=== PATIENT | male | born 1935 | race Caucasian/White ===

== ENCOUNTER → 2016-10-01 | Outpatient (CLI) | payer OTHER ==
[~2016-10-01] MED LIST: ALL60 PO; ASPEC325 PO; CHOND PO; DHEA PO; GLC500 PO; GLUCOS PO; GLYB-108 PO; NAPR-1169 PO; OCCUVITE PO; OMEG10007 PO; TELM80TA6 PO
[2016-10-01 10:36] LABS: ESTIMATED AVERAGE GLUCOSE 146 mg/dl; HA1C FLAG Normal (Normal)
[2016-10-01 12:34] LABS: ALT/SGPT 31 U/L (12-78); BLOOD UREA NITROGEN 21 mg/dl (7-18); BUN/CREATININE RATIO 13.9 (10-20); CALCIUM 8.5 mg/dl (8.5-10.1); CARBON DIOXIDE 25 mmol/L (21-32); CHLORIDE 104 mmol/L (98-107); GLUCOSE 215 mg/dl (70-99); POTASSIUM 4.5 mmol/L (3.5-5.1); SODIUM 139 mmol/L (136-145)
[2016-10-01 12:39] LABS: ALB/GLOB RATIO 1.2 (0.9-2); ALKALINE PHOSPHATASE 52 U/L (45-117); AST/SGOT 18 U/L (15-37); CHOLESTEROL 166 mg/dl (0-200); HDL CHOLESTEROL 56 mg/dl; LDL CHOLESTEROL CALCULATED 90 mg/dl; PROSTATE SPECIFIC ANTIGEN < 0.010 ng/ml (0.000-4.000); TRIGLYCERIDES 98 mg/dl (0-150); VERY LOW DENSITY LIPOPROT CALC 20 mg/dl
== END | disposition home or self-care (01) ==
LOC: C.LAB1850 09:21
PROVIDERS: ATTEND Internal Medicine
DX: E11.9 Type 2 diabetes mellitus without complications (principal); Z12.5 Encounter for screening for malignant neoplasm of prostate

== ENCOUNTER → 2017-04-02 | Outpatient (CLI) | payer OTHER ==
[~2017-04-02] MED LIST changes: +TELM80TA4 PO; -TELM80TA6 PO
[2017-04-02 12:37] LABS: ESTIMATED AVERAGE GLUCOSE 157 mg/dl; HA1C FLAG Normal (Normal)
[2017-04-02 12:53] LABS: BLOOD UREA NITROGEN 20 mg/dl (7-18); BUN/CREATININE RATIO 13.1 (10-20); CALCIUM 9.2 mg/dl (8.5-10.1); CARBON DIOXIDE 27 mmol/L (21-32); CHLORIDE 102 mmol/L (98-107); CHOLESTEROL 184 mg/dl (0-200); GLUCOSE 234 mg/dl (70-99); POTASSIUM 4.3 mmol/L (3.5-5.1); SODIUM 136 mmol/L (136-145); TRIGLYCERIDES 178 mg/dl (0-150); VERY LOW DENSITY LIPOPROT CALC 36 mg/dl
[2017-04-02 12:55] LABS: CHOLESTEROL/HDL RATIO 3.3; HDL CHOLESTEROL 55 mg/dl; LDL CHOLESTEROL CALCULATED 93 mg/dl
== END | disposition home or self-care (01) ==
LOC: C.LAB1850 09:54
PROVIDERS: ATTEND Internal Medicine
DX: E11.9 Type 2 diabetes mellitus without complications (principal); I10 Essential (primary) hypertension

== ENCOUNTER 2021-10-05 22:52 | Inpatient (IN) ==
[2021-10-05 23:38] LABS: Basophils # (auto) 0.01 K/uL (0-0.2); Basophils % (auto) 0.2 %; Eosinophils # (auto) 0.19 K/uL (0-0.5); Eosinophils % (auto) 3.5 %; Hematocrit (blood only) 35.2 % (42-52); Hemoglobin 12.5 g/dL (14.0-18.0); Lymphocytes # (auto) 2.22 K/uL (1.2-3.4); Lymphocytes % (auto) 40.4 %; Mean Corpuscular Hemoglobin 29.3 pg (25-34); Mean Corpuscular Hgb Conc 35.5 g/dL (32-36); Mean Corpuscular Volume 82.6 fL (80-100); Mean Platelet Volume 9.1 fL (7.4-10.4); Monocytes # (auto) 0.42 K/uL (0.11-0.59); Monocytes % (auto) 7.7 %; Neutrophils # (auto) 2.65 K/uL (1.4-6.5); Neutrophils % (auto) 48.2 %; Platelet Count 213 K/uL (130-400); RDW Coefficient of Variation 13.5 % (11.5-14.5); RDW Standard Deviation 40.6 fL (36.4-46.3); Red Blood Count 4.26 M/uL (4.7-6.1); White Blood Count 5.49 K/uL (4.8-10.8)
[2021-10-05 23:51] LABS: INR 1.1 (0.9-1.1); Partial Thromboplastin Time 27.6 Seconds (21.0-31.0); Prothrombin Time 11.2 Seconds (9.0-12.0)
[2021-10-06 00:02] LABS: Appearance Urine Clear (Clear); Bilirubin Urine Negative (Negative); Blood Urine Negative (Negative); Color Urine Yellow; Glucose Urine UA Trace (Negative); Ketones Urine Negative (Negative); Leukocyte Esterase Urine Negative (Negative); Nitrite Urine Negative (Negative); Protein Urine Negative (Negative); Urobilinogen Urine Negative (Negative); pH Urine 6.5 (4.5-7.5)
[2021-10-06 00:05] LABS: Albumin Globulin Ratio 1.6 (0.9-2); BUN Creatinine Ratio 19.1 (10-20); Bilirubin,Total 0.6 mg/dl (0.2-1.0); Calcium 9.2 mg/dl (8.5-10.1); Creatinine Clr Calc Pharmacy 47.9 ml/min; Est GFR (African American) 57.5 ml/min; Est GFR (Non-African American) 49.6 ml/min; Globulin 2.5 gm/dl (2.5-4.0); Potassium 3.9 mmol/L (3.5-5.1); Total Protein 6.5 gm/dl (6.0-8.3)
--- NOTE | 2021-10-06 01:11 | History & Physical Report ---
Date of Service October 06, 2021 Assessment & Plan (1) Closed left hip fracture: Plan: N.p.o. after midnight Geriatric hip fracture order set Acetaminophen 650 mg p.o. every 6 hours as needed mild pain or fever Anthon 5/325, 1 p.o. every 6 hours as needed moderate pain Anthon 5/325, 2 p.o. every 6 hours as needed severe pain Dilaudid 0.25 mg IV every 3 hours as needed moderate pain Dilaudid 0.5 mg IV every 3 hours as needed severe pain Zofran 4 mg IV every 6 hours as needed LR at 80 mils per hour Consult orthopedic surgery (2) Hypertension: Plan: Hold telmisartan/HCTZ Give metoprolol tartrate 25 mg p.o. now, then 25 mg p.o. twice daily with hold parameters (3) Type 2 diabetes mellitus: Plan: Hold Metformin Place on Accu-Cheks before meals and at bedtime with NovoLog coverage per scale (4) Greater trochanteric bursitis of right hip: Plan: Following up with orthopedics in the outpatient setting (5) Gait abnormality: Plan: Following up in the outpatient setting (6) Spinal stenosis of lumbar region: Plan: Reports has a appointment with pain management History of Present Illness Chief Complaint: The patient presents to the emergency department with complaint of left hip pain that occurred when he was leaning forward to pick something up off of the floor, and kept going forward, had his left shoulder hit the wall, and then left hip hit the floor and sustained immediate pain in left hip. He reports no left shoulder pain or disability Primary Care Provider: Armando Valencia MD The patient is 86-year-old male with a past medical history including right greater trochanteric bursitis, diabetes mellitus, hypertension, bilateral hip arthritis, lumbar compression fracture, sacroiliitis, allergic rhinitis, pars defect of lumbar spine, lumbar spinal stenosis and gait abnormality. He presents to the emergency department as noted above. Allergies Allergy/AdvReac Type Severity Reaction Status Date / Time No Known Drug Allergies Allergy Unknown Unknown Verified 10/05/21 23:28 Dust Allergy Unknown Congested Uncoded 10/05/21 23:28 Home Medications Medication Instructions Recorded Confirmed Type cetirizine 10 mg tablet (Zyrtec) 10 mg PO DAILY 06/10/18 10/05/21 History omega 4-uot-pee-fish oil 1,000 mg 1 cap PO DAILY 06/10/18 10/05/21 History (120 mg-180 mg) capsule (Fish Oil) vit C,E,zinc,copper-udsnd8y 250 1 cap PO DAILY 06/10/18 10/05/21 History mg-lutein 5 mg-zeaxanthin 1 mg capsule (Ocuvite Adult 50 Plus) cholecalciferol (vitamin D3) 25 1,000 units PO DAILY tab 01/15/19 10/05/21 History mcg (1,000 unit) tablet aspirin 325 mg tablet 650 mg PO BID PRN 03/15/20 10/05/21 History telmisartan 80 1 tab PO DAILY #90 tab 01/29/21 10/05/21 Rx mg-hydrochlorothiazide 25 mg tablet (Micardis HCT) Wheeled Walker #1 ea 06/18/21 07/30/21 Rx OneTouch Delica Lancets 30 gauge #100 ea NS 07/31/21 Rx (lancets) OneTouch Ultra Test (blood sugar #100 ea NS 07/31/21 Rx diagnostic) metformin 500 mg tablet 500 mg PO DAILY 10/05/21 10/05/21 History Past Med/Surg History Medical History Allergic rhinitis Anterolisthesis Arthritis Diabetes mellitus Gait abnormality Greater trochanteric bursitis of right hip History of gastritis Hypertension Inhibited sexual excitement Lumbar compression fracture Myofascial pain Pars defect of lumbar spine Sacroiliitis Sciatica of right side Spinal stenosis of lumbar region Type 2 diabetes mellitus Surgical History History of knee replacement S/P colonoscopy S/P tonsillectomy S/P tooth extraction Family History Mother Diabetes Renal failure History of miscarriage Sister Uterine cancer Ovarian cancer Father Cardiomegaly Colon cancer Family/Other No problems noted. 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 marital status: Current Living Situation: Spouse current occupational status: retired Feels Safe at Home: Yes Dental Care, Regularly: Yes Physical Activity Frequency: 3-4 Times per Week Physical Activity Frequency Comment: Regularly, stationary bike Seatbelt Use: always Sunscreen Use: Yes Review of Systems Review of Systems: The patient denies chest pain, palpitations, shortness of breath, dyspnea on exertion, cough, lower extremity swelling, sore throat, fevers, chills, sweats, nausea, vomiting, diarrhea , constipation, abdominal pain, pelvic pain, blood in urine or stool, dysuria, urinary frequency or urgency, headache, memory loss, loss of consciousness, rash, abnormal bruising or bleeding, focal or generalized weakness, numbness or tingling in arms none generalized arthralgias or myalgias, neck pain, or night sweats. The review of systems is otherwise negative other than for that already noted above, and at least 10 systems have been reviewed. Physical Exam Physical Exam: The patient is awake, alert and oriented 3, well developed and well nourished, normocephalic and atraumatic, lying in bed and in no acute distress while lying still HEENT--PERRL, EOMI, mucous membranes and oropharynx normal Neck--supple. No JVD. No bruits. Thyroid normal, trachea midline, no adenopathy. Heart--normal S1 and S2. No murmurs, rubs or gallops. Lungs--clear bilaterally, no respiratory distress, no accessory muscle use. Abdomen--normal bowel sounds and soft. Nontender. Nondistended, no hernias or masses, no organomegaly. Extremities--no cyanosis or clubbing. No edema. There are good distal pulses b/l. Dermatologic--normal skin turgor, normal color, no abnormal lymph nodes, no rash. Neurologic--cranial nerves II through XII grossly intact. Rheumatologic--left hip externally rotated, with severe pain upon light palpation Psychiatric--normal affect. Results & Data Results & Data ([facility]) Vital Signs (Past 12 Hours) Vital Signs Temp Pulse Resp BP Pulse Ox 10/05/21 23:15 76 14 155/77 H 100 10/05/21 23:07 36.9 C 77 18 155/77 H 100 Laboratory Results Laboratory Results WBC 5.49 K/uL (4.8-10.8) 10/05/21 23:00 RBC 4.26 M/uL (4.7-6.1) L 10/05/21 23:00 Hgb 12.5 g/dL (14.0-18.0) L 10/05/21 23:00 Hct 35.2 % (42-52) L 10/05/21 23:00 MCV 82.6 fL (80-100) 10/05/21 23:00 MCH 29.3 pg (25-34) 10/05/21 23: MCHC 35.5 g/dL (32-36) 10/05/21:00 RDW Std Deviation 40.6 fL (36.4-46.3) 10/05/21: RDW Coeff of Thierry 13.5 % (11.5-14.5) 10/05/21: Plt Count 213 K/uL (130-400) 10/05/21 23:00 MPV 9.1 fL (7.4-10.4) 10/05/21 23:00 Immature Gran % (Auto) 0.0 % 10/05/21 23:00 Neut % (Auto) 48.2 % 10/05/21 23:00 Lymph % (Auto) 40.4 % 10/05/21 23:00 [place] % (Auto) 7.7 % 10/05/21 23:00 Eos % (Auto) 3.5 % 10/05/21 23:00 Baso % (Auto) 0.2 % 10/05/21 23:00 Neut # (Auto) 2.65 K/uL (1.4-6.5) 10/05/21 23:00 Lymph # (Auto) 2.22 K/uL (1.2-3.4) 10/05/21 23:00 [place] # (Auto) 0.42 K/uL (0.11-0.59) 10/05/21 23:00 Eos # (Auto) 0.19 K/uL (0-0.5) 10/05/21 23:00 Baso # (Auto) 0.01 K/uL (0-0.2) 10/05/21 23:00 Immature Gran # (Auto) 0.00 K/uL (0.00-0.02) 10/05/21 23:00 PT 11.2 Seconds (9.0-12.0) 10/05/21 23:00 INR 1.1 (0.9-1.1) 10/05/21 23:00 APTT 27.6 Seconds (21.0-31.0) 10/05/21 23:00 PTT Ratio 1.0 10/05/21 23:00 Sodium 135 mmol/L (136-145) L 10/05/21 23:00 Potassium 3.9 mmol/L (3.5-5.1) 10/05/21 23:00 Chloride 102 mmol/L (98-107) 10/05/21 23:00 Carbon Dioxide 25 mmol/L (21-32) 10/05/21 23:00 Anion Gap 8 (3-11) 10/05/21 23:00 BUN 25 mg/dl (6-23) H 10/05/21 23:00 Creatinine 1.31 mg/dl (0.6-1.4) 10/05/21 23:00 Est Cr Clr Drug Dosing 47.9 ml/min 10/05/21 23:00 Est GFR ( Amer) 57.5 ml/min 10/05/21 23:00 Est GFR (Non-Af Amer) 49.6 ml/min 10/05/21 23:00 BUN/Creatinine Ratio 19.1 (10-20) 10/05/21 23:00 Glucose 194 mg/dl (70-99(Fasting)) H 10/05/21 23:00 Calcium 9.2 mg/dl (8.5-10.1) 10/05/21 23:00 Total Bilirubin 0.6 mg/dl (0.2-1.0) 10/05/21 23:00 AST 10 U/L (13-39) L 10/05/21 23:00 ALT 11 U/L (7-52) 10/05/21 23:00 Alkaline Phosphatase 73 U/L (34-104) 10/05/21 23:00 Total Protein 6.5 gm/dl (6.0-8.3) 10/05/21 23:00 Albumin 4.0 gm/dl (3.4-5.0) 10/05/21 23:00 Globulin 2.5 gm/dl (2.5-4.0) 10/05/21 23:00 Albumin/Globulin Ratio 1.6 (0.9-2) 10/05/21 23:00 Urine Color Yellow 10/05/21 23:30 Urine Appearance Clear (Clear) 10/05/21 23:30 Urine pH 6.5 (4.5-7.5) 10/05/21 23:30 Ur Specific [place] 1.010 (1.000-1.030) 10/05/21 23:30 Urine Protein Negative (Negative) 10/05/21 23:30 Urine Glucose (UA) Trace (Negative) H 10/05/21 23:30 Urine Ketones Negative (Negative) 10/05/21 23:30 Urine Blood Negative (Negative) 10/05/21 23:30 Urine Nitrite Negative (Negative) 10/05/21 23:30 Urine Bilirubin Negative (Negative) 10/05/21 23:30 Urine Urobilinogen Negative (Negative) 10/05/21 23:30 Ur Leukocyte Esterase Negative (Negative) 10/05/21 23:30 SARS-CoV-2, RNA, NAAT NEGATIVE (NEGATIVE) 10/06/21 01:15 Code Status & VTE Plan Code Status Full code VTE Prophylaxis Plan VTE Prophylaxis will be ordered: Yes PG Care Time/CCT Total # of Minutes Spent Total Time Spent with Patient: Total time spent is greater than 50% in coordination of care (as documented) at patient's floor/unit and/or counseling patient: Coding Level of Care Code 66091 Initial Inpt Care Lvl 3 Diagnoses Closed left hip fracture S72.002A Greater trochanteric bursitis of right hip M70.61 Gait abnormality R26.9 Spinal stenosis of lumbar region M48.061 Type 2 diabetes mellitus E11.9 Hypertension I10
[2021-10-06] MEDS ORDERED: METOPROLOL TARTRATE 25 MG TAB PO STA (01:12)
[2021-10-06] MEDS ORDERED: NALOXONE HCL 0.4 MG/1 ML VIAL/CARP IV PRN (03:20)
[2021-10-06] MEDS ORDERED: bisacodyL 10 MG SUPP PR PRN (03:20)
[2021-10-06] MEDS ORDERED: MAGNESIUM HYDROXIDE SUSP 30 ML UDC PO PRN (03:20)
[2021-10-06] MEDS ORDERED: ACETAMINOPHEN 325 MG TAB PO PRN (03:20)
[2021-10-06] MEDS ORDERED: HYDROCODONE/ACETAMOPHEN 5/325MG TAB PO PRN (03:20)
[2021-10-06] MEDS ORDERED: CARBOHYDRATES FOR HYPOGLYCEMIA PO PRN (03:20)
[2021-10-06] MEDS ORDERED: DEXTROSE 50% 50 ML SYRINGE IV PRN (03:20)
[2021-10-06] MEDS ORDERED: GLUCAGON FOR INJ 1 MG VIAL SQ PRN (03:20)
[2021-10-06] MEDS ORDERED: GLUCOSE 10 TABS/TUBE PO PRN (03:20)
[2021-10-06] MEDS ORDERED: GLUCOSE 40% GEL 15 GM TUBE PO PRN (03:20)
[2021-10-06] MEDS ORDERED: HYDROmorphone INJ 0.5 MG/0.5 ML SYR IV PRN (03:20)
[2021-10-06] MEDS ORDERED: Nursing to Pharmacy Communication SCH (03:30)
[2021-10-06] MEDS: HYDROmorphone INJ 0.5 MG/0.5 ML SYR IV PRN ×3 (03:35→12:13)
[2021-10-06] MEDS: LACTATED RINGER'S 1,000 ML IV SCH ×2 (03:36→16:58)
[2021-10-06] MEDS ORDERED: TRANEXAMIC ACID / 0.7% NACL 1,000 MG/100 ML BAG IV SCH ×2 (06:00→06:30)
[2021-10-06] MEDS: INSULIN ASPART PER UNIT SC SCH ×4 (06:22→20:45)
--- NOTE | 2021-10-06 07:09 | Emergency Department Note ---
Impression & Plan Closed fracture of left hip Admit to the [facility] ED Provider Note NAME: SAM ALMARAZ AGE: 86 SEX: M ARRIVES VIA: Ambulance INFORMANT: Patient ED PROVIDER(S): Mary Li DO CHIEF COMPLAINT: Fall PLAN: Disposition: Admit to the [facility] Condition: Good MEDICAL DECISION MAKING: This is an 86-year-old male patient who suffered a fall at home and fractured his left hip. He did not strike his head or lose consciousness. He bent forward he lost his balance and fell to the ground. Be admitted to the [facility] service and orthopedics will be consulted. Triage Nursing notes reviewed and agree with them. Vital Signs: reviewed and remarkable for mild hypertension Differential diagnosis: Hip dislocation, hip contusion, hip fracture ER treatment provided: Diagnostics interpreted by me: Cardiac Monitoring: Normal sinus rhythm at 68 Laboratory studies: See below Imaging studies: As per my interpretation Left hip x-ray: Femoral neck fracture HPI: 86/M arrives for evaluation of left hip pain. The patient was bending forward to fix a rug when he lost his balance and fell forward landing on his left hip. He did not strike his head or lose consciousness. He immediately had pain in the left hip and found it difficult with any movement to that joint. Patient does not take any blood thinning medications. ROS: See above HPI for pertinent positives & negatives. A total of 10 systems reviewed and were otherwise negative. PAST MEDICAL HISTORY:See Below PAST SURGICAL HISTORY:See Below FAMILY HISTORY:See Below SOCIAL HISTORY:See Below HOME MEDICATIONS:See list ALLERGIES:See list VITALS:See Below PHYSICAL EXAMINATION: HEENT: Head - normocephalic and atraumatic. Pupils are equal, round, and reactive to light. Extraocular eye muscles are intact, and sclera are anicteric. Nose - moist nasal mucosa without discharge. Mouth - moist buccal mucosa. Oropharynx is nonerythematous and there is no tonsillar exudate or edema noted. Neck: Supple; no cervical lymphadenopathy or JVD noted. Heart: Regular rate and rhythm. There is a normal S1 and S2 with no murmurs, clicks, or gallops appreciated. Lungs: Clear to auscultation bilaterally with no wheezes, rales, or rhonchi. Abdomen: Soft, completely nontender, nondistended, with good bowel sounds. There are no palpable pulsatile masses or hepatosplenomegaly. There is no guarding, rigidity, or rebound noted. Extremities: Left leg is significantly shortened and externally rotated. Patient has moderate pain with palpation in the left lateral hip and left groin. ED COURSE: Times/Reassessments: 2324: The patient was evaluated in room C3. A complete history and physical was performed. Laboratory studies were drawn as above. EMS had given the patient 4 mg of IV Zofran and 100 mcg of IV fentanyl prior to arrival. An order was placed for continuous cardiac monitoring. The patient was in a normal sinus rhythm at a rate of 68. He had plain films of the left hip performed. Reviewed the results of these x- rays with the patient. I discussed the case with the [facility] hospitalist and they will evaluate for further management. Mary Li DO Past Med/Surg History Medical History Allergic rhinitis Anterolisthesis Arthritis Diabetes mellitus Gait abnormality Greater trochanteric bursitis of right hip History of gastritis Hypertension Inhibited sexual excitement Lumbar compression fracture Myofascial pain Pars defect of lumbar spine Sacroiliitis Sciatica of right side Spinal stenosis of lumbar region Type 2 diabetes mellitus Surgical History History of knee replacement S/P colonoscopy S/P tonsillectomy S/P tooth extraction Family History Mother Diabetes Renal failure History of miscarriage Sister Uterine cancer Ovarian cancer Father Cardiomegaly Colon cancer Family/Other No problems noted. Denies family history of Prostate cancer Myocardial infarction Breast cancer Social History Smoking Status: Former smoker Second Hand Exposure: No; Hx Alcohol Use: No Hx Substance Use: No Preferred Language: Urdu Communication Ability: Effective Visual Impairment: No Limitations Hearing Ability: Normal Property Staff Accountant Required: No Beliefs That Will Affect Care: None marital status: Current Living Situation: Alone current occupational status: retired Feels Safe at Home: Yes Dental Care, Regularly: Yes Physical Activity Frequency: 3-4 Times per Week Physical Activity Frequency Comment: Regularly, stationary bike Seatbelt Use: always Sunscreen Use: Yes Assistive Devices: Glasses Allergies Allergies Allergy/AdvReac Type Severity Reaction Status Date / Time No Known Drug Allergies Allergy Unknown Unknown Verified 10/05/21 23:28 Dust Allergy Unknown Congested Uncoded 10/05/21 23:28 Home Meds Home Medications Medication Instructions Recorded Confirmed cetirizine 10 mg tablet (Zyrtec) 10 mg PO DAILY 06/10/18 10/05/21 omega 9-jga-cdi-fish oil 1,000 mg 1 cap PO DAILY 06/10/18 10/05/21 (120 mg-180 mg) capsule (Fish Oil) vit C,E,zinc,copper-vvdle4r 250 1 cap PO DAILY 06/10/18 10/05/21 mg-lutein 5 mg-zeaxanthin 1 mg capsule (Ocuvite Adult 50 Plus) cholecalciferol (vitamin D3) 25 1,000 units PO DAILY tab 01/15/19 10/05/21 mcg (1,000 unit) tablet aspirin 325 mg tablet 650 mg PO BID PRN 03/15/20 10/05/21 metformin 500 mg tablet 500 mg PO DAILY 10/05/21 10/05/21 Previous Rx's Medication Instructions Recorded telmisartan 80 1 tab PO DAILY #90 tab 01/29/21 mg-hydrochlorothiazide 25 mg tablet (Micardis HCT) Wheeled Walker #1 ea 06/18/21 OneTouch Delica Lancets 30 gauge #100 ea NS 07/31/21 (lancets) OneTouch Ultra Test (blood sugar #100 ea NS 07/31/21 diagnostic) Results & Data (ED) Vital Signs Vital Signs - 24 hr 10/05/21 23:07 10/05/21 23:15 10/06/21 01:00 Temperature 36.9 C Temperature Source Oral Pulse Rate 77 76 80 Respiratory Rate 18 14 18 Respiratory Effort / Characteristics Non-Labored Blood Pressure 155/77 H 155/77 H 140/73 Blood Pressure Mean 103 103 95 Pulse Oximetry 100 100 99 Oxygen Delivery Method Room Air Room Air Room Air Sepsis Recent Fever Within 48 Hours No Sepsis New/Unexplained Change in Mental Status N/A Sepsis Action Taken by Nursing No Action Required Laboratory Data Result diagrams: 10/05/21 23:00 10/05/21 23:00 Lab Results 10/05/21 10/05/2110/05/22 Range/Units 23:00 23:00 23:00 WBC 5.49 (4.8-10.8) K/uL RBC 4.26 L (4.7-6.1) M/uL Hgb 12.5 L (14.0-18.0) g/dL Hct 35.2 L (42-52) % MCV 82.6 (80-100) fL MCH 29.3 (25-34) pg MCHC 35.5 (32-36) g/dL RDW Std Deviation 40.6 (36.4-46.3) fL RDW Coeff of Thierry 13.5 (11.5-14.5) % Plt Count 213 (130-400) K/uL MPV 9.1 (7.4-10.4) fL Immature Gran % (Auto) 0.0 % Neut % (Auto) 48.2 % Lymph % (Auto) 40.4 % [place] % (Auto) 7.7 % Eos % (Auto) 3.5 % Baso % (Auto) 0.2 % Neut # (Auto) 2.65 (1.4-6.5) K/uL Lymph # (Auto) 2.22 (1.2-3.4) K/uL [place] # (Auto) 0.42 (0.11-0.59) K/uL Eos # (Auto) 0.19 (0-0.5) K/uL Baso # (Auto) 0.01 (0-0.2) K/uL Immature Gran # (Auto) 0.00 (0.00-0.02) K/uL PT 11.2 (9.0-12.0) Seconds INR 1.1 (0.9-1.1) APTT 27.6 (21.0-31.0) Seconds PTT Ratio 1.0 Sodium 135 L (136-145) mmol/L Potassium 3.9 (3.5-5.1) mmol/L Chloride 102 (98-107) mmol/L Carbon Dioxide 25 (21-32) mmol/L Anion Gap 8 (3-11) BUN 25 H (6-23) mg/dl Creatinine 1.31 (0.6-1.4) mg/dl Est Cr Clr Drug Dosing 47.9 ml/min Est GFR ( Amer) 57.5 ml/min Est GFR (Non-Af Amer) 49.6 ml/min BUN/Creatinine Ratio 19.1 (10-20) Glucose 194 H (70-99(Fasting)) mg/dl Calcium 9.2 (8.5-10.1) mg/dl Total Bilirubin 0.6 (0.2-1.0) mg/dl AST 10 L (13-39) U/L ALT 11 (7-52) U/L Alkaline Phosphatase 73 (34-104) U/L Total Protein 6.5 (6.0-8.3) gm/dl Albumin 4.0 (3.4-5.0) gm/dl Globulin 2.5 (2.5-4.0) gm/dl Albumin/Globulin Ratio 1.6 (0.9-2) Urine Color Urine Appearance (Clear) Urine pH (4.5-7.5) Ur Specific [place] (1.000-1.030) Urine Protein (Negative) Urine Glucose (UA) (Negative) Urine Ketones (Negative) Urine Blood (Negative) Urine Nitrite (Negative) Urine Bilirubin (Negative) Urine Urobilinogen (Negative) Ur Leukocyte Esterase (Negative) 10/05/21 Range/Units 23:30 WBC (4.8-10.8) K/uL RBC (4.7-6.1) M/uL Hgb (14.0-18.0) g/dL Hct (42-52) % MCV (80-100) fL MCH (25-34) pg MCHC (32-36) g/dL RDW Std Deviation (36.4-46.3) fL RDW Coeff of Thierry (11.5-14.5) % Plt Count (130-400) K/uL MPV (7.4-10.4) fL Immature Gran % (Auto) % Neut % (Auto) % Lymph % (Auto) % [place] % (Auto) % Eos % (Auto) % Baso % (Auto) % Neut # (Auto) (1.4-6.5) K/uL Lymph # (Auto) (1.2-3.4) K/uL [place] # (Auto) (0.11-0.59) K/uL Eos # (Auto) (0-0.5) K/uL Baso # (Auto) (0-0.2) K/uL Immature Gran # (Auto) (0.00-0.02) K/uL PT (9.0-12.0) Seconds INR (0.9-1.1) APTT (21.0-31.0) Seconds PTT Ratio Sodium (136-145) mmol/L Potassium (3.5-5.1) mmol/L Chloride (98-107) mmol/L Carbon Dioxide (21-32) mmol/L Anion Gap (3-11) BUN (6-23) mg/dl Creatinine (0.6-1.4) mg/dl Est Cr Clr Drug Dosing ml/min Est GFR ( Amer) ml/min Est GFR (Non-Af Amer) ml/min BUN/Creatinine Ratio (10-20) Glucose (70-99(Fasting)) mg/dl Calcium (8.5-10.1) mg/dl Total Bilirubin (0.2-1.0) mg/dl AST (13-39) U/L ALT (7-52) U/L Alkaline Phosphatase (34-104) U/L Total Protein (6.0-8.3) gm/dl Albumin (3.4-5.0) gm/dl Globulin (2.5-4.0) gm/dl Albumin/Globulin Ratio (0.9-2) Urine Color Yellow Urine Appearance Clear (Clear) Urine pH 6.5 (4.5-7.5) Ur Specific [place] 1.010 (1.000-1.030) Urine Protein Negative (Negative) Urine Glucose (UA) Trace H (Negative) Urine Ketones Negative (Negative) Urine Blood Negative (Negative) Urine Nitrite Negative (Negative) Urine Bilirubin Negative (Negative) Urine Urobilinogen Negative (Negative) Ur Leukocyte Esterase Negative (Negative) Administered Medications Hydromorphone HCl (Hydromorphone Inj 0.5 Mg/0.5 Ml Syr) 0.5 mg IV Q3H PRN PRN Reason: Pain (6,7,8,9,10) Stop: 10/20/21 03:19 Last Admin: 10/06/21 03:35 Dose: 0.5 mg Documented by: [id number] Lactated Ringer's (Lr) 1,000 mls @ 80 mls/hr IV .[id number] DAMASO Stop: 11/05/21 03:19 Last Admin: 04/16/22 03:36 Dose: 80 mls/hr Documented by: [id number] Insulin Aspart (Insulin Aspart Per Unit) 0 units SC Q6 DAMASO Stop: 11/05/21 05:59 Last Admin: 10/06/21 06:22 Dose: 1 units Documented by: [id number] Cosigned by: [id number] Discontinued Medications Metoprolol Tartrate (Metoprolol Tartrate 25 Mg Tab) 25 mg PO NOW STA Stop: 10/06/21 01:13 Last Admin: 10/06/21 01:40 Dose: 25 mg Documented by: [id number] Discharge Plan Visit Data Chief Complaint: Syncope Stated Complaint: Syncope, fall, hip pain ED Provider: Mary Li Discharge Problem: Closed fracture of left hip Patient Disposition: Admitted As Inpatient Discharge Instructions Interventions: ED Discharge Assessment Last Done: 10/06/21 03:14 Discharge Problem: Closed fracture of left hip Qualifiers: Encounter type: initial encounter Qualified Code(s): S72.002A - Fracture of unspecified part of neck of left femur, initial encounter for closed fracture
[2021-10-06] MEDS: CHOLECALCIFEROL 1,000 UNITS 25 MCG TAB PO SCH (07:11)
[2021-10-06] MEDS: CETIRIZINE HCL 10 MG TABLET PO SCH (07:11)
[2021-10-06] MEDS: METOPROLOL TARTRATE 25 MG TAB PO SCH ×2 (07:11→20:34)
[2021-10-06] MEDS: HYDROCODONE/ACETAMOPHEN 5/325MG TAB PO PRN (07:39)
--- NOTE | 2021-10-06 08:17 | XRay Report ---
XR hip LT min 2V CLINICAL HISTORY: left hip pain. Status post fall COMPARISON STUDY: No previous studies for comparison. 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 Bones: There is evidence for a comminuted, intertrochanteric fracture of the left femoral neck. The l rene trochanters displaced medially. There is no lytic or blastic lesion. Joints: The hip joint space appears narrowed. There is evidence for mild coxa varus deformity. Soft tissues: There is no focal soft tissue abnormality. There is no radiopaque foreign body. IMPRESSION: 1. Limited examination with evidence for an intratrochanteric fracture of the left femoral neck. ACT 112: Negative or not required by law. Electronically signed by: Fabien Santiago M.D. 10/06/2021 8:15 AM
[2021-10-06 08:46] LABS: Estimated Average Glucose 120 mg/dl; Hemoglobin A1C 5.8 % (4.5-5.6)
--- NOTE | 2021-10-06 09:13 | Anesthesiology Consultation ---
Date of Service October 06, 2021 Assessment & Plan (1) Encounter for pre-operative examination: Chart Review Chart Review: Acceptable Risk for Surgery and Patient NOT seen in Pre Admission Testing Consults Requested none History Surgery Operation Date: 10/06/21 12:00 Proposed Procedures p Intramedullary Nitin Femur(Left) - Mike Dowell MD Height/Weight Height: 5 ft 9 in Weight: 92.8 kg Allergies Allergy/AdvReac Type Severity Reaction Status Date / Time No Known Drug Allergies Allergy Unknown Unknown Verified 10/05/21 23:28 Dust Allergy Unknown Congested Uncoded 10/05/21 23:28 Medications Home Medications Medication Instructions Recorded Confirmed Last Taken cetirizine 10 mg tablet (Zyrtec) 10 mg PO DAILY 06/10/18 10/05/21 10/05/21 omega 8-gao-syk-fish oil 1,000 mg 1 cap PO DAILY 06/10/18 10/05/21 10/05/21 (120 mg-180 mg) capsule (Fish Oil) vit C,E,zinc,copper-jgnld6n 250 1 cap PO DAILY 06/10/18 10/05/21 10/05/21 mg-lutein 5 mg-zeaxanthin 1 mg capsule (Ocuvite Adult 50 Plus) cholecalciferol (vitamin D3) 25 1,000 units PO DAILY tab 01/15/19 10/05/21 10/05/21 mcg (1,000 unit) tablet aspirin 325 mg tablet 650 mg PO BID PRN 03/15/20 10/05/21 Unknown telmisartan 80 1 tab PO DAILY #90 tab 01/29/21 10/05/21 10/05/21 mg-hydrochlorothiazide 25 mg tablet (Micardis HCT) Wheeled Walker #1 ea 06/18/21 07/30/21 Unknown OneTouch Delica Lancets 30 gauge #100 ea NS 07/31/21 Unknown (lancets) OneTouch Ultra Test (blood sugar #100 ea NS 07/31/21 Unknown diagnostic) metformin 500 mg tablet 500 mg PO DAILY 10/05/21 10/05/21 10/05/21 Active Medications Generic Name Dose Route Start Last Admin Trade Name Freq PRN Reason Stop Dose Admin Hydrocodone Bitart/Acetaminophen 2 tab 10/06/21 03:20 10/06/21 07:39 Hydrocodone/Acetamophen 5/325mg Tab PO 10/20/21 03:19 2 tab Q4H PRN Administration SEVERE Pain (7,8,9,10) Cetirizine HCl 10 mg 10/06/21 09:00 10/06/21 07:11 Cetirizine Hcl 10 Mg Tablet PO 11/05/21 08:59 Not Given DAILY DAMASO Hydromorphone HCl 0.5 mg 10/06/21 03:20 10/06/21 03:35 Hydromorphone Inj 0.5 Mg/0.5 Ml Syr IV 10/20/21 03:19 0.5 mg Q3H PRN Administration Pain (6,7,8,9,10) Lactated Ringer's 1,000 mls @ 80 mls/hr 10/06/21 03:20 10/06/21 03:36 Lr IV 11/05/21 03:19 80 mls/hr .[id number] DAMASO Administration Insulin Aspart 0 units 10/06/21 06:00 10/06/21 06:22 Insulin Aspart Per Unit SC 11/05/21 05:59 1 units Q6 DAMASO Administration Metoprolol Tartrate 25 mg 10/06/21 09:00 10/06/21 07:11 Metoprolol Tartrate 25 Mg Tab PO 11/05/21 08:59 Not Given BID DAMASO Vitamin D 1,000 units 10/06/21 09:00 10/06/21 07:11 Cholecalciferol 1,000 Units 25 Mcg Tab PO 11/05/21 08:59 Not Given DAILY DAMASO NPO Date Last Intake of Fluids: 10/05/21 Date Last Intake of Solids: 10/05/21 Past Medical History Medical History Allergic rhinitis Anterolisthesis Arthritis Diabetes mellitus Gait abnormality Greater trochanteric bursitis of right hip History of gastritis Hypertension Inhibited sexual excitement Lumbar compression fracture Myofascial pain Pars defect of lumbar spine Sacroiliitis Sciatica of right side Spinal stenosis of lumbar region Type 2 diabetes mellitus Past Family History Family History Mother Diabetes Renal failure History of miscarriage Sister Uterine cancer Ovarian cancer Father Cardiomegaly Colon cancer Family/Other No problems noted. Denies family history of Prostate cancer Myocardial infarction Breast cancer Past Surgical History Surgical History History of knee replacement S/P colonoscopy S/P tonsillectomy S/P tooth extraction Social History Smoking Status: Former smoker Do You Dip or Chew Tobacco: No Hx Alcohol Use: No Alcohol type: wine alcohol intake frequency: 0-2 drinks per day Hx Substance Use: No Physical Exam Vital Signs Last Vital Signs Temp 98.8 F 10/06/21 07:21 Pulse 75 10/06/21 07:21 Resp 18 10/06/21 07:21 BP 167/76 H 10/06/21 07:21 Pulse Ox 98 10/06/21 07:21 Testing Laboratory Results 10/05/21 23:00 10/05/21 23:00 PT 11.2 Seconds (9.0-12.0) 10/05/21 23:00 INR 1.1 (0.9-1.1) 10/05/21 23:00 APTT 27.6 Seconds (21.0-31.0) 10/05/21 23:00 Hemoglobin A1c 5.8 % (4.5-5.6) H 10/06/21 05:29 Urine Color Yellow 10/05/21 23:30 Urine Appearance Clear (Clear) 10/05/21 23:30 Urine pH 6.5 (4.5-7.5) 10/05/21 23:30 Ur Specific [place] 1.010 (1.000-1.030) 10/05/21 23:30 Urine Protein Negative (Negative) 10/05/21 23:30 Urine Glucose (UA) Trace (Negative) H 10/05/21 23:30 Urine Ketones Negative (Negative) 10/05/21 23:30 Urine Nitrite Negative (Negative) 10/05/21 23:30 Ur Leukocyte Esterase Negative (Negative) 10/05/21 23:30 Blood Type B Positive 10/06/21 05:29 Antibody Screen NEGATIVE 10/06/21 05:29 10/06/21 06:03 POC Glucose 197 H Electrocardiogram Date: 10/05/21 accelerated junctional rhythm
[2021-10-06] MEDS ORDERED: ceFAZolin 2000MG 2,000 MG/15 ML SYR IV ONE (09:21)
[2021-10-06] MEDS ORDERED: TRANEXAMIC ACID / 0.7% NACL 1,000 MG/100 ML BAG IV ONE ×2 (09:21→22:30)
--- NOTE | 2021-10-06 09:55 | Consultation Report ---
ORTHOPEDIC CONSULTATION DATE OF SERVICE: 10/06/2021. HISTORY OF PRESENT ILLNESS: The patient is an 86-year-old gentleman who lost his balance last evenin g and fell injuring his left hip. He has been having some recent problems with his back and right hi p and he sees Dr. Hutchinson for that. He is complaining of severe left hip pain. He has been admitted with a diagnosis of a hip fracture. There is no history of prior injuries. No issues with bleeding, blood clots, metal allergies or MRSA. PAST MEDICAL HISTORY: Significant for hip bursitis, spinal stenosis, sciatica, diabetes, high blood p ressure. MEDICATIONS: Noted and reviewed. He is not on any blood thinners. PAST SURGICAL HISTORY: Consists of tonsillectomy, colonoscopy, tooth extraction, and bilateral total knee arthroplasties. ALLERGIES: No known drug allergies. PHYSICAL EXAMINATION: He can move both upper extremities freely. His head is atraumatic and he can t urn his head without difficulty. He can bend the right leg with mild difficulty. There is some disc omfort, which appears to be mainly in the left hip area, but may be in the right femoral area. He brunson s incisions consistent with total knee arthroplasty. The right leg shows no direct tenderness to pal pation except for a little bit of soreness above his right knee. There is no bruising or swelling an d log rolling is negative. Left hip, he has significant pain with any movement of the left hip. It is shortened and externally rotated and tender to palpation in left hip area. The left thigh, knee, leg, foot and ankle are nont ron. He has 5-/5 ankle dorsiflexion, plantarflexion, and EHL function. He has difficulty everting and inverting the foot, probably secondary to pain. Posterior tibial is 1+. Sensation intact. No s ignificant swelling. LABORATORY DATA: White count 5, hemoglobin 13, hematocrit 35, platelets are 213. PT/INR within norm al limits. PRP is noted. Mild elevation of BUN and glucose. Hemoglobin A1c 5.8. SARS negative. UA negative. Radiographs show an intertrochanteric fracture with complete fracture of the lesser troch anter. The fracture is displaced. IMPRESSION: Left hip intertrochanteric fracture. PLAN: Findings are discussed with the patient and daughter. Recommended surgery. He agrees to proc eed. N.p.o. TXA, preop antibiotics. They were educated about the surgical procedure. We talked ab out risks, benefits, rehab, and recovery. An informed consent was obtained and will plan on surgery later this afternoon. He has been n.p.o. Postoperative recovery discussed with the patient and tasneem wolfe. Job ID: [id number]
[2021-10-06] MEDS ORDERED: MIDAZOLAM HCL 1 MG/ML 2ML VIAL ONE (11:09)
--- NOTE | 2021-10-06 11:09 | XRay Report ---
XR knee RT 1 or 2V routine CLINICAL HISTORY: Fall with right leg pain. COMPARISON STUDY: 08/13/2007 TECHNIQUE: 2 right knee views FINDINGS: Bones: There is no evidence for an acute fracture or dislocation. There is no lytic or blastic lesion . Joints: The patient is again status post total knee replacement with no change in position or alignme nt of the prosthetic components. However, there is increased radiolucency at the cement bone interfac e of the tibial plateau component. The presence of early loosening cannot be excluded. There is no ev idence for an intra-articular effusion. The bones are in anatomic alignment. Soft tissues: There is no focal soft tissue abnormality. There is no radiopaque foreign body. IMPRESSION: 1. No acute osseous pathology. 2. Intact total knee replacement with suspicion of early loosening of the tibial plateau component. ACT 112: Negative or not required by law. Electronically signed by: Fabien Santiago M.D. 10/06/2021 11:08 AM
[2021-10-06] MEDS ORDERED: fentaNYL citrate 100 MCG/2 ML VIAL ONE ×2 (11:12→12:33)
--- NOTE | 2021-10-06 11:13 | XRay Report ---
XR femur RT 2V routine, XR hip RT min 2V CLINICAL HISTORY: Fall with right leg pain. COMPARISON STUDY: No previous studies for comparison. TECHNIQUE: 2 views of the right hip and AP and lateral views of the right femur. FINDINGS: This is a limited examination due to panniculus overlapping the right hip Bones: There is no evidence for an acute fracture or dislocation. There is no lytic or blastic lesion . Joints: There is evidence for narrowing of the hip joint space. The patient is status post total knee replacement. The bones are in anatomic alignment. Soft tissues: There is no focal soft tissue abnormality. There is no radiopaque foreign body. IMPRESSION: 1. Limited evaluation of the right hip due to overlying panniculus. If the patient's pain persists, f ollow-up CT would be the study of choice for further evaluation. 2. The remainder the femoral shaft is intact. ACT 112: Negative or not required by law. Electronically signed by: Fabien Santiago M.D. 10/06/2021 11:11 AM
--- NOTE | 2021-10-06 11:53 | Electrocardiogram Report ---
Test Reason : Blood Pressure : / mmHG Vent. Rate : 076 BPM Atrial Rate : 077 BPM P-R Int : 000 ms QRS Dur : 100 ms QT Int : 390 ms P-R-T Axes : 000 -11 027 degrees QTc Int : 438 ms Sinus rhythm with 1st degree AV block Abnormal ECG When compared with ECG of 10-JUN-2018 22:44, no change Confirmed by Jethro Macias ([id number]) on 10/06/2021 11:52:52 AM Referred By: REFERRED SELF Confirmed By:Tim Macias
[2021-10-06] MEDS ORDERED: ONDANSETRON INJ 2 MG/ML 2 ML VIAL ONE (12:32)
[2021-10-06] MEDS ORDERED: PROPOFOL IV EMULSION 10 MG/ML 20 ML VIAL IV ONE (12:32)
[2021-10-06] MEDS ORDERED: LIDOCAINE 2% 2 ML VIAL/AMP(20MG/ML) INFIL ONE (12:32)
--- NOTE | 2021-10-06 12:45 | XRay Report ---
XR chest 1V portable CLINICAL HISTORY: pre-op. Evaluate cardiopulmonary status COMPARISON STUDY: 06/10/2018 TECHNIQUE: 1 view of the chest FINDINGS: Single frontal view of the chest demonstrates the heart to be enlarged. The lungs are clear of alveol ar opacities. There is no evidence for pleural effusion. There is no evidence for vascular congestion . There is no acute osseous pathology. IMPRESSION: 1. Cardiomegaly with no acute chest disease. ACT 112: Negative or not required by law. Electronically signed by: Fabien Santiago M.D. 10/06/2021 12:43 PM
--- NOTE | 2021-10-06 12:46 | XRay Report ---
XR finger(s) LT min 2V CLINICAL HISTORY: 4 finger, base of 5th finger bruising. COMPARISON STUDY: 06/10/2018 TECHNIQUE: Three fourth left and fifth finger views FINDINGS: Bones: Bones are osteopenic. There is no evidence for an acute fracture or dislocation. There is no l ytic or blastic lesion. Joints: There is moderate to marked narrowing of the IP joints and mild narrowing of the MCP joints. The bones are in anatomic alignment. Soft tissues: There is no focal soft tissue abnormality. There is no radiopaque foreign body. IMPRESSION: 1. Osteopenia and osteoarthritis ACT 112: Negative or not required by law. Electronically signed by: Fabien Santiago M.D. 10/06/2021 12:45 PM
[2021-10-06] MEDS ORDERED: ACETAMINOPHEN 1000 MG/100 ML IV IV ONE (13:01)
[2021-10-06] MEDS ORDERED: ePHEDrine sulfate 50 MG/ML AMP IV PRN (13:07)
[2021-10-06] MEDS ORDERED: ATROPINE SULFATE 0.1 MG/ML 10ML SYR IV PRN (13:07)
[2021-10-06] MEDS ORDERED: fentaNYL citrate 100 MCG/2 ML VIAL IV PRN (13:07)
[2021-10-06] MEDS ORDERED: ONDANSETRON INJ 2 MG/ML 2 ML VIAL IV PRN (13:07)
[2021-10-06] MEDS ORDERED: ceFAZolin 330 MG/ML 1 GM VIAL ONE (13:44)
[2021-10-06] MEDS ORDERED: TRANEXAMIC ACID / 0.7% NACL 1000MG/100ML BAG IV ONE (13:45)
[2021-10-06] MEDS ORDERED: ePHEDrine sulfate 50 MG/ML AMP ONE (13:51)
[2021-10-06] MEDS ORDERED: PHENYLEPHRINE HCL 10 MG/ML VIAL ONE (14:27)
[2021-10-06] MEDS ORDERED: BUPIVACAINE 0.5 % 5 MG/1 ML MPF 30ML VIAL ONE (14:30)
[2021-10-06] MEDS ORDERED: LIDOCAINE 1% LOCAL 20 ML VIAL ONE (14:30)
--- NOTE | 2021-10-06 15:29 | Hospitalist Progress Note ---
Date of Service October 06, 2021 Assessment & Plan (1) Closed left hip fracture: Plan: NPO pending surgical fixation today Acetaminophen 650 mg p.o. every 6 hours as needed mild pain or fever [place] 5/325, 1 p.o. every 6 hours as needed moderate pain [place] 5/325, 2 p.o. every 6 hours as needed severe pain Dilaudid 0.25 mg IV every 3 hours as needed moderate pain Dilaudid 0.5 mg IV every 3 hours as needed severe pain Zofran 4 mg IV every 6 hours as needed LR at 80 mils per hour Finger XR due to significant ecchymosis and difficult exam due to patient hip fracture causing pain and confusion from pain medication Consult orthopedic surgery - planning on surgery later today (2) Hypertension: Plan: Hold telmisartan/HCTZ Give metoprolol tartrate 25 mg p.o. now, then 25 mg p.o. twice daily with hold parameters (3) Type 2 diabetes mellitus: Plan: Hold Metformin Place on Accu-Cheks before meals and at bedtime with NovoLog coverage per scale (4) Greater trochanteric bursitis of right hip: Plan: Following up with orthopedics in the outpatient setting (5) Gait abnormality: Plan: Following up in the outpatient setting PT/OT post operatively - likely to need inaptient rehab on discharge (6) Spinal stenosis of lumbar region: Plan: Reports has a appointment with pain management Plan: VTE Prophylaxis - deferred post operatively to orthopedics Diet - NPO pending surgery Disposition - continued admission to med/surg Admission and Anticipated Discharge Date Admission Date: October 06, 2021 Subjective Patient seen prior to surgery. Seen with his daughter at bedside. Patient is mildly confused on current pain medication. Unable to get history from patient but per daughter he has longstanding balance issues and had been getting physical therapy at home. Despite multiple falls in the past this is the first bone he has broken. Pain under control with dilaudid. No concern for illness prior to falling and had been doing better with his balance with physical therapy. Review of Systems Review of Systems: All systems reviewed & are unremarkable except as noted in Subjective Physical Exam Constitutional: WD/WN, vitals as above Eyes: + anicteric sclerae; normal pupil size Musculoskeletal: Shoulder: shoulder normal to inspection, no deformity, normal ROM of shoulder and no joint line tenderness shortended and externally rotated right leg. PT/DP pulses intact, sensation intact (although patient clearly confused therefore not particularly reliable) Skin: + ecchymosis (Left base of 5th finger, 2nd finger and 4th finger, without pain) Neurologic: awake; + does not move all extremities (right leg not moves but able to move his toes this side) Psychiatric: Orientation: alert and oriented to person; + not oriented to place and + not oriented to time Genitourinary: no CVA tenderness Results & Data Results & Data ([facility]) Vital Signs (Past 12 Hours) Vital Signs Temp Pulse Resp BP Pulse Ox 10/06/21 07:21 37.1 C 75 18 167/76 H 98 PG Care Time/CCT Total # of Minutes Spent Total Time Spent with Patient: Total time spent is greater than 50% in coordination of care (as documented) at patient's floor/unit and/or counseling patient: Coding Level of Care Code 83864 Subseq Hosp Care Lvl 2 Diagnoses Closed left hip fracture S72.002A Hypertension I10 Type 2 diabetes mellitus E11.9 Greater trochanteric bursitis of right hip M70.61 Gait abnormality R26.9 Spinal stenosis of lumbar region M48.061
--- NOTE | 2021-10-06 15:46 | Fluoroscopy Report ---
FL femur LT 2V CLINICAL HISTORY: LT TROCH NAIL COMPARISON STUDY: 10/05/2009 FLUOROSCOPY TIME: 91 second. FLUOROSCOPIC IMAGES: 4 FINDINGS: C-arm images were obtained status post placement of a small intratrochanteric ridge and naili ng of the femoral neck for intertrochanteric fracture. IMPRESSION: Status post internal fixation. ACT 112: Negative or not required by law. Electronically signed by: Fabien Santiago M.D. 10/06/2021 3:45 PM
--- NOTE | 2021-10-06 16:26 | Operative Report ---
Post Operative Report Pre & Post Diagnosis Operation Date: 10/06/21 12:00 Pre-Op Diagnosis: LEFT INTRATROCHANTERIC HIP FRACTURE Post-Op Diagnosis: Same I identified the patient and participated in the time-out.: Yes Procedure Operation Date: 10/06/21 12:00 Actual Procedures p Left Femur closed reduction Internal Fixation with short trochanteric femoral n- Mike Dowell MD Surgeon Mike Dowell MD Cell Inspector Ginny dueñas, physicians facilities maintenance assistant. No resident or fellow available. Estimated Blood Loss 20 Findings Consistent with Post-Op Diagnosis Specimens None Drains None Anesthesia Type General Regional Complications none Disposition Accompanied Patient To Recovery: No Disposition: Recovery Room Indications Anthony is 86. He fell and sustained an intertrochanteric fracture of his left hip. Treatment options have been discussed and he is elected to proceed with operative intervention which has been recommended to him. Description of Procedure Informed consent obtained. Patient identified. He identified the operative site as the right hip. I marked with my initials. A preoperative surgical pause performed. Preop dose of IV antibiotics was given. He was taken to the operating room positioned supine on the fracture table after administration of the general anesthetic. A padded post placed between the legs. The table was translated to the operative side. The arms were folded across the torso with padding and secured with sheet and tape. The nonoperative limb was placed into 90-90 physiologic flexion at the hip and knee and held with a padded leg rest. The operative leg was placed into longitudinal traction with abundant padding on the leg. Manual traction was applied with gentle internal rotation and slight flexion. Fluoroscopic guidance was utilized throughout the procedure and demonstrated anatomic alignment of the intertrochanteric hip fracture. The lesser trochanter was fractured and displaced. Bony prominences inspected and padded the leg was prescribed prepped and draped in usual sterile fashion. DVT prophylaxis with mechanical devices intraoperatively and postoperatively mechanical devices early mobility and Lovenox. A 6 to 8 cm incision was made just above the trochanter in line with the shaft of the femur. Electrocautery was utilized down to the subcutaneous tissues. Hemostasis maintained. The gluteal fascia was opened in line with the incision. The guidepin fell into the fracture site and it was placed in line with the shaft of the femur within the bone on the AP and lateral views. It was then overreamed with the proximal femoral reamer and then a guidewire was inserted followed by a 13.5 mm reamer without any chatter. A short trochanteric femoral nail was then inserted over the guidewire which was removed. The ridge was advanced to the proper depth and rotation. Rotation set with lateral x-ray. Guidepin introduced which was adjusted x1 to be in the center center position. Length determined to be 100 mm. The lateral cortical reamer and triple reamer were then utilized followed by insertion of 100 mm spiral blade. The setscrew was advanced once the spiral blade was situated and a distal interlocking screw was inserted percutaneously using the provided guide. An accessory distal incision was made for insertion of the spiral blade and the distal interlocking screw. The insertion apparatus was removed. Company Driver images were obtained. The fracture was anatomically reduced and the hardware was in good position. Traction was relieved. Irrigation performed. The IT band and gluteal fascia were then closed with interrupted #1 Vicryl. The deep subcutaneous layer with 0 Vicryl and the skin with 2-0 Vicryl and lea. Local anesthetic 1% lidocaine and 0.5% Marcaine without epinephrine was injected into the skin and subcutaneous tissues this was followed by cleaning with wet and dry sponges and Xeroform 4 x 4's ABD foam tape. Patient was removed from the OR table taken to recovery in stable condition. There were no specimens or complications counts were correct blood loss was 20 cc. At the conclusion of the operation spoke patient's family informed of my findings postop instructions were given. He can be rehabilitated according to our standard intertrochanteric fracture pathway. Weightbearing as tolerated. PT OT. Walker. We talked about alternative living situations, longterm and acute care rehab. Components inserted were the [employer] 12 mm x 130 degree titanium can nulated short trochanteric femoral nail with an 11 mm diameter by 100 mm long spiral blade and a 5 mm x 42 mm distal interlocking screw I attest to the content of the Intraoperative Record and any orders documented therein. Any exceptions are noted below.
--- NOTE | 2021-10-06 16:32 | Operative Report ---
Post Operative Report Pre & Post Diagnosis Operation Date: 10/06/21 12:00 Pre-Op Diagnosis: LEFT HIP FRACTURE Post-Op Diagnosis: LEFT HIP FRACTURE I identified the patient and participated in the time-out.: Yes Procedure Operation Date: 10/06/21 12:00 Actual Procedures p Left Femur Open Reduction Internal Fixation with Intermedullary Nail(Left) - Mike Dowell MD Surgeon Dr. Mike Dowell Ortho Rn Ginny dueñas, physicians anesthesia assistant. No resident or fellow available. Estimated Blood Loss 20 Findings Consistent with Post-Op Diagnosis Specimens none Description of Procedure Pt was taken to operating room, placed under general anesthesia. Pt was given 2g Ancef IV. Prepped and draped in sterile fashion. I was present during the entire case and assisted with positioning, instrumentation, closure and dressings. Please see Dr. Dowell's op report for further detail. Pt was awake and transferred to PACU in stable condition I attest to the content of the Intraoperative Record and any orders documented therein. Any exceptions are noted below.
[2021-10-06] MEDS ORDERED: COUGH DROP (SUGAR FREE) LOZ 24 LOZ/1 BOX BUCCAL PRN (16:53)
[2021-10-06] MEDS ORDERED: PHARMACY GLYCEMIC MGMT CONSULT PRN (16:53)
--- NOTE | 2021-10-06 17:06 | Pharmacy Report ---
Pharmacy Glycemic Short Note 2 - Date of Service October 06, 2021 - Glycemic Short BSG Results (Last 24 hours): 10/05/21 10/06/21 10/06/21 23:00 06:03 11:49 Glucose 194 H POC Glucose 197 H 192 H 10/06/21 16:17 Glucose POC Glucose 178 H OUTPATIENT ANTIDIABETIC REGIMEN: * Metformin 500mg PO Daily * A1c 5.8% ASSESSMENT: * 86 year old male, admitted for hip fracture, s/p surgery by Dr Dowell * Pt is maintained on oral antidiabetic agents as an outpatient * Oral agents are not recommended for inpatient use d/t drug interactions, changing PO intake, and difficulty titrating for acute hyper/hypoglycemia. ADA recommends re-initiating outpatient oral agents 1-2 days prior to discharge if/when appropriate if they were held on admission. * Will hold oral agents for admission and utilize SQ bolus insulin regimen which is the recommended regimen for inpatient glycemic control. * No basal at this time for patient's age and glycemic control on only metformin as outpatient, and no steroids received PLAN FOR INPATIENT GLYCEMIC CONTROL: * Hold outpatient oral diabetes medications * Basal insulin - none at this time * Bolus insulin * NovoLog per scale ACHS or Q6hrs while NPO * Goal Range: Low 110 mg/dL - High 140 mg/dL * Correction Factor: 20 mg/dL/unit * Nutritional / Prandial insulin per carb ratio of 1 unit per 10 grams CHO consumed
--- NOTE | 2021-10-06 17:38 | Anesthesiology Progress Note ---
Date of Service October 06, 2021 Anesthesia Post Procedure Vital Signs Vital Signs: Temp Pulse Pulse Pulse Pulse Resp BP 10/06/21 17:36 97.5 F L 71 16 10/06/21 17:00 97.5 F L 76 14 10/06/21 16:40 97.0 F L 78 18 10/06/21 16:30 79 16 10/06/21 16:20 74 18 10/06/21 16:11 97.3 F L 75 17 10/06/21 07:21 98.8 F 75 18 10/06/21 03:15 97.5 F L 68 18 10/06/21 02:00 87 16 151/95 H 10/06/21 01:00 80 18 140/73 10/05/21 23:15 76 14 155/77 H 10/05/21 23:07 98.4 F 77 18 155/77 H BP BP Pulse Ox 10/06/21 17:36 126/64 97 10/06/21 17:00 133/87 97 10/06/21 16:40 110/87 99 10/06/21 16:30 142/69 H 100 10/06/21 16:20 144/70 H 100 10/06/21 16:11 112/61 99 10/06/21 07:21 167/76 H 98 10/06/21 03:15 141/74 H 100 10/06/21 02:00 96 10/06/21 01:00 99 10/05/21 23:15 100 10/05/21 23:07 100 Pain Intensity Left Hip: Pain Intensity: 8 Transfer of Care Handoff Completed per policy Notes Mental Status: alert / awake / arousable and participated in evaluation Patient Amnestic to Procedure: Yes Nausea / Vomiting: adequately controlled Pain: adequately controlled Airway Patency, RR, SpO2: stable & adequate BP & HR: stable & adequate Hydration State: stable & adequate Anesthetic Complications: no major complications apparent and Pt Satisfied with anesthetic care
[2021-10-06] MEDS: ceFAZolin 2000MG 2,000 MG/15 ML SYR IV SCH (18:01)
[2021-10-06] MEDS: DOCUSATE SODIUM/SENNA 50/8.6MG TAB PO SCH (20:34)
[2021-10-07] MEDS: HYDROCODONE/ACETAMOPHEN 5/325MG TAB PO PRN ×2 (00:39→08:23)
[2021-10-07] MEDS: ONDANSETRON INJ 2 MG/ML 2 ML VIAL IV PRN (01:24)
[2021-10-07] MEDS: ceFAZolin 2000MG 2,000 MG/15 ML SYR IV SCH (01:48)
[2021-10-07] MEDS: LACTATED RINGER'S 1,000 ML IV SCH ×2 (04:31→17:06)
--- NOTE | 2021-10-07 05:41 | Communication Note ---
Date of Service: October 07, 2021 Messaged about gross hematuria. Patient had been pulling on fisher. Holding this AM's dose of Lovenox.
[2021-10-07] MEDS: ENOXAPARIN INJ 40 MG/0.4 ML SYR SQ SCH (06:14)
[2021-10-07 07:07] LABS: Basophils # (auto) 0.01 K/uL (0-0.2); Basophils % (auto) 0.1 %; Eosinophils # (auto) 0.01 K/uL (0-0.5); Eosinophils % (auto) 0.1 %; Hematocrit (blood only) 27.4 % (42-52); Hemoglobin 9.9 g/dL (14.0-18.0); Immature Granulocytes # (auto) 0.02 K/uL (0.00-0.02); Immature Granulocytes % (auto) 0.2 %; Lymphocytes # (auto) 1.31 K/uL (1.2-3.4); Lymphocytes % (auto) 14.9 %; Mean Corpuscular Hgb Conc 36.1 g/dL (32-36); Mean Platelet Volume 9.4 fL (7.4-10.4); Monocytes # (auto) 0.76 K/uL (0.11-0.59); Monocytes % (auto) 8.6 %; Neutrophils # (auto) 6.69 K/uL (1.4-6.5); Neutrophils % (auto) 76.1 %; Platelet Count 191 K/uL (130-400); RDW Coefficient of Variation 13.5 % (11.5-14.5); RDW Standard Deviation 41.2 fL (36.4-46.3)
[2021-10-07] MEDS: CHOLECALCIFEROL 5,000 UNITS 125 MCG TAB PO SCH (07:09)
[2021-10-07] MEDS: CETIRIZINE HCL 10 MG TABLET PO SCH (07:09)
[2021-10-07] MEDS: CHOLECALCIFEROL 1,000 UNITS 25 MCG TAB PO SCH (07:09)
[2021-10-07] MEDS: METOPROLOL TARTRATE 25 MG TAB PO SCH ×2 (07:09→20:08)
[2021-10-07 07:28] LABS: Albumin Level 3.6 gm/dl (3.4-5.0); BUN Creatinine Ratio 19.6 (10-20); Calcium 8.4 mg/dl (8.5-10.1); Creatinine Clr Calc Pharmacy 43.3 ml/min; Est GFR (African American) 51.8 ml/min; Est GFR (Non-African American) 44.7 ml/min; Phosphorus 3.4 mg/dl (2.5-4.9)
[2021-10-07] MEDS: INSULIN ASPART PER UNIT SC SCH ×4 (08:42→20:49)
[2021-10-07] MEDS ORDERED: LANTUS PER UNIT CHARGE SQ ONE (09:00)
[2021-10-07] MEDS ORDERED: oxyCODONE HCL IR 5 MG TAB (IMMEDIATE RELEASE) PO PRN (09:23)
--- NOTE | 2021-10-07 09:32 | Hospitalist Progress Note ---
Date of Service October 07, 2021 Assessment & Plan (1) Closed left hip fracture: Plan: Acetaminophen 1g PO TID Switch opiates to Defer NSAIDs to surgery Zofran 4 mg IV every 6 hours as needed Continue LR at 80 mils per hour until eating and drinking well. Slight bump in Cr post surgery but at his baseline POD#1 Left femur closed reduction and internal fixation with short trochanteric femoral nail (2) Hematuria: Plan: Suspect traumatic as only started after he pulled on fisher catheter No clots in fisher Will remove now to prevent further traumatic injury and bladder scan q shift. Call provider if PVR > 400ml. Hold lovenox. (3) Hypertension: Plan: Continue to hold telmisartan/HCTZ until eating and drinking well Continue metoprolol 25mg PO BID (4) Type 2 diabetes mellitus: Plan: Hold Metformin HbA1C 5.8 - suggests overtreatment although he is only on metformin at home therefore won't become hypoglycemic Novolog Goal BSG Range: Low 120 mg/dL, High 160 mg/dL Correction Factor: 30 mg/dL/unit Carbohydrate ratio = 15 g/unit BSGs ACHS if eating, q6h if npo (5) Greater trochanteric bursitis of right hip: Plan: Following up with orthopedics in the outpatient setting (6) Gait abnormality: Plan: Following up in the outpatient setting PT/OT post operatively - likely to need inaptient rehab on discharge (7) Spinal stenosis of lumbar region: Plan: Reports has a appointment with pain management Plan: VTE Prophylaxis - deferred chemical prophylaxis due to hematuria Diet - T2DM Disposition - continued admission to med/surg Admission and Anticipated Discharge Date Admission Date: October 06, 2021 Subjective Patient pulling on his fisher catheter overnight and started developing some hematuria after this. Taking 2 tabs norco x2 and appears to be very confused this morning. Able to move all four limbs but having difficulty following commands. Updated his daughter at bedside. Review of Systems Review of Systems: All systems reviewed & are unremarkable except as noted in Subjective Physical Exam Constitutional: WD/WN, vitals as above Eyes: + anicteric sclerae; normal pupil size Respiratory: normal respiratory effort, lungs clear to auscultation Cardiovascular: RRR, no murmur, no edema Gastrointestinal (Abdomen): Percussion/Palpation: abdomen soft; abdomen nontender, no guarding and abdomen not rigid Skin: + ecchymosis (Left base of 5th finger, 2nd finger and 4th finger, without pain) Neurologic: awake; + does not move all extremities (moving toes on right side) Psychiatric: Orientation: alert and oriented to person; + not oriented to place and + not oriented to time Genitourinary: no CVA tenderness Results & Data Results & Data ([facility]) Vital Signs (Past 12 Hours) Vital Signs Temp Pulse Resp BP BP Pulse Ox 10/07/21 07:25 37.1 C 87 18 163/69 H 93 10/07/21 01:51 37.2 C 77 16 151/68 H 95 10/06/21 22:04 37.2 C 71 16 111/67 97 PG Care Time/CCT Total # of Minutes Spent Total Time Spent with Patient: Total time spent is greater than 50% in coordination of care (as documented) at patient's floor/unit and/or counseling patient: Coding Level of Care Code 82200 Subseq Hosp Care Lvl 2 Diagnoses Closed left hip fracture S72.002A Hypertension I10 Type 2 diabetes mellitus E11.9 Greater trochanteric bursitis of right hip M70.61 Gait abnormality R26.9 Spinal stenosis of lumbar region M48.061 Hematuria R31.9
--- NOTE | 2021-10-07 11:05 | Progress Notes ---
DATE OF SERVICE: 10/07/2021. The patient is delirious. Pulling at Conde. He is at risk for self-harm and therefore after consult ing with Dr. Finch and his nurse, we will put him on a one-on-one and apply mittens. He does not re spond meaningfully to questions and does not very readily follow any commands for exam. He appears t o have some discomfort when the left hip is moved. He does not want to bend the left knee. Dressing is clean, dry and intact. DP and posterior tibial pulses are each 1+. Does not comply with sensory exam or motor exam, but he does wiggle his toes on both feet. He is afebrile. His vital signs are stable. White count 9, hemoglobin 10, hematocrit 27, platelets are 191. His PRP is noted. Vitamin D is actually 79. Acute postsurgical delirium, status post a fracture fixation of left hip. PLAN: One-on-one and mittens. Conde can be discontinued. Lovenox will be held given his hematuria. We will see what PT and OT were able to do for him today, but mainly want to protect him. Medicati ons have been adjusted. Job ID: [id number]
--- NOTE | 2021-10-07 12:30 | Pharmacy Report ---
Pharmacy Glycemic Short Note 2 - Date of Service October 07, 2021 - Glycemic Short BSG Results (Last 24 hours): 10/06/21 10/06/21 10/06/21 16:17 17:07 20:38 Glucose POC Glucose 178 H 176 H 177 H 10/07/21 10/07/21 10/07/21 06:28 08:07 12:03 Glucose 186 H POC Glucose 207 H 130 H OUTPATIENT ANTIDIABETIC REGIMEN: * Metformin 500mg PO Daily * A1c 5.8% ASSESSMENT: 10/07 * Patient received total of 7 units of insulin yesterday, of which all were bolus insulin * Fasting BSG elevated at 207 mg/dL - likely related to stress from surgery?, A1c stable. Will give small dose of basal insulin for this AM * Patient did not eat lunch, may loosen CF/CR slightly with dinner 10/06 * 86 year old male, admitted for hip fracture, s/p surgery by Dr Dowell * Pt is maintained on oral antidiabetic agents as an outpatient * Oral agents are not recommended for inpatient use d/t drug interactions, changing PO intake, and difficulty titrating for acute hyper/hypoglycemia. ADA recommends re-initiating outpatient oral agents 1-2 days prior to discharge if/when appropriate if they were held on admission. * Will hold oral agents for admission and utilize SQ bolus insulin regimen which is the recommended regimen for inpatient glycemic control. * No basal at this time for patient's age and glycemic control on only metformin as outpatient, and no steroids received PLAN FOR INPATIENT GLYCEMIC CONTROL: * Hold outpatient oral diabetes medications * Basal insulin - 10 units x 1 - will reassess ongoing doses tomorrow * Bolus insulin * NovoLog per scale ACHS or Q6hrs while NPO * Goal Range: Low 110 mg/dL - High 140 mg/dL * Correction Factor: 30 mg/dL/unit * Nutritional / Prandial insulin per carb ratio of 1 unit per 15 grams CHO consumed
[2021-10-07] MEDS: ACETAMINOPHEN 500 MG TAB PO SCH ×2 (13:19→20:09)
[2021-10-07] MEDS ORDERED: SODIUM CHLORIDE 0.9% 1000ML 500 ML IV ONE (17:48)
[2021-10-07] MEDS: DOCUSATE SODIUM/SENNA 50/8.6MG TAB PO SCH (20:09)
[2021-10-08] MEDS: LACTATED RINGER'S 1,000 ML IV SCH (05:01)
[2021-10-08 07:08] LABS: Hematocrit (blood only) 25.6 % (42-52); Hemoglobin 9.3 g/dL (14.0-18.0); Immature Granulocytes # (auto) 0.02 K/uL (0.00-0.02); Immature Granulocytes % (auto) 0.2 %; Lymphocytes # (auto) 1.38 K/uL (1.2-3.4); Lymphocytes % (auto) 14.5 %; Mean Corpuscular Hemoglobin 29.7 pg (25-34); Mean Corpuscular Hgb Conc 36.3 g/dL (32-36); Mean Corpuscular Volume 81.8 fL (80-100); Mean Platelet Volume 9.1 fL (7.4-10.4); Monocytes # (auto) 0.64 K/uL (0.11-0.59); Monocytes % (auto) 6.7 %; Neutrophils # (auto) 7.51 K/uL (1.4-6.5); Neutrophils % (auto) 78.6 %; Platelet Count 176 K/uL (130-400); RDW Coefficient of Variation 13.4 % (11.5-14.5); Red Blood Count 3.13 M/uL (4.7-6.1); White Blood Count 9.55 K/uL (4.8-10.8)
[2021-10-08 07:30] LABS: Albumin Level 3.5 gm/dl (3.4-5.0); BUN Creatinine Ratio 26.9 (10-20); Calcium 8.3 mg/dl (8.5-10.1); Est GFR (African American) 64.6 ml/min; Est GFR (Non-African American) 55.8 ml/min; Phosphorus 2.5 mg/dl (2.5-4.9)
[2021-10-08] MEDS: METOPROLOL TARTRATE 25 MG TAB PO SCH ×2 (07:38→20:24)
[2021-10-08] MEDS: ACETAMINOPHEN 500 MG TAB PO SCH ×3 (07:38→20:22)
[2021-10-08] MEDS: CHOLECALCIFEROL 5,000 UNITS 125 MCG TAB PO SCH (07:39)
[2021-10-08] MEDS: CETIRIZINE HCL 10 MG TABLET PO SCH (07:39)
[2021-10-08] MEDS: CHOLECALCIFEROL 1,000 UNITS 25 MCG TAB PO SCH (07:39)
[2021-10-08] MEDS: ONDANSETRON INJ 2 MG/ML 2 ML VIAL IV PRN (07:56)
[2021-10-08] MEDS: FAMOTIDINE 20 MG in SYRINGE 3 ML IV SCH (08:36)
[2021-10-08] MEDS: INSULIN ASPART PER UNIT SC SCH ×4 (08:36→20:44)
[2021-10-08] MEDS ORDERED: INSULIN GLARGINE SOLOSTAR 100 UNITS/ML 3 ML PEN SC SCH ×2 (09:00)
--- NOTE | 2021-10-08 10:10 | Orthopedic Progress Note ---
Date of Service October 08, 2021 Assessment & Plan (1) Closed fracture of left hip: Plan: POD 1 s/p left hip short IM ridge by Dr Dowell 09/27 Pt is pleasantly confused Incision checked and dressing re-applied today. No signs of infection. Reinforce as need per nursing DVT prophylaxis: Lovenox 40mg SQ q 24hrs Pain control: Per primary IV fluids until tolerating PO intake Conde in place WBAT right LE PT/OT Case management consulted Admission and Anticipated Discharge Date Admission Date: October 06, 2021 Subjective Pt seen and examined bedside. His daughter is with him at bedside today and assists in history taking. Pt is confused. She says he is slightly worse this morning than he was yesterday as far as his confusion goes. She says he did not get much sleep last night and thinks that is contributing. His pain appears to be controlled. Physical Exam Physical Exam: General: Pt laying in hospital bed AA&O, in NAD, calm and cooperative during exam Lower Extremity: Dressing in tact and not saturated. Incisions clean, dry and with minimal drainage and no surrounding erythema, warmth or purulent drainage. Pt has full ROM of ankle and all 5 digits. Pt has 4+/5 strength with resisted DF/PF. Unable to follow command to do SLR due to delirium. Calf supple and non tender. NVI with sensation to light touch distally and good distal pulses present. Lower extremity noted to have good color and temperature with no signs of vascular or lymphatic insufficiency. Dressing was changed today and redressed with Xeroform, 4 x 4's, ABD and tape Results & Data ([facility]) Vital Signs (Past 12 Hours) Vital Signs Temp Pulse Resp BP BP Pulse Ox 10/08/21 08:01 37.1 C 101 H 18 155/75 H 94 10/07/21 22:15 37.5 C 85 18 140/58 L 95 Laboratory Results 10/08/21 10/08/21 10/08/21 Range/Units 08:12 06:24 06:24 WBC 9.55 (4.8-10.8) K/uL RBC 3.13 L (4.7-6.1) M/uL Hgb 9.3 L (14.0-18.0) g/dL Hct 25.6 L (42-52) % MCV 81.8 (80-100) fL MCH 29.7 (25-34) pg MCHC 36.3 H (32-36) g/dL RDW Std Deviation 40.0 (36.4-46.3) fL RDW Coeff of Thierry 13.4 (11.5-14.5) % Plt Count 176 (130-400) K/uL MPV 9.1 (7.4-10.4) fL Immature Gran % (Auto) 0.2 % Neut % (Auto) 78.6 % Lymph % (Auto) 14.5 % Bulloch % (Auto) 6.7 % Eos % (Auto) 0.0 % Baso % (Auto) 0.0 % Neut # (Auto) 7.51 H (1.4-6.5) K/uL Lymph # (Auto) 1.38 (1.2-3.4) K/uL Bulloch # (Auto) 0.64 H (0.11-0.59) K/uL Eos # (Auto) 0.00 (0-0.5) K/uL Baso # (Auto) 0.00 (0-0.2) K/uL Immature Gran # (Auto) 0.02 (0.00-0.02) K/uL Sodium 132 L (136-145) mmol/L Potassium 4.0 (3.5-5.1) mmol/L Chloride 99 (98-107) mmol/L Carbon Dioxide 23 (21-32) mmol/L Anion Gap 10 (3-11) BUN 32 H (6-23) mg/dl Creatinine 1.19 (0.6-1.4) mg/dl Est Cr Clr Drug Dosing 52.0 ml/min Est GFR ( Amer) 64.6 ml/min Est GFR (Non-Af Amer) 55.8 ml/min BUN/Creatinine Ratio 26.9 H (10-20) Glucose 190 H (70-99(Fasting)) mg/dl POC Glucose 198 H (70-99) mg/dl Calcium 8.3 L (8.5-10.1) mg/dl Phosphorus 2.5 (2.5-4.9) mg/dl Albumin 3.5 (3.4-5.0) gm/dl 10/07/21 10/07/21 10/07/21 Range/Units 20:33 17:08 12:03 WBC (4.8-10.8) K/uL RBC (4.7-6.1) M/uL Hgb (14.0-18.0) g/dL Hct (42-52) % MCV (80-100) fL MCH (25-34) pg MCHC (32-36) g/dL RDW Std Deviation (36.4-46.3) fL RDW Coeff of Thierry (11.5-14.5) % Plt Count (130-400) K/uL MPV (7.4-10.4) fL Immature Gran % (Auto) % Neut % (Auto) % Lymph % (Auto) % Bulloch % (Auto) % Eos % (Auto) % Baso % (Auto) % Neut # (Auto) (1.4-6.5) K/uL Lymph # (Auto) (1.2-3.4) K/uL Bulloch # (Auto) (0.11-0.59) K/uL Eos # (Auto) (0-0.5) K/uL Baso # (Auto) (0-0.2) K/uL Immature Gran # (Auto) (0.00-0.02) K/uL Sodium (136-145) mmol/L Potassium (3.5-5.1) mmol/L Chloride (98-107) mmol/L Carbon Dioxide (21-32) mmol/L Anion Gap (3-11) BUN (6-23) mg/dl Creatinine (0.6-1.4) mg/dl Est Cr Clr Drug Dosing ml/min Est GFR ( Amer) ml/min Est GFR (Non-Af Amer) ml/min BUN/Creatinine Ratio (10-20) Glucose (70-99(Fasting)) mg/dl POC Glucose 160 H 142 H 130 H (70-99) mg/dl Calcium (8.5-10.1) mg/dl Phosphorus (2.5-4.9) mg/dl Albumin (3.4-5.0) gm/dl (1) Closed fracture of left hip Encounter type: initial encounter Qualified Code(s): S72.002A - Fracture of unspecified part of neck of left femur, initial encounter for closed fracture
--- NOTE | 2021-10-08 11:04 | Pharmacy Report ---
Pharmacy Glycemic Short Note 2 - Date of Service October 08, 2021 - Glycemic Short BSG Results (Last 24 hours): 10/07/21 10/07/21 10/07/21 12:03 17:08 20:33 Glucose POC Glucose 130 H 142 H 160 H 10/08/21 10/08/21 06:24 08:12 Glucose 190 H POC Glucose 198 H OUTPATIENT ANTIDIABETIC REGIMEN: * Metformin 500mg PO Daily * A1c 5.8% ASSESSMENT: 10/08 * Stressors stable - POD 2 * AM fasting BSG elevated - will increase basal, but only slightly given minimal PO intake yesterday * Post-prandial BSG's mostly in goal range yesterday, but PO intake was VERY minimal and therefore the CHO ratio didn't provide a substantial amount of insulin. Given rise in BSG this AM, will tighten slightly (still looser than weight-based moderate stress estimate) 10/07 * Patient received total of 7 units of insulin yesterday, of which all were bolus insulin * Fasting BSG elevated at 207 mg/dL - likely related to stress from surgery?, A1c stable. Will give small dose of basal insulin for this AM * Patient did not eat lunch, may loosen CF/CR slightly with dinner 10/06 * 86 year old male, admitted for hip fracture, s/p surgery by Dr Dowell * Pt is maintained on oral antidiabetic agents as an outpatient * Oral agents are not recommended for inpatient use d/t drug interactions, changing PO intake, and difficulty titrating for acute hyper/hypoglycemia. ADA recommends re-initiating outpatient oral agents 1-2 days prior to discharge if/when appropriate if they were held on admission. * Will hold oral agents for admission and utilize SQ bolus insulin regimen which is the recommended regimen for inpatient glycemic control. * No basal at this time for patient's age and glycemic control on only metformin as outpatient, and no steroids received PLAN FOR INPATIENT GLYCEMIC CONTROL: * Hold outpatient oral diabetes medications * Basal insulin - 10 units x 1 - will reassess ongoing doses tomorrow * Bolus insulin * NovoLog per scale ACHS or Q6hrs while NPO * Goal Range: Low 110 mg/dL - High 140 mg/dL * Correction Factor: 30 mg/dL/unit * Nutritional / Prandial insulin per carb ratio of 1 unit per 15 grams CHO consumed
--- NOTE | 2021-10-08 11:27 | Progress Notes ---
DATE OF SERVICE: 10/08/2021. The patient is seen in conjunction with Ginny Linda, the physician's registered medical assistant. For further details, refer to her dictation. She and I saw and evaluated together. I am in agreement with the plan. I spoke with Anthony's daughter who was at his bedside. He is confused but a little more oriented than yesterday. He remembers his therapist from home. He remembers something about surgery. He is afeb rile. His vital signs are stable. He did have a temperature of 37.9, blood pressures are noted. Me dicine note reviewed. White count 10, hemoglobin 9, hematocrit 27, platelets are 176. His PRP is no dominique. Daughter and nurse report some bloody emesis. He has been given some IV Pepcid. He currently is not actively throwing up and he has a soft abdomen with no tenderness. His dressing is clean, dry and i ntact. He has 1+ dorsalis pedis and posterior tibial pulses. He has weakness or inability to feliz the foot on the left and he has 4/5 dorsiflexion of the ankle and toe and 4/5 plantarflexion of the f oot, which is likely secondary to comprehension. Thighs are not tense and not swollen. Discussed the situation with daughter. Hopefully, that the delirium improves. I think he will likel y need acute care rehab, but probably more likely extended care facility at least temporarily. A rc nge in his living status might be necessary. Vitamin D is okay. We will want to get him up and out of bed when safe and if possible, get him out of bed to chair today. We will hold Lovenox given the hematuria and the hemoptysis pending further evaluation. TEDs and SCDs for DVT prophylaxis. Job ID: [id number]
[2021-10-08] MEDS: PANTOprazole 40 MG TAB PO SCH (13:09)
[2021-10-08] MEDS: TAMSULOSIN HCL 0.4 MG CAP PO SCH (13:09)
--- NOTE | 2021-10-08 16:27 | Hospitalist Progress Note ---
Date of Service October 08, 2021 Assessment & Plan (1) Closed left hip fracture: Plan: Acetaminophen 1g PO TID Switch opiates to oxycodone 2.5mg PO q4h PRN Defer NSAIDs to orthopedics Zofran 4 mg IV every 6 hours as needed Continue LR at 80 mils per hour until eating and drinking well. Slight bump in Cr post surgery but at his baseline POD#2 Left femur closed reduction and internal fixation with short trochanteric femoral nail (2) Nausea with vomiting: Plan: Suspect gastritis/esophagitis, reports having heartburn a few days ago but not usual for him Start famotidine 20mg IV daily and pantoprazole 40mg PO daily, plan to discharge home on pantoprazole alone CBC in AM Continue to hold Lovenox due to this but if Hgb stable can start this tomorrow. (3) Hematuria: Plan: Suspect traumatic urethral as only started after he pulled on fisher catheter Fisher catheter replaced today. Start tamsulosin. Possibly TWOC in 2 days. If marlene ls again will need urology follow up. (4) Hypertension: Plan: Continue to hold HCTZ Continue metoprolol 25mg PO BID Restart telmisartan tomorrow (5) Type 2 diabetes mellitus: Plan: Hold Metformin HbA1C 5.8 - suggests overtreatment although he is only on metformin at home therefore won't become hypoglycemic Novolog Goal BSG Range: Low 120 mg/dL, High 160 mg/dL Correction Factor: 30 mg/dL/unit Carbohydrate ratio = 15 g/unit BSGs ACHS if eating, q6h if npo (6) Greater trochanteric bursitis of right hip: Plan: Following up with orthopedics in the outpatient setting (7) Gait abnormality: Plan: PT/OT - likely to need inpatient rehab on discharge (8) Spinal stenosis of lumbar region: Plan: Reports has a appointment with pain management Plan: VTE Prophylaxis - deferred chemical prophylaxis due to hematuria Diet - T2DM Disposition - continued admission to med/surg Admission and Anticipated Discharge Date Admission Date: October 06, 2021 Subjective Patient much less confused today. Seen with daughter at bedside. Vomited blood episode this morning. No abdominal pain, diarrhea, melena or bright red blood in stool. Failed trial without fisher catheter although hematuria has improved. One temperature of 37.9 degrees celsius yesterday afternoon but not repeated temperatures. Review of Systems Review of Systems: All systems reviewed & are unremarkable except as noted in Subjective Physical Exam Constitutional: WD/WN, vitals as above Respiratory: normal respiratory effort, lungs clear to auscultation Cardiovascular: RRR, no murmur, no edema Vessels: normal peripheral pulses Gastrointestinal (Abdomen): Inspection/Auscultation: normal bowel sounds Percussion/Palpation: abdomen soft; abdomen nontender, no guarding and abdomen not rigid Musculoskeletal: no cyanosis or clubbing, extremities motor strength 5/5 Skin: no rashes, warm and dry Psychiatric: A+Ox3, euthymic affect Results & Data Results & Data ([facility]) Vital Signs (Past 12 Hours) Vital Signs Temp Pulse Resp BP Pulse Ox 10/08/21 08:01 37.1 C 101 H 18 155/75 H 94 PG Care Time/CCT Total # of Minutes Spent Total Time Spent with Patient: Total time spent is greater than 50% in coordination of care (as documented) at patient's floor/unit and/or counseling patient: Coding Level of Care Code 55104 Subseq Hosp Care Lvl 2 Diagnoses Closed left hip fracture S72.002A Hematuria R31.9 Hypertension I10 Type 2 diabetes mellitus E11.9 Greater trochanteric bursitis of right hip M70.61 Gait abnormality R26.9 Spinal stenosis of lumbar region M48.061 Nausea with vomiting R11.2
[2021-10-08] MEDS: DOCUSATE SODIUM/SENNA 50/8.6MG TAB PO SCH (20:24)
[2021-10-08] MEDS: MELATONIN 3 MG TAB PO SCH (20:26)
[2021-10-08] MEDS ORDERED: LORazepam 2 MG/1 ML VIAL IV STA (21:32)
[2021-10-08] MEDS ORDERED: LORazepam 2 MG/1 ML VIAL IV PRN (21:32)
--- NOTE | 2021-10-08 21:36 | Communication Note ---
Date of Service: October 08, 2021 nursing mentioned patient agitated and that patient mentioned etoh use. concern for etoh withdrawal ordered 1mg IV ativan and banana bag ordered CARMELLA at risk protocol. Patient has thus far received 2 doses of 1mg IV ativan. Day shift to assess more comprehensive etoh use hx and if needed can change to CARMELLA withdrawal protocol. 3AM: notified that patient appears to have irregular pulse and HR in the 110s- 130s. checking ecg: afib w/ rvr. patient states has had afib in past I am upgrading him to Ropatec to manage w/ IV Lopressor pushes. Will check Mg, and K w/ AM labs.
[2021-10-08] MEDS ORDERED: MULTI-VITAMIN INFUSION 10 ML, THIAMINE HCL 100 MG, FOLIC ACID 1 MG in SODIUM CHLORIDE 0... IV ONE (21:45)
[2021-10-09] MEDS ORDERED: METOPROLOL TARTRATE 1 MG/ML VIAL IV STA ×4 (05:09→10:05)
[2021-10-09 06:06] LABS: Basophils # (auto) 0.01 K/uL (0-0.2); Basophils % (auto) 0.1 %; Eosinophils # (auto) 0.09 K/uL (0-0.5); Eosinophils % (auto) 0.9 %; Hematocrit (blood only) 25.8 % (42-52); Hemoglobin 9.2 g/dL (14.0-18.0); Immature Granulocytes # (auto) 0.02 K/uL (0.00-0.02); Immature Granulocytes % (auto) 0.2 %; Lymphocytes # (auto) 1.64 K/uL (1.2-3.4); Lymphocytes % (auto) 15.8 %; Mean Corpuscular Hemoglobin 29.8 pg (25-34); Mean Corpuscular Hgb Conc 35.7 g/dL (32-36); Mean Corpuscular Volume 83.5 fL (80-100); Mean Platelet Volume 9.2 fL (7.4-10.4); Monocytes # (auto) 0.84 K/uL (0.11-0.59); Monocytes % (auto) 8.1 %; Neutrophils # (auto) 7.81 K/uL (1.4-6.5); Neutrophils % (auto) 74.9 %; Platelet Count 194 K/uL (130-400); RDW Coefficient of Variation 13.4 % (11.5-14.5); RDW Standard Deviation 40.7 fL (36.4-46.3); Red Blood Count 3.09 M/uL (4.7-6.1); White Blood Count 10.41 K/uL (4.8-10.8)
[2021-10-09] MEDS: ENOXAPARIN INJ 40 MG/0.4 ML SYR SQ SCH (06:30)
[2021-10-09 06:45] LABS: BUN Creatinine Ratio 26.2 (10-20); Calcium 7.9 mg/dl (8.5-10.1); Creatinine Clr Calc Pharmacy 50.7 ml/min; Est GFR (African American) 62.7 ml/min; Est GFR (Non-African American) 54.1 ml/min; Magnesium 1.9 mg/dl (1.7-2.4); Potassium 3.7 mmol/L (3.5-5.1)
[2021-10-09] MEDS: ACETAMINOPHEN 500 MG TAB PO SCH ×3 (07:38→22:16)
[2021-10-09] MEDS: CHOLECALCIFEROL 1,000 UNITS 25 MCG TAB PO SCH (07:39)
[2021-10-09] MEDS: CETIRIZINE HCL 10 MG TABLET PO SCH (07:39)
[2021-10-09] MEDS: FAMOTIDINE 20 MG in SYRINGE 3 ML IV SCH (07:39)
[2021-10-09] MEDS: CHOLECALCIFEROL 5,000 UNITS 125 MCG TAB PO SCH (07:39)
[2021-10-09] MEDS: PANTOprazole 40 MG TAB PO SCH (07:40)
[2021-10-09] MEDS: TAMSULOSIN HCL 0.4 MG CAP PO SCH (07:40)
[2021-10-09] MEDS: METOPROLOL TARTRATE 25 MG TAB PO SCH (07:41)
[2021-10-09] MEDS ORDERED: METOPROLOL TARTRATE 50 MG TAB PO SCH (09:00)
[2021-10-09] MEDS ORDERED: TELMISARTAN 40 MG TAB PO SCH (09:00)
[2021-10-09] MEDS: INSULIN ASPART PER UNIT SC SCH ×4 (09:03→20:48)
--- NOTE | 2021-10-09 10:08 | Hospitalist Progress Note ---
Date of Service October 09, 2021 Assessment & Plan (1) Closed left hip fracture: Plan: Acetaminophen 1g PO TID Switched opiates to oxycodone 2.5mg PO q4h PRN Defer NSAIDs to orthopedics Zofran 4 mg IV every 6 hours as needed Due to delirium today and sedation will place back on IV fluids POD#3 Left femur closed reduction and internal fixation with short trochanteric femoral nail (2) Atrial fibrillation with rapid ventricular response: Plan: New onset TSH and TTE pending Consult cardiology Initially increased metoprolol PO from 25mg -> 50mg BID but patient unable to take oral medication due to encephalopathy and metoprolol 5mg IV x3 earlier this morning has not controlled rate. Therefore will continue metoprolol 5mg IV Q4H and start diltiazem IV drip without bolus. [id number] - Full anticoagulation deferred due to recent hematuria and hematemesis however depending on how long he is in atrial fibrillation (3) Toxic encephalopathy: Plan: Initially due to opiates with [place]. Had Ativan 1mg IV x2 last night due to agitation and suspect current state is due to this. CT head to rule out other causes, if negative will get MRI brain Transfer to PCU for continuous pulse ox Suspect his agitation overnight is more delirium than alcohol withdrawal and will try to avoid benzodiazepines in the future. Zyprexa if at risk to self or others (4) Nausea with vomiting: Plan: Suspect gastritis/esophagitis, vomited blood on 10/08 but no further episodes Continue famotidine 20mg IV daily and pantoprazole 40mg PO daily (once able to take oral intake, plan to discharge home on pantoprazole alone Hgb stable Lovenox 40mg SQ daily (5) Hematuria: Plan: Suspect traumatic urethral as only started after he pulled on fisher catheter Fisher catheter replaced 10/08. Started tamsulosin (although unable to take PO meds today). Possibly TWOC in 2 days. If fails again will need urology follow up. (6) Hypertension: Plan: Continue to hold HCTZ and telmisartan Continue metoprolol 20->50 mg PO BID once able to take PO meds (7) Type 2 diabetes mellitus: Plan: Hold Metformin HbA1C 5.8 - suggests overtreatment although he is only on metformin at home therefore won't become hypoglycemic Novolog Goal BSG Range: Low 120 mg/dL, High 160 mg/dL Correction Factor: 30 mg/dL/unit Carbohydrate ratio = 15 g/unit BSGs ACHS if eating, q6h if npo Pharmacy consulted for glycemic control (8) Greater trochanteric bursitis of right hip: Plan: Following up with orthopedics in the outpatient setting (9) Gait abnormality: Plan: PT/OT (hold while patient acutely unwell) - likely to need inpatient rehab on discharge (10) Spinal stenosis of lumbar region: Plan: Reports has a appointment with pain management Plan: VTE Prophylaxis - Lovenox 40mg SQ daily Diet - T2DM Disposition - transfer to PCU for close observation with continuous pulse ox and possible need for diltiazem IV drip Admission and Anticipated Discharge Date Admission Date: October 06, 2021 Subjective Unable to get any history out of patient. Sleeping this morning but awakes to voice. Abnormal breathing pattern. Ativan 1mg x2 given last night due to agitation and concern for alcohol withdrawal. His daughter reports no previous episodes of alcohol withdrawal and no excessive alcohol intake, he does not dri nk daily and only a glass of wine when he does drink. Possibly last alcohol intake 2 weeks prior to admission. Went into atrial fibrillation with RVR overnight. No known history of this per his daughter. Review of Systems Review of Systems: Unobtainable due to cognitive status Physical Exam Constitutional: WD/WN, vitals as above Respiratory: + abnormal respiratory pattern; no labored breathing and does not use accessory muscles Cardiovascular: Rate/Rhythm: + tachycardic and + irregularly irregular Vessels: normal peripheral pulses Gastrointestinal (Abdomen): Inspection/Auscultation: normal bowel sounds Percussion/Palpation: abdomen soft; abdomen nontender, no guarding and abdomen not rigid Skin: no rashes, warm and dry Neurologic: + not awake Psychiatric: Orientation: alert (to voice); + not oriented to person, + not oriented to place and + not oriented to time Results & Data Results & Data ([facility]) Vital Signs (Past 12 Hours) Vital Signs Temp Pulse Pulse Pulse Resp BP BP 10/09/21 07:10 36.6 C 110 H 26 H 120/68 10/09/21 06:32 112 H 10/09/21 06:21 121 H 126/63 10/09/21 06:09 109 H 114/71 10/09/21 05:55 108 H 116/40 L 10/09/21 05:31 127 H 10/09/21 05:19 112 H 113/81 10/09/21 04:53 36.6 C 109 H 10/09/21 03:04 36.9 C 132 H 18 124/74 10/08/21 22:49 36.5 C 70 18 108/67 BP Pulse Ox 10/09/21 07:10 94 10/09/21 06:32 126/75 10/09/21 06:21 10/09/21 06:09 10/09/21 05:55 10/09/21 05:31 111/62 10/09/21 05:19 10/09/21 04:53 123/63 91 10/09/21 03:04 97 10/08/21 22:49 93 PG Care Time/CCT Total # of Minutes Spent Total Time Spent with Patient: Total time spent is greater than 50% in coordination of care (as documented) at patient's floor/unit and/or counseling patient: Coding Level of Care Code 69147 Subseq Hosp Care Lvl 3 Diagnoses Closed left hip fracture S72.002A Nausea with vomiting R11.2 Hematuria R31.9 Hypertension I10 Type 2 diabetes mellitus E11.9 Greater trochanteric bursitis of right hip M70.61 Gait abnormality R26.9 Spinal stenosis of lumbar region M48.061 Toxic encephalopathy G92.9 Atrial fibrillation with rapid ventricular response I48.91
--- NOTE | 2021-10-09 10:20 | Orthopedic Progress Note ---
Date of Service October 09, 2021 Assessment & Plan (1) Closed fracture of left hip: Plan: POD 2 s/p left hip short IM ridge by Dr Dowell Patient is somnolent currently Incision checked and dressing re-applied today. No signs of infection. Reinforce as need per nursing DVT prophylaxis: Lovenox 40mg SQ q 24hrs Pain control: Per primary IV fluids until tolerating PO intake Conde in place WBAT right LE PT/OT Case management consulted Patient will most likely need to be sent to a senior living facility because he lives on his own at home. Admission and Anticipated Discharge Date Admission Date: October 06, 2021 Subjective This patient is seen following IM nailing for a left hip fracture. This morning patient is very somnolent. His daughter is at bedside. She states that he is essentially incoherent this morning. He does not arouse to verbal stimuli. She states that mittens were placed on his hands due to being slightly combative last evening. Hospitalist service administered IV Ativan to calm the patient down and she states that he has been sleeping since being provided with this medication. Review of Systems Review of Systems: Unobtainable due to cognitive status Physical Exam Physical Exam: Left hip: Dressings are clean dry and intact. I did pull up the dressing and visualize the Xeroform which was not saturated so the dressing was reapplied. Patient did moan with light passive logroll. He also moan with slight passive knee flexion to about 60 degrees. There is some swelling noted over the left thigh area. Other tests were not able to be performed due to the patient's cognitive status. Results & Data ([facility]) Vital Signs (Past 12 Hours) Vital Signs Temp Pulse Pulse Pulse Resp BP BP 10/09/21 07:10 36.6 C 110 H 26 H 120/68 10/09/21 06:32 112 H 10/09/21 06:21 121 H 126/63 10/09/21 06:09 109 H 114/71 10/09/21 05:55 108 H 116/40 L 10/09/21 05:31 127 H 10/09/21 05:19 112 H 113/81 10/09/21 04:53 36.6 C 109 H 10/09/21 03:04 36.9 C 132 H 18 124/74 10/08/21 22:49 36.5 C 70 18 108/67 BP Pulse Ox 10/09/21 07:10 94 10/09/21 06:32 126/75 10/09/21 06:21 10/09/21 06:09 10/09/21 05:55 10/09/21 05:31 111/62 10/09/21 05:19 10/09/21 04:53 123/63 91 10/09/21 03:04 97 10/08/21 22:49 93 Diagnostic Findings Laboratory Results WBC 10.41 K/uL (4.8-10.8) 10/09/21 05:42 RBC 3.09 M/uL (4.7-6.1) L 10/09/21 05:42 Hgb 9.2 g/dL (14.0-18.0) L 10/09/21 05:42 Hct 25.8 % (42-52) L 10/09/21 05:42 MCV 83.5 fL (80-100) 10/09/21 05:42 MCH 29.8 pg (25-34) 10/09/21 05:42 MCHC 35.7 g/dL (32-36) 10/09/21 05:42 RDW Std Deviation 40.7 fL (36.4-46.3) 10/09/21 05:42 RDW Coeff of Thierry 13.4 % (11.5-14.5) 10/09/21 05:42 Plt Count 194 K/uL (130-400) 10/09/21 05:42 MPV 9.2 fL (7.4-10.4) 10/09/21 05:42 Immature Gran % (Auto) 0.2 % 10/09/21 05:42 Neut % (Auto) 74.9 % 10/09/21 05:42 Lymph % (Auto) 15.8 % 10/09/21 05:42 Gregg % (Auto) 8.1 % 10/09/21 05:42 Eos % (Auto) 0.9 % 10/09/21 05:42 Baso % (Auto) 0.1 % 10/09/21 05:42 Neut # (Auto) 7.81 K/uL (1.4-6.5) H 10/09/21 05:42 Lymph # (Auto) 1.64 K/uL (1.2-3.4) 10/09/21 05:42 Gregg # (Auto) 0.84 K/uL (0.11-0.59) H 10/09/21 05:42 Eos # (Auto) 0.09 K/uL (0-0.5) 10/09/21 05:42 Baso # (Auto) 0.01 K/uL (0-0.2) 10/09/21 05:42 Immature Gran # (Auto) 0.02 K/uL (0.00-0.02) 10/09/21 05:42 PT 11.2 Seconds (9.0-12.0) 10/05/21 23:00 INR 1.1 (0.9-1.1) 10/05/21 23:00 APTT 27.6 Seconds (21.0-31.0) 10/05/21 23:00 PTT Ratio 1.0 10/05/21 23:00 Sodium 134 mmol/L (136-145) L 10/09/21 05:42 Potassium 3.7 mmol/L (3.5-5.1) 10/09/21 05:42 Chloride 103 mmol/L (98-107) 10/09/21 05:42 Carbon Dioxide 24 mmol/L (21-32) 10/09/21 05:42 Anion Gap 7 (3-11) 10/09/21 05:42 BUN 32 mg/dl (6-23) H 10/09/21 05:42 Creatinine 1.22 mg/dl (0.6-1.4) 10/09/21 05:42 Est Cr Clr Drug Dosing 50.7 ml/min 10/09/21 05:42 Est GFR ( Amer) 62.7 ml/min 10/09/21 05:42 Est GFR (Non-Af Amer) 54.1 ml/min 10/09/21 05:42 BUN/Creatinine Ratio 26.2 (10-20) H 10/09/21 05:42 Glucose 142 mg/dl (70-99(Fasting)) H 10/09/21 05:42 POC Glucose 176 mg/dl (70-99) H 10/09/21 07:52 Estimat Average Glucose 120 mg/dl 10/06/21 05:29 Hemoglobin A1c 5.8 % (4.5-5.6) H 10/06/21 05:29 Calcium 7.9 mg/dl (8.5-10.1) L 10/09/21 05:42 Phosphorus 2.5 mg/dl (2.5-4.9) 10/08/21 06:24 Magnesium 1.9 mg/dl (1.7-2.4) 10/09/21 05:42 Total Bilirubin 0.6 mg/dl (0.2-1.0) 10/05/21 23:00 AST 10 U/L (13-39) L 10/05/21 23:00 ALT 11 U/L (7-52) 10/05/21 23:00 Alkaline Phosphatase 73 U/L (34-104) 10/05/21 23:00 Total Protein 6.5 gm/dl (6.0-8.3) 10/05/21 23:00 Albumin 3.5 gm/dl (3.4-5.0) 10/08/21 06:24 Globulin 2.5 gm/dl (2.5-4.0) 10/05/21 23:00 Albumin/Globulin Ratio 1.6 (0.9-2) 10/05/21 23:00 25-OH Vitamin D Total 79.1 ng/ml (30-100) 10/07/21 06:28 TSH 0.523 uIu/ml (0.300-4.500) 10/09/21 07:48 Urine Color Yellow 10/05/21 23:30 Urine Appearance Clear (Clear) 10/05/21 23:30 Urine pH 6.5 (4.5-7.5) 10/05/21 23:30 Ur Specific [place] 1.010 (1.000-1.030) 10/05/21 23:30 Urine Protein Negative (Negative) 10/05/21 23:30 Urine Glucose (UA) Trace (Negative) H 10/05/21 23:30 Urine Ketones Negative (Negative) 10/05/21 23: Urine Blood Negative (Negative) 10/05/21 23:30 Urine Nitrite Negative (Negative) 10/05/21 23:30 Urine Bilirubin Negative (Negative) 10/05/21 23:30 Urine Urobilinogen Negative (Negative) 10/05/21 23:30 Ur Leukocyte Esterase Negative (Negative) 10/05/21 23:30 SARS-CoV-2, RNA, NAAT NEGATIVE (NEGATIVE) 10/06/21 01:15 Blood Type B Positive 10/06/21 05:29 Antibody Screen NEGATIVE 10/06/21 05:29 Impressions Hip X-Ray 10/06/21 09:23 XR femur RT 2V routine, XR hip RT min 2V CLINICAL HISTORY: Fall with right leg pain. COMPARISON STUDY: No previous studies for comparison. TECHNIQUE: 2 views of the right hip and AP and lateral views of the right femur. FINDINGS: This is a limited examination due to panniculus overlapping the right hip Bones: There is no evidence for an acute fracture or dislocation. There is no lytic or blastic lesion. Joints: There is evidence for narrowing of the hip joint space. The patient is status post total knee replacement. The bones are in anatomic alignment. Soft tissues: There is no focal soft tissue abnormality. There is no radiopaque foreign body. IMPRESSION: 1. Limited evaluation of the right hip due to overlying panniculus. If the patient's pain persists, follow-up CT would be the study of choice for further evaluation. 2. The remainder the femoral shaft is intact. ACT 112: Negative or not required by law. Electronically signed by: Fabien Santiago M.D. 10/06/2021 11:11 AM Knee X-Ray 10/06/21 09:23 XR knee RT 1 or 2V routine CLINICAL HISTORY: Fall with right leg pain. COMPARISON STUDY: 08/13/2007 TECHNIQUE: 2 right knee views FINDINGS: Bones: There is no evidence for an acute fracture or dislocation. There is no lytic or blastic lesion. Joints: The patient is again status post total knee replacement with no change in position or alignment of the prosthetic components. However, there is increased radiolucency at the cement bone interface of the tibial plateau component. The presence of early loosening cannot be excluded. There is no evidence for an intra-articular effusion. The bones are in anatomic alignment. Soft tissues: There is no focal soft tissue abnormality. There is no radiopaque foreign body. IMPRESSION: 1. No acute osseous pathology. 2. Intact total knee replacement with suspicion of early loosening of the tibial plateau component. ACT 112: Negative or not required by law. Electronically signed by: Fabien Santiago M.D. 10/06/2021 11:08 AM Chest X-Ray 10/06/21 11:30 XR chest 1V portable CLINICAL HISTORY: pre-op. Evaluate cardiopulmonary status COMPARISON STUDY: 06/10/2018 TECHNIQUE: 1 view of the chest FINDINGS: Single frontal view of the chest demonstrates the heart to be enlarged. The lungs are clear of alveolar opacities. There is no evidence for pleural effusion. There is no evidence for vascular congestion. There is no acute osseous pathology. IMPRESSION: 1. Cardiomegaly with no acute chest disease. ACT 112: Negative or not required by law. Electronically signed by: Fabien Santiago M.D. 10/06/2021 12:43 PM Finger X-Ray 10/06/21 11:33 XR finger(s) LT min 2V CLINICAL HISTORY: 4 finger, base of 5th finger bruising. COMPARISON STUDY: 06/10/2018 TECHNIQUE: Three fourth left and fifth finger views FINDINGS: Bones: Bones are osteopenic. There is no evidence for an acute fracture or dislocation. There is no lytic or blastic lesion. Joints: There is moderate to marked narrowing of the IP joints and mild narrowing of the MCP joints. The bones are in anatomic alignment. Soft tissues: There is no focal soft tissue abnormality. There is no radiopaque foreign body. IMPRESSION: 1. Osteopenia and osteoarthritis ACT 112: Negative or not required by law. Electronically signed by: Fabien Santiago M.D. 10/06/2021 12:45 PM Femur X-Ray 10/06/21 13:30 FL femur LT 2V CLINICAL HISTORY: LT TROCH NAIL COMPARISON STUDY: 10/05/2009 FLUOROSCOPY TIME: 91 second. FLUOROSCOPIC IMAGES: 4 FINDINGS: C-arm images were obtained status post placement of a small intratrochanteric ridge and nailing of the femoral neck for intertrochanteric fracture. IMPRESSION: Status post internal fixation. ACT 112: Negative or not required by law. Electronically signed by: Fabien Santiago M.D. 10/06/2021 3:45 PM (1) Closed fracture of left hip Encounter type: initial encounter Qualified Code(s): S72.002A - Fracture of unspecified part of neck of left femur, initial encounter for closed fracture
[2021-10-09] MEDS: INSULIN GLARGINE SOLOSTAR 100 UNITS/ML 3 ML PEN SC SCH (10:51)
--- NOTE | 2021-10-09 12:26 | CT Scan Report ---
CT head/brain wo con CLINICAL HISTORY: Acute change in mental state, agitation Technique: Contiguous axial CT images of the head were acquired from the base of the skull to the garrett onofre without intravenous contrast administration. Images were viewed in brain, subdural and [facility]. Automated dose lowering techniques and/or adjustment according to patient size were utilized for this exam. Comparison: Comparison is made to CT brain 06/10/2018 Findings: Areas of decreased attenuation are present in the periventricular and subcortical white matter bilate rally consistent with small vessel ischemic disease. Generalized cerebral atrophy with commensurate e nlargement of the ventricles, sulci, and cisterns is also present. There is no acute intracranial hem orrhage or evidence of acute territorial infarction. No shift of the midline structures, mass effect, or extra-axial abnormalities are shown. Atherosclerotic calcifications are present in the intracran ial segments of the internal carotid arteries. Incidental note is made of cavum septum lucidum. Imaged portions of the paranasal sinuses and mastoid air cells are clear. The orbits appear normal. There are no acute fractures of the calvaria or scalp swelling. Impression: Expected age-related changes without evidence of acute abnormality. ACT 112: Negative or not required by law. Electronically signed by: Anthony Bowens M.D. 10/09/2021 12:25 PM
--- NOTE | 2021-10-09 12:28 | XRay Report ---
XR chest 1V portable CLINICAL HISTORY: respiratory distress TECHNIQUE: Single frontal radiograph of the chest was obtained. Comparison: Comparison is made to chest radiograph 10/06/2021 FINDINGS: No lines and tubes are seen. Cardiomegaly is noted. Lungs are underinflated but no definite airspace opacities are seen. No evidence of pleural effusion or pneumothorax. IMPRESSION: No acute chest disease. Cardiomegaly is noted. ACT 112: Negative or not required by law. Electronically signed by: Anthony Bowens M.D. 10/09/2021 12:27 PM
[2021-10-09] MEDS ORDERED: STAT IV Infusion **Titration per Protocol STA (12:34)
[2021-10-09] MEDS ORDERED: dilTIAZem HCL 125 MG in DEXTROSE 5% 100 ML IV SCH (12:45)
[2021-10-09] MEDS: METOPROLOL TARTRATE 1 MG/ML VIAL IV SCH ×3 (13:46→20:49)
--- NOTE | 2021-10-09 14:07 | XCELERA ---
[id number]
--- NOTE | 2021-10-09 14:13 | Cardiology Consultation ---
Date of Consultation October 09, 2021 Assessment & Plan (1) Atrial fibrillation with rapid ventricular response: 1. Atrial fibrillation: The likely precipitant for his arrhythmia is simply his decompensated medical state. He has H was normal. He does not have significant valvular disease but does have some mild left atrial dilation. He is also of advanced age. Unclear if he has had atrial fibrillation previously. Unfortunately, no history can be obtained from the patient at this point. In the immediate term will concentrate on rate control. Heart rates while lying in bed resting are actually quite acceptable. He is not currently taking oral medications due to his abnormal cognitive state. I do not think there is an urgent need for any diltiazem infusion if his heart rate stay consistently below 120. There is a reasonable possibility that he will simply cover back to a sinus rhythm as his clinical condition improves. If his heart rates are generally over 120 than diltiazem infusion can be considered. Once his cognitive status improves we can use standard oral therapy such as beta-blockade. He certainly meets criteria for systemic anticoagulation, but there is some concern about his risk of bleeding in the immediate postoperative period. I do not believe a heparin infusion is necessary do not believe urgent anticoagulation is necessary. History of Present Illness Reason for Consultation: Atrial fibrillation Requesting Physician: Josette Attending Physician: Suresh Finch MD History of Present Illness The patient is an 86-year-old gentleman without a known history of cardiac disease who was admitted after suffering a mechanical fall and fracturing his left hip. The patient underwent operative intervention in the postoperative period has suffered from delirium. Yesterday he appeared to have developed atrial fibrillation. Unfortunately, the patient cannot provide any meaningful history. His daughter was at the bedside it did supply some supplemental history. Seems that in general he lives independently and is ambulatory with a cane. He has had some unsteadiness and falls recently. It is unclear if these are precipitated by dizziness. She does not know if he has ever suffered syncope. He generally does not describe symptoms of palpitations or chest pain. Allergies Allergy/AdvReac Type Severity Reaction Status Date / Time house dust Allergy Mild Congested Verified 10/08/21 08:03 No Known Drug Allergies Allergy Unknown Unknown Verified 10/05/21 23:28 Home Medications Medication Instructions Recorded Confirmed Type cetirizine 10 mg tablet (Zyrtec) 10 mg PO DAILY 06/10/18 10/05/21 History omega 0-iiu-ucr-fish oil 1,000 mg 1 cap PO DAILY 06/10/18 10/05/21 History (120 mg-180 mg) capsule (Fish Oil) vit C,E,zinc,copper-[id number] 250 1 cap PO DAILY 06/10/18 10/05/21 History mg-lutein 5 mg-zeaxanthin 1 mg capsule (Ocuvite Adult 50 Plus) cholecalciferol (vitamin D3) 25 1,000 units PO DAILY tab 01/15/19 10/05/21 History mcg (1,000 unit) tablet aspirin 325 mg tablet 650 mg PO BID PRN 03/15/20 10/05/21 History telmisartan 80 1 tab PO DAILY #90 tab 01/29/21 10/05/21 Rx mg-hydrochlorothiazide 25 mg tablet (Micardis HCT) Wheeled Walker #1 ea 06/18/21 07/30/21 Rx OneTouch Delica Lancets 30 gauge #100 ea NS 07/31/21 Rx (lancets) OneTouch Ultra Test (blood sugar #100 ea NS 07/31/21 Rx diagnostic) metformin 500 mg tablet 500 mg PO DAILY 10/05/21 10/05/21 History Patient History Medical History Allergic rhinitis Anterolisthesis Arthritis Diabetes mellitus Gait abnormality Greater trochanteric bursitis of right hip History of gastritis Hypertension Inhibited sexual excitement Lumbar compression fracture Myofascial pain Pars defect of lumbar spine Sacroiliitis Sciatica of right side Spinal stenosis of lumbar region Type 2 diabetes mellitus Surgical History History of knee replacement S/P colonoscopy S/P tonsillectomy S/P tooth extraction Family History Mother Diabetes Renal failure History of miscarriage Sister Uterine cancer Ovarian cancer Father Cardiomegaly Colon cancer Family/Other No problems noted. Denies family history of Prostate cancer Myocardial infarction Breast cancer Social History Smoking Status: Former smoker Second Hand Exposure: No; Hx Alcohol Use: No Hx Substance Use: No Preferred Language: Cypriot Communication Ability: Impaired Visual Impairment: No Limitations Hearing Ability: Normal [employer] Director Required: No Beliefs That Will Affect Care: None marital status: Current Living Situation: Alone current occupational status: retired Feels Safe at Home: Yes Dental Care, Regularly: Yes Physical Activity Frequency: 3-4 Times per Week Physical Activity Frequency Comment: Regularly, stationary bike Seatbelt Use: always Sunscreen Use: Yes Assistive Devices: Walker Review of Systems Review of Systems: Unobtainable due to cognitive status Physical Exam Physical Exam: The patient was easily arousable and answer questions although not appropriately. He was oriented to person only HEENT: Pupils are equal and reactive to light and accommodation. Extraocular movements are intact. The sclerae are anicteric. Neuro: He cannot cooperate with the exam. Cranial nerves appeared intact. Lungs: Clear to auscultation bilaterally. He has good air movement without use of accessory muscles. No rales wheezes or rhonchi. Cardiac: Heart is irregularly irregular. No significant murmurs. Pulses: The patient has palpable radial pulses bilaterally that are equal in intensity Extremities: There was no evidence of hypoperfusion. There is no cyanosis or clubbing. There is no edema (surgical stockings in place) Skin: I did not appreciate any rashes on examination today. Results & Data ([facility]) Vital Signs (Past 12 Hours) Vital Signs Temp Pulse Pulse Pulse Resp BP BP 10/09/21 13:46 96 H 111/58 L 10/09/21 11:00 37.1 C 127 H 22 122/76 10/09/21 07:10 36.6 C 110 H 26 H 120/68 10/09/21 06:32 112 H 10/09/21 06:21 121 H 126/63 10/09/21 06:09 109 H 114/71 10/09/21 05:55 108 H 116/40 L 10/09/21 05:31 127 H 10/09/21 05:19 112 H 113/81 10/09/21 04:53 36.6 C 109 H 10/09/21 03:04 36.9 C 132 H 18 124/74 BP Pulse Ox 10/09/21 13:46 10/09/21 11:00 94 10/09/21 07:10 94 10/09/21 06:32 126/75 10/09/21 06:21 10/09/21 06:09 04/19/22 05:55 10/09/21 05:31 111/62 10/09/21 05:19 10/09/21 04:53 123/63 91 10/09/21 03:04 97 Laboratory Results Abnormal Lab Results 10/08/21 10/08/21 10/09/21 17:26 20:26 05:42 WBC 10.41 RBC 3.09 L Hgb 9.2 L Hct 25.8 L MCV 83.5 MCH 29.8 MCHC 35.7 RDW Std Deviation 40.7 RDW Coeff of Thierry 13.4 Plt Count 194 MPV 9.2 Immature Gran % (Auto) 0.2 Neut % (Auto) 74.9 Lymph % (Auto) 15.8 [place] % (Auto) 8.1 Eos % (Auto) 0.9 Baso % (Auto) 0.1 Neut # (Auto) 7.81 H Lymph # (Auto) 1.64 [place] # (Auto) 0.84 H Eos # (Auto) 0.09 Baso # (Auto) 0.01 Immature Gran # (Auto) 0.02 Sodium Potassium Chloride Carbon Dioxide Anion Gap BUN Creatinine Est Cr Clr Drug Dosing Est GFR ( Amer) Est GFR (Non-Af Amer) BUN/Creatinine Ratio Glucose POC Glucose 138 H 154 H Calcium Magnesium TSH 10/09/21 10/09/21 10/09/21 05:42 07:48 07:52 WBC RBC Hgb Hct MCV MCH MCHC RDW Std Deviation RDW Coeff of Thierry Plt Count MPV Immature Gran % (Auto) Neut % (Auto) Lymph % (Auto) [place] % (Auto) Eos % (Auto) Baso % (Auto) Neut # (Auto) Lymph # (Auto) [place] # (Auto) Eos # (Auto) Baso # (Auto) Immature Gran # (Auto) Sodium 134 L Potassium 3.7 Chloride 103 Carbon Dioxide 24 Anion Gap 7 BUN 32 H Creatinine 1.22 Est Cr Clr Drug Dosing 50.7 Est GFR ( Amer) 62.7 Est GFR (Non-Af Amer) 54.1 BUN/Creatinine Ratio 26.2 H Glucose 142 H POC Glucose 176 H Calcium 7.9 L Magnesium 1.9 TSH 0.523 10/09/21 11:32 WBC RBC Hgb Hct MCV MCH MCHC RDW Std Deviation RDW Coeff of Thierry Plt Count MPV Immature Gran % (Auto) Neut % (Auto) Lymph % (Auto) [place] % (Auto) Eos % (Auto) Baso % (Auto) Neut # (Auto) Lymph # (Auto) [place] # (Auto) Eos # (Auto) Baso # (Auto) Immature Gran # (Auto) Sodium Potassium Chloride Carbon Dioxide Anion Gap BUN Creatinine Est Cr Clr Drug Dosing Est GFR ( Amer) Est GFR (Non-Af Amer) BUN/Creatinine Ratio Glucose POC Glucose 159 H Calcium Magnesium TSH Diagnostic Findings Echocardiogram performed today revealed preserved LV systolic function without significant valvular heart disease. Mild left atrial dilation. Chest x-ray obtained today was normal. Head CT obtained today did not reveal any acute changes. Chronic age-related ch anges noted. ECG Additional Comments: EKG obtained on 10/09/2021: Atrial fibrillation with rapid ventricular response. One beat aberrantly conducted PG Care Time/CCT Total # of Minutes Spent Total Time Spent with Patient: Total time spent is greater than 50% in coordination of care (as documented) at patient's floor/unit and/or counseling patient: Coding Level of Care Code 71002 Initial Inpt Care Lvl 3 Diagnoses Atrial fibrillation with rapid ventricular response I48.91
--- NOTE | 2021-10-09 14:18 | Electrocardiogram Report ---
Test Reason : Blood Pressure : / mmHG Vent. Rate : 116 BPM Atrial Rate : 074 BPM P-R Int : 000 ms QRS Dur : 090 ms QT Int : 322 ms P-R-T Axes : 000 013 000 degrees QTc Int : 447 ms Atrial fibrillation with rapid ventricular response with premature ventricular or aberrantly conducte d complexes Abnormal ECG Confirmed by Jethro Macias ([id number]) on 10/09/2021 2:18:13 PM Referred By: REFERRED SELF Confirmed By:Tim Macias
--- NOTE | 2021-10-09 14:48 | Pharmacy Report ---
Pharmacy Glycemic Short Note 2 - Date of Service October 09, 2021 - Glycemic Short BSG Results (Last 24 hours): 10/08/21 10/08/21 10/09/21 17:26 20:26 05:42 Glucose 142 H POC Glucose 138 H 154 H 10/09/21 10/09/21 07:52 11:32 Glucose POC Glucose 176 H 159 H OUTPATIENT ANTIDIABETIC REGIMEN: * Metformin 500mg PO Daily * A1c 5.8% ASSESSMENT: 10/09/21: * POD # 3 * Patient somnolent this morning. Continues to have minimal PO intake. * Fasting BSG trending downward. Will continue Lantus 16 units daily - anticipate further improvement as dose reaches steady state. 10/08 * Stressors stable - POD 2 * AM fasting BSG elevated - will increase basal, but only slightly given minimal PO intake yesterday * Post-prandial BSG's mostly in goal range yesterday, but PO intake was VERY minimal and therefore the CHO ratio didn't provide a substantial amount of insulin. Given rise in BSG this AM, will tighten slightly (still looser than weight-based moderate stress estimate) 10/07 * Patient received total of 7 units of insulin yesterday, of which all were bolus insulin * Fasting BSG elevated at 207 mg/dL - likely related to stress from surgery?, A1c stable. Will give small dose of basal insulin for this AM * Patient did not eat lunch, may loosen CF/CR slightly with dinner 10/06 * 86 year old male, admitted for hip fracture, s/p surgery by Dr Dowell * Pt is maintained on oral antidiabetic agents as an outpatient * Oral agents are not recommended for inpatient use d/t drug interactions, changing PO intake, and difficulty titrating for acute hyper/hypoglycemia. ADA recommends re-initiating outpatient oral agents 1-2 days prior to discharge if/when appropriate if they were held on admission. * Will hold oral agents for admission and utilize SQ bolus insulin regimen which is the recommended regimen for inpatient glycemic control. * No basal at this time for patient's age and glycemic control on only metformin as outpatient, and no steroids received PLAN FOR INPATIENT GLYCEMIC CONTROL: * Hold outpatient oral diabetes medications * Basal insulin * Lantus 16 units SQ daily * Bolus insulin * NovoLog per scale ACHS or Q6hrs while NPO * Goal Range: Low 110 mg/dL - High 140 mg/dL * Correction Factor: 25 mg/dL/unit * Nutritional / Prandial insulin per carb ratio of 1 unit per 10 grams CHO consumed
[2021-10-09] MEDS: D5NSS + 20MEQ KCL 20 MEQ/1,000 ML BAG IV SCH (15:13)
--- NOTE | 2021-10-09 15:34 | Progress Notes ---
DATE OF SERVICE: 10/09/2021. The patient was transferred to telemetry because of AFib. He remains delirious. He has finally gotten calm down here, so Chris Holly saw him this morning and I will not disturb him any further. I agree with Chris Holly's note, discussed things with him and I am in agreement with the plan. He was able to sit in a chair yesterday. We talked to his daughter. For now, we will continue routine postsurgical care. He is able to weightbear as tolerated. He will need further PT and OT. His Lovenox has been restarted for DVT prophylaxis. We will change his dressing tomorrow if he is more calm. Labs are noted. White count normal, hemoglobin ok, platelets 194. Vitals are noted. Pulse is down below 100. Job ID: [id number] MTDD
[2021-10-09] MEDS ORDERED: OLANZapine ZYDIS 5 MG ORALLY DIS. TAB PO PRN (20:00)
[2021-10-09] MEDS ORDERED: OLANZapine 10 MG/2.1 ML SDV IM STA (20:11)
[2021-10-09] MEDS: MELATONIN 3 MG TAB PO SCH (22:17)
[2021-10-09] MEDS: DOCUSATE SODIUM/SENNA 50/8.6MG TAB PO SCH (22:17)
[2021-10-09] MEDS ORDERED: ACETAMINOPHEN 1,000 MG/100 ML VIAL IV PRN (22:36)
[2021-10-09 23:30] LABS: Appearance Urine Cloudy (Clear); Bacteria Urine Automated Negative (Negative); Bilirubin Urine Negative (Negative); Blood Urine 3+ (Negative); Color Urine Orange; Glucose Urine UA Negative (Negative); Ketones Urine Negative (Negative); Leukocyte Esterase Urine 1+ (Negative); Nitrite Urine Negative (Negative); Protein Urine Trace (Negative); Specific Gravity Urine 1.014 (1.000-1.030); Urobilinogen Urine Negative (Negative); pH Urine 5.5 (4.5-7.5)
[2021-10-10] MEDS: METOPROLOL TARTRATE 1 MG/ML VIAL IV SCH ×3 (00:45→10:45)
[2021-10-10] MEDS: D5NSS + 20MEQ KCL 20 MEQ/1,000 ML BAG IV SCH (00:50)
[2021-10-10] MEDS: ENOXAPARIN INJ 40 MG/0.4 ML SYR SQ SCH (06:14)
--- NOTE | 2021-10-10 06:39 | XRay Report ---
XR chest 1V portable HISTORY: 86 years-old Male fever, ?PNA acute fever with possible pneumonia COMPARISON: Chest radiograph 10/09/2021 TECHNIQUE: Portable AP view of the chest FINDINGS: The cardiac silhouette is enlarged. No pneumothorax, pleural effusion, airspace consolidation or over t pulmonary edema. Minimal bibasilar densities are again noted suggestive of atelectasis. Chronic kushal earing left-sided rib fractures. Degenerative changes of the shoulders and spine. IMPRESSION: Cardiomegaly without acute process. ACT 112: Negative or not required by law. The above report was generated using voice recognition software. It may contain grammatical, syntax o r spelling errors. Electronically signed by: Davis Kincaid M.D. 10/10/2021 6:38 AM
[2021-10-10 08:07] LABS: Basophils # (auto) 0.01 K/uL (0-0.2); Basophils % (auto) 0.1 %; Eosinophils # (auto) 0.14 K/uL (0-0.5); Hemoglobin 8.8 g/dL (14.0-18.0); Immature Granulocytes # (auto) 0.01 K/uL (0.00-0.02); Immature Granulocytes % (auto) 0.1 %; Lymphocytes # (auto) 1.87 K/uL (1.2-3.4); Lymphocytes % (auto) 27.2 %; Mean Corpuscular Hemoglobin 29.7 pg (25-34); Mean Corpuscular Hgb Conc 35.2 g/dL (32-36); Mean Corpuscular Volume 84.5 fL (80-100); Mean Platelet Volume 9.2 fL (7.4-10.4); Monocytes # (auto) 0.77 K/uL (0.11-0.59); Monocytes % (auto) 11.2 %; Neutrophils # (auto) 4.08 K/uL (1.4-6.5); Neutrophils % (auto) 59.4 %; Platelet Count 229 K/uL (130-400); RDW Coefficient of Variation 13.8 % (11.5-14.5); RDW Standard Deviation 42.1 fL (36.4-46.3); Red Blood Count 2.96 M/uL (4.7-6.1); White Blood Count 6.88 K/uL (4.8-10.8)
[2021-10-10 08:36] LABS: BUN Creatinine Ratio 21.3 (10-20); Calcium 7.9 mg/dl (8.5-10.1); Creatinine Clr Calc Pharmacy 51.3 ml/min; Est GFR (African American) 62.7 ml/min; Est GFR (Non-African American) 54.1 ml/min; Potassium 3.7 mmol/L (3.5-5.1)
[2021-10-10] MEDS: PANTOprazole 40 MG TAB PO SCH (09:08)
[2021-10-10] MEDS: TAMSULOSIN HCL 0.4 MG CAP PO SCH (09:14)
[2021-10-10] MEDS: ACETAMINOPHEN 500 MG TAB PO SCH ×3 (09:15→21:01)
[2021-10-10] MEDS: CHOLECALCIFEROL 1,000 UNITS 25 MCG TAB PO SCH (09:19)
[2021-10-10] MEDS: CHOLECALCIFEROL 5,000 UNITS 125 MCG TAB PO SCH (09:19)
[2021-10-10] MEDS: CETIRIZINE HCL 10 MG TABLET PO SCH (09:20)
[2021-10-10] MEDS: INSULIN GLARGINE SOLOSTAR 100 UNITS/ML 3 ML PEN SC SCH (09:21)
[2021-10-10] MEDS: INSULIN ASPART PER UNIT SC SCH ×4 (09:29→21:03)
[2021-10-10] MEDS ORDERED: METOPROLOL TARTRATE 1 MG/ML VIAL IV PRN (09:39)
[2021-10-10] MEDS: FAMOTIDINE 20 MG in SYRINGE 3 ML IV SCH (09:59)
[2021-10-10] MEDS: METOPROLOL TARTRATE 50 MG TAB PO SCH ×2 (10:05→21:02)
--- NOTE | 2021-10-10 10:15 | Orthopedic Progress Note ---
Date of Service October 10, 2021 Assessment & Plan (1) Closed fracture of left hip: Plan: POD 4 s/p left hip short IM [place] by Dr Dowell DVT prophylaxis: Lovenox 40mg SQ q 24hrs Pain control: Per primary Conde in place- plans for removal tomorrow WBAT left LE PT/OT - discussed with nursing about getting this started today. Encouraged bedside exercises that he can do on his own. Dressing changed left hip Case management consulted -Patient will most likely need to be sent to a care home facility because he lives on his own at home. Dr. Dowell present for today's visit. We will continue to follow call [phone] with any questions or concerns. Admission and Anticipated Discharge Date Admission Date: October 06, 2021 Subjective Patient sitting upright, oriented today, much better. States that he does have some pain in left hip with movement. Conde in place. Has not been out of bed. Physical Exam Musculoskeletal: Left hip -incision clean, dry and intact. Elaina retained. Mild ecchymosis around the incisions themselves. No active drainage. No surrounding hematoma or seroma. No distal edema left lower extremity. Full range of motion of his left ankle. Strength is 5/5. Distal pulses are 1+. Normal sensation throughout his left lower extremity. He is able to actively flex his knee about 20 to 30 degrees but does cause pain in his left hip. Results & Data ([facility]) Vital Signs (Past 12 Hours) Vital Signs Temp Pulse Pulse Resp BP BP Pulse Ox 10/10/21 07:20 36.6 C 85 18 110/53 L 96 10/10/21 05:13 84 118/58 L 10/10/21 04:13 37.4 C 87 18 112/58 L 95 10/10/21 02:23 37.3 C 97 H 20 101/51 L 96 10/10/21 00:45 112 H 118/65 10/10/21 00:20 37.7 C H 98 H 18 118/65 94 10/09/21 22:29 93 H 10/09/21 22:23 38.1 C H 99 H 20 137/85 94 Laboratory Results Lab Results 10/05/21 10/05/21 10/05/21 Range/Units 23:00 23:00 23:00 WBC 5.49 (4.8-10.8) K/uL RBC 4.26 L (4.7-6.1) M/uL Hgb 12.5 L (14.0-18.0) g/dL Hct 35.2 L (42-52) % MCV 82.6 (80-100) fL MCH 29.3 (25-34) pg MCHC 35.5 (32-36) g/dL RDW Std Deviation 40.6 (36.4-46.3) fL RDW Coeff of Thierry 13.5 (11.5-14.5) % Plt Count 213 (130-400) K/uL MPV 9.1 (7.4-10.4) fL Immature Gran % (Auto) 0.0 % Neut % (Auto) 48.2 % Lymph % (Auto) 40.4 % Kane % (Auto) 7.7 % Eos % (Auto) 3.5 % Baso % (Auto) 0.2 % Neut # (Auto) 2.65 (1.4-6.5) K/uL Lymph # (Auto) 2.22 (1.2-3.4) K/uL Kane # (Auto) 0.42 (0.11-0.59) K/uL Eos # (Auto) 0.19 (0-0.5) K/uL Baso # (Auto) 0.01 (0-0.2) K/uL Immature Gran # (Auto) 0.00 (0.00-0.02) K/uL PT 11.2 (9.0-12.0) Seconds INR 1.1 (0.9-1.1) APTT 27.6 (21.0-31.0) Seconds PTT Ratio 1.0 Sodium 135 L (136-145) mmol/L Potassium 3.9 (3.5-5.1) mmol/L Chloride 102 (98-107) mmol/L Carbon Dioxide 25 (21-32) mmol/L Anion Gap 8 (3-11) BUN 25 H (6-23) mg/dl Creatinine 1.31 (0.6-1.4) mg/dl Est Cr Clr Drug Dosing 47.9 ml/min Est GFR ( Amer) 57.5 ml/min Est GFR (Non-Af Amer) 49.6 ml/min BUN/Creatinine Ratio 19.1 (10-20) Glucose 194 H (70-99(Fasting)) mg/dl POC Glucose (70-99) mg/dl Estimat Average Glucose mg/dl Hemoglobin A1c (4.5-5.6) % Calcium 9.2 (8.5-10.1) mg/dl Phosphorus (2.5-4.9) mg/dl Magnesium (1.7-2.4) mg/dl Total Bilirubin 0.6 (0.2-1.0) mg/dl AST 10 L (13-39) U/L ALT 11 (7-52) U/L Alkaline Phosphatase 73 (34-104) U/L Total Protein 6.5 (6.0-8.3) gm/dl Albumin 4.0 (3.4-5.0) gm/dl Globulin 2.5 (2.5-4.0) gm/dl Albumin/Globulin Ratio 1.6 (0.9-2) 25-OH Vitamin D Total (30-100) ng/ml Procalcitonin (0-0.5) ng/ml TSH (0.300-4.500) uIu/ml Urine Color Urine Appearance (Clear) Urine pH (4.5-7.5) Ur Specific [place] (1.000-1.030) Urine Protein (Negative) Urine Glucose (UA) (Negative) Urine Ketones (Negative) Urine Blood (Negative) Urine Nitrite (Negative) Urine Bilirubin (Negative) Urine Urobilinogen (Negative) Ur Leukocyte Esterase (Negative) Urine WBC (Auto) (0-5) /hpf Urine RBC (Auto) (0-4) /hpf U Hyaline Cast (Auto) (0-5) /lpf U Epithel Cells (Auto) (0-5) /lpf Urine Bacteria (Auto) (Negative) Urine Yeast SARS-CoV-2, RNA, NAAT (NEGATIVE) Blood Type Antibody Screen 10/05/21 10/06/21 10/06/21 Range/Units 23:30 01:15 05:29 WBC (4.8-10.8) K/uL RBC (4.7-6.1) M/uL Hgb (14.0-18.0) g/dL Hct (42-52) % MCV (80-100) fL MCH (25-34) pg MCHC (32-36) g/dL RDW Std Deviation (36.4-46.3) fL RDW Coeff of Thierry (11.5-14.5) % Plt Count (130-400) K/uL MPV (7.4-10.4) fL Immature Gran % (Auto) % Neut % (Auto) % Lymph % (Auto) % Kane % (Auto) % Eos % (Auto) % Baso % (Auto) % Neut # (Auto) (1.4-6.5) K/uL Lymph # (Auto) (1.2-3.4) K/uL Kane # (Auto) (0.11-0.59) K/uL Eos # (Auto) (0-0.5) K/uL Baso # (Auto) (0-0.2) K/uL Immature Gran # (Auto) (0.00-0.02) K/uL PT (9.0-12.0) Seconds INR (0.9-1.1) APTT (21.0-31.0) Seconds PTT Ratio Sodium (136-145) mmol/L Potassium (3.5-5.1) mmol/L Chloride (98-107) mmol/L Carbon Dioxide (21-32) mmol/L Anion Gap (3-11) BUN (6-23) mg/dl Creatinine (0.6-1.4) mg/dl Est Cr Clr Drug Dosing ml/min Est GFR ( Amer) ml/min Est GFR (Non-Af Amer) ml/min BUN/Creatinine Ratio (10-20) Glucose (70-99(Fasting)) mg/dl POC Glucose (70-99) mg/dl Estimat Average Glucose mg/dl Hemoglobin A1c (4.5-5.6) % Calcium (8.5-10.1) mg/dl Phosphorus (2.5-4.9) mg/dl Magnesium (1.7-2.4) mg/dl Total Bilirubin (0.2-1.0) mg/dl AST (13-39) U/L ALT (7-52) U/L Alkaline Phosphatase (34-104) U/L Total Protein (6.0-8.3) gm/dl Albumin (3.4-5.0) gm/dl Globulin (2.5-4.0) gm/dl Albumin/Globulin Ratio (0.9-2) 25-OH Vitamin D Total (30-100) ng/ml Procalcitonin (0-0.5) ng/ml TSH (0.300-4.500) uIu/ml Urine Color Yellow Urine Appearance Clear (Clear) Urine pH 6.5 (4.5-7.5) Ur Specific [place] 1.010 (1.000-1.030) Urine Protein Negative (Negative) Urine Glucose (UA) Trace H (Negative) Urine Ketones Negative (Negative) Urine Blood Negative (Negative) Urine Nitrite Negative (Negative) Urine Bilirubin Negative (Negative) Urine Urobilinogen Negative (Negative) Ur Leukocyte Esterase Negative (Negative) Urine WBC (Auto) (0-5) /hpf Urine RBC (Auto) (0-4) /hpf U Hyaline Cast (Auto) (0-5) /lpf U Epithel Cells (Auto) (0-5) /lpf Urine Bacteria (Auto) (Negative) Urine Yeast SARS-CoV-2, RNA, NAAT NEGATIVE (NEGATIVE) Blood Type B Positive Antibody Screen NEGATIVE 10/06/21 10/06/21 10/06/21 Range/Units 05:29 06:03 11:49 WBC (4.8-10.8) K/uL RBC (4.7-6.1) M/uL Hgb (14.0-18.0) g/dL Hct (42-52) % MCV (80-100) fL MCH (25-34) pg MCHC (32-36) g/dL RDW Std Deviation (36.4-46.3) fL RDW Coeff of Thierry (11.5-14.5) % Plt Count (130-400) K/uL MPV (7.4-10.4) fL Immature Gran % (Auto) % Neut % (Auto) % Lymph % (Auto) % Kane % (Auto) % Eos % (Auto) % Baso % (Auto) % Neut # (Auto) (1.4-6.5) K/uL Lymph # (Auto) (1.2-3.4) K/uL Kane # (Auto) (0.11-0.59) K/uL Eos # (Auto) (0-0.5) K/uL Baso # (Auto) (0-0.2) K/uL Immature Gran # (Auto) (0.00-0.02) K/uL PT (9.0-12.0) Seconds INR (0.9-1.1) APTT (21.0-31.0) Seconds PTT Ratio Sodium (136-145) mmol/L Potassium (3.5-5.1) mmol/L Chloride (98-107) mmol/L Carbon Dioxide (21-32) mmol/L Anion Gap (3-11) BUN (6-23) mg/dl Creatinine (0.6-1.4) mg/dl Est Cr Clr Drug Dosing ml/min Est GFR ( Amer) ml/min Est GFR (Non-Af Amer) ml/min BUN/Creatinine Ratio (10-20) Glucose (70-99(Fasting)) mg/dl POC Glucose 197 H 192 H (70-99) mg/dl Estimat Average Glucose 120 mg/dl Hemoglobin A1c 5.8 H (4.5-5.6) % Calcium (8.5-10.1) mg/dl Phosphorus (2.5-4.9) mg/dl Magnesium (1.7-2.4) mg/dl Total Bilirubin (0.2-1.0) mg/dl AST (13-39) U/L ALT (7-52) U/L Alkaline Phosphatase (34-104) U/L Total Protein (6.0-8.3) gm/dl Albumin (3.4-5.0) gm/dl Globulin (2.5-4.0) gm/dl Albumin/Globulin Ratio (0.9-2) 25-OH Vitamin D Total (30-100) ng/ml Procalcitonin (0-0.5) ng/ml TSH (0.300-4.500) uIu/ml Urine Color Urine Appearance (Clear) Urine pH (4.5-7.5) Ur Specific [place] (1.000-1.030) Urine Protein (Negative) Urine Glucose (UA) (Negative) Urine Ketones (Negative) Urine Blood (Negative) Urine Nitrite (Negative) Urine Bilirubin (Negative) Urine Urobilinogen (Negative) Ur Leukocyte Esterase (Negative) Urine WBC (Auto) (0-5) /hpf Urine RBC (Auto) (0-4) /hpf U Hyaline Cast (Auto) (0-5) /lpf U Epithel Cells (Auto) (0-5) /lpf Urine Bacteria (Auto) (Negative) Urine Yeast SARS-CoV-2, RNA, NAAT (NEGATIVE) Blood Type Antibody Screen 10/06/21 10/06/21 10/06/21 Range/Units 16:17 17:07 20:38 WBC (4.8-10.8) K/uL RBC (4.7-6.1) M/uL Hgb (14.0-18.0) g/dL Hct (42-52) % MCV (80-100) fL MCH (25-34) pg MCHC (32-36) g/dL RDW Std Deviation (36.4-46.3) fL RDW Coeff of Thierry (11.5-14.5) % Plt Count (130-400) K/uL MPV (7.4-10.4) fL Immature Gran % (Auto) % Neut % (Auto) % Lymph % (Auto) % Kane % (Auto) % Eos % (Auto) % Baso % (Auto) % Neut # (Auto) (1.4-6.5) K/uL Lymph # (Auto) (1.2-3.4) K/uL [place] # (Auto) (0.11-0.59) K/uL Eos # (Auto) (0-0.5) K/uL Baso # (Auto) (0-0.2) K/uL Immature Gran # (Auto) (0.00-0.02) K/uL PT (9.0-12.0) Seconds INR (0.9-1.1) APTT (21.0-31.0) Seconds PTT Ratio Sodium (136-145) mmol/L Potassium (3.5-5.1) mmol/L Chloride (98-107) mmol/L Carbon Dioxide (21-32) mmol/L Anion Gap (3-11) BUN (6-23) mg/dl Creatinine (0.6-1.4) mg/dl Est Cr Clr Drug Dosing ml/min Est GFR ( Amer) ml/min Est GFR (Non-Af Amer) ml/min BUN/Creatinine Ratio (10-20) Glucose (70-99(Fasting)) mg/dl POC Glucose 178 H 176 H 177 H (70-99) mg/dl Estimat Average Glucose mg/dl Hemoglobin A1c (4.5-5.6) % Calcium (8.5-10.1) mg/dl Phosphorus (2.5-4.9) mg/dl Magnesium (1.7-2.4) mg/dl Total Bilirubin (0.2-1.0) mg/dl AST (13-39) U/L ALT (7-52) U/L Alkaline Phosphatase (34-104) U/L Total Protein (6.0-8.3) gm/dl Albumin (3.4-5.0) gm/dl Globulin (2.5-4.0) gm/dl Albumin/Globulin Ratio (0.9-2) 25-OH Vitamin D Total (30-100) ng/ml Procalcitonin (0-0.5) ng/ml TSH (0.300-4.500) uIu/ml Urine Color Urine Appearance (Clear) Urine pH (4.5-7.5) Ur Specific [place] (1.000-1.030) Urine Protein (Negative) Urine Glucose (UA) (Negative) Urine Ketones (Negative) Urine Blood (Negative) Urine Nitrite (Negative) Urine Bilirubin (Negative) Urine Urobilinogen (Negative) Ur Leukocyte Esterase (Negative) Urine WBC (Auto) (0-5) /hpf Urine RBC (Auto) (0-4) /hpf U Hyaline Cast (Auto) (0-5) /lpf U Epithel Cells (Auto) (0-5) /lpf Urine Bacteria (Auto) (Negative) Urine Yeast SARS-CoV-2, RNA, NAAT (NEGATIVE) Blood Type Antibody Screen 10/07/21 10/07/21 10/07/21 Range/Units 06:28 06:28 06:28 WBC 8.80 (4.8-10.8) K/uL RBC 3.30 L (4.7-6.1) M/uL Hgb 9.9 L (14.0-18.0) g/dL Hct 27.4 L (42-52) % MCV 83.0 (80-100) fL MCH 30.0 (25-34) pg MCHC 36.1 H (32-36) g/dL RDW Std Deviation 41.2 (36.4-46.3) fL RDW Coeff of Thierry 13.5 (11.5-14.5) % Plt Count 191 (130-400) K/uL MPV 9.4 (7.4-10.4) fL Immature Gran % (Auto) 0.2 % Neut % (Auto) 76.1 % Lymph % (Auto) 14.9 % Kane % (Auto) 8.6 % Eos % (Auto) 0.1 % Baso % (Auto) 0.1 % Neut # (Auto) 6.69 H (1.4-6.5) K/uL Lymph # (Auto) 1.31 (1.2-3.4) K/uL Kane # (Auto) 0.76 H (0.11-0.59) K/uL Eos # (Auto) 0.01 (0-0.5) K/uL Baso # (Auto) 0.01 (0-0.2) K/uL Immature Gran # (Auto) 0.02 (0.00-0.02) K/uL PT (9.0-12.0) Seconds INR (0.9-1.1) APTT (21.0-31.0) Seconds PTT Ratio Sodium 133 L (136-145) mmol/L Potassium 4.0 (3.5-5.1) mmol/L Chloride 101 (98-107) mmol/L Carbon Dioxide 24 (21-32) mmol/L Anion Gap 8 (3-11) BUN 28 H (6-23) mg/dl Creatinine 1.43 H (0.6-1.4) mg/dl Est Cr Clr Drug Dosing 43.3 ml/min Est GFR ( Amer) 51.8 ml/min Est GFR (Non-Af Amer) 44.7 ml/min BUN/Creatinine Ratio 19.6 (10-20) Glucose 186 H (70-99(Fasting)) mg/dl POC Glucose (70-99) mg/dl Estimat Average Glucose mg/dl Hemoglobin A1c (4.5-5.6) % Calcium 8.4 L (8.5-10.1) mg/dl Phosphorus 3.4 (2.5-4.9) mg/dl Magnesium (1.7-2.4) mg/dl Total Bilirubin (0.2-1.0) mg/dl AST (13-39) U/L ALT (7-52) U/L Alkaline Phosphatase (34-104) U/L Total Protein (6.0-8.3) gm/dl Albumin 3.6 (3.4-5.0) gm/dl Globulin (2.5-4.0) gm/dl Albumin/Globulin Ratio (0.9-2) 25-OH Vitamin D Total 79.1 (30-100) ng/ml Procalcitonin (0-0.5) ng/ml TSH (0.300-4.500) uIu/ml Urine Color Urine Appearance (Clear) Urine pH (4.5-7.5) Ur Specific [place] (1.000-1.030) Urine Protein (Negative) Urine Glucose (UA) (Negative) Urine Ketones (Negative) Urine Blood (Negative) Urine Nitrite (Negative) Urine Bilirubin (Negative) Urine Urobilinogen (Negative) Ur Leukocyte Esterase (Negative) Urine WBC (Auto) (0-5) /hpf Urine RBC (Auto) (0-4) /hpf U Hyaline Cast (Auto) (0-5) /lpf U Epithel Cells (Auto) (0-5) /lpf Urine Bacteria (Auto) (Negative) Urine Yeast SARS-CoV-2, RNA, NAAT (NEGATIVE) Blood Type Antibody Screen 10/07/21 10/07/21 10/07/21 Range/Units 08:07 12:03 17:08 WBC (4.8-10.8) K/uL RBC (4.7-6.1) M/uL Hgb (14.0-18.0) g/dL Hct (42-52) % MCV (80-100) fL MCH (25-34) pg MCHC (32-36) g/dL RDW Std Deviation (36.4-46.3) fL RDW Coeff of Thierry (11.5-14.5) % Plt Count (130-400) K/uL MPV (7.4-10.4) fL Immature Gran % (Auto) % Neut % (Auto) % Lymph % (Auto) % [place] % (Auto) % Eos % (Auto) % Baso % (Auto) % Neut # (Auto) (1.4-6.5) K/uL Lymph # (Auto) (1.2-3.4) K/uL [place] # (Auto) (0.11-0.59) K/uL Eos # (Auto) (0-0.5) K/uL Baso # (Auto) (0-0.2) K/uL Immature Gran # (Auto) (0.00-0.02) K/uL PT (9.0-12.0) Seconds INR (0.9-1.1) APTT (21.0-31.0) Seconds PTT Ratio Sodium (136-145) mmol/L Potassium (3.5-5.1) mmol/L Chloride (98-107) mmol/L Carbon Dioxide (21-32) mmol/L Anion Gap (3-11) BUN (6-23) mg/dl Creatinine (0.6-1.4) mg/dl Est Cr Clr Drug Dosing ml/min Est GFR ( Amer) ml/min Est GFR (Non-Af Amer) ml/min BUN/Creatinine Ratio (10-20) Glucose (70-99(Fasting)) mg/dl POC Glucose 207 H 130 H 142 H (70-99) mg/dl Estimat Average Glucose mg/dl Hemoglobin A1c (4.5-5.6) % Calcium (8.5-10.1) mg/dl Phosphorus (2.5-4.9) mg/dl Magnesium (1.7-2.4) mg/dl Total Bilirubin (0.2-1.0) mg/dl AST (13-39) U/L ALT (7-52) U/L Alkaline Phosphatase (34-104) U/L Total Protein (6.0-8.3) gm/dl Albumin (3.4-5.0) gm/dl Globulin (2.5-4.0) gm/dl Albumin/Globulin Ratio (0.9-2) 25-OH Vitamin D Total (30-100) ng/ml Procalcitonin (0-0.5) ng/ml TSH (0.300-4.500) uIu/ml Urine Color Urine Appearance (Clear) Urine pH (4.5-7.5) Ur Specific [place] (1.000-1.030) Urine Protein (Negative) Urine Glucose (UA) (Negative) Urine Ketones (Negative) Urine Blood (Negative) Urine Nitrite (Negative) Urine Bilirubin (Negative) Urine Urobilinogen (Negative) Ur Leukocyte Esterase (Negative) Urine WBC (Auto) (0-5) /hpf Urine RBC (Auto) (0-4) /hpf U Hyaline Cast (Auto) (0-5) /lpf U Epithel Cells (Auto) (0-5) /lpf Urine Bacteria (Auto) (Negative) Urine Yeast SARS-CoV-2, RNA, NAAT (NEGATIVE) Blood Type Antibody Screen 10/07/21 10/08/21 10/08/21 Range/Units 20:33 06:24 06:24 WBC 9.55 (4.8-10.8) K/uL RBC 3.13 L (4.7-6.1) M/uL Hgb 9.3 L (14.0-18.0) g/dL Hct 25.6 L (42-52) % MCV 81.8 (80-100) fL MCH 29.7 (25-34) pg MCHC 36.3 H (32-36) g/dL RDW Std Deviation 40.0 (36.4-46.3) fL RDW Coeff of Thierry 13.4 (11.5-14.5) % Plt Count 176 (130-400) K/uL MPV 9.1 (7.4-10.4) fL Immature Gran % (Auto) 0.2 % Neut % (Auto) 78.6 % Lymph % (Auto) 14.5 % Kane % (Auto) 6.7 % Eos % (Auto) 0.0 % Baso % (Auto) 0.0 % Neut # (Auto) 7.51 H (1.4-6.5) K/uL Lymph # (Auto) 1.38 (1.2-3.4) K/uL [place] # (Auto) 0.64 H (0.11-0.59) K/uL Eos # (Auto) 0.00 (0-0.5) K/uL Baso # (Auto) 0.00 (0-0.2) K/uL Immature Gran # (Auto) 0.02 (0.00-0.02) K/uL PT (9.0-12.0) Seconds INR (0.9-1.1) APTT (21.0-31.0) Seconds PTT Ratio Sodium 132 L (136-145) mmol/L Potassium 4.0 (3.5-5.1) mmol/L Chloride 99 (98-107) mmol/L Carbon Dioxide 23 (21-32) mmol/L Anion Gap 10 (3-11) BUN 32 H (6-23) mg/dl Creatinine 1.19 (0.6-1.4) mg/dl Est Cr Clr Drug Dosing 52.0 ml/min Est GFR ( Amer) 64.6 ml/min Est GFR (Non-Af Amer) 55.8 ml/min BUN/Creatinine Ratio 26.9 H (10-20) Glucose 190 H (70-99(Fasting)) mg/dl POC Glucose 160 H (70-99) mg/dl Estimat Average Glucose mg/dl Hemoglobin A1c (4.5-5.6) % Calcium 8.3 L (8.5-10.1) mg/dl Phosphorus 2.5 (2.5-4.9) mg/dl Magnesium (1.7-2.4) mg/dl Total Bilirubin (0.2-1.0) mg/dl AST (13-39) U/L ALT (7-52) U/L Alkaline Phosphatase (34-104) U/L Total Protein (6.0-8.3) gm/dl Albumin 3.5 (3.4-5.0) gm/dl Globulin (2.5-4.0) gm/dl Albumin/Globulin Ratio (0.9-2) 25-OH Vitamin D Total (30-100) ng/ml Procalcitonin (0-0.5) ng/ml TSH (0.300-4.500) uIu/ml Urine Color Urine Appearance (Clear) Urine pH (4.5-7.5) Ur Specific [place] (1.000-1.030) Urine Protein (Negative) Urine Glucose (UA) (Negative) Urine Ketones (Negative) Urine Blood (Negative) Urine Nitrite (Negative) Urine Bilirubin (Negative) Urine Urobilinogen (Negative) Ur Leukocyte Esterase (Negative) Urine WBC (Auto) (0-5) /hpf Urine RBC (Auto) (0-4) /hpf U Hyaline Cast (Auto) (0-5) /lpf U Epithel Cells (Auto) (0-5) /lpf Urine Bacteria (Auto) (Negative) Urine Yeast SARS-CoV-2, RNA, NAAT (NEGATIVE) Blood Type Antibody Screen 0410/08/21 10/08/21 Range/Units 08:12 12:22 17:26 WBC (4.8-10.8) K/uL RBC (4.7-6.1) M/uL Hgb (14.0-18.0) g/dL Hct (42-52) % MCV (80-100) fL MCH (25-34) pg MCHC (32-36) g/dL RDW Std Deviation (36.4-46.3) fL RDW Coeff of Thierry (11.5-14.5) % Plt Count (130-400) K/uL MPV (7.4-10.4) fL Immature Gran % (Auto) % Neut % (Auto) % Lymph % (Auto) % [place] % (Auto) % Eos % (Auto) % Baso % (Auto) % Neut # (Auto) (1.4-6.5) K/uL Lymph # (Auto) (1.2-3.4) K/uL [place] # (Auto) (0.11-0.59) K/uL Eos # (Auto) (0-0.5) K/uL Baso # (Auto) (0-0.2) K/uL Immature Gran # (Auto) (0.00-0.02) K/uL PT (9.0-12.0) Seconds INR (0.9-1.1) APTT (21.0-31.0) Seconds PTT Ratio Sodium (136-145) mmol/L Potassium (3.5-5.1) mmol/L Chloride (98-107) mmol/L Carbon Dioxide (21-32) mmol/L Anion Gap (3-11) BUN (6-23) mg/dl Creatinine (0.6-1.4) mg/dl Est Cr Clr Drug Dosing ml/min Est GFR ( Amer) ml/min Est GFR (Non-Af Amer) ml/min BUN/Creatinine Ratio (10-20) Glucose (70-99(Fasting)) mg/dl POC Glucose 198 H 199 H 138 H (70-99) mg/dl Estimat Average Glucose mg/dl Hemoglobin A1c (4.5-5.6) % Calcium (8.5-10.1) mg/dl Phosphorus (2.5-4.9) mg/dl Magnesium (1.7-2.4) mg/dl Total Bilirubin (0.2-1.0) mg/dl AST (13-39) U/L ALT (7-52) U/L Alkaline Phosphatase (34-104) U/L Total Protein (6.0-8.3) gm/dl Albumin (3.4-5.0) gm/dl Globulin (2.5-4.0) gm/dl Albumin/Globulin Ratio (0.9-2) 25-OH Vitamin D Total (30-100) ng/ml Procalcitonin (0-0.5) ng/ml TSH (0.300-4.500) uIu/ml Urine Color Urine Appearance (Clear) Urine pH (4.5-7.5) Ur Specific [place] (1.000-1.030) Urine Protein (Negative) Urine Glucose (UA) (Negative) Urine Ketones (Negative) Urine Blood (Negative) Urine Nitrite (Negative) Urine Bilirubin (Negative) Urine Urobilinogen (Negative) Ur Leukocyte Esterase (Negative) Urine WBC (Auto) (0-5) /hpf Urine RBC (Auto) (0-4) /hpf U Hyaline Cast (Auto) (0-5) /lpf U Epithel Cells (Auto) (0-5) /lpf Urine Bacteria (Auto) (Negative) Urine Yeast SARS-CoV-2, RNA, NAAT (NEGATIVE) Blood Type Antibody Screen 10/08/21 10/09/21 10/09/21 Range/Units 20:26 05:42 05:42 WBC 10.41 (4.8-10.8) K/uL RBC 3.09 L (4.7-6.1) M/uL Hgb 9.2 L (14.0-18.0) g/dL Hct 25.8 L (42-52) % MCV 83.5 (80-100) fL MCH 29.8 (25-34) pg MCHC 35.7 (32-36) g/dL RDW Std Deviation 40.7 (36.4-46.3) fL RDW Coeff of Thierry 13.4 (11.5-14.5) % Plt Count 194 (130-400) K/uL MPV 9.2 (7.4-10.4) fL Immature Gran % (Auto) 0.2 % Neut % (Auto) 74.9 % Lymph % (Auto) 15.8 % [place] % (Auto) 8.1 % Eos % (Auto) 0.9 % Baso % (Auto) 0.1 % Neut # (Auto) 7.81 H (1.4-6.5) K/uL Lymph # (Auto) 1.64 (1.2-3.4) K/uL [place] # (Auto) 0.84 H (0.11-0.59) K/uL Eos # (Auto) 0.09 (0-0.5) K/uL Baso # (Auto) 0.01 (0-0.2) K/uL Immature Gran # (Auto) 0.02 (0.00-0.02) K/uL PT (9.0-12.0) Seconds INR (0.9-1.1) APTT (21.0-31.0) Seconds PTT Ratio Sodium 134 L (136-145) mmol/L Potassium 3.7 (3.5-5.1) mmol/L Chloride 103 (98-107) mmol/L Carbon Dioxide 24 (21-32) mmol/L Anion Gap 7 (3-11) BUN 32 H (6-23) mg/dl Creatinine 1.22 (0.6-1.4) mg/dl Est Cr Clr Drug Dosing 50.7 ml/min Est GFR ( Amer) 62.7 ml/min Est GFR (Non-Af Amer) 54.1 ml/min BUN/Creatinine Ratio 26.2 H (10-20) Glucose 142 H (70-99(Fasting)) mg/dl POC Glucose 154 H (70-99) mg/dl Estimat Average Glucose mg/dl Hemoglobin A1c (4.5-5.6) % Calcium 7.9 L (8.5-10.1) mg/dl Phosphorus (2.5-4.9) mg/dl Magnesium 1.9 (1.7-2.4) mg/dl Total Bilirubin (0.2-1.0) mg/dl AST (13-39) U/L ALT (7-52) U/L Alkaline Phosphatase (34-104) U/L Total Protein (6.0-8.3) gm/dl Albumin (3.4-5.0) gm/dl Globulin (2.5-4.0) gm/dl Albumin/Globulin Ratio (0.9-2) 25-OH Vitamin D Total (30-100) ng/ml Procalcitonin (0-0.5) ng/ml TSH (0.300-4.500) uIu/ml Urine Color Urine Appearance (Clear) Urine pH (4.5-7.5) Ur Specific [place] (1.000-1.030) Urine Protein (Negative) Urine Glucose (UA) (Negative) Urine Ketones (Negative) Urine Blood (Negative) Urine Nitrite (Negative) Urine Bilirubin (Negative) Urine Urobilinogen (Negative) Ur Leukocyte Esterase (Negative) Urine WBC (Auto) (0-5) /hpf Urine RBC (Auto) (0-4) /hpf U Hyaline Cast (Auto) (0-5) /lpf U Epithel Cells (Auto) (0-5) /lpf Urine Bacteria (Auto) (Negative) Urine Yeast SARS-CoV-2, RNA, NAAT (NEGATIVE) Blood Type Antibody Screen 10/09/21 10/09/21 10/09/21 Range/Units 07:48 07:52 11:32 WBC (4.8-10.8) K/uL RBC (4.7-6.1) M/uL Hgb (14.0-18.0) g/dL Hct (42-52) % MCV (80-100) fL MCH (25-34) pg MCHC (32-36) g/dL RDW Std Deviation (36.4-46.3) fL RDW Coeff of Thierry (11.5-14.5) % Plt Count (130-400) K/uL MPV (7.4-10.4) fL Immature Gran % (Auto) % Neut % (Auto) % Lymph % (Auto) % [place] % (Auto) % Eos % (Auto) % Baso % (Auto) % Neut # (Auto) (1.4-6.5) K/uL Lymph # (Auto) (1.2-3.4) K/uL [place] # (Auto) (0.11-0.59) K/uL Eos # (Auto) (0-0.5) K/uL Baso # (Auto) (0-0.2) K/uL Immature Gran # (Auto) (0.00-0.02) K/uL PT (9.0-12.0) Seconds INR (0.9-1.1) APTT (21.0-31.0) Seconds PTT Ratio Sodium (136-145) mmol/L Potassium (3.5-5.1) mmol/L Chloride (98-107) mmol/L Carbon Dioxide (21-32) mmol/L Anion Gap (3-11) BUN (6-23) mg/dl Creatinine (0.6-1.4) mg/dl Est Cr Clr Drug Dosing ml/min Est GFR ( Amer) ml/min Est GFR (Non-Af Amer) ml/min BUN/Creatinine Ratio (10-20) Glucose (70-99(Fasting)) mg/dl POC Glucose 176 H 159 H (70-99) mg/dl Estimat Average Glucose mg/dl Hemoglobin A1c (4.5-5.6) % Calcium (8.5-10.1) mg/dl Phosphorus (2.5-4.9) mg/dl Magnesium (1.7-2.4) mg/dl Total Bilirubin (0.2-1.0) mg/dl AST (13-39) U/L ALT (7-52) U/L Alkaline Phosphatase (34-104) U/L Total Protein (6.0-8.3) gm/dl Albumin (3.4-5.0) gm/dl Globulin (2.5-4.0) gm/dl Albumin/Globulin Ratio (0.9-2) 25-OH Vitamin D Total (30-100) ng/ml Procalcitonin (0-0.5) ng/ml TSH 0.523 (0.300-4.500) uIu/ml Urine Color Urine Appearance (Clear) Urine pH (4.5-7.5) Ur Specific [place] (1.000-1.030) Urine Protein (Negative) Urine Glucose (UA) (Negative) Urine Ketones (Negative) Urine Blood (Negative) Urine Nitrite (Negative) Urine Bilirubin (Negative) Urine Urobilinogen (Negative) Ur Leukocyte Esterase (Negative) Urine WBC (Auto) (0-5) /hpf Urine RBC (Auto) (0-4) /hpf U Hyaline Cast (Auto) (0-5) /lpf U Epithel Cells (Auto) (0-5) /lpf Urine Bacteria (Auto) (Negative) Urine Yeast SARS-CoV-2, RNA, NAAT (NEGATIVE) Blood Type Antibody Screen 10/09/21 10/09/21 10/09/21 Range/Units 16:14 20:41 23:00 WBC (4.8-10.8) K/uL RBC (4.7-6.1) M/uL Hgb (14.0-18.0) g/dL Hct (42-52) % MCV (80-100) fL MCH (25-34) pg MCHC (32-36) g/dL RDW Std Deviation (36.4-46.3) fL RDW Coeff of Thierry (11.5-14.5) % Plt Count (130-400) K/uL MPV (7.4-10.4) fL Immature Gran % (Auto) % Neut % (Auto) % Lymph % (Auto) % [place] % (Auto) % Eos % (Auto) % Baso % (Auto) % Neut # (Auto) (1.4-6.5) K/uL Lymph # (Auto) (1.2-3.4) K/uL [place] # (Auto) (0.11-0.59) K/uL Eos # (Auto) (0-0.5) K/uL Baso # (Auto) (0-0.2) K/uL Immature Gran # (Auto) (0.00-0.02) K/uL PT (9.0-12.0) Seconds INR (0.9-1.1) APTT (21.0-31.0) Seconds PTT Ratio Sodium (136-145) mmol/L Potassium (3.5-5.1) mmol/L Chloride (98-107) mmol/L Carbon Dioxide (21-32) mmol/L Anion Gap (3-11) BUN (6-23) mg/dl Creatinine (0.6-1.4) mg/dl Est Cr Clr Drug Dosing ml/min Est GFR ( Amer) ml/min Est GFR (Non-Af Amer) ml/min BUN/Creatinine Ratio (10-20) Glucose (70-99(Fasting)) mg/dl POC Glucose 123 H 164 H (70-99) mg/dl Estimat Average Glucose mg/dl Hemoglobin A1c (4.5-5.6) % Calcium (8.5-10.1) mg/dl Phosphorus (2.5-4.9) mg/dl Magnesium (1.7-2.4) mg/dl Total Bilirubin (0.2-1.0) mg/dl AST (13-39) U/L ALT (7-52) U/L Alkaline Phosphatase (34-104) U/L Total Protein (6.0-8.3) gm/dl Albumin (3.4-5.0) gm/dl Globulin (2.5-4.0) gm/dl Albumin/Globulin Ratio (0.9-2) 25-OH Vitamin D Total (30-100) ng/ml Procalcitonin (0-0.5) ng/ml TSH (0.300-4.500) uIu/ml Urine Color [place] Urine Appearance Cloudy A (Clear) Urine pH 5.5 (4.5-7.5) Ur Specific [place] 1.014 (1.000-1.030) Urine Protein Trace H (Negative) Urine Glucose (UA) Negative (Negative) Urine Ketones Negative (Negative) Urine Blood 3+ H (Negative) Urine Nitrite Negative (Negative) Urine Bilirubin Negative (Negative) Urine Urobilinogen Negative (Negative) Ur Leukocyte Esterase 1+ H (Negative) Urine WBC (Auto) 5-10 H (0-5) /hpf Urine RBC (Auto) 5-10 H (0-4) /hpf U Hyaline Cast (Auto) 1-5 (0-5) /lpf U Epithel Cells (Auto) 5-10 H (0-5) /lpf Urine Bacteria (Auto) Negative (Negative) Urine Yeast Not Reportable SARS-CoV-2, RNA, NAAT (NEGATIVE) Blood Type Antibody Screen 10/10/21 10/10/21 10/10/21 Range/Units 06:28 06:28 06:28 WBC 6.88 (4.8-10.8) K/uL RBC 2.96 L (4.7-6.1) M/uL Hgb 8.8 L (14.0-18.0) g/dL Hct 25.0 L (42-52) % MCV 84.5 (80-100) fL MCH 29.7 (25-34) pg MCHC 35.2 (32-36) g/dL RDW Std Deviation 42.1 (36.4-46.3) fL RDW Coeff of Thierry 13.8 (11.5-14.5) % Plt Count 229 (130-400) K/uL MPV 9.2 (7.4-10.4) fL Immature Gran % (Auto) 0.1 % Neut % (Auto) 59.4 % Lymph % (Auto) 27.2 % [place] % (Auto) 11.2 % Eos % (Auto) 2.0 % Baso % (Auto) 0.1 % Neut # (Auto) 4.08 (1.4-6.5) K/uL Lymph # (Auto) 1.87 (1.2-3.4) K/uL [place] # (Auto) 0.77 H (0.11-0.59) K/uL Eos # (Auto) 0.14 (0-0.5) K/uL Baso # (Auto) 0.01 (0-0.2) K/uL Immature Gran # (Auto) 0.01 (0.00-0.02) K/uL PT (9.0-12.0) Seconds INR (0.9-1.1) APTT (21.0-31.0) Seconds PTT Ratio Sodium 138 (136-145) mmol/L Potassium 3.7 (3.5-5.1) mmol/L Chloride 108 H (98-107) mmol/L Carbon Dioxide 26 (21-32) mmol/L Anion Gap 4 (3-11) BUN 26 H (6-23) mg/dl Creatinine 1.22 (0.6-1.4) mg/dl Est Cr Clr Drug Dosing 51.3 ml/min Est GFR ( Amer) 62.7 ml/min Est GFR (Non-Af Amer) 54.1 ml/min BUN/Creatinine Ratio 21.3 H (10-20) Glucose 160 H (70-99(Fasting)) mg/dl POC Glucose (70-99) mg/dl Estimat Average Glucose mg/dl Hemoglobin A1c (4.5-5.6) % Calcium 7.9 L (8.5-10.1) mg/dl Phosphorus (2.5-4.9) mg/dl Magnesium (1.7-2.4) mg/dl Total Bilirubin (0.2-1.0) mg/dl AST (13-39) U/L ALT (7-52) U/L Alkaline Phosphatase (34-104) U/L Total Protein (6.0-8.3) gm/dl Albumin (3.4-5.0) gm/dl Globulin (2.5-4.0) gm/dl Albumin/Globulin Ratio (0.9-2) 25-OH Vitamin D Total (30-100) ng/ml Procalcitonin 0.25 (0-0.5) ng/ml TSH (0.300-4.500) uIu/ml Urine Color Urine Appearance (Clear) Urine pH (4.5-7.5) Ur Specific [place] (1.000-1.030) Urine Protein (Negative) Urine Glucose (UA) (Negative) Urine Ketones (Negative) Urine Blood (Negative) Urine Nitrite (Negative) Urine Bilirubin (Negative) Urine Urobilinogen (Negative) Ur Leukocyte Esterase (Negative) Urine WBC (Auto) (0-5) /hpf Urine RBC (Auto) (0-4) /hpf U Hyaline Cast (Auto) (0-5) /lpf U Epithel Cells (Auto) (0-5) /lpf Urine Bacteria (Auto) (Negative) Urine Yeast SARS-CoV-2, RNA, NAAT (NEGATIVE) Blood Type Antibody Screen 10/10/21 Range/Units 07:09 WBC (4.8-10.8) K/uL RBC (4.7-6.1) M/uL Hgb (14.0-18.0) g/dL Hct (42-52) % MCV (80-100) fL MCH (25-34) pg MCHC (32-36) g/dL RDW Std Deviation (36.4-46.3) fL RDW Coeff of Thierry (11.5-14.5) % Plt Count (130-400) K/uL MPV (7.4-10.4) fL Immature Gran % (Auto) % Neut % (Auto) % Lymph % (Auto) % [place] % (Auto) % Eos % (Auto) % Baso % (Auto) % Neut # (Auto) (1.4-6.5) K/uL Lymph # (Auto) (1.2-3.4) K/uL [place] # (Auto) (0.11-0.59) K/uL Eos # (Auto) (0-0.5) K/uL Baso # (Auto) (0-0.2) K/uL Immature Gran # (Auto) (0.00-0.02) K/uL PT (9.0-12.0) Seconds INR (0.9-1.1) APTT (21.0-31.0) Seconds PTT Ratio Sodium (136-145) mmol/L Potassium (3.5-5.1) mmol/L Chloride (98-107) mmol/L Carbon Dioxide (21-32) mmol/L Anion Gap (3-11) BUN (6-23) mg/dl Creatinine (0.6-1.4) mg/dl Est Cr Clr Drug Dosing ml/min Est GFR ( Amer) ml/min Est GFR (Non-Af Amer) ml/min BUN/Creatinine Ratio (10-20) Glucose (70-99(Fasting)) mg/dl POC Glucose 187 H (70-99) mg/dl Estimat Average Glucose mg/dl Hemoglobin A1c (4.5-5.6) % Calcium (8.5-10.1) mg/dl Phosphorus (2.5-4.9) mg/dl Magnesium (1.7-2.4) mg/dl Total Bilirubin (0.2-1.0) mg/dl AST (13-39) U/L ALT (7-52) U/L Alkaline Phosphatase (34-104) U/L Total Protein (6.0-8.3) gm/dl Albumin (3.4-5.0) gm/dl Globulin (2.5-4.0) gm/dl Albumin/Globulin Ratio (0.9-2) 25-OH Vitamin D Total (30-100) ng/ml Procalcitonin (0-0.5) ng/ml TSH (0.300-4.500) uIu/ml Urine Color Urine Appearance (Clear) Urine pH (4.5-7.5) Ur Specific [place] (1.000-1.030) Urine Protein (Negative) Urine Glucose (UA) (Negative) Urine Ketones (Negative) Urine Blood (Negative) Urine Nitrite (Negative) Urine Bilirubin (Negative) Urine Urobilinogen (Negative) Ur Leukocyte Esterase (Negative) Urine WBC (Auto) (0-5) /hpf Urine RBC (Auto) (0-4) /hpf U Hyaline Cast (Auto) (0-5) /lpf U Epithel Cells (Auto) (0-5) /lpf Urine Bacteria (Auto) (Negative) Urine Yeast SARS-CoV-2, RNA, NAAT (NEGATIVE) Blood Type Antibody Screen (1) Closed fracture of left hip Encounter type: initial encounter Qualified Code(s): S72.002A - Fracture of unspecified part of neck of left femur, initial encounter for closed fracture
--- NOTE | 2021-10-10 10:45 | Pharmacy Report ---
Pharmacy Glycemic Short Note 2 - Date of Service October 10, 2021 - Glycemic Short BSG Results (Last 24 hours): 10/09/21 10/09/21 10/09/21 11:32 16:14 20:41 Glucose POC Glucose 159 H 123 H 164 H 10/10/21 10/10/21 06:28 07:09 Glucose 160 H POC Glucose 187 H OUTPATIENT ANTIDIABETIC REGIMEN: * Metformin 500mg PO Daily * A1c 5.8% ASSESSMENT: 10/10/21 * POD 4. D5W containing IVF @ 100 mL/hr initiated yesterday at ~1600 2nd delirium with minimal po intake. This AM, patient has improved and consumed 35 g CHO with breakfast. Discussed with Dr. Finch - IVF is now discontinued as of ~1100 * AM fasting BSG elevated, but this is likely 2nd D5W infusion which has been stopped. No change to Lantus * Novolog CHO ratio rather loose, but unsure if this is too loose as pt has had minimal PO intake until this AM, where he did consume a modest amount of CHO (35g). May need to adjust CHO ratio later today depending on lunch BSG 10/09/21: * POD # 3 * Patient somnolent this morning. Continues to have minimal PO intake. * Fasting BSG trending downward. Will continue Lantus 16 units daily - anticipate further improvement as dose reaches steady state. 10/08 * Stressors stable - POD 2 * AM fasting BSG elevated - will increase basal, but only slightly given minimal PO intake yesterday * Post-prandial BSG's mostly in goal range yesterday, but PO intake was VERY minimal and therefore the CHO ratio didn't provide a substantial amount of insulin. Given rise in BSG this AM, will tighten slightly (still looser than weight-based moderate stress estimate) 10/07 * Patient received total of 7 units of insulin yesterday, of which all were bolus insulin * Fasting BSG elevated at 207 mg/dL - likely related to stress from surgery?, A1c stable. Will give small dose of basal insulin for this AM * Patient did not eat lunch, may loosen CF/CR slightly with dinner 10/06 * 86 year old male, admitted for hip fracture, s/p surgery by Dr Dowell * Pt is maintained on oral antidiabetic agents as an outpatient * Oral agents are not recommended for inpatient use d/t drug interactions, changing PO intake, and difficulty titrating for acute hyper/hypoglycemia. ADA recommends re-initiating outpatient oral agents 1-2 days prior to discharge if/when appropriate if they were held on admission. * Will hold oral agents for admission and utilize SQ bolus insulin regimen which is the recommended regimen for inpatient glycemic control. * No basal at this time for patient's age and glycemic control on only metformin as outpatient, and no steroids received PLAN FOR INPATIENT GLYCEMIC CONTROL: * Hold outpatient oral diabetes medications * Basal insulin * Lantus 16 units SQ daily * Bolus insulin * NovoLog per scale ACHS or Q6hrs while NPO * Goal Range: Low 110 mg/dL - High 140 mg/dL * Correction Factor: 25 mg/dL/unit * Nutritional / Prandial insulin per carb ratio of 1 unit per 10 grams CHO consumed
--- NOTE | 2021-10-10 13:29 | Hospitalist Progress Note ---
Date of Service October 10, 2021 Assessment & Plan (1) Closed left hip fracture: Plan: Acetaminophen 1g PO TID, oxycodone 2.5mg PO q4h PRN (fortunately not requiring this) POD#4 Left femur closed reduction and internal fixation with short trochanteric femoral nail Appreciate ongoing orthopedic management (2) Atrial fibrillation with rapid ventricular response: Plan: New onset TSH 0.523 TTE - LVEF 55-60%, left atrium mildly dilated Rate controlled with metoprolol 50mg PO BID (previously on 25mg PO BID when he went into atrial fibrillation and was not rate controlled). Appreciate cardiology consult [id number] - start on Eliquis tomorrow as long as ok from orthopedics (3) Toxic encephalopathy: Plan: Initially due to opiates with [place], therefore reduced dose to oxycodone. Had Ativan 1mg IV x2 10/08 night which caused sedation and then worsening delirium. Did well with Zyprexa last night therefore will prescribe ongoing PRN at a smaller dose of agitation/delirium at risk to self or others. CT head - no acute pathology, no need for MRI brain as daughter refused yesterday and exam today is non-focal. (4) Nausea with vomiting: Plan: Suspect gastritis/esophagitis, vomited blood on 10/08 but no further episodes Continue famotidine 20mg IV (switch to PO for one more dose tomorrow) daily and pantoprazole 40mg PO daily Hgb mildly downtrending to 8.8 today. Repeat with a.m. labs. Continue to monitor for an extra day after starting Eliquis. (5) Hematuria: Plan: Suspect traumatic urethral as only started after he pulled on fisher catheter Fisher catheter replaced 10/08. Started tamsulosin (missed dose yesterday due to drowsiness therefore will give dose today and TWOC tomorrow). Plan for TWOC tomorrow morning. If fails will need urology follow-up as outpatient. (6) Hypertension: Plan: Continue to hold HCTZ and telmisartan Continue metoprolol 50 mg PO BID (7) Type 2 diabetes mellitus: Plan: Hold Metformin HbA1C 5.8 - suggests overtreatment although he is only on metformin at home therefore won't become hypoglycemic Pharmacy consulted for glycemic control (8) Greater trochanteric bursitis of right hip: Plan: Following up with orthopedics in the outpatient setting (9) Gait abnormality: Plan: PT/OT - likely to need inpatient rehab on discharge (10) Spinal stenosis of lumbar region: Plan: Reports has a appointment with pain management Plan: VTE Prophylaxis - Lovenox 40mg SQ daily, switch to Eliquis tomorrow. Diet - T2DM Disposition -continue on PCU to monitor atrial fibrillation and relatively low blood pressure Admission and Anticipated Discharge Date Admission Date: October 06, 2021 Subjective Patient appears much more awake today after Ativan has been weaned out of the system. Distressed about how emotional he has been feeling (his recently after being for 60 years) and remembering the hallucinations he was having last night. Zyprexa given yesterday evening which appears to have helped him a lot with agitation at nighttime. Moving all 4 extremities and no significant pain. Review of Systems Review of Systems: All systems reviewed & are unremarkable except as noted in Subjective Physical Exam Constitutional: WD/WN, vitals as above Eyes: PERRL, conjunctivae normal, anicteric sclerae Respiratory: normal respiratory effort, lungs clear to auscultation no labored breathing, does not use accessory muscles and normal respiratory pattern Auscultation: lungs clear to auscultation bilaterally Cardiovascular: Rate/Rhythm: regular rate and + irregularly irregular Vessels: normal peripheral pulses and radial pulses present; no JVD Extremities: normal capillary refill; no calf tenderness and no pedal edema Gastrointestinal (Abdomen): Inspection/Auscultation: normal bowel sounds Percussion/Palpation: abdomen soft; abdomen nontender, no guarding and abdomen not rigid Musculoskeletal: no cyanosis or clubbing, extremities motor strength 5/5 Skin: no rashes, warm and dry Neurologic: moves all extremities and awake; no focal motor deficits and not confused Motor/Sensory: no sensory deficit Psychiatric: A+Ox3, euthymic affect Results & Data Results & [facility] ([facility] Vital Signs (Past 12 Hours) Vital Signs Temp Pulse Pulse Resp BP BP Pulse Ox 10/10/21 11:06 36.7 C 69 18 106/53 L 99 10/10/21 10:45 85 110/53 L 10/10/21 07:20 36.6 C 85 18 110/53 L 96 10/10/21 05:13 84 118/58 L 10/10/21 04:13 37.4 C 87 18 112/58 L 95 10/10/21 02:23 37.3 C 97 H 20 101/51 L 96 PG Care Time/CCT Total # of Minutes Spent Total Time Spent with Patient: Total time spent is greater than 50% in coordination of care (as documented) at patient's floor/unit and/or counseling patient: Coding Level of Care Code 64138 Subseq Hosp Care Lvl 3 Diagnoses Closed left hip fracture S72.002A Atrial fibrillation with rapid ventricular response I48.91 Toxic encephalopathy G92.9 Nausea with vomiting R11.2 Hematuria R31.9 Hypertension I10 Type 2 diabetes mellitus E11.9 Greater trochanteric bursitis of right hip M70.61 Gait abnormality R26.9 Spinal stenosis of lumbar region M48.061
--- NOTE | 2021-10-10 15:25 | Cardiology Progress Note ---
Date of Service October 10, 2021 Assessment & Plan (1) Atrial fibrillation with rapid ventricular response: Plan: 1. Atrial fibrillation: He continues to have atrial fibrillation. He is not symptomatic. He was started on metoprolol earlier today. Rate control yeste rday was fair. Rate controlled today appears quite good. We can monitor on the current dose of metoprolol. I would have a low threshold for lowering the dose if he has any element of low heart rates. Most pressing issue would be starting anticoagulation. I would suggest Eliquis 5 mg twice daily when the patient's risk of bleeding is felt to be low. It is very likely he will convert on his own as his clinical condition improves. If not, after a few weeks of anticoagulation he can be seen in our clinic and we could arrange for cardioversion. Admission and Anticipated Discharge Date Admission Date: October 06, 2021 Subjective This afternoon the patient x-ray claimed he feeling well. He denied pain. He is not aware of any palpitations. He denies breathing difficulty. He had a better understanding of his current situation. Review of Systems Review of Systems: Per HPI Physical Exam Physical Exam: The patient is alert and oriented. Mood and affect appeared normal. He answered all questions appropriately. HEENT: Pupils are equal and reactive to light and accommodation. Extraocular movements are intact. The sclerae are anicteric. Neuro: Cranial nerves intact Lungs: Clear to auscultation bilaterally. He has good air movement without use of accessory muscles. No rales wheezes or rhonchi. Cardiac: Heart demonstrates an irregular rate and rhythm. Normal S1 and S2. No murmurs on examination. Pulses: The patient has palpable radial pulses bilaterally that are equal in intensity Extremities: There was no evidence of hypoperfusion. There is no cyanosis or clubbing. Skin: I did not appreciate any rashes on examination today. Results & Data ([facility]) Vital Signs (Past 12 Hours) Vital Signs Temp Pulse Pulse Resp BP BP Pulse Ox 10/10/21 11:06 36.7 C 69 18 106/53 L 99 10/10/21 10:45 85 110/53 L 10/10/21 07:20 36.6 C 85 18 110/53 L 96 10/10/21 05:13 84 118/58 L 10/10/21 04:13 37.4 C 87 18 112/58 L 95 Laboratory Results Abnormal Lab Results 10/09/21 10/09/21 10/09/21 16:14 20:41 23:00 WBC RBC Hgb Hct MCV MCH MCHC RDW Std Deviation RDW Coeff of Thierry Plt Count MPV Immature Gran % (Auto) Neut % (Auto) Lymph % (Auto) [place] % (Auto) Eos % (Auto) Baso % (Auto) Neut # (Auto) Lymph # (Auto) [place] # (Auto) Eos # (Auto) Baso # (Auto) Immature Gran # (Auto) Sodium Potassium Chloride Carbon Dioxide Anion Gap BUN Creatinine Est Cr Clr Drug Dosing Est GFR ( Amer) Est GFR (Non-Af Amer) BUN/Creatinine Ratio Glucose POC Glucose 123 H 164 H Calcium Procalcitonin Urine Color [place] Urine Appearance Cloudy A Urine pH 5.5 Ur Specific [place] 1.014 Urine Protein Trace H Urine Glucose (UA) Negative Urine Ketones Negative Urine Blood 3+ H Urine Nitrite Negative Urine Bilirubin Negative Urine Urobilinogen Negative Ur Leukocyte Esterase 1+ H Urine WBC (Auto) 5-10 H Urine RBC (Auto) 5-10 H U Hyaline Cast (Auto) 1-5 U Epithel Cells (Auto) 5-10 H Urine Bacteria (Auto) Negative Urine Yeast Not Reportable 10/10/21 10/10/21 10/10/21 06:28 06:28 06:28 WBC 6.88 RBC 2.96 L Hgb 8.8 L Hct 25.0 L MCV 84.5 MCH 29.7 MCHC 35.2 RDW Std Deviation 42.1 RDW Coeff of Thierry 13.8 Plt Count 229 MPV 9.2 Immature Gran % (Auto) 0.1 Neut % (Auto) 59.4 Lymph % (Auto) 27.2 [place] % (Auto) 11.2 Eos % (Auto) 2.0 Baso % (Auto) 0.1 Neut # (Auto) 4.08 Lymph # (Auto) 1.87 [place] # (Auto) 0.77 H Eos # (Auto) 0.14 Baso # (Auto) 0.01 Immature Gran # (Auto) 0.01 Sodium 138 Potassium 3.7 Chloride 108 H Carbon Dioxide 26 Anion Gap 4 BUN 26 H Creatinine 1.22 Est Cr Clr Drug Dosing 51.3 Est GFR ( Amer) 62.7 Est GFR (Non-Af Amer) 54.1 BUN/Creatinine Ratio 21.3 H Glucose 160 H POC Glucose Calcium 7.9 L Procalcitonin 0.25 Urine Color Urine Appearance Urine pH Ur Specific [place] Urine Protein Urine Glucose (UA) Urine Ketones Urine Blood Urine Nitrite Urine Bilirubin Urine Urobilinogen Ur Leukocyte Esterase Urine WBC (Auto) Urine RBC (Auto) U Hyaline Cast (Auto) U Epithel Cells (Auto) Urine Bacteria (Auto) Urine Yeast 10/10/21 10/10/21 07:09 11:26 WBC RBC Hgb Hct MCV MCH MCHC RDW Std Deviation RDW Coeff of Thierry Plt Count MPV Immature Gran % (Auto) Neut % (Auto) Lymph % (Auto) [place] % (Auto) Eos % (Auto) Baso % (Auto) Neut # (Auto) Lymph # (Auto) [place] # (Auto) Eos # (Auto) Baso # (Auto) Immature Gran # (Auto) Sodium Potassium Chloride Carbon Dioxide Anion Gap BUN Creatinine Est Cr Clr Drug Dosing Est GFR ( Amer) Est GFR (Non-Af Amer) BUN/Creatinine Ratio Glucose POC Glucose 187 H 162 H Calcium Procalcitonin Urine Color Urine Appearance Urine pH Ur Specific [place] Urine Protein Urine Glucose (UA) Urine Ketones Urine Blood Urine Nitrite Urine Bilirubin Urine Urobilinogen Ur Leukocyte Esterase Urine WBC (Auto) Urine RBC (Auto) U Hyaline Cast (Auto) U Epithel Cells (Auto) Urine Bacteria (Auto) Urine Yeast PG Care Time/CCT Total # of Minutes Spent Total Time Spent with Patient: Total time spent is greater than 50% in coordination of care (as documented) at patient's floor/unit and/or counseling patient: Coding Level of Care Code 16850 Subseq Hosp Care Lvl 2 Diagnoses Atrial fibrillation with rapid ventricular response I48.91
[2021-10-10] MEDS: DOCUSATE SODIUM/SENNA 50/8.6MG TAB PO SCH ×2 (21:00→21:02)
[2021-10-10] MEDS: MELATONIN 3 MG TAB PO SCH (21:02)
[2021-10-11 06:48] LABS: Hematocrit (blood only) 28.3 % (42-52); Hemoglobin 10.1 g/dL (14.0-18.0); Mean Corpuscular Hemoglobin 29.8 pg (25-34); Mean Corpuscular Hgb Conc 35.7 g/dL (32-36); Mean Corpuscular Volume 83.5 fL (80-100); Mean Platelet Volume 9.1 fL (7.4-10.4); Platelet Count 260 K/uL (130-400); RDW Coefficient of Variation 13.9 % (11.5-14.5); RDW Standard Deviation 41.7 fL (36.4-46.3); Red Blood Count 3.39 M/uL (4.7-6.1); White Blood Count 7.33 K/uL (4.8-10.8)
[2021-10-11 07:05] LABS: BUN Creatinine Ratio 17.7 (10-20); Calcium 8.1 mg/dl (8.5-10.1); Creatinine Clr Calc Pharmacy 48.2 ml/min; Est GFR (African American) 58.1 ml/min; Est GFR (Non-African American) 50.1 ml/min; Potassium 4.1 mmol/L (3.5-5.1)
[2021-10-11] MEDS: INSULIN ASPART PER UNIT SC SCH ×4 (08:52→22:04)
[2021-10-11] MEDS: INSULIN GLARGINE SOLOSTAR 100 UNITS/ML 3 ML PEN SC SCH (08:54)
[2021-10-11] MEDS: ACETAMINOPHEN 500 MG TAB PO SCH ×3 (08:54→22:00)
[2021-10-11] MEDS: METOPROLOL TARTRATE 50 MG TAB PO SCH ×2 (08:55→22:03)
[2021-10-11] MEDS: metFORMIN HCL 500 MG TAB PO SCH (08:55)
[2021-10-11] MEDS: TAMSULOSIN HCL 0.4 MG CAP PO SCH (08:56)
[2021-10-11] MEDS: APIXABAN 5 MG TABLET PO SCH ×2 (08:56→22:01)
[2021-10-11] MEDS: CHOLECALCIFEROL 1,000 UNITS 25 MCG TAB PO SCH (08:56)
[2021-10-11] MEDS: PANTOprazole 40 MG TAB PO SCH (08:57)
[2021-10-11] MEDS: CETIRIZINE HCL 10 MG TABLET PO SCH (08:57)
[2021-10-11] MEDS ORDERED: FAMOTIDINE 20 MG TAB PO SCH (09:00)
--- NOTE | 2021-10-11 13:24 | Pharmacy Report ---
Pharmacy Glycemic Short Note 2 - Date of Service October 11, 2021 - Glycemic Short BSG Results (Last 24 hours): 10/10/21 10/10/21 10/11/21 16:29 20:10 05:47 Glucose 139 H POC Glucose 83 148 H 10/11/21 10/11/21 07:23 11:20 Glucose POC Glucose 173 H 201 H OUTPATIENT ANTIDIABETIC REGIMEN: * Metformin 500mg PO Daily * A1c 5.8% ASSESSMENT: 10/11/21 * POD 5. Case managment [facility] to [facility] for bed availability * One BSG below goal range yesterday and potentially discharging soon * Will transition back to home metformin. Will provide additinoal Lantus qAM only if BSG > 140 mg/dL. Will mostly eliminate Novolog CHO coverage (but leave a very loose CHO ratio in to ensure CHO consumed is documented) and tighten correction factor given significat scaling back on basal and bolus 10/10/21 * POD 4. D5W containing IVF @ 100 mL/hr initiated yesterday at ~1600 2nd delirium with minimal po intake. This AM, patient has improved and consumed 35 g CHO with breakfast. Discussed with Dr. Finch - IVF is now discontinued as of ~1100 * AM fasting BSG elevated, but this is likely 2nd D5W infusion which has been stopped. No change to Lantus * Novolog CHO ratio rather loose, but unsure if this is too loose as pt has had minimal PO intake until this AM, where he did consume a modest amount of CHO (35g). May need to adjust CHO ratio later today depending on lunch BSG 10/09/21: * POD # 3 * Patient somnolent this morning. Continues to have minimal PO intake. * Fasting BSG trending downward. Will continue Lantus 16 units daily - anticipate further improvement as dose reaches steady state. 10/08 * Stressors stable - POD 2 * AM fasting BSG elevated - will increase basal, but only slightly given minimal PO intake yesterday * Post-prandial BSG's mostly in goal range yesterday, but PO intake was VERY minimal and therefore the CHO ratio didn't provide a substantial amount of insulin. Given rise in BSG this AM, will tighten slightly (still looser than weight-based moderate stress estimate) 10/07 * Patient received total of 7 units of insulin yesterday, of which all were bolus insulin * Fasting BSG elevated at 207 mg/dL - likely related to stress from surgery?, A1c stable. Will give small dose of basal insulin for this AM * Patient did not eat lunch, may loosen CF/CR slightly with dinner 10/06 * 86 year old male, admitted for hip fracture, s/p surgery by Dr Dowell * Pt is maintained on oral antidiabetic agents as an outpatient * Oral agents are not recommended for inpatient use d/t drug interactions, changing PO intake, and difficulty titrating for acute hyper/hypoglycemia. ADA recommends re-initiating outpatient oral agents 1-2 days prior to discharge if/when appropriate if they were held on admission. * Will hold oral agents for admission and utilize SQ bolus insulin regimen which is the recommended regimen for inpatient glycemic control. * No basal at this time for patient's age and glycemic control on only metformin as outpatient, and no steroids received PLAN FOR INPATIENT GLYCEMIC CONTROL: * Resume home metformin 500 mg po QDB * Basal insulin * Decrease to Lantus 10 units SQ daily (hold if BSG < 140 mg/dL) * Bolus insulin * NovoLog per scale ACHS or Q6hrs while NPO * Goal Range: Low 110 mg/dL - High 140 mg/dL * Correction Factor: 20 mg/dL/unit * Nutritional / Prandial insulin per carb ratio of 1 unit per 50 grams CHO consumed
[2021-10-11] MEDS: OLANZapine 10 MG/2.1 ML SDV IM PRN ×2 (17:49→22:05)
--- NOTE | 2021-10-11 20:30 | Hospitalist Progress Note ---
Date of Service October 11, 2021 Assessment & Plan (1) Closed left hip fracture: Plan: Acetaminophen 1g PO TID, oxycodone 2.5mg PO q4h PRN (fortunately not requiring this) POD#5 Left femur closed reduction and internal fixation with short trochanteric femoral nail Appreciate ongoing orthopedic management (2) Atrial fibrillation with rapid ventricular response: Plan: New onset TSH 0.523 TTE - LVEF 55-60%, left atrium mildly dilated Rate controlled with metoprolol 50mg PO BID (previously on 25mg PO BID when he went into atrial fibrillation and was not rate controlled). Appreciate cardiology consult [id number] - start on Eliquis tomorrow as long as ok from orthopedics (3) Toxic encephalopathy: Plan: Initially due to opiates with [place], therefore reduced dose to oxycodone. Had Ativan 1mg IV x2 10/08 night which caused sedation and then worsening delirium. Did well with Zyprexa last night therefore will prescribe ongoing PRN at a smaller dose of agitation/delirium at risk to self or others. Patient is confused again on 10/11 will order an additional zyprexa. CT head - no acute pathology, no need for MRI brain as daughter refused yesterday and exam today is non-focal. (4) Nausea with vomiting: Plan: Suspect gastritis/esophagitis, vomited blood on 10/08 but no further episodes Continue famotidine 20mg IV (switch to PO for one more dose tomorrow) daily and pantoprazole 40mg PO daily Hgb mildly downtrending to 8.8. Continue to monitor for an extra day after starting Eliquis. (5) Hematuria: Plan: Suspect traumatic urethral as only started after he pulled on fisher catheter Fisher catheter replaced 10/08. Started tamsulosin. If fails will need urology follow-up as outpatient. (6) Hypertension: Plan: Continue to hold HCTZ and telmisartan Continue metoprolol 50 mg PO BID (7) Type 2 diabetes mellitus: Plan: Hold Metformin HbA1C 5.8 - suggests overtreatment although he is only on metformin at home therefore won't become hypoglycemic Pharmacy consulted for glycemic control (8) Greater trochanteric bursitis of right hip: Plan: Following up with orthopedics in the outpatient setting (9) Gait abnormality: Plan: PT/OT - likely to need inpatient rehab on discharge (10) Spinal stenosis of lumbar region: Plan: Reports has a appointment with pain management Plan: VTE Prophylaxis - Lovenox 40mg SQ daily, switch to Eliquis tomorrow. Diet - T2DM Disposition -continue on PCU to monitor atrial fibrillation and relatively low blood pressure Admission and Anticipated Discharge Date Admission Date: October 06, 2021 Subjective Patient is confused. Updated daughter. Review of Systems Review of Systems: All systems reviewed & are unremarkable except as noted in HPI & below Physical Exam Constitutional: WD/WN, vitals as above Eyes: PERRL, conjunctivae normal, anicteric sclerae + anicteric sclerae; normal pupil size Respiratory: normal respiratory effort, lungs clear to auscultation no labored breathing, does not use accessory muscles and normal respiratory pattern Auscultation: lungs clear to auscultation bilaterally Cardiovascular: RRR, no murmur, no edema Rate/Rhythm: regular rate and + irregularly irregular Vessels: normal peripheral pulses and radial pulses present; no JVD Extremities: normal capillary refill; no calf tenderness and no pedal edema Gastrointestinal (Abdomen): Inspection/Auscultation: normal bowel sounds Percussion/Palpation: abdomen soft; abdomen nontender, no guarding and abdomen not rigid Musculoskeletal: no cyanosis or clubbing, extremities motor strength 5/5 Shoulder: shoulder normal to inspection, no deformity, normal ROM of shoulder and no joint line tenderness Skin: no rashes, warm and dry + ecchymosis (Left base of 5th finger, 2nd finger and 4th finger, without pain) Neurologic: moves all extremities and awake; no focal motor deficits and not confused Motor/Sensory: no sensory deficit Psychiatric: Orientation: alert (to voice); + not oriented to person, + not oriented to place and + not oriented to time Genitourinary: no CVA tenderness Results & Data Results & Data ([facility]) Vital Signs (Past 12 Hours) Vital Signs Temp Pulse Resp BP BP Pulse Ox 10/11/21 19:19 36.9 C 76 20 114/84 98 10/11/21 15:00 36.6 C 71 16 97/59 L 97 10/11/21 11:02 36.4 C L 88 18 104/58 L 99 PG Care Time/CCT Total # of Minutes Spent Total Time Spent with Patient: Total time spent is greater than 50% in coordination of care (as documented) at patient's floor/unit and/or counseling patient: Coding Level of Care Code 03973 Subseq Hosp Care Lvl 3 Diagnoses Closed left hip fracture S72.002A Atrial fibrillation with rapid ventricular response I48.91 Toxic encephalopathy G92.9 Nausea with vomiting R11.2 Hematuria R31.9 Hypertension I10 Type 2 diabetes mellitus E11.9 Greater trochanteric bursitis of right hip M70.61 Gait abnormality R26.9 Spinal stenosis of lumbar region M48.061 Time Spent (min) 35 Comment chart review
[2021-10-11] MEDS: MELATONIN 3 MG TAB PO SCH (22:03)
[2021-10-11] MEDS: DOCUSATE SODIUM/SENNA 50/8.6MG TAB PO SCH (23:25)
--- NOTE | 2021-10-12 00:58 | Communication Note ---
Date of Service: October 12, 2021 Messaged about patient's confusion and agitation. Received 2nd dose of olanzapine IM 2.5mg this evening w/o much improvement. He currently has q4h prn. Will provide dose sooner if needed. On exam patient was confused. He wanted to get out of the bed. He was not reorientable. 10/09/[address] w/o acute changes As confusion is persisting, continue delirium workup. Monitor clinically for infection. Consider 5mg olanzapine scheduled qhs for next night
[2021-10-12] MEDS: OLANZapine 10 MG/2.1 ML SDV IM PRN (02:42)
[2021-10-12 06:50] LABS: Hematocrit (blood only) 27.3 % (42-52); Hemoglobin 9.8 g/dL (14.0-18.0); Mean Corpuscular Hgb Conc 35.9 g/dL (32-36); Mean Corpuscular Volume 83.5 fL (80-100); Mean Platelet Volume 8.6 fL (7.4-10.4); Platelet Count 238 K/uL (130-400); RDW Coefficient of Variation 14.1 % (11.5-14.5); RDW Standard Deviation 42.3 fL (36.4-46.3); Red Blood Count 3.27 M/uL (4.7-6.1)
[2021-10-12 07:18] LABS: BUN Creatinine Ratio 17.7 (10-20); Calcium 8.1 mg/dl (8.5-10.1); Creatinine Clr Calc Pharmacy 44.4 ml/min; Est GFR (African American) 52.6 ml/min; Est GFR (Non-African American) 45.4 ml/min
[2021-10-12] MEDS: CHOLECALCIFEROL 1,000 UNITS 25 MCG TAB PO SCH (07:31)
[2021-10-12] MEDS: metFORMIN HCL 500 MG TAB PO SCH (07:31)
[2021-10-12] MEDS: APIXABAN 5 MG TABLET PO SCH ×2 (07:31→19:35)
[2021-10-12] MEDS: METOPROLOL TARTRATE 50 MG TAB PO SCH ×2 (07:31→19:33)
[2021-10-12] MEDS: TAMSULOSIN HCL 0.4 MG CAP PO SCH (07:31)
[2021-10-12] MEDS: CETIRIZINE HCL 10 MG TABLET PO SCH (07:32)
[2021-10-12] MEDS: PANTOprazole 40 MG TAB PO SCH (07:32)
[2021-10-12] MEDS: INSULIN GLARGINE SOLOSTAR 100 UNITS/ML 3 ML PEN SC SCH (07:32)
[2021-10-12] MEDS: INSULIN ASPART PER UNIT SC SCH ×4 (07:39→20:08)
--- NOTE | 2021-10-12 09:12 | Hospitalist Progress Note ---
Date of Service October 12, 2021 Assessment & Plan (1) Closed left hip fracture: Plan: Acetaminophen 1g PO TID, oxycodone 2.5mg PO q4h PRN (fortunately not requiring this) POD#6 Left femur closed reduction and internal fixation with short trochanteric femoral nail Appreciate ongoing orthopedic management (2) Atrial fibrillation with rapid ventricular response: Plan: New onset TSH 0.523 TTE - LVEF 55-60%, left atrium mildly dilated Rate controlled with metoprolol 50mg PO BID (previously on 25mg PO BID when he went into atrial fibrillation and was not rate controlled). Appreciate cardiology consult [id number] - on Eliquis (3) Toxic encephalopathy: Plan: Initially due to opiates with [place], therefore reduced dose to oxycodone. Had Ativan 1mg IV x2 10/08 night which caused sedation and then worsening delirium. Did well with Zyprexa last night therefore will prescribe ongoing PRN at a smaller dose of agitation/delirium at risk to self or others. Patient is confused again on 10/11 , required zyrprexa overnight. Currently confused. currently on a one to one. CT head - no acute pathology, no need for MRI brain as exam today is non-focal. (4) Nausea with vomiting: Plan: Suspect gastritis/esophagitis, vomited blood on 10/08 but no further episodes Continue famotidine 20mg IV (switch to PO for one more dose tomorrow) daily and pantoprazole 40mg PO daily Hgb mildly downtrending to 8.8. Continue to monitor for an extra day after starting Eliquis. (5) Hematuria: Plan: Suspect traumatic urethral as only started after he pulled on fisher catheter Fisher catheter replaced 10/08. Started tamsulosin. If fails will need urology follow-up as outpatient. (6) Hypertension: Plan: Continue to hold HCTZ and telmisartan Continue metoprolol 50 mg PO BID (7) Type 2 diabetes mellitus: Plan: Hold Metformin HbA1C 5.8 - suggests overtreatment although he is only on metformin at home therefore won't become hypoglycemic Pharmacy consulted for glycemic control (8) Greater trochanteric bursitis of right hip: Plan: Following up with orthopedics in the outpatient setting (9) Gait abnormality: Plan: PT/OT - likely to need inpatient rehab on discharge (10) Spinal stenosis of lumbar region: Plan: Reports has a appointment with pain management Plan: VTE Prophylaxis - Lovenox 40mg SQ daily, switch to Eliquis tomorrow. Diet - T2DM Disposition -continue on PCU to monitor atrial fibrillation and relatively low blood pressure Admission and Anticipated Discharge Date Admission Date: October 06, 2021 Subjective 86 yo male required multiple doses of his zyprexa overnight. Patient is confused this morning,paient is unaware why he is here. Review of Systems Review of Systems: All systems reviewed & are unremarkable except as noted in HPI & below Physical Exam Constitutional: WD/WN, vitals as above Eyes: PERRL, conjunctivae normal, anicteric sclerae + anicteric sclerae; normal pupil size Respiratory: normal respiratory effort, lungs clear to auscultation no labored breathing, does not use accessory muscles and normal respiratory pattern Auscultation: lungs clear to auscultation bilaterally Cardiovascular: RRR, no murmur, no edema Rate/Rhythm: regular rate and + irregularly irregular Vessels: normal peripheral pulses and radial pulses present; no JVD Extremities: normal capillary refill; no calf tenderness and no pedal edema Gastrointestinal (Abdomen): Inspection/Auscultation: normal bowel sounds Pe rcussion/Palpation: abdomen soft; abdomen nontender, no guarding and abdomen not rigid Musculoskeletal: no cyanosis or clubbing, extremities motor strength 5/5 Shoulder: shoulder normal to inspection, no deformity, normal ROM of shoulder and no joint line tenderness Skin: no rashes, warm and dry + ecchymosis (Left base of 5th finger, 2nd finger and 4th finger, without pain) Neurologic: moves all extremities and awake; no focal motor deficits and not confused Motor/Sensory: no sensory deficit Psychiatric: A+Ox3, euthymic affect Orientation: alert (to voice); + not oriented to person, + not oriented to place and + not oriented to time Genitourinary: no CVA tenderness Results & Data Results & Data ([facility]) Vital Signs (Past 12 Hours) Vital Signs Temp Pulse Resp BP BP Pulse Ox 10/12/21 07:19 36.8 C 93 H 18 115/62 95 10/12/21 03:40 36.8 C 77 22 109/67 97 10/11/21 23:03 37.0 C 111 H 22 120/71 97 PG Care Time/CCT Total # of Minutes Spent Total Time Spent with Patient: Total time spent is greater than 50% in coordination of care (as documented) at patient's floor/unit and/or counseling patient: Coding Level of Care Code 96799 Subseq Hosp Care Lvl 2 Diagnoses Closed left hip fracture S72.002A Atrial fibrillation with rapid ventricular response I48.91 Toxic encephalopathy G92.9 Nausea with vomiting R11.2 Hematuria R31.9 Hypertension I10 Type 2 diabetes mellitus E11.9 Greater trochanteric bursitis of right hip M70.61 Gait abnormality R26.9 Spinal stenosis of lumbar region M48.061 Time Spent (min) 25
[2021-10-12] MEDS: ACETAMINOPHEN 500 MG TAB PO SCH ×3 (09:34→19:35)
--- NOTE | 2021-10-12 11:02 | Pharmacy Report ---
Pharmacy Glycemic Short Note 2 - Date of Service October 12, 2021 - Glycemic Short BSG Results (Last 24 hours): 10/11/21 10/11/21 10/11/21 11:20 16:09 21:34 Glucose POC Glucose 201 H 145 H 152 H 10/12/21 10/12/21 06:22 07:32 Glucose 175 H POC Glucose 193 H OUTPATIENT ANTIDIABETIC REGIMEN: * Metformin 500mg PO Daily * A1c 5.8% ASSESSMENT: 10/12/21 * Stressors stable * AM fasting BSG elevated with reduction in Lantus yesterday. Will increase * No CHO intake charted yesterday so not able to assess at this time how a lack in significant Novolog CHO coverage will fare, or if metformin will be sufficient. A small amount of CHO was consumed with breakfast today so may add back a more classic CHO ratio if significant elevation at lunch is noted 10/11/21 * POD 5. Case management reaching out to [facility] for bed availability * One BSG below goal range yesterday and potentially discharging soon * Will transition back to home metformin. Will provide additinoal Lantus qAM only if BSG > 140 mg/dL. Will mostly eliminate Novolog CHO coverage (but leave a very loose CHO ratio in to ensure CHO consumed is documented) and tighten correction factor given significat scaling back on basal and bolus 10/10/21 * POD 4. D5W containing IVF @ 100 mL/hr initiated yesterday at ~1600 2nd delirium with minimal po intake. This AM, patient has improved and consumed 35 g CHO with breakfast. Discussed with Dr. Finch - IVF is now discontinued as of ~1100 * AM fasting BSG elevated, but this is likely 2nd D5W infusion which has been stopped. No change to Lantus * Novolog CHO ratio rather loose, but unsure if this is too loose as pt has had minimal PO intake until this AM, where he did consume a modest amount of CHO (35g). May need to adjust CHO ratio later today depending on lunch BSG 10/09/21: * POD # 3 * Patient somnolent this morning. Continues to have minimal PO intake. * Fasting BSG trending downward. Will continue Lantus 16 units daily - anticipate further improvement as dose reaches steady state. 10/08 * Stressors stable - POD 2 * AM fasting BSG elevated - will increase basal, but only slightly given minimal PO intake yesterday * Post-prandial BSG's mostly in goal range yesterday, but PO intake was VERY minimal and therefore the CHO ratio didn't provide a substantial amount of insulin. Given rise in BSG this AM, will tighten slightly (still looser than weight-based moderate stress estimate) 10/07 * Patient received total of 7 units of insulin yesterday, of which all were bolus insulin * Fasting BSG elevated at 207 mg/dL - likely related to stress from surgery?, A1c stable. Will give small dose of basal insulin for this AM * Patient did not eat lunch, may loosen CF/CR slightly with dinner 10/06 * 86 year old male, admitted for hip fracture, s/p surgery by Dr Dowell * Pt is maintained on oral antidiabetic agents as an outpatient * Oral agents are not recommended for inpatient use d/t drug interactions, changing PO intake, and difficulty titrating for acute hyper/hypoglycemia. ADA recommends re-initiating outpatient oral agents 1-2 days prior to discharge if/when appropriate if they were held on admission. * Will hold oral agents for admission and utilize SQ bolus insulin regimen which is the recommended regimen for inpatient glycemic control. * No basal at this time for patient's age and glycemic control on only metformin as outpatient, and no steroids received PLAN FOR INPATIENT GLYCEMIC CONTROL: * Resume home metformin 500 mg po QDB * Basal insulin * Lantus 10-16 units qAM based on BSG * Bolus insulin * NovoLog per scale ACHS or Q6hrs while NPO * Goal Range: Low 110 mg/dL - High 140 mg/dL * Correction Factor: 20 mg/dL/unit * Nutritional / Prandial insulin per carb ratio of 1 unit per 50 grams CHO consumed
--- NOTE | 2021-10-12 14:29 | Orthopedic Progress Note ---
Date of Service October 12, 2021 Assessment & Plan (1) Closed fracture of left hip: Plan: POD 6 s/p left hip short IM [place] by Dr Dowell DVT prophylaxis: Lovenox 40mg SQ q 24hrs Pain control: Per primary WBAT left LE PT/OT Encouraged bedside exercises that he can do on his own. reinforce or change dressing left hip as needed. Case management consulted -Patient will most likely need to be sent to a long-term facility because he lives on his own at home. Dr. Dowell present for today's visit. We will continue to follow call [phone] with any questions or concerns. Admission and Anticipated Discharge Date Admission Date: October 06, 2021 Subjective Still with confusion. Daughter at bedside. States that he "needs a plan". Physical Exam Musculoskeletal: Patient was ambulating with physical therapy walked about 3 feet twice with a walker. We saw when he was sitting in the wheelchair. He is able to actively straighten out his knee and do a march. Marching does cause increased pain in his left hip. His left thigh is ecchymotic. Knee is nontender. Mild edema into his lower extremity. Teds in place. Dressing in place left hip, not removed today. Results & Data ([facility]) Vital Signs (Past 12 Hours) Vital Signs Temp Pulse Resp BP BP Pulse Ox 10/12/21 07:19 36.8 C 93 H 18 115/62 95 10/12/21 03:40 36.8 C 77 22 109/67 97 (1) Closed fracture of left hip Encounter type: initial encounter Qualified Code(s): S72.002A - Fracture of unspecified part of neck of left femur, initial encounter for closed fracture
--- NOTE | 2021-10-12 15:41 | Cardiology Progress Note ---
Date of Service October 12, 2021 Assessment & Plan (1) Atrial fibrillation with rapid ventricular response: Plan: 1. Atrial fibrillation: Persistent atrial fibrillation. No symptoms. He seems to have reasonable rate control on his current dose of metoprolol. I would continue his dose of metoprolol. Continue systemic anticoagulation with apixaban. He could be discharged on this regimen with follow-up in the cardiology clinic. Cardiology sign off at this point. For additional questions regarding his care please contact the on-call [facility] motor express clerk. Admission and Anticipated Discharge Date Admission Date: October 06, 2021 Subjective This afternoon the patient was alert, but quite confused. He did answer questions but was quite tangential as well. No complaints of pain or breathing difficulty. No sense of palpitation. Review of Systems Review of Systems: Per HPI Physical Exam Physical Exam: The patient is alert and oriented to person only. HEENT: Pupils are equal and reactive to light and accommodation. Extraocular movements are intact. The sclerae are anicteric. Neuro: Cranial nerves intact Lungs: Clear to auscultation bilaterally. He has good air movement without use of accessory muscles. No rales wheezes or rhonchi. Cardiac: Heart demonstrates an irregular rate and rhythm. Normal S1 and S2. No murmurs on examination. . Results & Data ([facility]) Vital Signs (Past 12 Hours) Vital Signs Temp Pulse Resp BP BP Pulse Ox 10/12/21 07:19 36.8 C 93 H 18 115/62 95 10/12/21 03:40 36.8 C 77 22 109/67 97 Laboratory Results Abnormal Lab Results 10/11/21 10/11/21 10/12/21 16:09 21:34 06:22 WBC 6.70 RBC 3.27 L Hgb 9.8 L Hct 27.3 L MCV 83.5 MCH 30.0 MCHC 35.9 RDW Std Deviation 42.3 RDW Coeff of Thierry 14.1 Plt Count 238 MPV 8.6 Sodium Potassium Chloride Carbon Dioxide Anion Gap BUN Creatinine Est Cr Clr Drug Dosing Est GFR ( Amer) Est GFR (Non-Af Amer) BUN/Creatinine Ratio Glucose POC Glucose 145 H 152 H Calcium 10/12/21 10/12/21 10/12/21 06:22 07:32 11:34 WBC RBC Hgb Hct MCV MCH MCHC RDW Std Deviation RDW Coeff of Thierry Plt Count MPV Sodium 139 Potassium 4.0 Chloride 108 H Carbon Dioxide 26 Anion Gap 5 BUN 25 H Creatinine 1.41 H Est Cr Clr Drug Dosing 44.4 Est GFR ( Amer) 52.6 Est GFR (Non-Af Amer) 45.4 BUN/Creatinine Ratio 17.7 Glucose 175 H POC Glucose 193 H 180 H Calcium 8.1 L PG Care Time/CCT Total # of Minutes Spent Total Time Spent with Patient: Total time spent is greater than 50% in coordination of care (as documented) at patient's floor/unit and/or counseling patient: Coding Level of Care Code 10170 Subseq Hosp Care Lvl 2 Diagnoses Atrial fibrillation with rapid ventricular response I48.91
[2021-10-12] MEDS: DOCUSATE SODIUM/SENNA 50/8.6MG TAB PO SCH (19:19)
[2021-10-12] MEDS: MELATONIN 3 MG TAB PO SCH (19:35)
[2021-10-13 06:09] LABS: Hemoglobin 8.9 g/dL (14.0-18.0); Mean Corpuscular Hemoglobin 29.6 pg (25-34); Mean Corpuscular Hgb Conc 34.2 g/dL (32-36); Mean Corpuscular Volume 86.4 fL (80-100); Mean Platelet Volume 8.5 fL (7.4-10.4); Platelet Count 232 K/uL (130-400); RDW Coefficient of Variation 14.3 % (11.5-14.5); RDW Standard Deviation 43.4 fL (36.4-46.3); Red Blood Count 3.01 M/uL (4.7-6.1); White Blood Count 5.88 K/uL (4.8-10.8)
[2021-10-13 06:23] LABS: BUN Creatinine Ratio 21.3 (10-20); Calcium 8.1 mg/dl (8.5-10.1); Creatinine Clr Calc Pharmacy 51.4 ml/min; Est GFR (African American) 62.7 ml/min; Est GFR (Non-African American) 54.1 ml/min
[2021-10-13] MEDS: INSULIN ASPART PER UNIT SC SCH ×4 (08:51→21:00)
[2021-10-13] MEDS: ACETAMINOPHEN 500 MG TAB PO SCH ×3 (08:55→20:32)
[2021-10-13] MEDS: CETIRIZINE HCL 10 MG TABLET PO SCH (08:56)
[2021-10-13] MEDS: metFORMIN HCL 500 MG TAB PO SCH (08:56)
[2021-10-13] MEDS: APIXABAN 5 MG TABLET PO SCH ×2 (08:56→20:33)
[2021-10-13] MEDS: TAMSULOSIN HCL 0.4 MG CAP PO SCH (08:57)
[2021-10-13] MEDS: CHOLECALCIFEROL 1,000 UNITS 25 MCG TAB PO SCH (08:57)
[2021-10-13] MEDS: PANTOprazole 40 MG TAB PO SCH (08:58)
[2021-10-13] MEDS: METOPROLOL TARTRATE 50 MG TAB PO SCH ×2 (08:58→20:33)
[2021-10-13] MEDS: INSULIN GLARGINE SOLOSTAR 100 UNITS/ML 3 ML PEN SC SCH (08:59)
[2021-10-13 12:53] LABS: Hematocrit (blood only) 27.6 % (42-52); Hemoglobin 9.8 g/dL (14.0-18.0)
--- NOTE | 2021-10-13 18:14 | Hospitalist Progress Note ---
Date of Service October 13, 2021 Assessment & Plan (1) Closed left hip fracture: Plan: Acetaminophen 1g PO TID, oxycodone 2.5mg PO q4h PRN (fortunately not requiring this) POD#7 Left femur closed reduction and internal fixation with short trochanteric femoral nail Appreciate ongoing orthopedic management (2) Atrial fibrillation with rapid ventricular response: Plan: New onset TSH 0.523 TTE - LVEF 55-60%, left atrium mildly dilated Rate controlled with metoprolol 50mg PO BID (previously on 25mg PO BID when he went into atrial fibrillation and was not rate controlled). Appreciate cardiology consult [id number] - on Eliquis (3) Toxic encephalopathy: Plan: Initially due to opiates with [place], therefore reduced dose to oxycodone. Had Ativan 1mg IV x2 10/08 night which caused sedation and then worsening delirium. Did well with Zyprexa last night therefore will prescribe ongoing PRN at a smaller dose of agitation/delirium at risk to self or others. Patient is confused again on 10/11 , required zyrprexa overnight. Patient is less confused today. No longer on a one to one . CT head - no acute pathology, no need for MRI brain as exam today is non-focal. (4) Nausea with vomiting: Plan: Suspect gastritis/esophagitis, vomited blood on 10/08 but no further episodes Continue famotidine 20mg IV (switch to PO for one more dose tomorrow) daily and pantoprazole 40mg PO daily Hgb mildly downtrending. Continue to monitor for an extra day after starting Eliquis. (5) Hematuria: Plan: Suspect traumatic urethral as only started after he pulled on fisher catheter Fisher catheter replaced 10/08. Started tamsulosin. If fails will need urology follow-up as outpatient. (6) Hypertension: Plan: Continue to hold HCTZ and telmisartan Continue metoprolol 50 mg PO BID (7) Type 2 diabetes mellitus: Plan: Hold Metformin HbA1C 5.8 - suggests overtreatment although he is only on metformin at home therefore won't become hypoglycemic Pharmacy consulted for glycemic control (8) Greater trochanteric bursitis of right hip: Plan: Following up with orthopedics in the outpatient setting (9) Gait abnormality: Plan: PT/OT - likely to need inpatient rehab on discharge (10) Spinal stenosis of lumbar region: Plan: Reports has a appointment with pain management Plan: VTE Prophylaxis - Lovenox 40mg SQ daily, switch to Eliquis tomorrow. Diet - T2DM Disposition -continue on PCU to monitor atrial fibrillation and relatively low blood pressure Admission and Anticipated Discharge Date Admission Date: October 06, 2021 Subjective Patient appears less confused. He is not aggressive and has no new complaints. Review of Systems Review of Systems: All systems reviewed & are unremarkable except as noted in HPI & below Physical Exam Constitutional: WD/WN, vitals as above Eyes: PERRL, conjunctivae normal, anicteric sclerae + anicteric sclerae; normal pupil size Respiratory: normal respiratory effort, lungs clear to auscultation no labored breathing, does not use accessory muscles and normal respiratory pattern Auscultation: lungs clear to auscultation bilaterally Cardiovascular: RRR, no murmur, no edema Rate/Rhythm: regular rate and + irregularly irregular Vessels: normal peripheral pulses and radial pulses present; no JVD Extremities: normal capillary refill; no calf tenderness and no pedal edema Gastrointestinal (Abdomen): Inspection/Auscultation: normal bowel sounds Percussion/Palpation: abdomen soft; abdomen nontender, no guarding and abdomen not rigid Musculoskeletal: no cyanosis or clubbing, extremities motor strength 5/5 Shoulder: shoulder normal to inspection, no deformity, normal ROM of shoulder and no joint line tenderness Skin: no rashes, warm and dry + ecchymosis (Left base of 5th finger, 2nd f marina and 4th finger, without pain) Neurologic: moves all extremities and awake; no focal motor deficits and not confused Motor/Sensory: no sensory deficit Psychiatric: A+Ox3, euthymic affect Orientation: alert, oriented to person and oriented to place; + not oriented to time Genitourinary: no CVA tenderness Results & Data Results & Data ([facility]) Vital Signs (Past 12 Hours) Vital Signs Temp Pulse Pulse Pulse Resp BP BP 10/13/21 15:16 88 10/13/21 15:15 36.4 C L 94 H 18 114/56 L 10/13/21 11:14 36.6 C 94 H 20 95/49 L 10/13/21 08:00 96 H 10/13/21 07:20 36.9 C 92 H 18 107/59 L 10/13/21 06:24 83 Pulse Ox 10/13/21 15:16 10/13/21 15:15 96 10/13/21 11:14 94 10/13/21 08:00 10/13/21 07:20 99 10/13/21 06:24 PG Care Time/CCT Total # of Minutes Spent Total Time Spent with Patient: Total time spent is greater than 50% in coordination of care (as documented) at patient's floor/unit and/or counseling patient: Coding Level of Care Code 85926 Subseq Hosp Care Lvl 2 Diagnoses Closed left hip fracture S72.002A Atrial fibrillation with rapid ventricular response I48.91 Toxic encephalopathy G92.9 Nausea with vomiting R11.2 Hematuria R31.9 Hypertension I10 Type 2 diabetes mellitus E11.9 Greater trochanteric bursitis of right hip M70.61 Gait abnormality R26.9 Spinal stenosis of lumbar region M48.061
[2021-10-13] MEDS: MELATONIN 3 MG TAB PO SCH (20:31)
[2021-10-13] MEDS: DOCUSATE SODIUM/SENNA 50/8.6MG TAB PO SCH (20:31)
[2021-10-14 06:21] LABS: Hematocrit (blood only) 27.3 % (42-52); Hemoglobin 9.4 g/dL (14.0-18.0); Mean Corpuscular Hemoglobin 29.7 pg (25-34); Mean Corpuscular Hgb Conc 34.4 g/dL (32-36); Mean Corpuscular Volume 86.1 fL (80-100); Mean Platelet Volume 8.7 fL (7.4-10.4); Platelet Count 307 K/uL (130-400); RDW Coefficient of Variation 14.6 % (11.5-14.5); RDW Standard Deviation 44.4 fL (36.4-46.3); Red Blood Count 3.17 M/uL (4.7-6.1); White Blood Count 8.44 K/uL (4.8-10.8)
[2021-10-14 06:26] LABS: Calcium 8.2 mg/dl (8.5-10.1); Creatinine Clr Calc Pharmacy 46.7 ml/min; Est GFR (African American) 55.5 ml/min; Est GFR (Non-African American) 47.9 ml/min; Potassium 4.2 mmol/L (3.5-5.1)
[2021-10-14] MEDS: metFORMIN HCL 500 MG TAB PO SCH (07:55)
[2021-10-14] MEDS: INSULIN ASPART PER UNIT SC SCH ×4 (08:22→20:09)
[2021-10-14] MEDS: CETIRIZINE HCL 10 MG TABLET PO SCH (08:27)
[2021-10-14] MEDS: APIXABAN 5 MG TABLET PO SCH ×2 (08:27→20:08)
[2021-10-14] MEDS: INSULIN GLARGINE SOLOSTAR 100 UNITS/ML 3 ML PEN SC SCH (08:28)
[2021-10-14] MEDS: CHOLECALCIFEROL 1,000 UNITS 25 MCG TAB PO SCH (08:28)
[2021-10-14] MEDS: PANTOprazole 40 MG TAB PO SCH (08:29)
[2021-10-14] MEDS: METOPROLOL TARTRATE 50 MG TAB PO SCH ×2 (08:29→20:13)
[2021-10-14] MEDS: TAMSULOSIN HCL 0.4 MG CAP PO SCH (08:29)
[2021-10-14] MEDS: ACETAMINOPHEN 500 MG TAB PO SCH ×3 (09:37→20:18)
--- NOTE | 2021-10-14 17:51 | Hospitalist Progress Note ---
Date of Service October 14, 2021 Assessment & Plan (1) Closed left hip fracture: Plan: Acetaminophen 1g PO TID, oxycodone 2.5mg PO q4h PRN (fortunately not requiring this) POD#8 Left femur closed reduction and internal fixation with short trochanteric femoral nail Appreciate ongoing orthopedic management will transfer to medical. (2) Atrial fibrillation with rapid ventricular response: Plan: New onset TSH 0.523 TTE - LVEF 55-60%, left atrium mildly dilated Rate controlled with metoprolol 50mg PO BID (previously on 25mg PO BID when he went into atrial fibrillation and was not rate controlled). Appreciate cardiology consult [id number] - on Eliquis (3) Toxic encephalopathy: Plan: Initially due to opiates with [place], therefore reduced dose to oxycodone. Had Ativan 1mg IV x2 10/08 night which caused sedation and then worsening delirium. Did well with Zyprexa last night therefore will prescribe ongoing PRN at a smaller dose of agitation/delirium at risk to self or others. Patient is confused again on 10/11 , required zyrprexa overnight. Patient is less confused today. No longer on a one to one . CT head - no acute pathology, no need for MRI brain as exam today is non-focal. (4) Nausea with vomiting: Plan: Suspect gastritis/esophagitis, vomited blood on 10/08 but no further episodes Continue famotidine 20mg IV (switch to PO for one more dose tomorrow) daily and pantoprazole 40mg PO daily Hgb mildly downtrending. Continue to monitor for an extra day after starting Eliquis. (5) Hematuria: Plan: Suspect traumatic urethral as only started after he pulled on fisher catheter Fisher catheter replaced 10/08. Started tamsulosin. If fails will need urology follow-up as outpatient. (6) Hypertension: Plan: Continue to hold HCTZ and telmisartan Continue metoprolol 50 mg PO BID (7) Type 2 diabetes mellitus: Plan: Hold Metformin HbA1C 5.8 - suggests overtreatment although he is only on metformin at home therefore won't become hypoglycemic Pharmacy consulted for glycemic control (8) Greater trochanteric bursitis of right hip: Plan: Following up with orthopedics in the outpatient setting (9) Gait abnormality: Plan: PT/OT - likely to need inpatient rehab on discharge (10) Spinal stenosis of lumbar region: Plan: Reports has a appointment with pain management Plan: VTE Prophylaxis - Lovenox 40mg SQ daily, switch to Eliquis tomorrow. Diet - T2DM Disposition -continue on PCU to monitor atrial fibrillation and relatively low blood pressure Admission and Anticipated Discharge Date Admission Date: October 06, 2021 Subjective Patient reports no new symptoms. Patient complaining of difficulty sleeping overnight. As per daughter patient remains confused, but far less aggressive over past 48 hours. Review of Systems Review of Systems: All systems reviewed & are unremarkable except as noted in HPI & below Physical Exam Constitutional: WD/WN, vitals as above Eyes: PERRL, conjunctivae normal, anicteric sclerae + anicteric sclerae; normal pupil size Respiratory: normal respiratory effort, lungs clear to auscultation no labored breathing, does not use accessory muscles and normal respiratory pattern Auscultation: lungs clear to auscultation bilaterally Cardiovascular: RRR, no murmur, no edema Rate/Rhythm: regular rate and + irregularly irregular Vessels: normal peripheral pulses and radial pulses present; no JVD Extremities: normal capillary refill; no calf tenderness and no pedal edema Gastrointestinal (Abdomen): Inspection/Auscultation: normal bowel sounds Percussion/Palpation: abdomen soft; abdomen nontender, no guarding and abdomen not rigid Musculoskeletal: no cyanosis or clubbing, extremities motor strength 5/5 Shoulder: shoulder normal to inspection, no deformity, normal ROM of shoulder and no joint line tenderness Skin: no rashes, warm and dry + ecchymosis (Left base of 5th finger, 2nd finger and 4th finger, without pain) Neurologic: moves all extremities and awake; no focal motor deficits and not confused Motor/Sensory: no sensory deficit Psychiatric: Orientation: alert, oriented to person and oriented to place; + not oriented to time Genitourinary: no CVA tenderness Results & Data Results & Data ([facility]) Vital Signs (Past 12 Hours) Vital Signs Temp Pulse Pulse Pulse Resp BP Pulse Ox 10/14/21 14:51 78 10/14/21 11:27 37.2 C 82 18 101/50 L 97 10/14/21 08:00 83 10/14/21 07:06 37.1 C 89 19 110/62 95 PG Care Time/CCT Total # of Minutes Spent Total Time Spent with Patient: Total time spent is greater than 50% in coordination of care (as documented) at patient's floor/unit and/or counseling patient: Coding Level of Care Code 17205 Subseq Hosp Care Lvl 2 Diagnoses Closed left hip fracture S72.002A Atrial fibrillation with rapid ventricular response I48.91 Toxic encephalopathy G92.9 Nausea with vomiting R11.2 Hematuria R31.9 Hypertension I10 Type 2 diabetes mellitus E11.9 Greater trochanteric bursitis of right hip M70.61 Gait abnormality R26.9 Spinal stenosis of lumbar region M48.061 Time Spent (min) 25
[2021-10-14] MEDS: DOCUSATE SODIUM/SENNA 50/8.6MG TAB PO SCH (20:09)
[2021-10-14] MEDS: MELATONIN 3 MG TAB PO SCH (20:18)
[2021-10-14] MEDS ORDERED: OLANZAPINE 2.5 MG TAB PO SCH (21:00)
[2021-10-14] MEDS: OLANZapine 10 MG/2.1 ML SDV IM PRN (22:07)
[2021-10-15] MEDS: OLANZapine 10 MG/2.1 ML SDV IM PRN (05:22)
[2021-10-15] MEDS ORDERED: INSULIN ASPART PER UNIT SC SCH ×2 (07:30→11:30)
[2021-10-15] MEDS: metFORMIN HCL 500 MG TAB PO SCH (07:35)
[2021-10-15] MEDS: CHOLECALCIFEROL 1,000 UNITS 25 MCG TAB PO SCH (08:51)
[2021-10-15] MEDS: METOPROLOL TARTRATE 50 MG TAB PO SCH (08:51)
[2021-10-15] MEDS: TAMSULOSIN HCL 0.4 MG CAP PO SCH (08:51)
[2021-10-15] MEDS: CETIRIZINE HCL 10 MG TABLET PO SCH (08:51)
[2021-10-15] MEDS: APIXABAN 5 MG TABLET PO SCH (08:51)
[2021-10-15] MEDS: PANTOprazole 40 MG TAB PO SCH (08:51)
[2021-10-15] MEDS: INSULIN GLARGINE SOLOSTAR 100 UNITS/ML 3 ML PEN SC SCH (08:52)
[2021-10-15] MEDS: ACETAMINOPHEN 500 MG TAB PO SCH (08:59)
--- NOTE | 2021-10-15 09:17 | Progress Notes ---
DATE OF SERVICE: 10/15/2021. The patient is out of bed, sitting in a chair. He is sleeping. Nurse reports that he has been confu sed this morning and somnolent. He awakens easily and we had a nice conversation, but he still appea rs to be somewhat confused. He is afebrile. Vital signs are stable. I will have the nurse change h is dressing later today. The left leg is a little bit swollen. He is able to bend the knee partly, extend his knee somewhat and flex and extend his ankle. I went over some exercises with him. He lucy l continue PT and OT. Continue the Eliquis for DVT prophylaxis and treatment of his atrial fibrillat ion. He may weightbear as tolerated. He will need at least an extended care facility. We will cont inue to monitor. Job ID: [id number]
--- NOTE | 2021-10-15 12:19 | Hospitalist Progress Note ---
Date of Service October 15, 2021 Assessment & Plan (1) Closed left hip fracture: Plan: Acetaminophen 1g PO TID, oxycodone 2.5mg PO q4h PRN (fortunately not requiring this) POD#8 Left femur closed reduction and internal fixation with short trochanteric femoral nail Appreciate ongoing orthopedic management will transfer to medical. (2) Atrial fibrillation with rapid ventricular response: Plan: New onset TSH 0.523 TTE - LVEF 55-60%, left atrium mildly dilated Rate controlled with metoprolol 50mg PO BID (previously on 25mg PO BID when he went into atrial fibrillation and was not rate controlled). Appreciate cardiology consult [id number] 4 - on Eliquis (3) Toxic encephalopathy: Plan: Initially due to opiates with [place], therefore reduced dose to oxycodone. Had Ativan 1mg IV x2 10/08 night which caused sedation and then worsening delirium. Did well with Zyprexa last night therefore will prescribe ongoing PRN at a smaller dose of agitation/delirium at risk to self or others. Patient is confused again on 10/11 , required zyrprexa overnight. Patient is less confused today. No longer on a one to one . CT head - no acute pathology, no need for MRI brain as exam today is non-focal. (4) Nausea with vomiting: Plan: Suspect gastritis/esophagitis, vomited blood on 10/08 but no further episodes Continue famotidine 20mg IV (switch to PO for one more dose tomorrow) daily and pantoprazole 40mg PO daily Hgb mildly downtrending. Continue to monitor for an extra day after starting Eliquis. (5) Hematuria: Plan: Suspect traumatic urethral as only started after he pulled on fisher catheter Fisher catheter replaced 10/08. Started tamsulosin. If fails will need urology follow-up as outpatient. (6) Hypertension: Plan: Continue to hold HCTZ and telmisartan Continue metoprolol 50 mg PO BID (7) Type 2 diabetes mellitus: Plan: Hold Metformin HbA1C 5.8 - suggests overtreatment although he is only on metformin at home therefore won't become hypoglycemic Pharmacy consulted for glycemic control (8) Greater trochanteric bursitis of right hip: Plan: Following up with orthopedics in the outpatient setting (9) Gait abnormality: Plan: PT/OT - likely to need inpatient rehab on discharge (10) Spinal stenosis of lumbar region: Plan: Reports has a appointment with pain management Plan: VTE Prophylaxis - Lovenox 40mg SQ daily, switch to Eliquis tomorrow. Diet - T2DM Disposition -continue on PCU to monitor atrial fibrillation and relatively low blood pressure Admission and Anticipated Discharge Date Admission Date: October 06, 2021 Subjective 86 yo male Review of Systems Review of Systems: All systems reviewed & are unremarkable except as noted in HPI & below Physical Exam Constitutional: WD/WN, vitals as above Eyes: PERRL, conjunctivae normal, anicteric sclerae + anicteric sclerae; normal pupil size Respiratory: normal respiratory effort, lungs clear to auscultation no labored breathing, does not use accessory muscles and normal respiratory pattern Auscultation: lungs clear to auscultation bilaterally Cardiovascular: RRR, no murmur, no edema Rate/Rhythm: regular rate and + irregularly irregular Vessels: normal peripheral pulses and radial pulses present; no JVD Extremities: normal capillary refill; no calf tenderness and no pedal edema Gastrointestinal (Abdomen): Inspection/Auscultation: normal bowel sounds Percussion/Palpation: abdomen soft; abdomen nontender, no guarding and abdomen not rigid Musculoskeletal: no cyanosis or clubbing, extremities motor strength 5/5 Shoulder: shoulder normal to inspection, no deformity, normal ROM of shoulder and no joint line tenderness Skin: no rashes, warm and dry + ecchymosis (Left base of 5th finger, 2nd finger and 4th finger, without pain) Neurologic: moves all extremities and awake; no focal motor deficits and not confused Motor/Sensory: no sensory deficit Psychiatric: A+Ox3, euthymic affect Orientation: alert, oriented to person and oriented to place; + not oriented to time Genitourinary: no CVA tenderness Results & Data Results & Data ([facility]) Vital Signs (Past 12 Hours) Vital Signs Temp Pulse Resp BP Pulse Ox 10/15/21 07:32 37.0 C 94 H 16 124/69 98 PG Care Time/CCT Total # of Minutes Spent Total Time Spent with Patient: Total time spent is greater than 50% in coordination of care (as documented) at patient's floor/unit and/or counseling patient: Coding Diagnoses Closed left hip fracture S72.002A Atrial fibrillation with rapid ventricular response I48.91 Toxic encephalopathy G92.9 Nausea with vomiting R11.2 Hematuria R31.9 Hypertension I10 Type 2 diabetes mellitus E11.9 Greater trochanteric bursitis of right hip M70.61 Gait abnormality R26.9 Spinal stenosis of lumbar region M48.061
--- NOTE | 2021-10-21 11:38 | Discharge Summary ---
Date of Service October 15, 2021 Admission HPI Per Admitting Provider The patient is 86-year-old male with a past medical history including right greater trochanteric bursitis, diabetes mellitus, hypertension, bilateral hip arthritis, lumbar compression fracture, sacroiliitis, allergic rhinitis, pars defect of lumbar spine, lumbar spinal stenosis and gait abnormality. He presents to the emergency department as noted above. Principal Diagnosis closed left hip fracture Discharge Exam Constitutional WD/WN, vitals as above Eyes PERRL, conjunctivae normal, anicteric sclerae + anicteric sclerae; normal pupil size Respiratory normal respiratory effort, lungs clear to auscultation does not use accessory muscles and normal respiratory pattern Auscultation: lungs clear to auscultation bilaterally Cardiovascular RRR, no murmur, no edema Rate/Rhythm: regular rate and + irregularly irregular Vessels: normal peripheral pulses and radial pulses present; no JVD Extremities: normal capillary refill; no calf tenderness and no pedal edema Gastrointestinal (Abdomen) Inspection/Auscultation: normal bowel sounds Percussion/Palpation: abdomen soft; abdomen nontender, no guarding and abdomen not rigid Musculoskeletal no cyanosis or clubbing, extremities motor strength 5/5 Shoulder: shoulder normal to inspection, no deformity, normal ROM of shoulder and no joint line tenderness Skin no rashes, warm and dry + ecchymosis (Left base of 5th finger, 2nd finger and 4th finger, without pain) Neurologic moves all extremities and awake; no focal motor deficits and not confused Motor/Sensory: no sensory deficit Psychiatric A+Ox3, euthymic affect Orientation: alert, oriented to person and oriented to place; + not oriented to time Discharge Data Allergies Allergy/AdvReac Type Severity Reaction Status Date / Time house dust Allergy Mild Congested Verified 10/08/21 08:03 No Known Drug Allergies Allergy Unknown Unknown Verified 10/05/21 23:28 Consultations 10/06/21 00:39 ED Decision to Admit Stat 10/06/21 03:20 Consult Orthopedic Surgery Routine 10/09/21 07:40 Consult Cardiology Routine Procedures Performed Operation Date: 10/06/21 12:00 Actual Procedures p Left Femur Open Reduction Internal Fixation with Intermedullary Nail(Left) - Mike Dowell MD Ordered Studies 10/06/21 13:30 FL femur LT 2V Routine 10/09/21 09:53 CT head/brain wo con Urgent Hospital Course (1) Closed left hip fracture: Acetaminophen 1g PO TID, oxycodone 2.5mg PO q4h PRN (fortunately not requiring this) POD#9 Left femur closed reduction and internal fixation with short trochanteric femoral nail Appreciate ongoing orthopedic management (2) Atrial fibrillation with rapid ventricular response: New onset TSH 0.523 TTE - LVEF 55-60%, left atrium mildly dilated Rate controlled with metoprolol 50mg PO BID (previously on 25mg PO BID when he went into atrial fibrillation and was not rate controlled). Appreciate cardiology consult [id number] 4 - on Eliquis (3) Toxic encephalopathy: Initially due to opiates with [place], therefore reduced dose to oxycodone. Had Ativan 1mg IV x2 10/08 night which caused sedation and then worsening delirium. Did well with Zyprexa last night therefore will prescribe ongoing PRN at a smaller dose of agitation/delirium at risk to self or others. Patient is confused again on 10/11 , required zyrprexa overnight. Patient is less confused today. No longer on a one to one . CT head - no acute pathology, no need for MRI brain as exam today is non-focal. (4) Nausea with vomiting: Suspect gastritis/esophagitis, vomited blood on 10/08 but no further episodes Continue famotidine 20mg IV (switch to PO for one more dose tomorrow) daily and pantoprazole 40mg PO daily Hgb mildly downtrending. Continue to monitor for an extra day after starting Eliquis. (5) Hematuria: Suspect traumatic urethral as only started after he pulled on fishre catheter Fisher catheter replaced 10/08. Started tamsulosin. If fails will need urology follow-up as outpatient. (6) Hypertension: Continue to hold HCTZ and telmisartan Continue metoprolol 50 mg PO BID (7) Type 2 diabetes mellitus: Hold Metformin HbA1C 5.8 - suggests overtreatment although he is only on metformin at home therefore won't become hypoglycemic Pharmacy consulted for glycemic control (8) Greater trochanteric bursitis of right hip: Following up with orthopedics in the outpatient setting (9) Gait abnormality: PT/OT - likely to need inpatient rehab on discharge (10) Spinal stenosis of lumbar region: Reports has a appointment with pain management Total Time Total Time Spent Total Time Spent (In Minutes): 32 Discharge Plan Discharge Items Patient Disposition: Transfer [facility] Reason For Visit: LEFT HIP FRACTURE Discharge Diagnosis: left hip fractur Activity: Resume your previous activity Non-emergency contact: Primary Care Provider Call non-emergency contact if: you have any medication questions Follow-up/Referrals: Armando Valencia MD [Primary Care Provider] - Mike Dowell MD [Surgeon] - 10/19/21 10:00 am Diet: Carb Consistent or DM2 Addtl Attending Provider Instructions: You developed hospital acquired delirium. You have been improving over the past few days. I will prescribe a few more doses of olanzapine, however will recommend that this be tapered off. A1C is 5.8. May consider stopping metformin. Will defer to PCP. Will also recommend followup with PCP in 1-2 weeks. Addtl School Leader Provider Instructions: weight bearing as tolerated right lower extremity allowed for full range of motion right knee, hip and ankle Use walker to assist with ambulation. Ice and elevation right hip as needed for pain/swelling. Keep right hip incision covered with light dressings. Allowed for showering - to get incision wet, but redress with light dressing. Follow up with Dr. Dowell approximately 2 weeks after surgery for staple re moval. Call [phone] with any questions or concerns or need to reschedule appointment. Pending Studies at Discharge: No Stand-Alone Forms: My [facility] Skilled Items Patient informed of condition?: Yes DNR: No Discharge Level of Care: Skilled Communicable Disease: No Discharge Prognosis: Stable Lines: None Urinary Catheter: No Medications and DC Order Prescriptions: New sennosides-docusate sodium [Senokot-S] 8.6-50 mg Tablet 2 tab PO HS Qty: 60 RF: 0 olanzapine 2.5 mg Tablet 2.5 mg PO HS PRN (Reason: ) Qty: 10 RF: 0 acetaminophen [Tylenol Extra Strength] 500 mg Tablet 1,000 mg PO TID Qty: 30 RF: 0 tamsulosin 0.4 mg Capsule 0.4 mg PO QAM Qty: 30 RF: 0 pantoprazole 40 mg Tablet,Delayed Release (Dr/Ec) 40 mg PO QAM Qty: 30 RF: 0 metoprolol tartrate 50 mg Tablet 50 mg PO BID Qty: 60 RF: 0 Eliquis 5 mg Tablet 5 mg PO BID Qty: 60 RF: 0 Continued (DME) OneTouch Ultra Test Strip See Rx Instructions .Route Qty: 100 RF: 1 (DME) lancets [OneTouch Delica Lancets] 30 gauge misc See Rx Instructions .Route Qty: 100 RF: 1 (DME) Wheeled Walker Misc See Rx Instructions .Route Qty: 1 RF: 0 cholecalciferol (vitamin D3) 1,000 unit tablet 1,000 units PO DAILY RF: 0 cetirizine [Zyrtec] 10 mg Tablet 10 mg PO DAILY RF: 0 omega 6-vhm-wot-fish oil [Fish Oil] 1,000 mg (120 mg-180 mg) Capsule 1 cap PO DAILY RF: 0 Ocuvite Adult 50 Plus 250-5-1 mg Capsule 1 cap PO DAILY RF: 0 metformin 500 mg tablet 500 mg PO DAILY RF: 0 Discontinued telmisartan-hydrochlorothiazid [Micardis HCT] 80-25 mg tablet 1 tab PO DAILY Qty: 90 RF: 3 aspirin 325 mg tablet 650 mg PO BID PRN (Reason: Pain) RF: 0 Discharge Orders: Discharge Order (Routine); Ordered 10/15/21 Ordered By: Darrel Null/Other Patient Handouts: Managing Type 2 Diabetes Admission Data Admit Date/Time: 10/06/21 01:11 Attending Provider: Darrel Coleman Admit Provider: Conner Morton Primary Care Provider: Armando Valencia Other Providers: Alisa Couch [place] ; Conner Morton ; Navjot Hutchinson ; Henry Ortega Other Interventions: Discharge Summary Assessment (RN) Last Done: 10/15/21 13:08 Coding Level of Care Code D/C DAY MANAGEMENT >30 MINS Diagnoses Closed left hip fracture S72.002A Atrial fibrillation with rapid ventricular response I48.91 Toxic encephalopathy G92.9 Nausea with vomiting R11.2 Hematuria R31.9 Hypertension I10 Type 2 diabetes mellitus E11.9 Greater trochanteric bursitis of right hip M70.61 Gait abnormality R26.9 Spinal stenosis of lumbar region M48.061
== END 2021-10-15 13:24 | DRG 956 ==
LOC: ED 22:52 → 3W 10-06 01:11 → SUATTDRO 10-06 01:11 → 3W 10-06 03:14 → 2N 10-09 04:51 → 2E 10-09 12:51 → 3E 10-14 13:40

== ENCOUNTER 2024-08-10 08:43 | Inpatient (IN) ==
[2024-08-10 09:35] LABS: Basophils # (auto) 0.02 K/uL (0.00-0.20); Basophils % (auto) 0.3 %; Eosinophils # (auto) 0.11 K/uL (0.00-0.50); Eosinophils % (auto) 1.4 %; Hematocrit (blood only) 35.2 % (42.0-52.0); Hemoglobin 12.3 g/dl (14.0-18.0); Immature Granulocytes # (auto) 0.02 K/uL (0.01-0.20); Immature Granulocytes % (auto) 0.3 %; Lymphocytes # (auto) 1.22 K/uL (1.20-3.40); Lymphocytes % (auto) 15.9 %; Mean Corpuscular Hemoglobin 28.3 pg (25.0-34.0); Mean Corpuscular Hgb Conc 34.9 g/dL (32.0-36.0); Mean Corpuscular Volume 80.9 fL (80.0-100.0); Mean Platelet Volume 9.7 fL (9.4-12.4); Monocytes # (auto) 0.44 K/uL (0.11-0.59); Monocytes % (auto) 5.7 %; Neutrophils # (auto) 5.87 K/uL (1.40-6.50); Neutrophils % (auto) 76.4 %; Platelet Count 150 K/uL (130-400); RDW Coefficient of Variation 13.2 % (11.5-14.5); RDW Standard Deviation 38.8 fL (36.4-46.3); Red Blood Count 4.35 M/uL (4.70-6.10); White Blood Count 7.68 K/ul (4.8-10.8)
[2024-08-10 09:39] LABS: INR 1.1 (0.9-1.1); Prothrombin Time 11.7 Seconds (9.0-12.0)
[2024-08-10 10:02] LABS: Albumin Globulin Ratio 1.5 (0.9-2); Albumin Level 4.1 gm/dl (3.4-5.0); BUN Creatinine Ratio 18.6 (10-20); Bilirubin,Total 1.3 mg/dl (0.2-1.0); Calcium 9.1 mg/dl (8.6-10.3); Creatinine Clr Calc Pharmacy 48.2 ml/min; Globulin 2.8 gm/dl (2.5-4.0); Magnesium 1.7 mg/dl (1.7-2.4); Potassium 3.9 mmol/L (3.5-5.1); Total Protein 6.9 gm/dl (6.0-8.3)
[2024-08-10 10:14] LABS: Troponin I High Sensitivity 83.9 pg/ml (0-20)
[2024-08-10 10:15] LABS: Thyroid Stimulating Hormone 0.663 uIu/ml (0.300-4.500)
[2024-08-10 10:17] LABS: Adenovirus PCR Not Detected (NotDetected); Bordetella parapertussis PCR Not Detected (NotDetected); Bordetella pertussis PCR Not Detected (NotDetected); Chlamydia pneumoniae PCR Not Detected (NotDetected); Coronavirus 229E PCR Not Detected (NotDetected); Coronavirus CoV-2 (COVID19)PCR Not Detected (NotDetected); Coronavirus HKU1 PCR Not Detected (NotDetected); Coronavirus NL63 PCR Not Detected (NotDetected); Coronavirus OC43PCR Not Detected (NotDetected); Human Metapneumovirus PCR Not Detected (NotDetected); Influenza A PCR Not Detected (NotDetected); Influenza B PCR Not Detected (NotDetected); Mycoplasma pneumoniae PCR Not Detected (NotDetected); Parainfluenza Virus 1 PCR Not Detected (NotDetected); Parainfluenza Virus 2 PCR Not Detected (NotDetected); Parainfluenza Virus 3 PCR Not Detected (NotDetected); Parainfluenza Virus 4 PCR Not Detected (NotDetected); Respiratory Syncytial VirusPCR Not Detected (NotDetected); Rhinovirus/Enterovirus PCR Not Detected (NotDetected)
--- NOTE | 2024-08-10 10:25 | Emergency Department Note ---
Impression & Plan Acute confusion, Compression fracture of lumbar vertebra, Elevated CK, Fall, Non-ST elevation MO (NSTEMI) ED Provider Note HISTORY OF PRESENT ILLNESS: Patient is AN 88-year-old male presenting with confusion and being found down. Patient presents from [facility] with EMS. Patient reportedly was last seen last night at 2200. He was found this morning laying on the floor beside his bed. Patient is on Eliquis. He is unsure of how he landed on the ground. He states he was unable to get up on his own. He is currently complaining of low back pain, which is new since the fall. He denies any chest pain or shortness of breath. Patient is confused. He reportedly is alert and oriented x 2 at baseline. Family member who presents later reports that the patient seems more confused than normal. Patient denies any abdominal pain, nausea or vomiting. He denies any fevers. Does any dysuria or hematuria. Patient denies striking his head or loss of consciousness. ROS: as above PHYSICAL EXAM: Constitutional: Patient appears in no acute distress. HENT: Head: Normocephalic and atraumatic. Eyes: EOMI, PERRL Mouth/Throat: Mucous membranes moist. Neck: Trachea midline. Neck supple. No midline cervical spine tenderness to palpation. Cardiovascular: RRR, No murmurs, rubs or gallops. Intact distal pulses. Pulmonary/Chest: No respiratory distress. Breath sounds clear and equal bilaterally. No wheezes or rales. Abdominal: Abdomen soft, no tenderness, rebound or guarding. Back: No paraspinal tenderness, no CVA tenderness. Lower lumbar midline tenderness to palpation. No step-offs or deformities. Musculoskeletal: No edema, tenderness or deformity noted. Skin: Warm and dry. No rash, erythema, pallor or cyanosis Psychiatric: Appropriate mood and affect for situation. Neurological: Alert and keenly responsive. CN II-XII grossly intact, moving all extremities equally and fully. MDM: - Vitals signs showed hypertension - History obtained via patient and EMS. History as above. - Chronic conditions affecting care: HTN; DM-2 - Differential diagnoses include, but are not limited to: intracranial hemorrhage; CVA; ACS; pneumonia; viral syndrome; electrolyte abnormality; UTI - Order placed for continuous cardiac monitoring. At this time, monitor showed rate of 62 bpm with normal sinus rhythm, per my interpretation. - External medical records reviewed. Primary care visit note dated 06/12/2024 was reviewed. Patient was seen for a follow-up for management of his hypertension. - EKG image interpreted by myself showed normal sinus rhythm. Rate 66 bpm. QT 404. No acute ischemic changes. - Laboratory workup interpreted by myself showed normal WBC; chronic anemia; normal PT/INR; slight hyponatremia (Na 135); elevated troponin (83.9); elevated CK (292); normal creatinine; normal TSH - Viral respiratory panel negative - CXR image reviewed by myself showed negative for pneumonia, per my interpretation. - Pelvic xray negative for acute fracture. - UA obtained via straight cath negative for infection - CT head wo contrast negative for acute injury - CT cervical spine wo contrast negative for acute abnormality - CT abdomen/pelvis with IV contrast showed a compression fracture of the superior endplate of L5 that is new since 2022. Noted to have multiple small stones of the gallbladder. Newly demonstrated focal bladder wall calcification. - CT lumbar spine wo contrast shows an acute minimally displaced fracture of the S2 vertebral body. L5 compression fracture is new since December 2022 but is noted to be likely chronic. - Discussion was had with community case manager about patient's case and need for admission - Hospitalist consulted for admission - Patient admitted to [facility] service for further evaluation and management. ASSESSMENT AND PLAN: Diagnosis: Fall; NSTEMI; elevated CK; lumbar compression fracture; acute confusion Plan: Admit Past Med/Surg History Problem List (Updated 08/10/24 @ 12:14 by Rosibel Paluino MD) Non-ST elevation MO (NSTEMI) (Acute) Fall (Acute) Elevated CK (Acute) Compression fracture of lumbar vertebra (Acute) Acute confusion (Acute) Elevated CK Metabolic encephalopathy 1st degree AV block Sinus bradycardia Cirrhosis of liver Elevated alkaline phosphatase level Pleural effusion Rib fracture Exertional shortness of breath Incomplete bladder emptying Nocturia Dysfunctional voiding of urine UTI (urinary tract infection) Lower urinary tract symptoms (LUTS) Insomnia H/O squamous cell carcinoma Vascular dementia Anticoagulated Paroxysmal atrial fibrillation Atrial fibrillation with rapid ventricular response Toxic encephalopathy Nausea with vomiting Hematuria Encounter for pre-operative examination Closed fracture of left hip (Acute) Closed left hip fracture Greater trochanteric bursitis of right hip Gait abnormality Myofascial pain Right hip pain Anterolisthesis (Chronic) Spinal stenosis of lumbar region (Chronic) Pars defect of lumbar spine (Chronic) Lumbar compression fracture (Chronic) Sacroiliitis (Chronic) Allergic rhinitis (Acute) Arthritis (Acute) Inhibited sexual excitement (Acute) Sciatica of right side (Acute) Type 2 diabetes mellitus (Acute) Diabetes mellitus (Chronic) Hypertension (Chronic) Medical History History of gastritis Surgical History S/P tonsillectomy S/P tooth extraction S/P colonoscopy History of knee replacement Family History Mother Diabetes Renal failure History of miscarriage Sister Uterine cancer Ovarian cancer Father Cardiomegaly Colon cancer Family/Other No problems noted. Denies family history of Prostate cancer Myocardial infarction Breast cancer Social History Smoking Status: Unknown if ever smoked Tobacco Type: Cigarettes Age Started Using Tobacco: 18; Age Quit Using Tobacco: 21; packs per day: 0.5; Second Hand Exposure: No; Do You Dip or Chew Tobacco: No; Hx Alcohol Use: Yes Alcohol type: wine Hx Substance Use: No Preferred Language: Turkmen Communication Ability: Impaired Visual Impairment: No Limitations Hearing Ability: Normal Costume Maker Required: No Beliefs That Will Affect Care: None marital status: Current Living Situation: [place] current occupational status: retired Feels Safe at Home: Yes Dental Care, Regularly: Yes Physical Activity Frequency: 3-4 Times per Week Physical Activity Frequency Comment: Regularly, stationary bike Seatbelt Use: always Sunscreen Use: Yes Assistive Devices: Wheelchair Allergies Allergies Allergy/AdvReac Type Severity Reaction Status Date / Time house dust Allergy Mild Congested Verified 06/22/24 13:29 lorazepam Allergy Unknown Unknown Verified 06/22/24 13:29 Home Meds Home Medications Medication Instructions Recorded Confirmed cholecalciferol (vitamin D3) 25 1,000 units PO QAM 01/15/19 08/10/24 mcg (1,000 unit) tablet acetaminophen 325 mg tablet 650 mg PO Q6H PRN pain or fever 10/02/23 08/10/24 (Tylenol) lactulose 10 gram/15 mL oral 10 g PO QAM PRN Constipation 10/02/23 08/10/24 solution (Enulose) Previous Rx's Medication Instructions Recorded tamsulosin 0.4 mg capsule 0.4 mg PO DAILY #90 caps 11/03/23 metoprolol succinate 25 mg 25 mg PO DAILY #90 tabs 02/17/24 tablet,extended release 24 hr apixaban 5 mg tablet (Eliquis) 5 mg PO BID #60 tabs 06/02/24 olmesartan 40 mg tablet 40 mg PO DAILY #90 tabs 06/25/24 metformin 1,000 mg tablet 1,000 mg PO BID #180 tabs 07/07/24 Results & Data (ED) Vital Signs Vital Signs - 24 hr 08/10/24 08:49 08/10/24 08:52 08/10/24 10:15 Temperature 36.9 C Temperature Source Oral Pulse Rate 71 65 Pulse Rate [Left Finger] 61 Pulse Rhythm Regular Pulse Strength Normal Respiratory Rate 18 18 Respiratory Effort / Characteristics Non-Labored Spontaneous Respiratory Depth Normal Respiratory Pattern Regular Blood Pressure 153/79 H Blood Pressure [Left Arm] 143/66 H Blood Pressure Mean 103 Blood Pressure Mean [Left Arm] 91 Blood Pressure Position Lying Pulse Oximetry 96 97 Oxygen Delivery Method Room Air Sepsis Recent Fever Within 48 Hours No Sepsis New/Unexplained Change in Mental Status No Sepsis Action Taken by Nursing No Action Required Laboratory Data 08/10/24 09:07 08/10/24 09:07 Lab Results 08/10/24 08/10/24 08/10/24 Range/Units 09:07 09:16 10:28 WBC 7.68 (4.8-10.8) K/ul RBC 4.35 L (4.70-6.10) M/uL Hgb 12.3 L (14.0-18.0) g/dl Hct 35.2 L (42.0-52.0) % MCV 80.9 (80.0-100.0) fL MCH 28.3 (25.0-34.0) pg MCHC 34.9 (32.0-36.0) g/dL RDW Std Deviation 38.8 (36.4-46.3) fL RDW Coeff of Thierry 13.2 (11.5-14.5) % Plt Count 150 (130-400) K/uL MPV 9.7 (9.4-12.4) fL Immature Gran % (Auto) 0.3 % Neut % (Auto) 76.4 % Lymph % (Auto) 15.9 % [place] % (Auto) 5.7 % Eos % (Auto) 1.4 % Baso % (Auto) 0.3 % Neut # (Auto) 5.87 (1.40-6.50) K/uL Lymph # (Auto) 1.22 (1.20-3.40) K/uL [place] # (Auto) 0.44 (0.11-0.59) K/uL Eos # (Auto) 0.11 (0.00-0.50) K/uL Baso # (Auto) 0.02 (0.00-0.20) K/uL Immature Gran # (Auto) 0.02 (0.01-0.20) K/uL PT 11.7 (9.0-12.0) Seconds INR 1.1 (0.9-1.1) Sodium 135 L (136-145) mmol/L Potassium 3.9 (3.5-5.1) mmol/L Chloride 102 (98-107) mmol/L Carbon Dioxide 26 (21-32) mmol/L Anion Gap 7 (3-11) BUN 22 (6-23) mg/dl Creatinine 1.18 (0.6-1.4) mg/dl Est Cr Clr Drug Dosing 48.2 ml/min eGFR 60.09 BUN/Creatinine Ratio 18.6 (10-20) Glucose 112 H (70-99(Fasting)) mg/dl Lactate 0.9 (0.4-2.0) mmol/L Calcium 9.1 (8.6-10.3) mg/dl Magnesium 1.7 (1.7-2.4) mg/dl Total Bilirubin 1.3 H (0.2-1.0) mg/dl AST 24 (13-39) U/L ALT 18 (7-52) U/L Alkaline Phosphatase 121 H (34-104) U/L Total Creatine Kinase 292 H (30-223) U/L Troponin I High Sens 83.9 H* (0-20) pg/ml Total Protein 6.9 (6.0-8.3) gm/dl Albumin 4.1 (3.4-5.0) gm/dl Globulin 2.8 (2.5-4.0) gm/dl Albumin/Globulin Ratio 1.5 (0.9-2) TSH 0.663 (0.300-4.500) uIu/ml Urine Color Yellow Urine Appearance Clear (Clear) Urine pH 6.5 (4.5-7.5) Ur Specific Wink 1.015 (1.000-1.030) Urine Protein 2+ H (Negative) Urine Glucose (UA) Negative (Negative) Urine Ketones Negative (Negative) Urine Blood Trace H (Negative) Urine Nitrite Negative (Negative) Urine Bilirubin Negative (Negative) Urine Urobilinogen Negative (Negative) Ur Leukocyte Esterase Negative (Negative) Urine WBC (Auto) 0-5 (0-5) /hpf Urine RBC (Auto) 3-5 H (0-2) /hpf U Hyaline Cast (Auto) 0-2 (0-2) /lpf U Epithel Cells (Auto) 0-2 (0-2) /hpf Urine Bacteria (Auto) None Seen (None Seen) Adenovirus (PCR) Not Detected (NotDetected) B. pertussis DNA (PCR) Not Detected (NotDetected) B.parapertussis DNA PCR Not Detected (NotDetected) C. pneumoniae DNA (PCR) Not Detected (NotDetected) Coronavirus OC43 (PCR) Not Detected (NotDetected) Coronavirus HKU1 (PCR) Not Detected (NotDetected) Coronavirus 229E (PCR) Not Detected (NotDetected) SARS-CoV-2 (PCR) Not Detected (NotDetected) Coronavirus NL63 (PCR) Not Detected (NotDetected) Human Metapneumovir PCR Not Detected (NotDetected) Influenza Type A (PCR) Not Detected (NotDetected) Influenza Type B (PCR) Not Detected (NotDetected) M. pneumoniae (PCR) Not Detected (NotDetected) Parainfluenza 1 (PCR) Not Detected (NotDetected) Parainfluenza 2 (PCR) Not Detected (NotDetected) Parainfluenza 3 (PCR) Not Detected (NotDetected) Parainfluenza 4 (PCR) Not Detected (NotDetected) RSV (PCR) Not Detected (NotDetected) Entero/Rhino (PCR) Not Detected (NotDetected) 08/10/24 Range/Units 10:52 WBC (4.8-10.8) K/ul RBC (4.70-6.10) M/uL Hgb (14.0-18.0) g/dl Hct (42.0-52.0) % MCV (80.0-100.0) fL MCH (25.0-34.0) pg MCHC (32.0-36.0) g/dL RDW Std Deviation (36.4-46.3) fL RDW Coeff of Thierry (11.5-14.5) % Plt Count (130-400) K/uL MPV (9.4-12.4) fL Immature Gran % (Auto) % Neut % (Auto) % Lymph % (Auto) % [place] % (Auto) % Eos % (Auto) % Baso % (Auto) % Neut # (Auto) (1.40-6.50) K/uL Lymph # (Auto) (1.20-3.40) K/uL [place] # (Auto) (0.11-0.59) K/uL Eos # (Auto) (0.00-0.50) K/uL Baso # (Auto) (0.00-0.20) K/uL Immature Gran # (Auto) (0.01-0.20) K/uL PT (9.0-12.0) Seconds INR (0.9-1.1) Sodium (136-145) mmol/L Potassium (3.5-5.1) mmol/L Chloride (98-107) mmol/L Carbon Dioxide (21-32) mmol/L Anion Gap (3-11) BUN (6-23) mg/dl Creatinine (0.6-1.4) mg/dl Est Cr Clr Drug Dosing ml/min eGFR BUN/Creatinine Ratio (10-20) Glucose (70-99(Fasting)) mg/dl Lactate (0.4-2.0) mmol/L Calcium (8.6-10.3) mg/dl Magnesium (1.7-2.4) mg/dl Total Bilirubin (0.2-1.0) mg/dl AST (13-39) U/L ALT (7-52) U/L Alkaline Phosphatase (34-104) U/L Total Creatine Kinase (30-223) U/L Troponin I High Sens 72.7 H* D (0-20) pg/ml Total Protein (6.0-8.3) gm/dl Albumin (3.4-5.0) gm/dl Globulin (2.5-4.0) gm/dl Albumin/Globulin Ratio (0.9-2) TSH (0.300-4.500) uIu/ml Urine Color Urine Appearance (Clear) Urine pH (4.5-7.5) Ur Specific Wink (1.000-1.030) Urine Protein (Negative) Urine Glucose (UA) (Negative) Urine Ketones (Negative) Urine Blood (Negative) Urine Nitrite (Negative) Urine Bilirubin (Negative) Urine Urobilinogen (Negative) Ur Leukocyte Esterase (Negative) Urine WBC (Auto) (0-5) /hpf Urine RBC (Auto) (0-2) /hpf U Hyaline Cast (Auto) (0-2) /lpf U Epithel Cells (Auto) (0-2) /hpf Urine Bacteria (Auto) (None Seen) Adenovirus (PCR) (NotDetected) B. pertussis DNA (PCR) (NotDetected) B.parapertussis DNA PCR (NotDetected) C. pneumoniae DNA (PCR) (NotDetected) Coronavirus OC43 (PCR) (NotDetected) Coronavirus HKU1 (PCR) (NotDetected) Coronavirus 229E (PCR) (NotDetected) SARS-CoV-2 (PCR) (NotDetected) Coronavirus NL63 (PCR) (NotDetected) Human Metapneumovir PCR (NotDetected) Influenza Type A (PCR) (NotDetected) Influenza Type B (PCR) (NotDetected) M. pneumoniae (PCR) (NotDetected) Parainfluenza 1 (PCR) (NotDetected) Parainfluenza 2 (PCR) (NotDetected) Parainfluenza 3 (PCR) (NotDetected) Parainfluenza 4 (PCR) (NotDetected) RSV (PCR) (NotDetected) Entero/Rhino (PCR) (NotDetected) Administered Medications Magnesium Sulfate/Dextrose (Magnesium Sulfate / D5w) 1 gm in 100 mls @ 50 mls/hr IV ONE ONE Stop: 08/10/24 13:20 Last Admin: 08/10/24 11:50 Dose: 50 mls/hr Documented By: SUREKHA Sodium Chloride (Nss) 1,000 mls @ 80 mls/hr IV .[id number] DAMASO Stop: 08/11/24 11:29 Last Admin: 08/10/24 11:48 Dose: 80 mls/hr Documented By: SUREKHA Discontinued Medications Ioversol (Optiray 320 100ml) 92 ml IV ONCE ONE Stop: 08/10/24 10:49 Last Admin: 08/10/24 10:48 Dose: 92 ml Documented By: [facility] Imaging Data Radiologist's Impression: Abdomen/Pelvis CT 08/10/24 08:[address] WITH IV CONTRAST CT DOSE: 2710.42mGy*cm HISTORY: found down TECHNIQUE: Multiaxial CT images of the abdomen and pelvis were performed following the IV administration of 90 to cc of Optiray, sagittal and coronal reconstructions were performed. A dose lowering technique was utilized adhering to the principles of ALARA. COMPARISON STUDY: 01/05/2023 FINDINGS: Old right rib fractures are identified. There is no acute rib fracture seen. The lumbar spine demonstrates a known bilateral L5 pars defects with a grade 2 spondylolisthesis of L5 on S1. There is a newly demonstrated compression fracture of the superior endplate of L5 that has developed since 2022. The L2 vertebral body compression fracture is redemonstrated and unchanged. Multilevel lumbar spinal stenosis is once again noted. There are no new solid organ lesions appreciated. There is no traumatic injury identified of the solid organs. There is a small hiatal hernia. The gallbladder remains filled with small stones without gallbladder wall thickening or pericholecystic inflammation. The bile ducts are not dilated. There is no abdominal aortic aneurysm or periaortic adenopathy. The bowel gas pattern is nonspecific. There is no obstruction or free air. There is no ascites. There is no evidence of colitis or diverticulitis. In the pelvis, the prostate gland remains grossly enlarged. There is no generalized bladder wall thickening. There is a small focal calcification along the posterior aspect of the bladder wall not present on the prior examination. IMPRESSION: Compression fracture of the superior endplate of L5 has developed since 2022. This is not necessarily an acute finding. No additional skeletal changes have occurred since the prior examination. Multilevel lumbar spinal stenosis is noted. Bilateral L5 pars defect with a grade 2 spondylolisthesis is redemonstrated. Multiple small stones filling the gallbladder lumen once again noted. Grossly enlarged prostate gland. Newly demonstrated focal bladder wall calcification. I doubt whether this represents a intraluminal stone. A small developing transitional cell carcinoma is not excluded. ACT 112: Negative or not required by law. The above report was generated using voice recognition software. It may contain grammatical, syntax or spelling errors. Electronically signed by: Lula Morataya M.D. 08/10/2024 11:[address] 08/10/24 08:56 CT OF THE CERVICAL SPINE WITHOUT CONTRAST CLINICAL HISTORY: fall; found down COMPARISON STUDY: Cervical spine CT October 02, 2023. TECHNIQUE: Helical axial images of the cervical spine were obtained without IV contrast. Sagittal and coronal reconstructions were viewed. Automated exposure control was utilized for the study. A dose lowering technique was utilized adhering to the principles of ALARA. FINDINGS: Alignment of the cervical spine is anatomic. Vertebral body heights are maintained. No acute cervical spine fracture or subluxation is present. There is no prevertebral edema. Facet joints are intact. There is moderate to severe multilevel disc space narrowing, endplate osteophytosis and facet arthrosis within the cervical spine. Extensive degenerative changes at the C1-C2 articulation are again noted. An exophytic right lobe thyroid nodule is unchanged. IMPRESSION: No acute cervical spine fracture or subluxation. ACT 112: Negative or not required by law. Electronically signed by: Daljit Figueroa M.D. 08/10/2024 11:[address] 08/10/24 08:56 CT OF THE HEAD WITHOUT CONTRAST CLINICAL HISTORY: fall; found down COMPARISON STUDY: Head CT October 02, 2023. CT DOSE: 2710.42 mGy.cm TECHNIQUE: Helical axial images of the head were obtained without IV contrast. Automated exposure control was utilized for the study. A dose lowering technique was utilized adhering to the principles of ALARA. FINDINGS: No acute intracranial hemorrhage, midline shift or mass effect is present. The ventricular system is stable. The basal cisterns are patent. There are no extra axial collections. There are no findings to suggest acute dural sinus thrombosis or acute territorial infarct. There are postoperative findings within the sinuses. There are no calvarial fractures. IMPRESSION: No acute intracranial findings. No change in appearance of the brain. ACT 112: Negative or not required by law. Electronically signed by: Daljit Figueroa M.D. 08/10/2024 10:[address] 08/10/24 08:56 CT lumbar spine w con CLINICAL HISTORY: fall; found down COMPARISON STUDY: CT of the abdomen and pelvis January 05, 2023. TECHNIQUE: Axial images of the lumbar spine were obtained. Sagittal and coronal reformats were viewed. Automated exposure control was utilized for the study. A dose lowering technique was utilized adhering to the principles of ALARA. FINDINGS: Mild lumbar spine levoscoliosis is noted. There is moderate to severe multilevel disc space narrowing and endplate osteophytosis within the lumbar spine. There is severe facet arthrosis. Interstitial listhesis of L5 on S1 is similar to CT of January 05, 2023. Loss of height of the superior endplate of L5 is new since that exam. This is likely chronic. There is an old L2 fracture. This is unchanged. Subtle cortical irregularity of the inferior aspect of the S2 vertebral body is noted. There is trace prevertebral edema. Please note that the abdomen and pelvis CT will be reported separately. The gallbladder is filled with gallstones. IMPRESSION: 1. Acute minimally displaced fracture of the S2 vertebral body. 2. L5 compression fracture which is new since CT of January 05, 2023 but likely chronic. 3. No change in an old L2 fracture. 4. Severe multilevel degenerative changes within the lumbar spine. ACT 112: Negative or not required by law. Electronically signed by: Daljit Figueroa M.D. 08/10/2024 11:23 AM Pelvis X-Ray 08/10/24 08:56 XR pelvis 1-2V routine CLINICAL HISTORY: fall; found down COMPARISON: 10/02/2023 FINDINGS: Single view pelvis is unchanged. There is no acute fracture. An old fracture deformity with intramedullary ridge and femoral neck nail is redemonstrated. Mild degenerative changes are present in the right hip. There are degenerative changes throughout the lumbar spine. IMPRESSION: Stable exam; no acute findings. ACT 112: Negative or not required by law. Electronically signed by: Lula Morataya M.D. 08/10/2024 10:54 AM Chest X-Ray 08/10/24 08:57 XR chest 1V portable CLINICAL HISTORY: weakness COMPARISON STUDY: Chest CT January 05, 2023. Chest radiograph October 02, 2023. FINDINGS: There is no pneumothorax or pleural effusion. Cardiomegaly is unchanged. There is no evidence for pulmonary edema. There is no consolidation to suggest pneumonia. IMPRESSION: No acute cardiopulmonary findings. No change in appearance of the chest. ACT 112: Negative or not required by law. Electronically signed by: Daljit Figueroa M.D. 08/10/2024 10:56 AM Discharge Plan Visit Data Chief Complaint: Fall ED Provider: Rosibel Paulino Discharge Problem: Acute confusion, Compression fracture of lumbar vertebra, Elevated CK, Fall, Non-ST elevation MO (NSTEMI) Forms Stand Alone Forms: [employer] Prescriptions Prescriptions: No Action tamsulosin 0.4 mg capsule 0.4 mg PO DAILY Qty: 90 3RF Eliquis 5 mg tablet 5 mg PO BID Qty: 60 5RF Hold Instructions: Resume on 02/16/23. metformin 1,000 mg tablet 1,000 mg PO BID Qty: 180 3RF cholecalciferol (vitamin D3) 1,000 unit tablet 1,000 units PO QAM olmesartan 40 mg tablet 40 mg PO DAILY Qty: 90 3RF metoprolol succinate 25 mg tablet extended release 24 hr 25 mg PO DAILY Qty: 90 3RF acetaminophen [Tylenol] 325 mg Tablet 650 mg PO Q6H MDD 3gm apap/24h PRN (Reason: pain or fever) lactulose [Enulose] 10 gram/15 mL solution 10 g PO QAM PRN (Reason: Constipation) Referrals Referrals: Armando Valencia MD [Primary Care Provider] -
[2024-08-10 10:41] LABS: Appearance Urine Clear (Clear); Bacteria Urine Automated None Seen (None Seen); Bilirubin Urine Negative (Negative); Blood Urine Trace (Negative); Cast Urine Automated 0-2 /lpf (0-2); Color Urine Yellow; Epithelial Cell Urine Auto 0-2 /hpf (0-2); Glucose Urine UA Negative (Negative); Ketones Urine Negative (Negative); Leukocyte Esterase Urine Negative (Negative); Nitrite Urine Negative (Negative); Protein Urine 2+ (Negative); Specific Gravity Urine 1.015 (1.000-1.030); Urobilinogen Urine Negative (Negative); WBC Urine Automated 0-5 /hpf (0-5); pH Urine 6.5 (4.5-7.5)
[2024-08-10] MEDS: OPTIRAY 320 100ml IV ONE (10:48)
--- NOTE | 2024-08-10 10:56 | XRay Report ---
XR pelvis 1-2V routine CLINICAL HISTORY: fall; found down COMPARISON: 10/02/2023 FINDINGS: Single view pelvis is unchanged. There is no acute fracture. An old fracture deformity wit h intramedullary ridge and femoral neck nail is redemonstrated. Mild degenerative changes are present i n the right hip. There are degenerative changes throughout the lumbar spine. IMPRESSION: Stable exam; no acute findings. ACT 112: Negative or not required by law. Electronically signed by: Lula Morataya M.D. 08/10/2024 10:54 AM
--- NOTE | 2024-08-10 10:58 | XRay Report ---
XR chest 1V portable CLINICAL HISTORY: weakness COMPARISON STUDY: Chest CT January 05, 2023. Chest radiograph October 02, 2023. FINDINGS: There is no pneumothorax or pleural effusion. Cardiomegaly is unchanged. There is no eviden ce for pulmonary edema. There is no consolidation to suggest pneumonia. IMPRESSION: No acute cardiopulmonary findings. No change in appearance of the chest. ACT 112: Negative or not required by law. Electronically signed by: Daljit Figueroa M.D. 08/10/2024 10:56 AM
--- NOTE | 2024-08-10 11:00 | CT Scan Report ---
CT OF THE HEAD WITHOUT CONTRAST CLINICAL HISTORY: fall; found down COMPARISON STUDY: Head CT October 02, 2023. CT DOSE: 2710.42 mGy.cm TECHNIQUE: Helical axial images of the head were obtained without IV contrast. Automated exposure con trol was utilized for the study. A dose lowering technique was utilized adhering to the principles o f ALARA. FINDINGS: No acute intracranial hemorrhage, midline shift or mass effect is present. The ventricular system is stable. The basal cisterns are patent. There are no extra axial collections. There are no f indings to suggest acute dural sinus thrombosis or acute territorial infarct. There are postoperative findings within the sinuses. There are no calvarial fractures. IMPRESSION: No acute intracranial findings. No change in appearance of the brain. ACT 112: Negative or not required by law. Electronically signed by: Daljit Figueroa M.D. 08/10/2024 10:59 AM
--- NOTE | 2024-08-10 11:08 | CT Scan Report ---
ABDOMEN AND PELVIS CT WITH IV CONTRAST CT DOSE: 2710.42mGy*cm HISTORY: found down TECHNIQUE: Multiaxial CT images of the abdomen and pelvis were performed following the IV administrat ion of 90 to cc of Optiray, sagittal and coronal reconstructions were performed. A dose lowering elsie hnique was utilized adhering to the principles of ALARA. COMPARISON STUDY: 01/05/2023 FINDINGS: Old right rib fractures are identified. There is no acute rib fracture seen. The lumbar spi ne demonstrates a known bilateral L5 pars defects with a grade 2 spondylolisthesis of L5 on S1. There is a newly demonstrated compression fracture of the superior endplate of L5 that has developed since 2022. The L2 vertebral body compression fracture is redemonstrated and unchanged. Multilevel lumbar spinal stenosis is once again noted. There are no new solid organ lesions appreciated. There is no traumatic injury identified of the faustino d organs. There is a small hiatal hernia. The gallbladder remains filled with small stones without ga llbladder wall thickening or pericholecystic inflammation. The bile ducts are not dilated. There is no abdominal aortic aneurysm or periaortic adenopathy. The bowel gas pattern is nonspecific. There is no obstruction or free air. There is no ascites. There is no evidence of colitis or diverticulitis. In the pelvis, the prostate gland remains grossly enlarged. There is no generalized bladder wall thic kening. There is a small focal calcification along the posterior aspect of the bladder wall not prese nt on the prior examination. IMPRESSION: Compression fracture of the superior endplate of L5 has developed since 2022. This is not necessarily an acute finding. No additional skeletal changes have occurred since the prior examinati on. Multilevel lumbar spinal stenosis is noted. Bilateral L5 pars defect with a grade 2 spondylolisth esis is redemonstrated. Multiple small stones filling the gallbladder lumen once again noted. Grossly enlarged prostate gland. Newly demonstrated focal bladder wall calcification. I doubt whether this represents a intraluminal s tone. A small developing transitional cell carcinoma is not excluded. ACT 112: Negative or not required by law. The above report was generated using voice recognition software. It may contain grammatical, syntax o r spelling errors. Electronically signed by: Lula Morataya M.D. 08/10/2024 11:07 AM
--- NOTE | 2024-08-10 11:20 | CT Scan Report ---
CT OF THE CERVICAL SPINE WITHOUT CONTRAST CLINICAL HISTORY: fall; found down COMPARISON STUDY: Cervical spine CT October 02, 2023. TECHNIQUE: Helical axial images of the cervical spine were obtained without IV contrast. Sagittal a nd coronal reconstructions were viewed. Automated exposure control was utilized for the study. A do se lowering technique was utilized adhering to the principles of ALARA. FINDINGS: Alignment of the cervical spine is anatomic. Vertebral body heights are maintained. No acut e cervical spine fracture or subluxation is present. There is no prevertebral edema. Facet joints are intact. There is moderate to severe multilevel disc space narrowing, endplate osteophytosis and fac et arthrosis within the cervical spine. Extensive degenerative changes at the C1-C2 articulation are again noted. An exophytic right lobe thyroid nodule is unchanged. IMPRESSION: No acute cervical spine fracture or subluxation. ACT 112: Negative or not required by law. Electronically signed by: Daljit Figueroa M.D. 08/10/2024 11:18 AM
--- NOTE | 2024-08-10 11:23 | History & Physical Report ---
Date of Service August 10, 2024 Assessment & Plan (1) Fall: Plan: 88yo male from [facility] found down on ground. No LOC/head trauma. On eliquis BID for hx afib. CT head negative Xray pelvis no acute finding (notes old fracture deformity with IM ridge and femoral neck nail, mild degenerative changes in right hip) CT abd/pelvis noting compression fracture superior endplate L5 (new since 2022). No additional skeletal changes. Grossly enlarged prostate, new demonstrated focal bladder wall calcification. ?stone vs small developing transitional cell carcinoma Obs telemetry Check B12/folate w/ AM labs given alcohol hx, also B1/plan for empiric thiamine replacement Check Lyme given hx falls CK mild elevation 292, IVF x 1L ordered for hydration. Olmesartan on hold Fall precautions, chair alarm Pain control: lidocaine patch, tylenol, oxycodone for breakthrough (start 2.5mg dose) Orthotics consult for brace Labs in AM, Vit D, B12, folate, B1 PT/OT consults Updated grandson at bedside, daughter Megan via phone (she is in [place] for work, please call in AM w/ update) (2) Metabolic encephalopathy: Plan: ?2nd to mild rhabdo/dehydration vs other. Hx Alzheimer, usually AOx2 Biofire negative, UA w/o infection. CXR negative. IVF hydration/further testing as above, ammonia w/ AM labs given hx cirrhosis, also B1/b12/folate Frequent orientation, maintain sleep/wake schedules (3) Elevated CK: Plan: mild elevation likely 2nd to being down IVF hydration, olmesartan on hold. Trop 80s--> 70s, suspect demand ischemia from fall/dehydration. Monitor level in AM (4) Paroxysmal atrial fibrillation: Plan: continue metoprolol, eliquis BID 1gm IV mag to keep closer to 2 telemetry monitoring hx bradycardia, check lyme given 1st degree AV block Keep mag/K replete EKG w/ CP (5) Hypertension: Plan: BP stable 143/66 continue metoprolol, hold olmesartan for now (6) Type 2 diabetes mellitus: Plan: last a1c 4.7, on metformin 1gm BID. Will hold metformin on admission, check A1c w AM labs --?having low BSGs contributing to above. Possbile adjustment to metformin pending A1c. Check b12 w/ AM labs For now, BSG AC/HS, SSI while inpatient Diabetic diet (7) Elevated alkaline phosphatase level: Plan: as above, chronic elevations, does have GB filled w/ stones. Monitor for any RUQ pain (none on exam) Vit D w/ AM labs, monitor LFTs and for any RUQ. ?consideration for outpt surgery referral in future if desired? (8) Sinus bradycardia: Plan: noted hx, telemetry monitoring. continue metoprolol for hx afib w/ hold parameters. check lyme for completeness (9) 1st degree AV block: Plan Dispo: inpatient stay for pain control/therapy evals and orthotics consult/brace and further testing Updated grandson at bedside/daughter Megan via phone. DNR Notable, large prostate gland/on flomax. CTAP notes newly demonstrated focal bladder wall calcification, small developing transitional cell carcinoma not excluded. Can have [place] f/u [place] unless issues while inpatient History of Present Illness Chief Complaint: Fall, altered mental status Primary Care Provider: Armando Valencia MD 88yo male presented following a fall x2 with associated altered mental status (usually AOx2 w/ Alzheimer's dementia) from [facility]. 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 Patient seen in B11B, grandson in room. Reports fell twice since yesterday evening but did have fall earlier in the day. Patient poor historian but denies LOC/head trauma but possible legs gave out/weakness. Denies CP/SOB, 97% on RA. Was seen last night @2200 and found this morning laying on the floor beside the bed. Unsure of how he landed on the ground but was unable to get up by himself. Complaints of low back pain, new since fall. Alert/oriented x 2 at baseline. Denies striking his head or LOC. Presented covered in stale urine, attempts at urine collection/fisher placement without success. UA does not appear overly infected, 2+ protein but does note 3-5 RBC/trace blood with elevated CK to 292 indicating likely down for a period of time. Appeared dehydrated on exam. CT head/brain negative for acute finding. Biofire negative. CXR not noting acute findings. EKG NSR rates 60s on telemetry. Hx bradycardia to 40s in the past, recently switched from tartrate to succinate 25mg once daily last cardiology note. Also dc amlodipine 2nd to leg edema (chronic/stable, same size). CT abd/pelvis - noting compression fracture L5 new since 2022 (although no recent imaging, not definitive new acute finding). Notes multiple stones filling GB lumen, enlarged prostate gland. Newly demonstrated focal bladder wall calcification. I doubt whether this represents a intraluminal stone. A small developing transitional cell carcinoma is not excluded. CT cervical spine negative for acute fracture/subluxation, does have extensive degenerative changes at C1-C2 articulation. Exophytic right lobe thyroid nodule unchanged. CT lumbar spine noting acute minimally displaced fracture of S2 verebtral body, L5 compression fracture new since 2022, likely chronic. No change in L2 fracture. Does note severe multilevel degenerative changes. ER Course: imaging as above. Labs noting CBC w/ no leukocytosis or L shift. Hgb 12.3 (around baseline), plt 150 . INR 1.1. Chemistries stable, Na 125. BUN/Cr slight elevation 22/1.18. Flu 112. Lactic NOT elevated at 0.9 Elevation TB 1.3, AST/ALT wnl, ALP 121. No RUQ pain Mag 1.7. TSH 0.663 wnl. UA w/ 2+ protein, 3-5 RBC. CK elevated to 292. Troponin _83.9_ ?demand ischemic from fall/mild rhabdo vs other? -> repeat 72.7 Home meds: Eliquis 5mg BID, metoprolol succinate 25mg, olmesartan 20mg, Flomax 0.4mg, Vit D 1000IU, Metformin 1g BID, Lactulose 10g PRN constipation, Tylenol 650mg prn fever/pain Code status: DNR/DNI Allergies Allergy/AdvReac Type Severity Reaction Status Date / Time house dust Allergy Mild Congested Verified 06/22/24 13:29 lorazepam Allergy Unknown Unknown Verified 06/22/24 13:29 Home Medications Medication Instructions Recorded Confirmed Type cholecalciferol (vitamin D3) 25 1,000 units PO QAM 01/15/19 08/10/24 History mcg (1,000 unit) tablet acetaminophen 325 mg tablet 650 mg PO Q6H PRN pain or fever 10/02/23 08/10/24 History (Tylenol) lactulose 10 gram/15 mL oral 10 g PO QAM PRN Constipation 10/02/23 08/10/24 History solution (Enulose) tamsulosin 0.4 mg capsule 0.4 mg PO DAILY #90 caps 11/03/23 08/10/24 Rx metoprolol succinate 25 mg 25 mg PO DAILY #90 tabs 02/17/24 08/10/24 Rx tablet,extended release 24 hr apixaban 5 mg tablet (Eliquis) 5 mg PO BID #60 tabs 06/02/24 08/10/24 Rx olmesartan 40 mg tablet 40 mg PO DAILY #90 tabs 06/25/24 08/10/24 Rx metformin 1,000 mg tablet 1,000 mg PO BID #180 tabs 07/07/24 08/10/24 Rx Past Med/Surg History Problem List (Updated 08/10/24 @ 12:14 by Rosibel Paulino MD) Non-ST elevation NM (NSTEMI) (Acute) Fall (Acute) Elevated CK (Acute) Compression fracture of lumbar vertebra (Acute) Acute confusion (Acute) Elevated CK Metabolic encephalopathy 1st degree AV block Sinus bradycardia Cirrhosis of liver Elevated alkaline phosphatase level Pleural effusion Rib fracture Exertional shortness of breath Incomplete bladder emptying Nocturia Dysfunctional voiding of urine UTI (urinary tract infection) Lower urinary tract symptoms (LUTS) Insomnia H/O squamous cell carcinoma Vascular dementia Anticoagulated Paroxysmal atrial fibrillation Atrial fibrillation with rapid ventricular response Toxic encephalopathy Nausea with vomiting Hematuria Encounter for pre-operative examination Closed fracture of left hip (Acute) Closed left hip fracture Greater trochanteric bursitis of right hip Gait abnormality Myofascial pain Right hip pain Anterolisthesis (Chronic) Spinal stenosis of lumbar region (Chronic) Pars defect of lumbar spine (Chronic) Lumbar compression fracture (Chronic) Sacroiliitis (Chronic) Allergic rhinitis (Acute) Arthritis (Acute) Inhibited sexual excitement (Acute) Sciatica of right side (Acute) Type 2 diabetes mellitus (Acute) Diabetes mellitus (Chronic) Hypertension (Chronic) Medical History History of gastritis Surgical History S/P tonsillectomy S/P tooth extraction S/P colonoscopy History of knee replacement Family History Mother Diabetes Renal failure History of miscarriage Sister Uterine cancer Ovarian cancer Father Cardiomegaly Colon cancer Family/Other No problems noted. Denies family history of Prostate cancer Myocardial infarction Breast cancer Social History Smoking Status: Unknown if ever smoked Tobacco Type: Cigarettes Age Started Using Tobacco: 18; Age Quit Using Tobacco: 21; packs per day: 0.5; Second Hand Exposure: No; Do You Dip or Chew Tobacco: No; Hx Alcohol Use: Yes Alcohol type: wine Hx Substance Use: No Preferred Language: Macedonian Communication Ability: Impaired Visual Impairment: No Limitations Hearing Ability: Normal Chute Operator Required: No Beliefs That Will Affect Care: None marital status: Current Living Situation: Detention current occupational status: retired Feels Safe at Home: Yes Dental Care, Regularly: Yes Physical Activity Frequency: 3-4 Times per Week Physical Activity Frequency Comment: Regularly, stationary bike Seatbelt Use: always Sunscreen Use: Yes Assistive Devices: Wheelchair Review of Systems Review of Systems: All systems reviewed & are unremarkable except as noted in HPI & below Physical Exam Physical Exam: General: 88yo male laying in bed, on his left side, grandson in room, NAD HEENT: head atraumatic, normocephalic, mm slightly dry, trachea midline Resp: even/unlabored, slightly diminished in the bases but no wheezing/rales, on room air CV: RRR, faint systolic murmur, trace pedal edema, pulses present, calves nontender GI: +BS, slight distension but nontender, no guarding/rebound : no fisher, voiding in urinal MSK/Neuro: generalized weakness but nonfocal, +tenderness RIGHT sacrum, dorsiflexion/plantar flexion intact, sensation intact Psych: alert to person, occ to time, not event/situation Results & Data Results & Data Vital Signs (Past 12 Hours) Vital Signs Temp Pulse Pulse Resp BP BP Pulse Ox 08/10/24 10:15 61 18 143/66 H 97 08/10/24 08:52 65 08/10/24 08:49 36.9 C 71 18 153/79 H 96 O2 Del Method 08/10/24 10:15 08/10/24 08:52 08/10/24 08:49 Room Air Laboratory Results 08/10/24 08/10/24 08/10/24 Range/Units 10:52 10:28 09:16 WBC (4.8-10.8) K/ul RBC (4.70-6.10) M/uL Hgb (14.0-18.0) g/dl Hct (42.0-52.0) % MCV (80.0-100.0) fL MCH (25.0-34.0) pg MCHC (32.0-36.0) g/dL RDW Std Deviation (36.4-46.3) fL RDW Coeff of Thierry (11.5-14.5) % Plt Count (130-400) K/uL MPV (9.4-12.4) fL Immature Gran % (Auto) % Neut % (Auto) % Lymph % (Auto) % Mcintosh % (Auto) % Eos % (Auto) % Baso % (Auto) % Neut # (Auto) (1.40-6.50) K/uL Lymph # (Auto) (1.20-3.40) K/uL Mcintosh # (Auto) (0.11-0.59) K/uL Eos # (Auto) (0.00-0.50) K/uL Baso # (Auto) (0.00-0.20) K/uL Immature Gran # (Auto) (0.01-0.20) K/uL PT (9.0-12.0) Seconds INR (0.9-1.1) Sodium (136-145) mmol/L Potassium (3.5-5.1) mmol/L Chloride (98-107) mmol/L Carbon Dioxide (21-32) mmol/L Anion Gap (3-11) BUN (6-23) mg/dl Creatinine (0.6-1.4) mg/dl Est Cr Clr Drug Dosing ml/min eGFR BUN/Creatinine Ratio (10-20) Glucose (70-99(Fasting)) mg/dl Lactate (0.4-2.0) mmol/L Calcium (8.6-10.3) mg/dl Magnesium (1.7-2.4) mg/dl Total Bilirubin (0.2-1.0) mg/dl AST (13-39) U/L ALT (7-52) U/L Alkaline Phosphatase (34-104) U/L Total Creatine Kinase (30-223) U/L Troponin I High Sens 72.7 H* D (0-20) pg/ml Total Protein (6.0-8.3) gm/dl Albumin (3.4-5.0) gm/dl Globulin (2.5-4.0) gm/dl Albumin/Globulin Ratio (0.9-2) TSH (0.300-4.500) uIu/ml Urine Color Yellow Urine Appearance Clear (Clear) Urine pH 6.5 (4.5-7.5) Ur Specific Denton 1.015 (1.000-1.030) Urine Protein 2+ H (Negative) Urine Glucose (UA) Negative (Negative) Urine Ketones Negative (Negative) Urine Blood Trace H (Negative) Urine Nitrite Negative (Negative) Urine Bilirubin Negative (Negative) Urine Urobilinogen Negative (Negative) Ur Leukocyte Esterase Negative (Negative) Urine WBC (Auto) 0-5 (0-5) /hpf Urine RBC (Auto) 3-5 H (0-2) /hpf U Hyaline Cast (Auto) 0-2 (0-2) /lpf U Epithel Cells (Auto) 0-2 (0-2) /hpf Urine Bacteria (Auto) None Seen (None Seen) Adenovirus (PCR) Not Detected (NotDetected) B. pertussis DNA (PCR) Not Detected (NotDetected) B.parapertussis DNA PCR Not Detected (NotDetected) C. pneumoniae DNA (PCR) Not Detected (NotDetected) Coronavirus OC43 (PCR) Not Detected (NotDetected) Coronavirus HKU1 (PCR) Not Detected (NotDetected) Coronavirus 229E (PCR) Not Detected (NotDetected) SARS-CoV-2 (PCR) Not Detected (NotDetected) Coronavirus NL63 (PCR) Not Detected (NotDetected) Human Metapneumovir PCR Not Detected (NotDetected) Influenza Type A (PCR) Not Detected (NotDetected) Influenza Type B (PCR) Not Detected (NotDetected) M. pneumoniae (PCR) Not Detected (NotDetected) Parainfluenza 1 (PCR) Not Detected (NotDetected) Parainfluenza 2 (PCR) Not Detected (NotDetected) Parainfluenza 3 (PCR) Not Detected (NotDetected) Parainfluenza 4 (PCR) Not Detected (NotDetected) RSV (PCR) Not Detected (NotDetected) Entero/Rhino (PCR) Not Detected (NotDetected) 08/10/24 Range/Units 09:07 WBC 7.68 (4.8-10.8) K/ul RBC 4.35 L (4.70-6.10) M/uL Hgb 12.3 L (14.0-18.0) g/dl Hct 35.2 L (42.0-52.0) % MCV 80.9 (80.0-100.0) fL MCH 28.3 (25.0-34.0) pg MCHC 34.9 (32.0-36.0) g/dL RDW Std Deviation 38.8 (36.4-46.3) fL RDW Coeff of Thierry 13.2 (11.5-14.5) % Plt Count 150 (130-400) K/uL MPV 9.7 (9.4-12.4) fL Immature Gran % (Auto) 0.3 % Neut % (Auto) 76.4 % Lymph % (Auto) 15.9 % Mcintosh % (Auto) 5.7 % Eos % (Auto) 1.4 % Baso % (Auto) 0.3 % Neut # (Auto) 5.87 (1.40-6.50) K/uL Lymph # (Auto) 1.22 (1.20-3.40) K/uL Mcintosh # (Auto) 0.44 (0.11-0.59) K/uL Eos # (Auto) 0.11 (0.00-0.50) K/uL Baso # (Auto) 0.02 (0.00-0.20) K/uL Immature Gran # (Auto) 0.02 (0.01-0.20) K/uL PT 11.7 (9.0-12.0) Seconds INR 1.1 (0.9-1.1) Sodium 135 L (136-145) mmol/L Potassium 3.9 (3.5-5.1) mmol/L Chloride 102 (98-107) mmol/L Carbon Dioxide 26 (21-32) mmol/L Anion Gap 7 (3-11) BUN 22 (6-23) mg/dl Creatinine 1.18 (0.6-1.4) mg/dl Est Cr Clr Drug Dosing 48.2 ml/min eGFR 60.09 BUN/Creatinine Ratio 18.6 (10-20) Glucose 112 H (70-99(Fasting)) mg/dl Lactate 0.9 (0.4-2.0) mmol/L Calcium 9.1 (8.6-10.3) mg/dl Magnesium 1.7 (1.7-2.4) mg/dl Total Bilirubin 1.3 H (0.2-1.0) mg/dl AST 24 (13-39) U/L ALT 18 (7-52) U/L Alkaline Phosphatase 121 H (34-104) U/L Total Creatine Kinase 292 H (30-223) U/L Troponin I High Sens 83.9 H* (0-20) pg/ml Total Protein 6.9 (6.0-8.3) gm/dl Albumin 4.1 (3.4-5.0) gm/dl Globulin 2.8 (2.5-4.0) gm/dl Albumin/Globulin Ratio 1.5 (0.9-2) TSH 0.663 (0.300-4.500) uIu/ml Urine Color Urine Appearance (Clear) Urine pH (4.5-7.5) Ur Specific Denton (1.000-1.030) Urine Protein (Negative) Urine Glucose (UA) (Negative) Urine Ketones (Negative) Urine Blood (Negative) Urine Nitrite (Negative) Urine Bilirubin (Negative) Urine Urobilinogen (Negative) Ur Leukocyte Esterase (Negative) Urine WBC (Auto) (0-5) /hpf Urine RBC (Auto) (0-2) /hpf U Hyaline Cast (Auto) (0-2) /lpf U Epithel Cells (Auto) (0-2) /hpf Urine Bacteria (Auto) (None Seen) Adenovirus (PCR) (NotDetected) B. pertussis DNA (PCR) (NotDetected) B.parapertussis DNA PCR (NotDetected) C. pneumoniae DNA (PCR) (NotDetected) Coronavirus OC43 (PCR) (NotDetected) Coronavirus HKU1 (PCR) (NotDetected) Coronavirus 229E (PCR) (NotDetected) SARS-CoV-2 (PCR) (NotDetected) Coronavirus NL63 (PCR) (NotDetected) Human Metapneumovir PCR (NotDetected) Influenza Type A (PCR) (NotDetected) Influenza Type B (PCR) (NotDetected) M. pneumoniae (PCR) (NotDetected) Parainfluenza 1 (PCR) (NotDetected) Parainfluenza 2 (PCR) (NotDetected) Parainfluenza 3 (PCR) (NotDetected) Parainfluenza 4 (PCR) (NotDetected) RSV (PCR) (NotDetected) Entero/Rhino (PCR) (NotDetected) Diagnostic Findings Abdomen/Pelvis CT 08/10/24 08:[address] WITH IV CONTRAST CT DOSE: 2710.42mGy*cm HISTORY: found down TECHNIQUE: Multiaxial CT images of the abdomen and pelvis were performed following the IV administration of 90 to cc of Optiray, sagittal and coronal reconstructions were performed. A dose lowering technique was utilized adhering to the principles of ALARA. COMPARISON STUDY: 01/05/2023 FINDINGS: Old right rib fractures are identified. There is no acute rib fracture seen. The lumbar spine demonstrates a known bilateral L5 pars defects with a grade 2 spondylolisthesis of L5 on S1. There is a newly demonstrated compression fracture of the superior endplate of L5 that has developed since 2022. The L2 vertebral body compression fracture is redemonstrated and unchanged. Multilevel lumbar spinal stenosis is once again noted. There are no new solid organ lesions appreciated. There is no traumatic injury identified of the solid organs. There is a small hiatal hernia. The gallbladder remains filled with small stones without gallbladder wall thickening or pericholecystic inflammation. The bile ducts are not dilated. There is no abdominal aortic aneurysm or periaortic adenopathy. The bowel gas pattern is nonspecific. There is no obstruction or free air. There is no ascites. There is no evidence of colitis or diverticulitis. In the pelvis, the prostate gland remains grossly enlarged. There is no generalized bladder wall thickening. There is a small focal calcification along the posterior aspect of the bladder wall not present on the prior examination. IMPRESSION: Compression fracture of the superior endplate of L5 has developed since 2022. This is not necessarily an acute finding. No additional skeletal changes have occurred since the prior examination. Multilevel lumbar spinal stenosis is noted. Bilateral L5 pars defect with a grade 2 spondylolisthesis is redemonstrated. Multiple small stones filling the gallbladder lumen once again noted. Grossly enlarged prostate gland. Newly demonstrated focal bladder wall calcification. I doubt whether this represents a intraluminal stone. A small developing transitional cell carcinoma is not excluded. ACT 112: Negative or not required by law. The above report was generated using voice recognition software. It may contain grammatical, syntax or spelling errors. Electronically signed by: Lula Morataya M.D. 08/10/2024 11:[address] 08/10/24 08:56 CT OF THE CERVICAL SPINE WITHOUT CONTRAST CLINICAL HISTORY: fall; found down COMPARISON STUDY: Cervical spine CT October 02, 2023. TECHNIQUE: Helical axial images of the cervical spine were obtained without IV contrast. Sagittal and coronal reconstructions were viewed. Automated exposure control was utilized for the study. A dose lowering technique was utilized adhering to the principles of ALARA. FINDINGS: Alignment of the cervical spine is anatomic. Vertebral body heights are maintained. No acute cervical spine fracture or subluxation is present. There is no prevertebral edema. Facet joints are intact. There is moderate to severe multilevel disc space narrowing, endplate osteophytosis and facet arthrosis within the cervical spine. Extensive degenerative changes at the C1-C2 articulation are again noted. An exophytic right lobe thyroid nodule is unchange d. IMPRESSION: No acute cervical spine fracture or subluxation. ACT 112: Negative or not required by law. Electronically signed by: Daljit Figueroa M.D. 08/10/2024 11:[address] 08/10/24 08:56 CT OF THE HEAD WITHOUT CONTRAST CLINICAL HISTORY: fall; found down COMPARISON STUDY: Head CT October 02, 2023. CT DOSE: 2710.42 mGy.cm TECHNIQUE: Helical axial images of the head were obtained without IV contrast. Automated exposure control was utilized for the study. A dose lowering technique was utilized adhering to the principles of ALARA. FINDINGS: No acute intracranial hemorrhage, midline shift or mass effect is present. The ventricular system is stable. The basal cisterns are patent. There are no extra axial collections. There are no findings to suggest acute dural sinus thrombosis or acute territorial infarct. There are postoperative findings within the sinuses. There are no calvarial fractures. IMPRESSION: No acute intracranial findings. No change in appearance of the brain. ACT 112: Negative or not required by law. Electronically signed by: Daljit Figueroa M.D. 08/10/2024 10:[address] 08/10/24 08:56 CT lumbar spine w con CLINICAL HISTORY: fall; found down COMPARISON STUDY: CT of the abdomen and pelvis January 05, 2023. TECHNIQUE: Axial images of the lumbar spine were obtained. Sagittal and coronal reformats were viewed. Automated exposure control was utilized for the study. A dose lowering technique was utilized adhering to the principles of ALARA. FINDINGS: Mild lumbar spine levoscoliosis is noted. There is moderate to severe multilevel disc space narrowing and endplate osteophytosis within the lumbar spine. There is severe facet arthrosis. Interstitial listhesis of L5 on S1 is similar to CT of January 05, 2023. Loss of height of the superior endplate of L5 is new since that exam. This is likely chronic. There is an old L2 fracture. This is unchanged. Subtle cortical irregularity of the inferior aspect of the S2 vertebral body is noted. There is trace prevertebral edema. Please note that the abdomen and pelvis CT will be reported separately. The gallbladder is filled with gallstones. IMPRESSION: 1. Acute minimally displaced fracture of the S2 vertebral body. 2. L5 compression fracture which is new since CT of January 05, 2023 but likely chronic. 3. No change in an old L2 fracture. 4. Severe multilevel degenerative changes within the lumbar spine. ACT 112: Negative or not required by law. Electronically signed by: Daljit Figueroa M.D. 08/10/2024 11:23 AM Pelvis X-Ray 08/10/24 08:56 XR pelvis 1-2V routine CLINICAL HISTORY: fall; found down COMPARISON: 10/02/2023 FINDINGS: Single view pelvis is unchanged. There is no acute fracture. An old fracture deformity with intramedullary ridge and femoral neck nail is redemonstrated. Mild degenerative changes are present in the right hip. There are degenerative changes throughout the lumbar spine. IMPRESSION: Stable exam; no acute findings. ACT 112: Negative or not required by law. Electronically signed by: Lula Morataya M.D. 08/10/2024 10:54 AM Chest X-Ray 08/10/24 08:57 XR chest 1V portable CLINICAL HISTORY: weakness COMPARISON STUDY: Chest CT January 05, 2023. Chest radiograph October 02, 2023. FINDINGS: There is no pneumothorax or pleural effusion. Cardiomegaly is unchanged. There is no evidence for pulmonary edema. There is no consolidation to suggest pneumonia. IMPRESSION: No acute cardiopulmonary findings. No change in appearance of the chest. ACT 112: Negative or not required by law. Electronically signed by: Daljit Figueroa M.D. 08/10/2024 10:56 AM Supervising Physician Co-Signing Physician Notes Patient seen and examined, chart reviewed, case discussed with Ivon Hodges PA-C and I agree with the assessment and plan as above except as otherwise noted Labs and images reviewed 88-year-old male with a past medical history of paroxysmal A-fib on anticoagulation, DM2, CKD, Alzheimer's, cirrhosis with former alcohol use in remission, hypertension who presents with weakness and falls from legs giving out without head strike and loss of consciousness. Weaker than normal, was unable to get up off of the ground after falling. Incontinent of urine on evaluation by facility. At bedside patient reports he feels "good ", denies pain no acute concerns. Is oriented to name only. Abdomen is soft. Lungs are diminished but clear On ER evaluation CThead without acute finding CTabdomen/pelvis is with new compression fracture compared to 2022 no acute solid organ injury or bleeding. Gallbladder with multiple stones is re- demonstrated similar to prior but without evidence of ductal obstruction/acute cholecystitis. Bladder wall calcification/focus is noted and may represent underlying malignancy. CTcervical spine and lumbar spine without acute changes Patient presents with weakness and a fall. Suspect volume contraction/metabolic encephalopathy. No overt infectious symptoms and does not have leukocytosis. UA is not infected appearing. A-fib rate controlled and anticoagulated, Lyme is pending due to first-degree AV block. Agree with continuing home meds. Patient has some bradycardia with chronotropic response, first-degree AV block as noted above. If this worsens hold beta-tanya. Opponent is mildly elevated without chest pain and repeat is downtrending, suspect this is demand. EKG does not have acute ischemic changes Agree with assessment and management as above PG Care Time/CCT Total # of Minutes Spent Total Time Spent with Patient: Total time spent is greater than 50% in coordination of care (as documented) at patient's floor/unit and/or counseling patient: Coding Level of Care Code 53569 INT INP/OBS CARE MIN Diagnoses Fall W19.XXXA Encounter type: initial encounter Metabolic encephalopathy G93.41 Elevated CK R74.8 Paroxysmal atrial fibrillation I48.0 Primary hypertension I10 Hypertension type: primary hypertension Type 2 diabetes mellitus E11.9 Elevated alkaline phosphatase level R74.8 Sinus bradycardia R00.1 1st degree AV block I44.0 (1) Fall Encounter type: initial encounter Qualified Code(s): W19.XXXA - Unspecified fall, initial encounter (5) Hypertension Hypertension type: primary hypertension Qualified Code(s): I10 - Essential (primary) hypertension
[2024-08-10] MEDS: SODIUM CHLORIDE 0.9% 1,000 ML IV SCH (11:48)
[2024-08-10] MEDS: MAGNESIUM SULFATE / D5W 1 GM/100 ML BAG IV ONE (11:50)
[2024-08-10] MEDS: oxyCODONE HCL IR 5 MG TAB (IMMEDIATE RELEASE) PO STA (12:22)
[2024-08-10] MEDS: LIDOCAINE 5% 1 PATCH TD SCH (12:22)
--- NOTE | 2024-08-10 12:27 | Electrocardiogram Report ---
Test Reason : Blood Pressure : */* mmHG Vent. Rate : 66 BPM Atrial Rate : 66 BPM P-R Int : 214 ms QRS Dur : 90 ms QT Int : 404 ms P-R-T Axes : 23 1 31 degrees QTcB Int : 423 ms Sinus rhythm with 1st degree AV block Otherwise normal ECG Confirmed by Jethro Macias ([id number]) on 08/10/2024 12:27:29 PM [facility] Confirmed By: Jethro Macias
[2024-08-10] MEDS ORDERED: ONDANSETRON INJ 2 MG/ML 2 ML VIAL IV PRN (14:33)
[2024-08-10] MEDS ORDERED: CARBOHYDRATES FOR HYPOGLYCEMIA PO PRN (14:33)
[2024-08-10] MEDS ORDERED: GLUCOSE 40% GEL 15 GM TUBE PO PRN (14:33)
[2024-08-10] MEDS ORDERED: DEXTROSE 50% 50 ML SYRINGE IV PRN (14:33)
[2024-08-10] MEDS ORDERED: GLUCAGON FOR INJ 1 MG VIAL SQ PRN (14:33)
[2024-08-10] MEDS ORDERED: GLUCOSE 10 TAB/TUBE PO PRN (14:33)
[2024-08-10] MEDS: TAMSULOSIN HCL 0.4 MG CAP PO SCH (15:26)
[2024-08-10] MEDS: INSULIN ASPART PER UNIT CHARGE SC SCH (18:14)
[2024-08-10] MEDS: ACETAMINOPHEN 325 MG TAB PO PRN (20:24)
[2024-08-10] MEDS: APIXABAN 5 MG TABLET PO SCH (20:24)
[2024-08-10] MEDS ORDERED: MICONAZOLE NITRATE POWDER 85 GM EXT PRN (20:30)
[2024-08-11] MEDS: oxyCODONE HCL IR 5 MG TAB (IMMEDIATE RELEASE) PO PRN (02:45)
--- NOTE | 2024-08-11 07:25 | Hospitalist Progress Note ---
Date of Service August 11, 2024 Assessment & Plan (1) Metabolic encephalopathy: (2) Elevated CK: (3) Paroxysmal atrial fibrillation: (4) Hypertension: (5) Type 2 diabetes mellitus: (6) Elevated alkaline phosphatase level: (7) Sinus bradycardia: (8) 1st degree AV block: (9) B12 deficiency: Plan 88yo male from [facility] found down on ground x 2. No LOC/head trauma but on AC w/ eliquis for hx paroxsymal afib. CT head negative on admission. Fall AMS/Alzheimer/vascular dementia Sacral Fracture Ambulatory Dysfunction Urinary retention Elevated CK/mild rhabdo (from being down) CT head negative. CT cervical spine without acute fx/subluxation, extensive degenerative changes at C1-C2 articulation. CT lumbar spine with acute minimally displaced fracture S2 vertebral body, L5 compression fracture (unclear if new, appears likely chronic), no change in old L2 fracture. Severe degenerative changes throughout Xray pelvis no acute finding, notes old fracture deformity with IM ridge and femoral neck nail, mild degenerative changes in right hip CT abd/pelvis noting compression fracture superior endplate L5 (new since 2022). No additional skeletal changes. Grossly enlarged prostate, new demonstrated focal bladder wall calcification. UA not appearing infected but repeat cx ordered -- follow up Urology consulted, ?stone vs small developing transitional cell carcinoma on CTAP on admission -- Will need cysto outpatient, urology to arrange. -- Monitor PVR/fisher if needed but hopefully will be able to avoid -- increase flomax to BID for now. Ammonia NOT elevated B1 pending--empiric thiamine 500mg q8h for now given hx etoh use in the past. convert to PO BID tomorrow pending response and would continue until B1 level back B12 reviewed and low normal at 212 and given AMS/dementia/fall issues and ambulatory dysfunction, IM ordered while inpatient and would continue PO at ri. Folate wnl CK mild elevation to 200s on admission, likely from being down. Not on statin at baseline, CK worsened to 400s today but notable was pulling out IVs overnight/mitts on for safety/1:1 as needed IVF continued for now, PO hydration encouraged. Monitor CK in AM Lyme negative but given TB will check anaplasmosis smear Does appear more alert/oriented today but waxing/waning. Maintain sleep/wake schedules. +Seroquel 12.5mg HS ordered. Monitor to increase as needed. Pain control w/ tylenol, low dose oxycodone as needed Orthotics consulted for brace, encourage use as able Fall precautions PT/OT consulted Afib - continues on metoprolol, eliquis. NSR w/ 1st degree on monitor. 1gm IV mag to keep closer to 2 and K stable. Monitor electrolytes and keep replete. Consider PO mag pending repeat level DM II -A1c 4.7, on metformin 1gm BID. Metformin on hold. BSG AC/HS and monitor for any hypoglycemia HTN - continues on metformin, olmesartan on hold on admission given borderline BUN/Cr. Currently 18.06 with IVF and will resume olmesartan/hospital equivalent in AM Elevated troponin Trop 80s--> 70s, suspect demand ischemia from fall/dehydration. No CP reported, NSR on telemetry. Monitor for any issues, will check echo given falls on admission but no significant murmur on exam (prior ECHO 2021 w/ normal EF, mild cLVH, RVSP normal, no valvular disease noted) Dispo: continued inpatient stay, changed to full admission. PT/OT consulted and CM to f/u to see if able to return to [facility] vs needing another level of care at ri prior to returning Voicemail for daughter Megan via phone this morning (updated via phone 08/10, in [place] for work at this time). Of note, does have STONE FILLED GB, but no RUQ pain. US obtained and no acute charline. Monitor for any changes. TB elevated but ALP normalized on repeat DVT proph: Eliquis BID continued, will need continued discussions. Does have hx afib and remains on metoprolol 25mg PO daily/has been NSR on monitor w/ 1st degree block. Given repeat falls/high risk for bleeding, may be beneficial to stop this medication but will need to discuss with daughter prior to doing so Admission and Anticipated Discharge Date Admission Date: August 10, 2024 Supervising Physician Co-Signing Physician Notes The patient was not seen by me. Chart reviewed. Case discussed with CHAIM Felder. Agree with assessment and plan. Subjective Eval this morning, placed in Mitts overnight due to pulling out IV. One on one in room for safety at this time, discussed low dose Seroquel tonight/prn if needed. Reports doing well, "nothing 20+ hours of sleep can't help". Does have intermittent confusion, urinary retention and straight cath/cx. Reports year 2049 initially but does know in hospital today, month July. Plan to call daughter Megan with update. Physical Exam 2 Physical Exam: General: 88yo male resting in bed, reporting needs a good night sleep, alert to person/place today and month but not year, impulsive at times, b/l soft mitts in place 1:1 at bedside Head atraumatic, normocephalic, mm slightly dry, trachea midline Resp: even/unlabored, no overt wheezing/crackles, on room air CV: RRR, no significant m/r/g, no pitting edema/calf tenderness, pulses present GI: +BS, soft/slight distension but NONTENDER, no guarding/rebound ; no fisher, incontinence at times MSK/Neuro: less tenderness R sacrum, moves all extremities, no focal deficits, able to follow commands as able limited to cognifive ability Psych: alert to person/place/month, not year, intermittent confusion/impulsiveness at times Results & Data Results & Data Vital Signs (Past 12 Hours) Vital Signs Temp Pulse Pulse Resp BP BP Pulse Ox 08/11/24 06:45 76 08/11/24 03:41 37.2 C 79 20 144/76 H 94 08/10/24 23:22 36.5 C 82 17 151/75 H 99 08/10/24 20:11 37.1 C 89 20 177/77 H 95 O2 Del Method 08/11/24 06:45 08/11/24 03:41 Room Air 08/10/24 23:22 Room Air 08/10/24 20:11 Room Air Laboratory Results 08/11/24 09:10 08/11/24 09:10 Lyme negative TB 1.7, DB 0.3 AST 32 ALT 17 ALP 100 CK 495 Ammonia 19 B12 212 25 Vit D 46 Folate 20.51 Diagnostic Findings Liver Ultrasound 08/11/24 07:10 US liver CLINICAL HISTORY: ?charline COMPARISON STUDY: Right upper quadrant ultrasound October 01, 2023. CT of the abdomen and pelvis June 09, 2025. FINDINGS: No hepatic lesions are identified. There is mild coarsening of hepatic echotexture. There is no biliary ductal dilatation. There are numerous gallstones within the gallbladder. There is no gallbladder wall thickening. No sonographic Schreiber sign was elicited. Pancreas is obscured. There is no right hydronephrosis. IMPRESSION: 1. Cholelithiasis. No evidence for acute cholecystitis. 2. No biliary ductal dilatation. ACT 112: Negative or not required by law. Electronically signed by: Daljit Figueroa M.D. 08/11/2024 10:54 AM Chest X-Ray 08/11/24 08:07 XR chest 2V PA/lateral CLINICAL HISTORY: eval PTX COMPARISON STUDY: Chest radiograph August 10, 2024. FINDINGS: There is no pneumothorax or pleural effusion. Cardiomegaly is unchanged. Mediastinal contours are stable. Interstitial prominence is unchanged. There is no consolidation. There are multiple old bilateral rib fractures. IMPRESSION: No acute cardiopulmonary findings. No significant change in appearance of the chest. ACT 112: Negative or not required by law. Electronically signed by: Daljit Figueroa M.D. 08/11/2024 11:19 AM PG Care Time/CCT Total # of Minutes Spent Total Time Spent with Patient: Total time spent is greater than 50% in coordination of care (as documented) at patient's floor/unit and/or counseling patient: Coding Level of Care Code 21410 SUB INP/OBS CARE 3/50MIN Diagnoses Metabolic encephalopathy G93.41 Elevated CK R74.8 Paroxysmal atrial fibrillation I48.0 Primary hypertension I10 Hypertension type: primary hypertension Type 2 diabetes mellitus E11.9 Elevated alkaline phosphatase level R74.8 Sinus bradycardia R00.1 1st degree AV block I44.0 B12 deficiency E53.8 (4) Hypertension Hypertension type: primary hypertension Qualified Code(s): I10 - Essential (primary) hypertension
[2024-08-11] MEDS: METOPROLOL SUCC 25MG EXT REL TAB PO SCH (08:44)
[2024-08-11] MEDS: CHOLECALCIFEROL 25 MCG (1000 UNITS) TAB PO SCH (08:44)
[2024-08-11] MEDS: THIAMINE HCL 500 MG in SODIUM CHLORIDE 0.9% 50 ML IV SCH (08:44)
[2024-08-11 09:35] LABS: Hematocrit (blood only) 32.7 % (42.0-52.0); Hemoglobin 11.7 g/dl (14.0-18.0); Mean Corpuscular Hgb Conc 35.8 g/dL (32.0-36.0); Mean Corpuscular Volume 81.1 fL (80.0-100.0); Mean Platelet Volume 9.3 fL (9.4-12.4); Platelet Count 119 K/uL (130-400); RDW Standard Deviation 38.5 fL (36.4-46.3); Red Blood Count 4.03 M/uL (4.70-6.10)
[2024-08-11 09:59] LABS: Albumin Level 3.6 gm/dl (3.4-5.0); Bilirubin Direct 0.3 mg/dl (0-0.2); Bilirubin,Total 1.7 mg/dl (0.2-1.0); Calcium 8.4 mg/dl (8.6-10.3); Creatinine Clr Calc Pharmacy 52.1 ml/min; Magnesium 1.7 mg/dl (1.7-2.4); Potassium 4.2 mmol/L (3.5-5.1); Total Protein 6.2 gm/dl (6.0-8.3)
[2024-08-11 10:20] LABS: Folate (Folic Acid),Ser orPlas 20.51 ng/ml (>5.38)
[2024-08-11] MEDS: MAGNESIUM SULFATE / D5W 1 GM/100 ML BAG IV ONE (10:47)
--- NOTE | 2024-08-11 10:56 | Ultrasound Report ---
US liver CLINICAL HISTORY: ?charline COMPARISON STUDY: Right upper quadrant ultrasound October 01, 2023. CT of the abdomen and pelvis Decem 2024. FINDINGS: No hepatic lesions are identified. There is mild coarsening of hepatic echotexture. There i s no biliary ductal dilatation. There are numerous gallstones within the gallbladder. There is no gal lbladder wall thickening. No sonographic Schreiber sign was elicited. Pancreas is obscured. There is no right hydronephrosis. IMPRESSION: 1. Cholelithiasis. No evidence for acute cholecystitis. 2. No biliary ductal dilatation. ACT 112: Negative or not required by law. Electronically signed by: Daljit Figueroa M.D. 08/11/2024 10:54 AM
--- NOTE | 2024-08-11 11:21 | XRay Report ---
XR chest 2V PA/lateral CLINICAL HISTORY: eval PTX COMPARISON STUDY: Chest radiograph August 10, 2024. FINDINGS: There is no pneumothorax or pleural effusion. Cardiomegaly is unchanged. Mediastinal contou rs are stable. Interstitial prominence is unchanged. There is no consolidation. There are multiple ol d bilateral rib fractures. IMPRESSION: No acute cardiopulmonary findings. No significant change in appearance of the chest. ACT 112: Negative or not required by law. Electronically signed by: Daljit Figueroa M.D. 08/11/2024 11:19 AM
[2024-08-11 11:34] LABS: Estimated Average Glucose 88 mg/dl; Hemoglobin A1C 4.7 % (4.5-5.6)
--- NOTE | 2024-08-11 11:35 | Urology Consultation ---
Date of Consultation August 11, 2024 Assessment & Plan (1) Incomplete bladder emptyin-year-old male admitted for fall and metabolic encephalopathy. Urology is consulted for urinary retention and bladder lesion Patient afebrile, hemodynamically stable Labs reviewedcreatinine 1.06, WBC 7.5, hemoglobin 11.7 Urinalysis on arrival was not suggestive of infection Urine culture collected via straight catheterization today He is voiding spontaneously/incontinent and has required straight cath There is concern about patient tugging/removing Conde catheter--can monitor without catheter for now Recommend continue to monitor bladder emptying with postvoid residual bladder scans If he has persistently elevated PVRs and requiring straight catheterization, then recommend placement of Conde catheter Regarding CT finding of bladder wall calcification, recommend cystoscopy as an outpatient for further evaluation--will arrange Continue supportive care and medical management per hospital medicine service will follow peripherally, please contact our service with any additional questions/concerns History of Present Illness Attending Physician: Doug Bashir MD History of Present Illness This is an 88-year-old male who follows with urology for incomplete bladder emptying, lower urinary tract symptoms and recurrent UTIs. Patient presented to the emergency department from [facility] on 08/10/2024 for evaluation of fall x 2 with associated altered mental status. On arrival, he was afebrile and hemodynamically stable. Labs showed WBC 7.68, hemoglobin 12.3, sodium 135, creatinine 1.18, CK 292, and elevated troponin. Urinalysis showed 2+ protein, trace blood, 3-5 RBC, otherwise negative. BioFire PCR negative. ED course: IV fluids and magnesium. Patient was admitted to the hospital medicine service for fall, metabolic encephalopathy, elevated CK. Workup included CT abdomen pelvis with IV contrast. CT reviewed and shows an enlarged prostate, small focal calcification along the posterior aspect of the bladder wall. Urology consulted for urinary retention, bladder lesion. Labs today reviewedcreatinine 1.06, WBC 7.50, hemoglobin 11.7 UA 08/10/2024 showed 2+ protein, trace blood, 3-5 RBC, otherwise negative. RN reports patient was straight catheterized x 1 yesterday (bladder scan 471 mL). Patient is incontinent and voids spontaneously. RN reports frequent small voids. Patient seen and examined at bedside. He is awake, alert and resting in bed. Bilateral mitts in place. RN present and performing straight catheterization for urine culture. Patient denies suprapubic discomfort. Reports some urgency and frequency. Denies dysuria or hematuria. No fever or chills. Allergies Allergy/AdvReac Type Severity Reaction Status Date / Time house dust Allergy Mild Congested Verified 06/22/24 13:29 lorazepam Allergy Unknown Unknown Verified 06/22/24 13:29 Home Medications Medication Instructions Recorded Confirmed Type cholecalciferol (vitamin D3) 25 1,000 units PO QAM 01/15/19 08/10/24 History mcg (1,000 unit) tablet acetaminophen 325 mg tablet 650 mg PO Q6H PRN pain or fever 10/02/23 08/10/24 History (Tylenol) lactulose 10 gram/15 mL oral 10 g PO QAM PRN Constipation 10/02/23 08/10/24 History solution (Enulose) tamsulosin 0.4 mg capsule 0.4 mg PO DAILY #90 caps 11/03/23 08/10/24 Rx metoprolol succinate 25 mg 25 mg PO DAILY #90 tabs 02/17/24 08/10/24 Rx tablet,extended release 24 hr apixaban 5 mg tablet (Eliquis) 5 mg PO BID #60 tabs 06/02/24 08/10/24 Rx olmesartan 40 mg tablet 40 mg PO DAILY #90 tabs 06/25/24 08/10/24 Rx metformin 1,000 mg tablet 1,000 mg PO BID #180 tabs 07/07/24 08/10/24 Rx Patient History Medical History Atrial fibrillation History of gastritis Surgical History S/P tonsillectomy S/P tooth extraction S/P colonoscopy History of knee replacement Family History Mother Diabetes Renal failure History of miscarriage Sister Uterine cancer Ovarian cancer Father Cardiomegaly Colon cancer Family/Other No problems noted. Denies family history of Prostate cancer Myocardial infarction Breast cancer Social History Smoking Status: Unknown if ever smoked Tobacco Type: Cigarettes Age Started Using Tobacco: 18; Age Quit Using Tobacco: 21; packs per day: 0.5; Second Hand Exposure: No; Do You Dip or Chew Tobacco: No; Hx Alcohol Use: No Hx Substance Use: No Preferred Language: [place] Communication Ability: Impaired Visual Impairment: No Limitations Hearing Ability: Normal Reeling Operator Required: No Beliefs That Will Affect Care: None marital status: Current Living Situation: Personal Care Facility current occupational status: retired Feels Safe at Home: Yes Dental Care, Regularly: Yes Physical Activity Frequency: 3-4 Times per Week Physical Activity Frequency Comment: Regularly, stationary bike Seatbelt Use: always Sunscreen Use: Yes Assistive Devices: Walker Review of Systems Review of Systems: All systems reviewed & are unremarkable except as noted in HPI & below Physical Exam Constitutional: well developed and well nourished; no acute distress Respiratory: normal respiratory effort; no respiratory distress and no labored breathing Gastrointestinal (Abdomen): Inspection/Auscultation: abdomen normal to inspection Percussion/Palpation: abdomen soft; abdomen nontender Musculoskeletal: Head/Neck/Chest: normocephalic Neurologic: moves all extremities and awake Psychiatric: Orientation: alert, oriented to person and cooperative Results & Data Vital Signs (Past 12 Hours) Vital Signs Temp Pulse Pulse Pulse Resp BP Pulse Ox 08/11/24 07:32 37.5 C 82 16 178/82 H 08/11/24 06:45 76 08/11/24 03:41 37.2 C 79 20 144/76 H 94 O2 Del Method 08/11/24 07:32 08/11/24 06:45 08/11/24 03:41 Room Air PG Care Time/CCT Total # of Minutes Spent Total Time Spent with Patient: Total time spent is greater than 50% in coordination of care (as documented) at patient's floor/unit and/or counseling patient: Coding Level of Care Code 58015 INT INP/OBS CARE 2/55MIN Diagnoses Incomplete bladder emptying R33.9
[2024-08-11] MEDS: CYANOCOBALAMIN 1000 MCG/ML VIAL IM SCH (11:51)
[2024-08-11] MEDS: TAMSULOSIN HCL 0.4 MG CAP PO SCH (20:30)
[2024-08-11] MEDS: QUEtiapine FUMARATE 25 MG TABLET PO SCH (20:31)
--- NOTE | 2024-08-12 07:46 | Hospitalist Progress Note ---
Date of Service August 12, 2024 Assessment & Plan (1) Metabolic encephalopathy: (2) Elevated CK: (3) Paroxysmal atrial fibrillation: (4) Hypertension: (5) Type 2 diabetes mellitus: (6) Elevated alkaline phosphatase level: (7) Sinus bradycardia: (8) 1st degree AV block: (9) B12 deficiency: Plan 88yo male from [facility] found down on ground x 2. No LOC/head trauma but on AC w/ eliquis for hx paroxsymal afib. CT head negative on admission. Fall//Elevated CK/mild rhabdo/Sacral Fracture AMS/Alzheimer/vascular dementia B12 deficiency/Ambulatory Dysfunction CT head negative. CT cervical spine without acute fx/subluxation, extensive degenerative changes at C1-C2 articulation. CT lumbar spine with acute minimally displaced fracture S2 vertebral body, L5 compression fracture (unclear if new, appears likely chronic), no change in old L2 fracture. Severe degenerative changes throughout Xray pelvis no acute finding, notes old fracture deformity with IM ridge and femoral neck nail, mild degenerative changes in right hip CT abd/pelvis noting compression fracture superior endplate L5 (new since 2022). No additional skeletal changes. Grossly enlarged prostate, new demonstrated focal bladder wall calcification. Ammonia wnl. Lyme negative. Anaplasmosis smear negative. PCR pending B1 pending - provided Thiamine 500mg q8h through AM 08/11 given hx etoh. Plan to convert to 200mg PO BID this evening, f/u B1 B12 borderline 212-- IM x 3 inpatient planned, then will convert to PO. Would continue at discharge CK 292, IVF on admission but worse 495 on repeat but had been restrained w/ mitts from pulling out IVF and additional 1L ordered 08/11-->CK improved to 235 on repeat and PO hydration encouraged. Seroquel 12.5mg HS ordered. Tolerated --> does appear more alert/oriented today but waxing/waning. Maintain sleep/wake schedules. Mitts have been removed Orthotics consulted, brace as able/accepted. Fall precautions PT/OT consulted/continued. CM to f/u to see if needing escalation in care prior to returning to [facility] Updated daughter Megan 08/10 via phone, voicemail 08/11 and will plan to call this evening as able w/ update Urinary retention UA didn't appear infected, repeat urine cx pending. Urology consulted given note for ?stone vs small developing transitional cell carcinoma on CTAP on admission. Will need cysto outpatient, urology to arrange. Flomax increased to BID/monitor for retention/PVR Afib - converted to afib on telemetry, hx paroxysmal. remains on eliquis/metoprolol. Additional mag IV ordered to keep closer to 2, 20meq PO Kcl. - ECHO ordered given fall for eval, no CP/SOB reported Constipation - No BM x 2 days, +BS on exam. PRN lactulose at baseline. Notable ammonia checked on admission/NOT elevated. No cirrhosis but RN to provide x 1, colace BID added and will monitor. ?contributing to urinary retention Gallstones - noted on CTAP, innumerable - RUQ US w/ cholelithiasis, no acute charline. TB elevated but others normalized. HIDA w/ EF for further eval, ?underlying smoldering GB contributing. No RUQ pain or diarrhea reported DM II -A1c 4.7, on metformin 1gm BID. Metformin on hold. BSG AC/HS and monitor for any hypoglycemia HTN - continues on metformin, olmesartan on hold on admission given borderline BUN/Cr. Currently 18/1.06 with IVF and will resume olmesartan/hospital equivalent in AM Elevated troponin Trop 80s--> 70s, suspect demand ischemia from fall/dehydration. No CP reported, NSR on telemetry but now in afib 2/20 above ECHO pending given fall but no significant murmur on exam and prior ECHO 2021 w/o valvular disease noted DVT proph: eliquis continued, high fall risk and needs continued discussion but given in afib continued and remains on metoprolol Dispo: continued inpatient stay, therapy evals and repeat urine cx pending.lactulose for constipation. continued telemetry monitoring HIDA w/ EF given stone filled GB to r/o underlying smoldering GB given TB elevated but ALP normalized/no RUQ pain Admission and Anticipated Discharge Date Admission Date: August 11, 2024 Supervising Physician Co-Signing Physician Notes The patient was not seen by me. The chart was reviewed. Case discussed with CHAIM Felder. Agree with assessment and plan Subjective Eval this morning, patient sitting up in recliner chair, mitts removed this morning. Alert to person/place, not event/time. Telemetry with afib today, slipped overnight but rates controlled/remains on eliquis/metoprolol. Mag IV replacement has been ordered. No further cath, flomax increased to BID. Tolerated seroquel last evening/got some sleep Reports has not moved his bowels, discussed with nursing about providing dose lactulose/monitoring. Denies pain at this time but wants to get moving, therapy evals pending. Thiamine converted to PO BID this evening, B1 level pending but got >24hr 500mg IV q8h for hx alcohol use. B12 supplementation continued. Possible need for rehab prior to returning to level of living at [facility] given therapy, CM to follow. Physical Exam 2 Physical Exam: General: 88yo male sitting up in recliner chair this morning, mitts removed/no further 1:[address], alert to person/place, not event/time, cooperative but impulsive at times but appears improved head atraumatic, mm slightly dry but improved from day prior (PO hydration encouraged) Resp: CTA, no wheezing/rales, on room air CV: irregularly irregular, rates 60-80s, trace nonpitting edema, pulses present GI:+BS, soft but slightly more distended, nontender : no fisher MSK/Neuro: no further significant tenderness to R sacrum, able to move all extremities, no focal deficit, no slurred speech/facial droop Psych: alert to person/place, not event/time, cooperative with exam Results & Data Results & Data Vital Signs (Past 12 Hours) Vital Signs Temp Pulse Pulse Resp BP Pulse Ox O2 Del Method 08/12/24 02:36 37.2 C 95 H 18 138/67 97 Room Air 08/11/24 23:17 37.3 C 99 H 18 163/90 H 95 Room Air 08/11/24 22:40 79 08/11/24 22:40 Room Air Laboratory Results 08/12/24 09:36 08/12/24 09:36 CK 235 Mag 1.8 TB 1.3 AST 28 ALT 17 ALP 104 ANaplasmosis smear without inclusion bodies, PCR pending PG Care Time/CCT Total # of Minutes Spent Total Time Spent with Patient: Total time spent is greater than 50% in coordination of care (as documented) at patient's floor/unit and/or counseling patient: Coding Level of Care Code 10505 SUB INP/OBS CARE 3/50MIN Diagnoses Metabolic encephalopathy G93.41 Elevated CK R74.8 Paroxysmal atrial fibrillation I48.0 Primary hypertension I10 Hypertension type: primary hypertension Type 2 diabetes mellitus E11.9 Elevated alkaline phosphatase level R74.8 Sinus bradycardia R00.1 1st degree AV block I44.0 B12 deficiency E53.8 (4) Hypertension Hypertension type: primary hypertension Qualified Code(s): I10 - Essential (primary) hypertension
[2024-08-12] MEDS: MAGNESIUM SULFATE / D5W 1 GM/100 ML BAG IV SCH (09:32)
[2024-08-12 10:08] LABS: Hematocrit (blood only) 33.4 % (42.0-52.0); Hemoglobin 11.9 g/dl (14.0-18.0); Mean Corpuscular Hemoglobin 28.8 pg (25.0-34.0); Mean Corpuscular Hgb Conc 35.6 g/dL (32.0-36.0); Mean Corpuscular Volume 80.9 fL (80.0-100.0); Mean Platelet Volume 9.6 fL (9.4-12.4); Platelet Count 134 K/uL (130-400); RDW Coefficient of Variation 13.1 % (11.5-14.5); RDW Standard Deviation 38.5 fL (36.4-46.3); Red Blood Count 4.13 M/uL (4.70-6.10); White Blood Count 6.69 K/ul (4.8-10.8)
[2024-08-12 10:21] LABS: Albumin Globulin Ratio 1.5 (0.9-2); Albumin Level 3.5 gm/dl (3.4-5.0); BUN Creatinine Ratio 17.2 (10-20); Bilirubin,Total 1.3 mg/dl (0.2-1.0); Calcium 8.3 mg/dl (8.6-10.3); Creatinine Clr Calc Pharmacy 45.2 ml/min; Globulin 2.3 gm/dl (2.5-4.0); Magnesium 1.8 mg/dl (1.7-2.4); Potassium 3.7 mmol/L (3.5-5.1); Total Protein 5.8 gm/dl (6.0-8.3)
[2024-08-12] MEDS: LACTULOSE SYRUP 10 GM/15 ML BTL 960 ML PO PRN (14:15)
[2024-08-12] MEDS: POTASSIUM CHLORIDE CRTAB 20 MEQ TABCR PO STA (16:14)
[2024-08-12] MEDS ORDERED: bisacodyL 10 MG SUPP PR PRN (16:18)
[2024-08-12] MEDS: POLYETHYLENE (MIRALAX) 17 GM PACK PO SCH (16:47)
[2024-08-12] MEDS: THIAMINE HCL 100 MG TAB PO SCH (21:56)
[2024-08-13 06:51] LABS: Albumin Globulin Ratio 1.3 (0.9-2); Albumin Level 3.3 gm/dl (3.4-5.0); BUN Creatinine Ratio 19.2 (10-20); Bilirubin,Total 1.1 mg/dl (0.2-1.0); Calcium 8.3 mg/dl (8.6-10.3); Creatinine Clr Calc Pharmacy 37.7 ml/min; Globulin 2.5 gm/dl (2.5-4.0); Magnesium 2.2 mg/dl (1.7-2.4); Potassium 4.1 mmol/L (3.5-5.1); Total Protein 5.8 gm/dl (6.0-8.3)
--- NOTE | 2024-08-13 07:54 | Hospitalist Progress Note ---
Date of Service August 13, 2024 Assessment & Plan (1) Metabolic encephalopathy: (2) Elevated CK: (3) Paroxysmal atrial fibrillation: (4) Hypertension: (5) Type 2 diabetes mellitus: (6) Elevated alkaline phosphatase level: (7) Sinus bradycardia: (8) 1st degree AV block: (9) B12 deficiency: Plan 88yo male from [facility] found down on ground x 2. No LOC/head trauma but on AC w/ eliquis for hx paroxsymal afib. CT head negative on admission. Fall//Elevated CK/mild rhabdo/Sacral Fracture AMS/Alzheimer/vascular dementia B12 deficiency/Ambulatory Dysfunction CT head negative. CT cervical spine without acute fx/subluxation, extensive degenerative changes at C1-C2 articulation. CT lumbar spine with acute minimally displaced fracture S2 vertebral body, L5 compression fracture (unclear if new, appears likely chronic), no change in old L2 fracture. Severe degenerative changes throughout Xray pelvis no acute finding, notes old fracture deformity with IM ridge and femoral neck nail, mild degenerative changes in right hip CT abd/pelvis noting compression fracture superior endplate L5 (new since 2022). No additional skeletal changes. Grossly enlarged prostate, new demonstrated focal bladder wall calcification. Ammonia wnl. Lyme negative. Anaplasmosis smear negative. PCR pending B1 pending, was given 500mg IV thiamine x 3 doses/convert to 200mg BID in meantime B12 borderline 212, IM x 3 given and converted to PO for AM CK normalized, no further IVF and encouraged to push PO Lactulose changed to scheduled to prevent constipation Seroquel 12.5mg HS, melatonin added. Needed mitts overnight/revmoed this monring. If any issues overnight can increase to 25mg HS for . Maintain wake/sleep schedules, increase activity as tolerated Updated daughter Megan via phone this afternoon, hopefully back to [facility] pending discussion w/ them if able to accomodate and will plan to dc back to [facility] as able vs need for IPR Did obtain HIDA for completeness given stone filled, chronic charline noted/surgery consulted but given asymptomatic from such defer on abx at this time. BSG checks stopped, discussed could dc metformin as A1c only 4.7 and not needing much coverage. No lows on BSG checks but have been stopped to prevent continued pokes/agitation Discussed eliquis use w/ daughter given repeat falls/risk for repeat injury and bleeding. In afib on telemetry but no CP/SOB or palpitations and rate controlled/remains on metoprolol. Placed eliquis on hold for this evening and plan to stop at ks Urinary retention Repeat cx pending but initial UA didn't appear infected. Flomax increased to BID and no further st cath but given slight SIOBHAN reduced back to once daily. CTAP on admission w/ small stone vs developing transitional cell carcinoma and will need cysto in f/u Afib Remains in such but rates controlled. Metoprolol continued but eliquis placed on hold as above and plan to discontinue. ECHO pending given fall but no signifciant murmur/pitting edma on exam Constipation Lactulose changed from prn to scheduled, BM 08/12, dark in color. no abd pain and will continue/monitor. ammonia NOT elevated Gallstones GÓMEZ w/ stones, no acute charline (FILLED on CTAP). TB improved/ALP normalized and remains WITHOUT abn pain but HIDA as above w/ chronic charline but surgery consulted and I discussed w/ daughter can avoid for now/follow up outpatient as desired DM II -A1c 4.7, on metformin 1gm BID. Metformin on hold. BSG AC/HS ordered and SSI but minimal insulin needs and A1c only 4.7 and as above prevention repeat sticks but could consider STOPPING metformin at ks. F/u AM glu on chemistries HTN Continue metoprolol, olmesartan on hold and Cr 1.4/hold and PO hydration encouraged and monitor to resume Elevated troponin Trop 80s--> 70s, suspect demand ischemia from fall/dehydration. No CP reported, NSR on telemetry but now in afib 08/12 above ECHO pending given fall but no significant murmur on exam and prior ECHO 2021 w/o valvular disease noted DVT proph: eliquis placed on hold as discussed w/ daughter. Has dominique hose in place, will order SCDs while inbed Dispo: hopeful return to [facility] pending discussion w/ [facility] and daughter Megan (as discussed w/ this afternoon). Hopeful return this weekend if able to accept but if staffing issues possible he may be here through Friday. Monitor to increase seroquel HS if any repeat agitation overnight Admission and Anticipated Discharge Date Admission Date: August 11, 2024 Subjective Eval this afternoon, was for HIDA/ECHO this morning. Mitts placed overnight/removed this morning. More talkative, alert to person/place, reports prior issues w/ urine but none at this time. Continues to deny RUQ pain. Reports pain to lower back but being cautious, that he feels well/doesn't think needs anything more and would like to go back home. Discussed will call daugther this evening for discussion/possible arrange tomorrow if [facility] able to take back. Daughter did report much improved when she saw him, hopefully able to get back to [facility]. Physical Exam 2 Physical Exam: General: 88yo male sitting up in bed, mitts off, pleasant/talkative, alert to person/place, some prior events and cooperative/wants to get home Head atraumatic, normocephalic, slightly dry mm (improved), trachea midline Resp: CTA, no wheezing/rales, on room air 99% CV: irregularly irregular, rates 60-80s, trace nonpitting edema, pulses present, dominique hose in place GI:+BS, slightly more distended but soft/nontender even to DEEP palpation : no fisher MSK/Neuro: no further significant tenderness to R sacrum, able to move all extremities, no focal deficit, no slurred speech/facial droop Psych: alert to person/place, cooperative Results & Data Results & Data Vital Signs (Past 12 Hours) Vital Signs Temp Pulse Pulse Resp BP Pulse Ox O2 Del Method 08/13/24 03:50 36.8 C 69 18 158/79 H 99 Room Air 08/12/24 23:34 37.5 C 74 20 157/75 H 93 Room Air 08/12/24 22:11 77 08/12/24 19:50 36.6 C 62 18 130/70 97 Room Air Laboratory Results 08/12/24 09:36 08/13/24 06:00 Diagnostic Findings Hepatobiliary Scan Nuclear Medicine 08/13/24 07:00 NUCLEAR MEDICINE HEPATOBILIARY SCAN CLINICAL HISTORY: Possible cholecystitis. COMPARISON: CT of the abdomen and pelvis August 10, 2024. Right upper quadrant ultrasound August 11, 2024. TECHNIQUE: 5.1 mCi of technetium 99m Choletec IV was injected at 10:44 AM on August 13, 2024. Immediately following injection, imaging of the abdomen was carried out for 60 minutes in the anterior projection. Gallbladder activity was not identified at 60 minutes. Therefore, 2 mg of morphine was administered IV as per protocol. FINDINGS: Hepatic uptake of radiotracer is prompt and homogeneous. Activity is identified within the common bile duct and small bowel at 15 minutes. Gallbladder activity was not identified at 60 minutes. Gallbladder activity was noted following injection of morphine. IMPRESSION: Gallbladder activity identified only following morphine administration. The scintigraphic findings suggest chronic cholecystitis. ACT 112: Negative or not required by law. Electronically signed by: Daljit Figueroa M.D. 08/13/2024 12:30 PM PG Care Time/CCT Total # of Minutes Spent Total Time Spent with Patient: Total time spent is greater than 50% in coordination of care (as documented) at patient's floor/unit and/or counseling patient: Coding Level of Care Code 70324 SUB INP/OBS CARE 3/50MIN Diagnoses Metabolic encephalopathy G93.41 Elevated CK R74.8 Paroxysmal atrial fibrillation I48.0 Primary hypertension I10 Hypertension type: primary hypertension Type 2 diabetes mellitus E11.9 Elevated alkaline phosphatase level R74.8 Sinus bradycardia R00.1 1st degree AV block I44.0 B12 deficiency E53.8 (4) Hypertension Hypertension type: primary hypertension Qualified Code(s): I10 - Essential (primary) hypertension
[2024-08-13] MEDS: MoRPHine SULFATE 2 MG/ML CARP ONE (11:54)
--- NOTE | 2024-08-13 12:31 | Nuclear Medicine Report ---
NUCLEAR MEDICINE HEPATOBILIARY SCAN CLINICAL HISTORY: Possible cholecystitis. COMPARISON: CT of the abdomen and pelvis August 10, 2024. Right upper quadrant ultrasound August 11, 2024. TECHNIQUE: 5.1 mCi of technetium 99m Choletec IV was injected at 10:44 AM on August 13, 2024. Imm ediately following injection, imaging of the abdomen was carried out for 60 minutes in the anterior p rojection. Gallbladder activity was not identified at 60 minutes. Therefore, 2 mg of morphine was adm inistered IV as per protocol. FINDINGS: Hepatic uptake of radiotracer is prompt and homogeneous. Activity is identified within the common bile duct and small bowel at 15 minutes. Gallbladder activity was not identified at 60 minute s. Gallbladder activity was noted following injection of morphine. IMPRESSION: Gallbladder activity identified only following morphine administration. The scintigraphi c findings suggest chronic cholecystitis. ACT 112: Negative or not required by law. Electronically signed by: Daljit Figueroa M.D. 08/13/2024 12:30 PM
[2024-08-13] MEDS: LACTULOSE SYRUP 20 GM/30 ML UDC PO SCH (12:54)
[2024-08-13] MEDS: SODIUM CHLORIDE 0.9% 500 ML IV SCH (12:54)
[2024-08-13] MEDS ORDERED: hydrALAZINE HCL 20 MG/ML VIAL IV PRN (14:50)
--- NOTE | 2024-08-13 15:30 | Surgery Consultation ---
Date of Consultation August 13, 2024 Assessment & Plan (1) Gallstones: His ultrasound, CT and HIDA images and results were personally viewed and interpreted by myself Patient does have gallstones however no abdominal pain is able to eat without any problems No signs of acute cholecystitis He may have chronic cholecystitis, however has no symptoms regarding this No plans for any surgical intervention Once he is discharged if he desires, he can follow-up with a surgeon to discuss the further management of his gallstones Surgical sign off at this time, please call with any questions or concerns History of Present Illness Reason for Consultation: Chronic cholecystitis Attending Physician: Michelle Levine MD History of Present Illness This is an 88-year-old male who was admitted to the hospital after being found down. He does take Eliquis for history of paroxysmal atrial fibrillation. Trauma CT scan revealed cholelithiasis without signs of cholecystitis. An ultrasound was ordered that showed gallstones without cholecystitis. A HIDA scan was ordered that showed gallbladder filling after morphine injection suggesting chronic cholecystitis. Upon interviewing the patient he has no abdominal pain and has been able to eat without issue. He denies any nausea or vomiting. He denies any previous abdominal surgeries. Denies any fevers or chills. He denies any scleral icterus, jaundice, tea colored urine, acholic stools. Allergies Allergy/AdvReac Type Severity Reaction Status Date / Time house dust Allergy Mild Congested Verified 06/22/24 13:29 lorazepam Allergy Unknown Unknown Verified 06/22/24 13:29 Home Medications Medication Instructions Recorded Confirmed Type cholecalciferol (vitamin D3) 25 1,000 units PO QAM 01/15/19 08/10/24 History mcg (1,000 unit) tablet acetaminophen 325 mg tablet 650 mg PO Q6H PRN pain or fever 10/02/23 08/10/24 History (Tylenol) lactulose 10 gram/15 mL oral 10 g PO QAM PRN Constipation 10/02/23 08/10/24 History solution (Enulose) tamsulosin 0.4 mg capsule 0.4 mg PO DAILY #90 caps 11/03/23 08/10/24 Rx metoprolol succinate 25 mg 25 mg PO DAILY #90 tabs 02/17/24 08/10/24 Rx tablet,extended release 24 hr apixaban 5 mg tablet (Eliquis) 5 mg PO BID #60 tabs 06/02/24 08/10/24 Rx olmesartan 40 mg tablet 40 mg PO DAILY #90 tabs 06/25/24 08/10/24 Rx metformin 1,000 mg tablet 1,000 mg PO BID #180 tabs 07/07/24 08/10/24 Rx cyanocobalamin (vitamin B-12) 1,000 mcg PO DAILY #30 caps 08/12/24 Rx 1,000 mcg capsule thiamine HCl (vitamin B1) 100 mg 200 mg (2 x 100 mg) PO BID 30 days 08/12/24 Rx tablet #120 tabs Patient History Medical History Atrial fibrillation History of gastritis Surgical History S/P tonsillectomy S/P tooth extraction S/P colonoscopy History of knee replacement Family History Mother Diabetes Renal failure History of miscarriage Sister Uterine cancer Ovarian cancer Father Cardiomegaly Colon cancer Family/Other No problems noted. Denies family history of Prostate cancer Myocardial infarction Breast cancer Social History Smoking Status: Unknown if ever smoked Tobacco Type: Cigarettes Age Started Using Tobacco: 18; Age Quit Using Tobacco: 21; packs per day: 0.5; Second Hand Exposure: No; Do You Dip or Chew Tobacco: No; Hx Alcohol Use: No Hx Substance Use: No Preferred Language: [place] Communication Ability: Impaired Visual Impairment: No Limitations Hearing Ability: Normal Direct Chill Caster Required: No Beliefs That Will Affect Care: Anabaptism marital status: Current Living Situation: Personal Care Facility current occupational status: retired Feels Safe at Home: Yes Dental Care, Regularly: Yes Physical Activity Frequency: 3-4 Times per Week Physical Activity Frequency Comment: Regularly, stationary bike Seatbelt Use: always Sunscreen Use: Yes Assistive Devices: Walker Review of Systems Constitutional: no fever and no chills Eyes: no blind spots and no worsening vision Ear, Nose, Mouth, Throat: no ear pain and no hearing loss Respiratory: no cough and no dyspnea Cardiovascular: no chest pain and no dyspnea on exertion Gastrointestinal: no abdominal pain, no nausea, no vomiting, no constipation and no diarrhea/loose stools Genitourinary: no dysuria or no nocturia Musculoskeletal: no back pain and no neck pain Integumentary: no acne, no sores and no erythema Neurologic: no gait abnormality and no tingling Psychiatric: no behavioral changes and no depression Hematologic / Lymphatic: no easy bleeding and no easy bruising Physical Exam Constitutional: WD/WN, vitals as above Eyes: PERRL, conjunctivae normal, anicteric sclerae ENMT: external ear and nose normal, oropharynx normal Neck: trachea midline, no thyromegaly Respiratory: normal respiratory effort, lungs clear to auscultation Cardiovascular: RRR, no murmur, no edema Gastrointestinal (Abdomen): normal bowel sounds, soft, nontender, no hepatosplenomegaly Musculoskeletal: no cyanosis or clubbing, extremities motor strength 5/5 Skin: no rashes, warm and dry Neurologic: PERRL, EOMI, accommodation nl, no face palsy, no dysarthria Psychiatric: A+Ox3, euthymic affect Results & Data Vital Signs (Past 12 Hours) Vital Signs Temp Pulse Pulse Pulse Resp BP BP 08/13/24 08:25 36.7 C 85 17 170/88 H 08/13/24 07:53 36.3 C L 76 18 171/80 H 08/13/24 07:49 77 08/13/24 03:50 36.8 C 69 18 158/79 H Pulse Ox O2 Del Method 08/13/24 08:25 96 Room Air 08/13/24 07:53 96 Room Air 08/13/24 07:49 08/13/24 03:50 99 Room Air PG Care Time/CCT Total # of Minutes Spent Total Time Spent with Patient: Total time spent is greater than 50% in coordination of care (as documented) at patient's floor/unit and/or counseling patient: Coding Level of Care Code 31029 INT INP/OBS CARE 3/75MIN Diagnoses Gallstones K80.20
[2024-08-13] MEDS: MELATONIN 3 MG TAB PO SCH (19:53)
[2024-08-14] MEDS: OLANZapine 5 MG TABLET PO STA
--- NOTE | 2024-08-14 07:46 | Hospitalist Progress Note ---
Date of Service August 14, 2024 Assessment & Plan (1) Metabolic encephalopathy: (2) Elevated CK: (3) Paroxysmal atrial fibrillation: (4) Hypertension: (5) Type 2 diabetes mellitus: (6) Elevated alkaline phosphatase level: (7) Sinus bradycardia: (8) 1st degree AV block: (9) B12 deficiency: Plan 88yo male from [facility] found down on ground x 2. No LOC/head trauma but on AC w/ eliquis for hx paroxsymal afib. CT head negative on admission. Fall//Elevated CK/mild rhabdo/Sacral Fracture AMS/Alzheimer/vascular dementia B12 deficiency/Ambulatory Dysfunction CT head negative. CT cervical spine without acute fx/subluxation, extensive degenerative changes at C1-C2 articulation. CT lumbar spine with acute minimally displaced fracture S2 vertebral body, L5 compression fracture (unclear if new, appears likely chronic), no change in old L2 fracture. Severe degenerative changes throughout Xray pelvis no acute finding, notes old fracture deformity with IM ridge and femoral neck nail, mild degenerative changes in right hip CT abd/pelvis noting compression fracture superior endplate L5 (new since 2022). No additional skeletal changes. Grossly enlarged prostate, new demonstrated focal bladder wall calcification. Ammonia wnl. Lyme negative. Anaplasmosis smear negative. PCR pending B1 pending, was given 500mg IV thiamine x 3 doses/convert to 200mg BID in meantime B12 borderline 212, IM x 3 given and converted to PO for AM CK normalized, no further IVF and encouraged to push PO Lactulose changed to scheduled to prevent constipation, +BM HIDA scan w/ chronic charline, no RUQ pain and surgery consulted (see note, can have outpt f/u as desired) Prior stopped BSG checks to prevent agitation, A1c only 4.7 on metformin and likely could stop that medication as well given minimal insulin use off such. Dc'd telemetry Held eliquis PM 08/13 as discussed w/ daughter and plan to stop at dc Improved on exam 08/14 with family at bedside -- note did need mitts placed on again overnight despite 12.5mg seroquel but were removed first thing this morning Encouraged nursing/staff to get out of bed frequently/ambulate to keep busy as he is never in bed at [facility] except to sleep (has been doing well w/ ambulation w/ staff) 1:1 prn Discussed with daughter in room will increase seroquel to 25mg HS for tonight ( can be used prn at [facility] for but suspect will be better in familiar environment and would change to prn rather than scheduled but could be made scheduled if needed). Attempting to move to medical w/ private room w/ window or at least to room where he would have window bed to help with wake/sleep schedules Daughter Mary Jo has spoken with [facility] and not enough staffing to accommodate this weekend but will accept back on friday but will remain inpatient at this time Urinary retention Urine cx no growth, CTAP on admission w/ small stone vs developing transitional cell carcinoma and will need cysto in f/u as discussed w/ urology (saw inpatient). Flomax increased to BID given need for st cath prior and continues on such Afib Rate controlled, in such. TSH wnl. Metoprolol continued but discussed w/ POA daughter 08/13 and placed further on hold/plan to stop given age/falls/risk >benefit. ECHO ordered for eval but no significant murmur. Constipation Lactulose changed from prn to scheduled, BM 08/12, moderate BM 08/14 and abd much less distended/softer. Ammonia checked prior/NOT elevated Gallstones GÓMEZ w/ stones, no acute charline (FILLED on CTAP). TB improved/ALP normalized/slight elevations at times but remains WITHOUT abn pain but HIDA as above w/ chronic charline but surgery consulted and I discussed w/ daughter can avoid for now/follow up outpatient as desired DM II A1c 4.7, on metformin 1gm BID STONECUTTER which was placed on hold and given minimal insulin needs/A1c<5 with risk worse for hypoglycemia (none noted) and have not ordered metformin/plan to dc at discharge. B12 replacement as above HTN Continue metoprolol, olmesartan on hold given Cr to 1.46 but PO hydration improved and repeat 1.36 but stable BP off. Monitor to resume in AM Elevated troponin Trop 80s--> 70s, suspect demand ischemia from fall/dehydration. No CP reported, NSR on telemetry but now in afib 2 above ECHO pending given fall but no significant murmur on exam and prior ECHO 2021 w/o valvular disease noted DVT proph: eliquis placed on hold as discussed w/ daughter. Has dominique hose in place, will order SCDs while in bed Dispo: hopeful return to [facility] on Friday. Seroquel increased to 25mg HS tonight and increased activity/ambulation with staff/moving to third floor Updated puneet at bedside 08/14 Admission and Anticipated Discharge Date Admission Date: August 11, 2024 Supervising Physician Co-Signing Physician Notes The patient was not seen by me. The chart was reviewed. Case discussed with CHAIM Felder. Agree with assessment and plan Subjective Eval this afternoon, sitting up in chair, family at bedside. Appears stable/improved. Mitts overnight, seroquel to increase for this evening and discussed can send prn at [facility] for [place] to use if needed but suspect in familiar environment will imrpvoe. WIll hopefully tx to another room w/ window, work on day/night. Ambulating with aides, encouraged frequent trips and tire out. Daughter mary jo reports [facility] able to take back but not til Friday. WIll plan to d on Friday. GOod appetite, no pain, no urinary retention/need for ct. Questions/concerns addressed at this time. Physical Exam 2 Physical Exam: General: 88yo male sitting up in chair, family in room, appears improved/stable, NAD Head atraumatic, normocephalic, mm improved, trachea midline Resp: CTA, no wheezing/rales, on room air 99% CV: irregularly irregular, rates 60-80s, trace nonpitting edema, pulses present, dominique hose in place GI:+BS, less distension, nontender, no guarding/rebound : no fisher MSK/Neuro: no further significant tenderness to R sacrum, able to move all extremities, no focal deficit, no slurred speech/facial droop Psych: alert to person/place, cooperative, dementia at baseline/intermittent forgetfulness, delirium at times Results & Data Results & Data Vital Signs (Past 12 Hours) Vital Signs Temp Pulse Resp BP Pulse Ox O2 Del Method 08/14/24 03:31 36.4 C L 92 H 20 137/77 98 Room Air 08/13/24 23:10 36.8 C 97 H 18 130/85 97 Room Air Laboratory Results 08/14/24 11:53 08/14/24 11:53 PG Care Time/CCT Total # of Minutes Spent Total Time Spent with Patient: Total time spent is greater than 50% in coordination of care (as documented) at patient's floor/unit and/or counseling patient: Coding Level of Care Code 61423 SUB INP/OBS CARE 3/50MIN Diagnoses Metabolic encephalopathy G93.41 Elevated CK R74.8 Paroxysmal atrial fibrillation I48.0 Primary hypertension I10 Hypertension type: primary hypertension Type 2 diabetes mellitus E11.9 Elevated alkaline phosphatase level R74.8 Sinus bradycardia R00.1 1st degree AV block I44.0 B12 deficiency E53.8 (4) Hypertension Hypertension type: primary hypertension Qualified Code(s): I10 - Essential (primary) hypertension
[2024-08-14] MEDS: CYANOCOBALAMIN (B-12) 500 MCG TABLET PO SCH (08:38)
[2024-08-14 12:34] LABS: Basophils # (auto) 0.01 K/uL (0.00-0.20); Basophils % (auto) 0.2 %; Eosinophils # (auto) 0.14 K/uL (0.00-0.50); Eosinophils % (auto) 2.5 %; Hematocrit (blood only) 33.1 % (42.0-52.0); Hemoglobin 11.9 g/dl (14.0-18.0); Immature Granulocytes # (auto) 0.02 K/uL (0.01-0.20); Immature Granulocytes % (auto) 0.4 %; Lymphocytes # (auto) 1.16 K/uL (1.20-3.40); Lymphocytes % (auto) 21.1 %; Mean Corpuscular Volume 80.7 fL (80.0-100.0); Mean Platelet Volume 9.6 fL (9.4-12.4); Monocytes # (auto) 0.51 K/uL (0.11-0.59); Monocytes % (auto) 9.3 %; Neutrophils # (auto) 3.67 K/uL (1.40-6.50); Neutrophils % (auto) 66.5 %; Platelet Count 173 K/uL (130-400); RDW Coefficient of Variation 13.2 % (11.5-14.5); RDW Standard Deviation 38.3 fL (36.4-46.3); White Blood Count 5.51 K/ul (4.8-10.8)
[2024-08-14 12:53] LABS: Albumin Globulin Ratio 1.4 (0.9-2); Albumin Level 3.6 gm/dl (3.4-5.0); BUN Creatinine Ratio 22.8 (10-20); Calcium 8.7 mg/dl (8.6-10.3); Creatinine Clr Calc Pharmacy 40.5 ml/min; Globulin 2.6 gm/dl (2.5-4.0); Potassium 4.3 mmol/L (3.5-5.1); Total Protein 6.2 gm/dl (6.0-8.3)
[2024-08-14] MEDS: QUEtiapine FUMARATE 25 MG TABLET PO SCH (20:09)
--- NOTE | 2024-08-15 08:50 | Hospitalist Progress Note ---
Date of Service August 15, 2024 Assessment & Plan (1) Metabolic encephalopathy: (2) Elevated CK: (3) Paroxysmal atrial fibrillation: (4) Hypertension: (5) Type 2 diabetes mellitus: (6) Elevated alkaline phosphatase level: (7) Sinus bradycardia: (8) 1st degree AV block: (9) B12 deficiency: Plan 88yo male from [facility] found down on ground x 2. No LOC/head trauma but on AC w/ eliquis for hx paroxsymal afib. CT head negative on admission. Fall//Elevated CK/mild rhabdo/Sacral Fracture AMS/Alzheimer/vascular dementia B12 deficiency/Ambulatory Dysfunction CT head negative. CT cervical spine without acute fx/subluxation, extensive degenerative changes at C1-C2 articulation. CT lumbar spine with acute minimally displaced fracture S2 vertebral body, L5 compression fracture (unclear if new, appears likely chronic), no change in old L2 fracture. Severe degenerative changes throughout Xray pelvis no acute finding, notes old fracture deformity with IM ridge and femoral neck nail, mild degenerative changes in right hip CT abd/pelvis noting compression fracture superior endplate L5 (new since 2022). No additional skeletal changes. Grossly enlarged prostate, new demonstrated focal bladder wall calcification. Ammonia wnl. Lyme negative. Anaplasmosis smear negative. PCR pending B1 pending- was given 500mg IV thiamine x 3 doses/convert to 200mg BID in meantime B12 borderline 212, IM x 3 given and converted to PO for AM CK normalized, no further IVF and encouraged to push PO Lactulose scheduled to prevent constipation, +BM. Ammonia NOT elevated HIDA scan w/ chronic charline, no RUQ pain and surgery consulted (see note, can have outpt f/u as desired) A1c 4.7 on metformin, BSG checks STOPPED. likely could dc metformin Eliquis discussed w/ daughter 08/13 and have stopped given risk>benefit w/ repeated falls and dementia. Rate controlled afib/electrolytes stable Prior use of mitts/zyprexa PO x 1 on 08/13 but has been doing well in day. Had added seroquel 12.5mg HS for sundowning/agitation but increased to 25mg HS last evening and was transferred to third floor/window bed last evening and could make delirium worse as was aggressive with staff reported but was calm/cooperative for myself today and did NOT need any restraints. Can use 1:1 as needed for safety but nursing encouraged to continue to get OOB as much as possible/increase activity. Monitor to add low dose prn zyprexa given prior effectiveness and will discuss w/ supervising provider but continue seroquel HS as scheduled for now/melatonin 3mg HS. Hopeful dc 08/16 back to [facility] w/ prn seroquel vs other as needed. Updated daughter Megan at bedside 08/14 Urinary retention Urine cx no growth, CTAP on admission w/ small stone vs developing transitional cell carcinoma and will need cysto in f/u as discussed w/ urology (saw inpatient). Flomax increased to BID given need for st cath prior and continues on such and assisted with urinal today/yellow urine and no signifciant retention on repeat bladder scans. Can continue flomax BID at dc and ensure f/u urology for cytso Afib On exam. TSH checked/wnl and remains on metoprolol but as above discussed w/ daughter 08/13 and have held further/plan to stop at dc. ECHO ordered but not done/no significant murmur on exam and could defer Constipation Lactulose changed from prn to scheduled, BM 08/12, moderate BM 08/14 and abd much less distended/softer. Ammonia checked prior/NOT elevated Gallstones GÓMEZ w/ stones, no acute charline (FILLED on CTAP). NO RUQ pain, TB normalized w/ minimal elevation ALP. HIDA scan/surgery consulted given HIDA w chronic cholecystitis but given remains w/o RUQ pain on exam per surgery and discussion w/ family can f/u outpatient as desired. DM II A1c 4.7, on metformin 1gm BID TOURS CAPTAIN which was placed on hold and given minimal insulin needs/A1c<5 with risk worse for hypoglycemia (none noted) and have not ordered metformin/plan to dc at discharge. B12 replacement as above HTN Stable but elevated this morning 158/98 Remains on metoprolol, olmesartan held prior given rise in Cr but improved to 1.36 and hydration status improved/flomax increased BID as above and olmesartan resumed today for elevated BP this mroning and will monitor Hydralazine available as needed for significant elevations Elevated troponin Trop 80s--> 70s, suspect demand ischemia from fall/dehydration. No CP reported, NSR on telemetry but now in afib 2/20 above ECHO pending given fall but no significant murmur on exam and prior ECHO 2021 w/o valvular disease noted DVT proph: eliquis placed on hold as discussed w/ daughter. Has dominique hose in place, will order SCDs while in bed. Monitor if remains inpatient to add additional chemoproph agent Dispo: hopeful return to [facility] on Friday. Seroquel increased to 25mg HS and will discuss w/ supervising provider about possible increase further for tonight vs switching to zyprexa (or adding prn for severe agitation). Daughter updated with family at bedside 08/15 and hopeful return to [facility] in AM. Has been pleasant/cooperative for myself today during encounter without need for restraints overnight thankfully as suspect makes him much worse. Admission and Anticipated Discharge Date Admission Date: August 11, 2024 Supervising Physician Co-Signing Physician Notes The patient was not seen by me. The chart was reviewed. Case discussed with CHAIM Felder. Agree with assessment and plan Subjective Eval this morning, was agitated overnight but no restraints. Assisted Anthony in standing to use urinal today, yellow urine. Needed to stand to use the urinal with success but did pretty well with just myself to assist with urinal placement. Knows not at home, hopefully will get there in the morning. Cooperative for myself but encouraged continued OOB /ambulation with stafff. In window bed and working on day/night schedules. Talking about a plane/traveling overnight, ?if from changing room vs seeing helicopters out his window. Physical Exam 2 Physical Exam: General: 88yo male sitting up in chair, dementia/delirium at times, talking about plane (?helicopter outside room overnight vs change room), is in window bed. Needing to urinate and assisted with standin without too much difficulty but assisted with urinal and yellow urine produced, about 100-200 cc. Head atraumatic, normocephalic, mm improved/slight dry, pushing pO fluids, trachea midline Resp: even/unlabored, no distress, on room air CV: irregularly irregular but no significant m/r/g, no pitting edema, pulses present/no calf tenderness, dominique hose in place GI: +BS, slight distension but nontender, no guarding/rebound : assisting using urinal MSK/Neuro: nonfocal, no slurred speech, some unsteadiness with nursing with ambulation but did fairly well getting up out of chair by himself Psych: alert to person, knows not at home, initially reported year 2014 but cooperative for myself without agitation/aggressiveness Results & Data Results & Data Vital Signs (Past 12 Hours) Vital Signs Temp Pulse Resp BP BP Pulse Ox O2 Del Method 08/15/24 07:53 36.6 C 80 158/98 H 97 Room Air 08/14/24 20:50 36.6 C 71 18 133/66 98 Room Air Laboratory Results 08/14/24 11:53 08/14/24 11:53 PG Care Time/CCT Total # of Minutes Spent Total Time Spent with Patient: Total time spent is greater than 50% in coordination of care (as documented) at patient's floor/unit and/or counseling patient: Coding Level of Care Code 07595 SUB INP/OBS CARE 3/50MIN Diagnoses Metabolic encephalopathy G93.41 Elevated CK R74.8 Paroxysmal atrial fibrillation I48.0 Primary hypertension I10 Hypertension type: primary hypertension Type 2 diabetes mellitus E11.9 Elevated alkaline phosphatase level R74.8 Sinus bradycardia R00.1 1st degree AV block I44.0 B12 deficiency E53.8 (4) Hypertension Hypertension type: primary hypertension Qualified Code(s): I10 - Essential (primary) hypertension
[2024-08-15] MEDS: LOSARTAN POTASSIUM 50 MG TAB PO SCH (09:25)
[2024-08-15] MEDS ORDERED: OLANZapine 10 MG/2.1 ML SDV IM PRN (11:51)
[2024-08-16 03:32] LABS: Babesia microti DNA Not Detected (Not Detected)
[2024-08-16 06:45] LABS: BUN Creatinine Ratio 18.5 (10-20); Calcium 8.8 mg/dl (8.6-10.3); Creatinine Clr Calc Pharmacy 35.2 ml/min; Magnesium 1.9 mg/dl (1.7-2.4); Potassium 4.3 mmol/L (3.5-5.1)
[2024-08-16 08:03] VITALS: PULSE 75; RESP 18; TEMP 97.5; O2SAT 96
--- NOTE | 2024-08-16 08:41 | Hospitalist Progress Note ---
Date of Service August 16, 2024 Assessment & Plan (1) Metabolic encephalopathy: (2) Elevated CK: (3) Paroxysmal atrial fibrillation: (4) Hypertension: (5) Type 2 diabetes mellitus: (6) Elevated alkaline phosphatase level: (7) Sinus bradycardia: (8) 1st degree AV block: (9) B12 deficiency: Plan 88yo male from [facility] found down on ground x 2. No LOC/head trauma but on AC w/ eliquis for hx paroxsymal afib. CT head negative on admission. Fall//Elevated CK/mild rhabdo/Sacral Fracture AMS/Alzheimer/vascular dementia B12 deficiency/Ambulatory Dysfunction CT head negative. CT cervical spine without acute fx/subluxation, extensive degenerative changes at C1-C2 articulation. CT lumbar spine with acute minimally displaced fracture S2 vertebral body, L5 compression fracture (unclear if new, appears likely chronic), no change in old L2 fracture. Severe degenerative changes throughout Xray pelvis no acute finding, notes old fracture deformity with IM ridge and femoral neck nail, mild degenerative changes in right hip CT abd/pelvis noting compression fracture superior endplate L5 (new since 2022). No additional skeletal changes. Grossly enlarged prostate, new demonstrated focal bladder wall calcification. Ammonia wnl. Lyme negative. Anaplasmosis smear negative. PCR pending B1 pending- was given 500mg IV thiamine x 3 doses/convert to 200mg BID in meantime B12 borderline 212, IM x 3 given and converted to PO for AM CK normalized, no further IVF and encouraged to push PO Lactulose scheduled to prevent constipation, +BM. Ammonia NOT elevated HIDA scan w/ chronic charline, no RUQ pain and surgery consulted (see note, can have outpt f/u as desired) A1c 4.7 on metformin, BSG checks STOPPED. likely could dc metformin Eliquis discussed w/ daughter 08/13 and have stopped given risk>benefit w/ repeated falls and dementia. Rate controlled afib/electrolytes stable Prior use of mitts/zyprexa PO x 1 on 08/13 but has been doing well in day. Had added seroquel 12.5mg HS for sundowning/agitation but increased to 25mg HS last evening and was transferred to third floor/window bed last evening and could make delirium worse as was aggressive with staff reported but was darwin m/cooperative for myself today and did NOT need any restraints. Can use 1:1 as needed for safety but nursing encouraged to continue to get OOB as much as possible/increase activity. Monitor to add low dose prn zyprexa given prior effectiveness and will discuss w/ supervising provider but continue seroquel HS as scheduled for now/melatonin 3mg HS. Hopeful dc 08/16 back to [facility] w/ prn seroquel vs other as needed. Updated daughter Megan at bedside 08/14 08/16 - Did NOT require any zyprexa overnight, continued seroquel 25mg HS (can use prn at [facility]). Olmesartan equivalent losartan 100mg daily resumed but place on hold for now w/ Cr 1.5 but great UOP and would just rec repeating BMP in next 1-2 days at [facility]. Urine cx ngtd. Flomax BID Urinary retention Urine cx no growth, CTAP on admission w/ small stone vs developing transitional cell carcinoma and will need cysto in f/u as discussed w/ urology (saw inpatient). Flomax increased to BID given need for st cath prior and continues on such and assisted with urinal today/yellow urine and no signifciant retention on repeat bladder scans. Can continue flomax BID at dc and ensure f/u urology for cytso Afib On exam. TSH checked/wnl and remains on metoprolol but as above discussed w/ daughter 08/13 and have held further/plan to stop at dc. ECHO ordered but not done/no significant murmur on exam and could defer Constipation Lactulose changed from prn to scheduled, BM 2, moderate BM 08/14 and abd much less distended/softer. Ammonia checked prior/NOT elevated Gallstones GÓMEZ w/ stones, no acute charline (FILLED on CTAP). NO RUQ pain, TB normalized w/ minimal elevation ALP. HIDA scan/surgery consulted given HIDA w chronic cholecystitis but given remains w/o RUQ pain on exam per surgery and discussion w/ family can f/u outpatient as desired. DM II A1c 4.7, on metformin 1gm BID DIGITAL MEDIA COORDINATOR which was placed on hold and given minimal insulin needs/A1c<5 with risk worse for hypoglycemia (none noted) and have not ordered metformin/plan to dc at discharge. B12 replacement as above HTN Stable but elevated this morning 158/98 Remains on metoprolol, olmesartan held prior given rise in Cr but improved to 1.36 and hydration status improved/flomax increased BID as above and olmesartan resumed today for elevated BP this mroning and will monitor Hydralazine available as needed for significant elevations Elevated troponin Trop 80s--> 70s, suspect demand ischemia from fall/dehydration. No CP reported, NSR on telemetry but now in afib 08/12 above ECHO pending given fall but no significant murmur on exam and prior ECHO 2021 w/o valvular disease noted DVT proph: eliquis placed on hold as discussed w/ daughter. Has dominique hose in place, will order SCDs while in bed. Monitor if remains inpatient to add additional chemoproph agent Dispo: hopeful return to [facility] on Friday. Seroquel increased to 25mg HS and will discuss w/ supervising provider about possible increase further for tonight vs switching to zyprexa (or adding prn for severe agitation). Daughter updated with family at bedside 08/15 and hopeful return to [facility] in AM. Has been pleasant/cooperative for myself today during encounter without need for restraints overnight thankfully as suspect makes him much worse. Admission and Anticipated Discharge Date Admission Date: August 11, 2024 Results & Data Results & Data Vital Signs (Past 12 Hours) Vital Signs Temp Pulse Resp BP Pulse Ox O2 Del Method 08/16/24 08:02 36.4 C L 75 18 128/74 96 Room Air 08/16/24 07:34 Room Air 08/15/24 22:13 36.2 C L 74 17 153/81 H 99 Room Air PG Care Time/CCT Total # of Minutes Spent Total Time Spent with Patient: Total time spent is greater than 50% in coordination of care (as documented) at patient's floor/unit and/or counseling patient: Coding Diagnoses Metabolic encephalopathy G93.41 Elevated CK R74.8 Paroxysmal atrial fibrillation I48.0 Primary hypertension I10 Hypertension type: primary hypertension Type 2 diabetes mellitus E11.9 Elevated alkaline phosphatase level R74.8 Sinus bradycardia R00.1 1st degree AV block I44.0 B12 deficiency E53.8 (4) Hypertension Hypertension type: primary hypertension Qualified Code(s): I10 - Essential (primary) hypertension
--- NOTE | 2024-08-16 12:47 | Discharge Summary ---
Discharge Summary Date of Service August 16, 2024 Principal Dx & Hospital Course #1 = Principal Diagnosis (1) Metabolic encephalopathy: (2) Elevated CK: (3) Paroxysmal atrial fibrillation: (4) Hypertension: (5) Type 2 diabetes mellitus: (6) Elevated alkaline phosphatase level: (7) Sinus bradycardia: (8) 1st degree AV block: (9) B12 deficiency: Plan 88yo male from [facility] found down on ground x 2. No LOC/head trauma but on AC w/ eliquis for hx paroxsymal afib. CT head negative on admission. Fall//Elevated CK/mild rhabdo/Sacral Fracture AMS/Alzheimer/vascular dementia B12 deficiency/Ambulatory Dysfunction CT head negative. CT cervical spine without acute fx/subluxation, extensive degenerative changes at C1-C2 articulation. CT lumbar spine with acute minimally displaced fracture S2 vertebral body, L5 compression fracture (unclear if new, appears likely chronic), no change in old L2 fracture. Severe degenerative changes throughout Xray pelvis no acute finding, notes old fracture deformity with IM ridge and femoral neck nail, mild degenerative changes in right hip CT abd/pelvis noting compression fracture superior endplate L5 (new since 2022). No additional skeletal changes. Grossly enlarged prostate, new demonstrated focal bladder wall calcification. -Urology consulted, urine cx negative. Did require straight cath several times but no further issues since flomax increased to BID and will need f/u urology for cystoscopy for eval underlying small stone vs developing transitional cell carcinoma Lyme negative. Anaplasmosis smear negative. Babesia PCR pending at mt B12 checked and borderline LOW 212 and was provided IM x 3 inpatient and converted 1000mcg PO daily and given rx to continue at dc B1 level sent given prior hx many years ago w/ alcohol use, was given 500mg Q8H x 3 doses and converted to 200mg PO BID -B1 level pending at mt -and gave rx for empiric 200mg PO BID at dc until B1 level back CK minimal elevation, IVF hydration provided and normalized on repeat Also noted GB filled with stones, unchanged from prior. TB normalized but minimal elevated ALP and RUQ US obtained which noted no acute issue/HIDA w/ chronic charline noted but surgery consulted and patient continued without pain and deferred on any intervention but can f/u as desired at discharge ALso noted chronic issues with constipation, lactulose prn daily. Ammonia not elevated and changed to scheduled with +BM and to continue daily. A1c only 4.7 and was on SSI w/ home metformin on hold but minimal insulin use/no hypoglycemia noted but decision to discontinue metformin at mt to prevent side effects given A1c <5 and risk w/ ongoing use. Did have some episodes sundowning/agitation overnight requiring restraints for safety with pulling out IV but just wanting to be up/moving as doing at [facility] prior. Discussed w/ daughter and added seroquel 12.5mg HS and increased to 25mg HS given prior use zyprexa PO x 1 but did not require any additional medications and decision to send seroquel 25mg HS to use NEEDED but hopefully back in home environment will not require but did discuss sundowning with dementia patients and may be beneficial to have if needed. Mild elevation Cr prior to dc and HIEU held, rec checking BMP in next 1-2 days/BP and resume as able vs transition to another agent. Discussed eliquis use w/ age/fall/fractures and risk>benefit (was in afib but rates controlled/remained on metoprolol) and eliquis was DISCONTINUED at discharge. PT/OT evals undertaken and discussion w/ daughter and [facility] and [facility] able to take back. Daughter to transport. Encouraged continued sleep/wake schedules. Urinary retention Urine cx no growth- note as above CTAP on admission w/ concerns developing transitional cell carcinoma and urology consulted/flomax increased to BID and urology to arrange for outpatient cysto. No significant urinary retention on repeat bladder scans Afib On exam, rates controlled.. TSH checked/wnl and remains on metoprolol but as above discussed w/ daughter 08/13 and have held further/plan to stop at mt.No significant murmur on exam Constipation Lactulose changed from prn to scheduled, BM 08/12, moderate BM 08/14 and to continue DAILY SCHEDULED at mt. Ammonia NOT elevated Gallstones GÓMEZ w/ stones, no acute charline (FILLED on CTAP). NO RUQ pain, TB normalized w/ minimal elevation ALP. HIDA scan/surgery consulted given HIDA w chronic cholecystitis but given remains w/o RUQ pain on exam per surgery and discussion w/ family can f/u outpatient as desired. DM II A1c 4.7, on metformin 1gm BID [employer] which was placed on hold and given minimal insulin needs/A1c<5 with risk worse for hypoglycemia (none noted) and have not ordered metformin/plan to dc at discharge. B12 replacement as above continued at dc w/ falls HTN Stable, minimal elevations and HIEU resumed/continued on BB but w/ minimal elevation HIEU held at dc. Can resume as needed at [facility] next 1-2 days pending BP/BMP Elevated troponin Trop 80s--> 70s, suspect demand ischemia from fall/dehydration. No CP reported, Afib/rate controlled and continued without CP/SOB DVT proph: Eliquis placed on hold as discussed w/ daughter. Has dominique hose in place, SCDs while in bed utilized without DVT on exam and eliquis stopped at dc as above Dispo: daughter transporting back to [facility]. Seroquel HS prn provided if needed Notes For Next Care Provider Ensure urology f/u for cytsto for possible developing RCC, flomax BID w/o significant retention but could consider fisher if having issues F/u B1 level, can dc thiamine if not low but continued w/ his hx alcohol use Seroquel HS PRN for sundowning/adjust as needed for any issues Monitor for any RUQ pain, n/v/d given stone filled GB but no pain on exam/surgery saw while inpatient and no pain. Daughter agreed wouldn't want surgery unless needed. Can f/u as desired outpatient. Medication Changes From Visit Flomax increased to BID B12 1000mcg PO daily Thiamine 200mg PO BID DISCONTINUED eliquis Seroquel 25mg HS prn agitation/sundowning Admission HPI Per Admitting Provider 88yo male presented following a fall x2 with associated altered mental status (usually AOx2 w/ Alzheimer's dementia) from [facility]. 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 Patient seen in B11B, grandson in room. Reports fell twice since yesterday evening but did have fall earlier in the day. Patient poor historian but denies LOC/head trauma but possible legs gave out/weakness. Denies CP/SOB, 97% on RA. Was seen last night @2200 and found this morning laying on the floor beside the bed. Unsure of how he landed on the ground but was unable to get up by himself. Complaints of low back pain, new since fall. Alert/oriented x 2 at baseline. Denies striking his head or LOC. Presented covered in stale urine, attempts at urine collection/fisher placement without success. UA does not appear overly infected, 2+ protein but does note 3-5 RBC/trace blood with elevated CK to 292 indicating likely down for a period of time. Appeared dehydrated on exam. CT head/brain negative for acute finding. Biofire negative. CXR not noting acute findings. EKG NSR rates 60s on telemetry. Hx bradycardia to 40s in the past, recently switched from tartrate to succinate 25mg once daily last cardiology note. Also dc amlodipine 2nd to leg edema (chronic/stable, same size). CT abd/pelvis - noting compression fracture L5 new since 2022 (although no recent imaging, not definitive new acute finding). Notes multiple stones filling GB lumen, enlarged prostate gland. Newly demonstrated focal bladder wall calcification. I doubt whether this represents a intraluminal stone. A small developing transitional cell carcinoma is not excluded. CT cervical spine negative for acute fracture/subluxation, does have extensive degenerative changes at C1-C2 articulation. Exophytic right lobe thyroid nodule unchanged. CT lumbar spine noting acute minimally displaced fracture of S2 verebtral body, L5 compression fracture new since 2022, likely chronic. No change in L2 fractur e. Does note severe multilevel degenerative changes. ER Course: imaging as above. Labs noting CBC w/ no leukocytosis or L shift. Hgb 12.3 (around baseline), plt 150 . INR 1.1. Chemistries stable, Na 125. BUN/Cr slight elevation 22/1.18. Flu 112. Lactic NOT elevated at 0.9 Elevation TB 1.3, AST/ALT wnl, ALP 121. No RUQ pain Mag 1.7. TSH 0.663 wnl. UA w/ 2+ protein, 3-5 RBC. CK elevated to 292. Troponin _83.9_ ?demand ischemic from fall/mild rhabdo vs other? -> repeat 72.7 Home meds: Eliquis 5mg BID, metoprolol succinate 25mg, olmesartan 20mg, Flomax 0.4mg, Vit D 1000IU, Metformin 1g BID, Lactulose 10g PRN constipation, Tylenol 650mg prn fever/pain Code status: DNR/DNI Discharge Exam General: 88yo male sitting up in chair, dementia/delirium at times but pleasant/cooperative and dressed/ready to go home today Head atraumatic, normocephalic, mm improved, trachea midline Resp: even/unlabored, no distress, on room air CV: irregularly irregular, rates 80s, but no significant m/r/g, no pitting edema, pulses present/no calf tenderness, dominique hose in place GI: +BS, nontender, +distension but NONTENDER, no guarding/rebound : no fisher, voiding in urinal MSK/Neuro: nonfocal, no slurred speech, some unsteadiness with nursing with ambulation but did fairly well getting up out of chair by himself Psych: alert to person, knows not at home, initially reported year 2014 but cooperative for myself without agitation/aggressiveness Discharge Plan Discharge Items Patient Disposition: Personal Retirement Reason For Visit: FALL, ELEVATED CK, AMS, SACRAL FX Discharge Diagnosis: Fall, sacral fracture Goals: You have been hospitalized for an acute medical problem. During your stay at [facility], we have made an effort to correct the problem that brought you to the hospital while keeping you as comfortable as possible. Medications were used to bring your condition under control and your discharge instructions will include directions for any medications you should take after leaving the hospital. Please make sure you see your Primary Care Provider as part of your follow up plan. Activity: As commented below Non-emergency contact: Primary Care Provider and Urologist Call non-emergency contact if: you have any medication questions, your symptoms worsen, your pain is not controlled, your pain is worsening and your pain is concerning for you Follow-up/Referrals: Armando Valencia MD [Primary Care Provider] - Jason Schultz MD [Physician] - Diet: Heart Healthy Addtl Attending Provider Instructions: Found down after fall. CT head negative for stroke. Mild elevation CK (enzyme for muscle breakdown) likely from being on the ground. You did have sacral fracture but have been quite stable from this stand point. Would continue tylenol as needed and walker with ambulation. You did not tolerate brace. B12 low -- were provided with shots x 3 in the hospital to help boost stores and recommend you continue 1000mcg PO daily at discharge. Low levels can be contributed with neuropathy/worsened balance issues as well as memory loss. You were having issues with urinary retention and urology was consulted and Flomax has been increased to twice daily. Recommend you have urology follow up for cystoscopy to ensure no underlying lesion. They saw you while you have been in the hospital and recommend you have outpatient follow up which they are to be arranging. Given prior alcohol use in the past (which can contribute to low B12 levels as well), we sent for B1 level and is pending at discharge but have started replacement/continued 200mg twice daily at discharge and can follow up on level once back and stop if not low but would be better to continue until this is back. Olmesartan has been HELD at discharge for now. Recommend monitoring your blood pressure and resume if needed but check BMP in next 24-48 hours to ensure staying stable. We have STOPPED ELIQUIS at discharge to prevent risk of bleeding with your falls. We have also STOPPED your metformin as A1c is great at 4.7 and would rather prevent drops in blood sugar which can cause worsened confusion. Your gall bladder was found to be filled with stones but imaging/surgery consult did not recommend acute surgery at this time given no abdominal pain and can follow up outpatient as desired. You can continue seroquel 25mg at night NEEDED for agitation as suspect with dementia having some owning but may not need once back in your home environment. Follow up with primary care in 7-10 days from discharge. Please return to the ER with any fever/chills, chest pain, shortness of breath, worsening mental status or for any other symptoms concerning for you. It has been a pleasure being a part of the medical team providing for you while you have been in the hospital. Take care! Pending Studies at Discharge: Yes (B1, Babesia PCR) Studies:: B1, Babesia PCR Stand-Alone Forms: My Mim[employer], Smoking Cessation Skilled Items Patient informed of condition?: Yes DNR: Yes Discharge Level of Care: Other Communicable Disease: No Discharge Prognosis: Stable Lines: None Urinary Catheter: No Medications and DC Order Prescriptions: New thiamine HCl (vitamin B1) 100 mg Tablet 200 mg PO BID 30 Days Qty: 120 0RF cyanocobalamin (vitamin B-12) 1,000 mcg capsule 1,000 mcg PO DAILY Qty: 30 0RF quetiapine 25 mg Tablet 25 mg PO HS PRN (Reason: Agitation) Qty: 14 0RF Continued cholecalciferol (vitamin D3) 1,000 unit tablet 1,000 units PO QAM metoprolol succinate 25 mg tablet extended release 24 hr 25 mg PO DAILY Qty: 90 3RF acetaminophen [Tylenol] 325 mg Tablet 650 mg PO Q6H MDD 3gm apap/24h PRN (Reason: pain or fever) Changed tamsulosin 0.4 mg capsule 0.4 mg PO BID Qty: 90 3RF lactulose [Enulose] 10 gram/15 mL solution 10 g PO QAM Qty: 0 0RF Held olmesartan 40 mg tablet 40 mg PO DAILY Qty: 90 3RF Hold Instructions: hold for next 24 hours and can resume if Cr improved/elevated BP Discontinued Eliquis 5 mg tablet 5 mg PO BID Qty: 60 5RF Hold Instructions: Resume on 02/16/23. metformin 1,000 mg tablet 1,000 mg PO BID Qty: 180 3RF Discharge Orders: Discharge Order (Routine); Ordered 08/16/24 Ordered By: Ivon Hodges Admission Data Admit Date/Time: 08/11/24 17:18 Attending Provider: Michelle Levine Admit Provider: Mike Stewart Primary Care Provider: Armando Valencia Other Providers: Mike Stewart; Jason Schultz; Jean-Pierre Villa Other Interventions: Discharge Summary Assessment (RN) Last Done: 08/16/24 13:04 Hospital Stay Data Consultations 08/10/24 11:39 ED Decision to Admit Stat 08/11/24 09:49 Consult Urology Routine 08/13/24 13:06 Consult General Surgery Routine Diagnostic Imagining Performed Abdomen/Pelvis CT 08/10/24 08:[address] WITH IV CONTRAST CT DOSE: 2710.42mGy*cm HISTORY: found down TECHNIQUE: Multiaxial CT images of the abdomen and pelvis were performed following the IV administration of 90 to cc of Optiray, sagittal and coronal reconstructions were performed. A dose lowering technique was utilized adhering to the principles of ALARA. COMPARISON STUDY: 01/05/2023 FINDINGS: Old right rib fractures are identified. There is no acute rib fracture seen. The lumbar spine demonstrates a known bilateral L5 pars defects with a grade 2 spondylolisthesis of L5 on S1. There is a newly demonstrated compression fracture of the superior endplate of L5 that has developed since 2022. The L2 vertebral body compression fracture is redemonstrated and unchanged. Multilevel lumbar spinal stenosis is once again noted. There are no new solid organ lesions appreciated. There is no traumatic injury identified of the solid organs. There is a small hiatal hernia. The gallbladder remains filled with small stones without gallbladder wall thickening or pericholecystic inflammation. The bile ducts are not dilated. There is no abdominal aortic aneurysm or periaortic adenopathy. The bowel gas pattern is nonspecific. There is no obstruction or free air. There is no ascites. There is no evidence of colitis or diverticulitis. In the pelvis, the prostate gland remains grossly enlarged. There is no generalized bladder wall thickening. There is a small focal calcification along the posterior aspect of the bladder wall not present on the prior examination. IMPRESSION: Compression fracture of the superior endplate of L5 has developed since 2022. This is not necessarily an acute finding. No additional skeletal changes have occurred since the prior examination. Multilevel lumbar spinal stenosis is noted. Bilateral L5 pars defect with a grade 2 spondylolisthesis is redemonstrated. Multiple small stones filling the gallbladder lumen once again noted. Grossly enlarged prostate gland. Newly demonstrated focal bladder wall calcification. I doubt whether this represents a intraluminal stone. A small developing transitional cell carcinoma is not excluded. ACT 112: Negative or not required by law. The above report was generated using voice recognition software. It may contain grammatical, syntax or spelling errors. Electronically signed by: Lula Morataya M.D. 08/10/2024 11:[address] 08/10/24 08:56 CT OF THE CERVICAL SPINE WITHOUT CONTRAST CLINICAL HISTORY: fall; found down COMPARISON STUDY: Cervical spine CT October 02, 2023. TECHNIQUE: Helical axial images of the cervical spine were obtained without IV contrast. Sagittal and coronal reconstructions were viewed. Automated exposure control was utilized for the study. A dose lowering technique was utilized adhering to the principles of ALARA. FINDINGS: Alignment of the cervical spine is anatomic. Vertebral body heights are maintained. No acute cervical spine fracture or subluxation is present. There is no prevertebral edema. Facet joints are intact. There is moderate to severe multilevel disc space narrowing, endplate osteophytosis and facet arthrosis within the cervical spine. Extensive degenerative changes at the C1-C2 articulation are again noted. An exophytic right lobe thyroid nodule is unchanged. IMPRESSION: No acute cervical spine fracture or subluxation. ACT 112: Negative or not required by law. Electronically signed by: Daljit Figueroa M.D. 08/10/2024 11:[address] 08/10/24 08:56 CT OF THE HEAD WITHOUT CONTRAST CLINICAL HISTORY: fall; found down COMPARISON STUDY: Head CT October 02, 2023. CT DOSE: 2710.42 mGy.cm TECHNIQUE: Helical axial images of the head were obtained without IV contrast. Automated exposure control was utilized for the study. A dose lowering technique was utilized adhering to the principles of ALARA. FINDINGS: No acute intracranial hemorrhage, midline shift or mass effect is present. The ventricular system is stable. The basal cisterns are patent. There are no extra axial collections. There are no findings to suggest acute dural sinus thrombosis or acute territorial infarct. There are postoperative findings within the sinuses. There are no calvarial fractures. IMPRESSION: No acute intracranial findings. No change in appearance of the brain. ACT 112: Negative or not required by law. Electronically signed by: Daljti Figueroa M.D. 08/10/2024 10:[address] 08/10/24 08:56 CT lumbar spine w con CLINICAL HISTORY: fall; found down COMPARISON STUDY: CT of the abdomen and pelvis January 05, 2023. TECHNIQUE: Axial images of the lumbar spine were obtained. Sagittal and coronal reformats were viewed. Automated exposure control was utilized for the study. A dose lowering technique was utilized adhering to the principles of ALARA. FINDINGS: Mild lumbar spine levoscoliosis is noted. There is moderate to severe multilevel disc space narrowing and endplate osteophytosis within the lumbar spine. There is severe facet arthrosis. Interstitial listhesis of L5 on S1 is similar to CT of January 05, 2023. Loss of height of the superior endplate of L5 is new since that exam. This is likely chronic. There is an old L2 fracture. This is unchanged. Subtle cortical irregularity of the inferior aspect of the S2 vertebral body is noted. There is trace prevertebral edema. Please note that the abdomen and pelvis CT will be reported separately. The gallbladder is filled with gallstones. IMPRESSION: 1. Acute minimally displaced fracture of the S2 vertebral body. 2. L5 compression fracture which is new since CT of January 05, 2023 but likely chronic. 3. No change in an old L2 fracture. 4. Severe multilevel degenerative changes within the lumbar spine. ACT 112: Negative or not required by law. Electronically signed by: Daljit Figueroa M.D. 08/10/2024 11:23 AM Pelvis X-Ray 08/10/24 08:56 XR pelvis 1-2V routine CLINICAL HISTORY: fall; found down COMPARISON: 10/02/2023 FINDINGS: Single view pelvis is unchanged. There is no acute fracture. An old fracture deformity with intramedullary ridge and femoral neck nail is redemonstrated. Mild degenerative changes are present in the right hip. There are degenerative changes throughout the lumbar spine. IMPRESSION: Stable exam; no acute findings. ACT 112: Negative or not required by law. Electronically signed by: Lula Morataya M.D. 08/10/2024 10:54 AM Chest X-Ray 08/10/24 08:57 XR chest 1V portable CLINICAL HISTORY: weakness COMPARISON STUDY: Chest CT January 05, 2023. Chest radiograph October 02, 2023. FINDINGS: There is no pneumothorax or pleural effusion. Cardiomegaly is unchanged. There is no evidence for pulmonary edema. There is no consolidation to suggest pneumonia. IMPRESSION: No acute cardiopulmonary findings. No change in appearance of the chest. ACT 112: Negative or not required by law. Electronically signed by: Daljit Figueroa M.D. 08/10/2024 10:56 AM Liver Ultrasound 08/11/24 07:10 US liver CLINICAL HISTORY: ?charline COMPARISON STUDY: Right upper quadrant ultrasound October 01, 2023. CT of the abdomen and pelvis June 09, 2025. FINDINGS: No hepatic lesions are identified. There is mild coarsening of hepatic echotexture. There is no biliary ductal dilatation. There are numerous g allstones within the gallbladder. There is no gallbladder wall thickening. No sonographic Schreiber sign was elicited. Pancreas is obscured. There is no right hydronephrosis. IMPRESSION: 1. Cholelithiasis. No evidence for acute cholecystitis. 2. No biliary ductal dilatation. ACT 112: Negative or not required by law. Electronically signed by: Daljit Figueroa M.D. 08/11/2024 10:54 AM Chest X-Ray 08/11/24 08:07 XR chest 2V PA/lateral CLINICAL HISTORY: eval PTX COMPARISON STUDY: Chest radiograph August 10, 2024. FINDINGS: There is no pneumothorax or pleural effusion. Cardiomegaly is unchanged. Mediastinal contours are stable. Interstitial prominence is unchanged. There is no consolidation. There are multiple old bilateral rib fractures. IMPRESSION: No acute cardiopulmonary findings. No significant change in appearance of the chest. ACT 112: Negative or not required by law. Electronically signed by: Daljit Figueroa M.D. 08/11/2024 11:19 AM Hepatobiliary Scan Nuclear Medicine 08/13/24 07:00 NUCLEAR MEDICINE HEPATOBILIARY SCAN CLINICAL HISTORY: Possible cholecystitis. COMPARISON: CT of the abdomen and pelvis August 10, 2024. Right upper quadrant ultrasound August 11, 2024. TECHNIQUE: 5.1 mCi of technetium 99m Choletec IV was injected at 10:44 AM on August 13, 2024. Immediately following injection, imaging of the abdomen was carried out for 60 minutes in the anterior projection. Gallbladder activity was not identified at 60 minutes. Therefore, 2 mg of morphine was administered IV as per protocol. FINDINGS: Hepatic uptake of radiotracer is prompt and homogeneous. Activity is identified within the common bile duct and small bowel at 15 minutes. Gallbladder activity was not identified at 60 minutes. Gallbladder activity was noted following injection of morphine. IMPRESSION: Gallbladder activity identified only following morphine administration. The scintigraphic findings suggest chronic cholecystitis. ACT 112: Negative or not required by law. Electronically signed by: Daljit Figueroa M.D. 08/13/2024 12:30 PM Pending Results Patient Have Any Pending Studies at Discharge: Yes (B1, [place] PCR) Discharge Instructions Given to Patient (Per Discharging Provider) Found down after fall. CT head negative for stroke. Mild elevation CK (enzyme for muscle breakdown) likely from being on the ground. You did have sacral fracture but have been quite stable from this stand point. Would continue tylenol as needed and walker with ambulation. You did not tolerate brace. B12 low -- were provided with shots x 3 in the hospital to help boost stores and recommend you continue 1000mcg PO daily at discharge. Low levels can be contributed with neuropathy/worsened balance issues as well as memory loss. You were having issues with urinary retention and urology was consulted and Flomax has been increased to twice daily. Recommend you have urology follow up for cystoscopy to ensure no underlying lesion. They saw you while you have been in the hospital and recommend you have outpatient follow up which they are to be arranging. Given prior alcohol use in the past (which can contribute to low B12 levels as well), we sent for B1 level and is pending at discharge but have started replacement/continued 200mg twice daily at discharge and can follow up on level once back and stop if not low but would be better to continue until this is back. Olmesartan has been HELD at discharge for now. Recommend monitoring your blood pressure and resume if needed but check BMP in next 24-48 hours to ensure staying stable. We have STOPPED ELIQUIS at discharge to prevent risk of bleeding with your falls. We have also STOPPED your metformin as A1c is great at 4.7 and would rather prevent drops in blood sugar which can cause worsened confusion. Your gall bladder was found to be filled with stones but imaging/surgery consult did not recommend acute surgery at this time given no abdominal pain and can follow up outpatient as desired. You can continue seroquel 25mg at night NEEDED for agitation as suspect with dementia having some sundowning but may not need once back in your home environment. Follow up with primary care in 7-10 days from discharge. Please return to the ER with any fever/chills, chest pain, shortness of breath, worsening mental status or for any other symptoms concerning for you. It has been a pleasure being a part of the medical team providing for you while you have been in the hospital. Take care! Total Time Total Time Spent Total Time Spent (In Minutes): 50 Coding Level of Care Code 33907 INP/OBS DISCH >30 MIN Diagnoses Metabolic encephalopathy G93.41 Elevated CK R74.8 Paroxysmal atrial fibrillation I48.0 Primary hypertension I10 Hypertension type: primary hypertension Type 2 diabetes mellitus E11.9 Elevated alkaline phosphatase level R74.8 Sinus bradycardia R00.1 1st degree AV block I44.0 B12 deficiency E53.8
[2024-08-16 13:05] VITALS: BP 133/66
== END 2024-08-16 14:30 | disposition home or self-care (01) | DRG 91 ==
LOC: SUATTDRO → ED 08:43 → 2N 08:43 → SUATTDRO 11:52 → 2N 13:04 → SUATTDRO 08-11 17:18 → 3N 08-14 20:49

== ENCOUNTER 2025-01-17 09:26 | Observation (INO) ==
--- NOTE | 2025-01-17 10:29 | Emergency Department Note ---
Impression & Plan Acute metabolic encephalopathy, Acute confusion, Lethargic ED Provider Note NAME: SAM ALMARAZ AGE: 89 SEX: M : 1935 ARRIVES VIA: Ambulance INFORMANT: Patient, ED PROVIDER(S): Calixto Rincon MD CHIEF COMPLAINT: Confusion HPI: This is a 89-year-old male present for confusion. Patient resides at [facility], was recently placed on Macrobid for UTI on as per nursing note. Reported patient's baseline is able to hold conversation. Currently patient has been more fatigued during my examination. He states he feels okay overall but then falls asleep. No nausea, vomiting or pain currently as per self-report. ROS: See above HPI for pertinent positives & negatives. A total of 10 systems reviewed and were otherwise negative. PAST MEDICAL HISTORY: See Below PAST SURGICAL HISTORY: See Below FAMILY HISTORY: See Below SOCIAL HISTORY: See Below HOME MEDICATIONS: See Below ALLERGIES: See Below VITALS: See Below PHYSICAL EXAMINATION: General: Sleepy but arousable Head: Normocephalic and atraumatic Eyes: Normal inspection, extraocular muscles intact Ear, nose, throat: Normal external exam Neck: Normal range of motion Respiratory: lungs clear to auscultation bilaterally Cardiovascular: Regular rate/rhythm, no murmur GI: soft, nontender, no guarding or rebound Extremities: nontender, moves all extremities Neuro: Awake, alert, conversive, no focal deficits Skin: Warm, dry, and intact MEDICAL DECISION MAKING: This is a 89-year male presenting for confusion. Patient does appear to have acute delirium. Will do urinalysis and basic blood to assess. No signs of external head trauma. - bloodwork is reviewed showing no significant leukocytosis, anemia, electrolyte or creatinine abnormality - Urinalysis unrevealing - Due to the consistent confusion/delirium, will admit for further workup. Will add CT head to rule out trauma - CT imaging negative at this time with the limitations -Discussed with on-call hospitalist for [facility] Differential diagnosis: UTI, delirium, SAH, intracranial hemorrhage Diagnostics interpreted by me: ECG: None Cardiac Monitoring: An order was placed for continuous cardiac monitoring. The monitor shows a rate of 61 with sinus rhythm. Past Med/Surg History Problem List (Updated 01/18/25 @ 15:20 by Calixto Rincon MD) Lethargic (Acute) Acute confusion (Acute) Acute metabolic encephalopathy (Acute) Urinary retention due to benign prostatic hyperplasia CHF (congestive heart failure) Orthopnea Gallstones B12 deficiency Non-ST elevation DE (NSTEMI) (Acute) Fall (Acute) Elevated CK (Acute) Compression fracture of lumbar vertebra (Acute) Acute confusion (Acute) Elevated CK Metabolic encephalopathy 1st degree AV block Sinus bradycardia Cirrhosis of liver Elevated alkaline phosphatase level Pleural effusion Rib fracture Exertional shortness of breath Incomplete bladder emptying Nocturia Dysfunctional voiding of urine UTI (urinary tract infection) Lower urinary tract symptoms (LUTS) Insomnia H/O squamous cell carcinoma Vascular dementia (Acute) Anticoagulated Paroxysmal atrial fibrillation Atrial fibrillation with rapid ventricular response Toxic encephalopathy Nausea with vomiting Hematuria Encounter for pre-operative examination Closed fracture of left hip (Acute) Closed left hip fracture Greater trochanteric bursitis of right hip Gait abnormality Myofascial pain Right hip pain Anterolisthesis (Chronic) Spinal stenosis of lumbar region (Chronic) Pars defect of lumbar spine (Chronic) Lumbar compression fracture (Chronic) Sacroiliitis (Chronic) Allergic rhinitis (Acute) Arthritis (Acute) Inhibited sexual excitement (Acute) Sciatica of right side (Acute) Type 2 diabetes mellitus (Acute) Diabetes mellitus (Chronic) Hypertension (Chronic) Medical History Atrial fibrillation History of gastritis Surgical History S/P tonsillectomy S/P tooth extraction S/P colonoscopy History of knee replacement Family History Mother Diabetes Renal failure History of miscarriage Sister Uterine cancer Ovarian cancer Father Cardiomegaly Colon cancer Family/Other No problems noted. Denies family history of Prostate cancer Myocardial infarction Breast cancer Social History Smoking Status: Unknown if ever smoked Tobacco Type: Cigarettes Age Started Using Tobacco: 18; Age Quit Using Tobacco: 21; packs per day: 0.5; Second Hand Exposure: No; Do You Dip or Chew Tobacco: No; Hx Alcohol Use: No Hx Substance Use: No Preferred Language: Sinhala Communication Ability: Effective Visual Impairment: No Limitations Hearing Ability: Normal [employer] Required: No Beliefs That Will Affect Care: Mosque marital status: Current Living Situation: Personal Care Facility current occupational status: retired Feels Safe at Home: Yes Dental Care, Regularly: Yes Physical Activity Frequency: 3-4 Times per Week Physical Activity Frequency Comment: Regularly, stationary bike Seatbelt Use: always Sunscreen Use: Yes Assistive Devices: Walker Allergies Allergies Allergy/AdvReac Type Severity Reaction Status Date / Time house dust Allergy Mild Congested Verified 01/17/25 14:27 lorazepam Allergy Unknown Unknown Verified 01/17/25 14:27 Home Meds Home Medications Medication Instructions Recorded Confirmed acetaminophen 325 mg tablet 650 mg PO Q6H PRN pain or fever 10/02/23 01/17/25 (Tylenol) acetaminophen 650 mg rectal 650 mg DC Q4H PRN Mild Pain/Fever 01/17/25 01/17/25 suppository diazepam 5 mg tablet 5 mg PO BID 01/17/25 01/17/25 docusate sodium 100 mg tablet (DOK) 100 mg PO BID 01/17/25 01/17/25 glycopyrrolate 1 mg tablet 1 - 2 mg PO Q4H PRN Secretions 01/17/25 01/17/25 lactulose 10 gram/15 mL oral 10 g PO QAM PRN Constipation 01/17/25 01/17/25 solution (Enulose) metoprolol succinate 25 mg 25 mg PO QAM 01/17/25 01/17/25 tablet,extended release 24 hr morphine concentrate 100 mg/5 mL 10 - 20 mg PO Q30M PRN Pain/Air 01/17/25 01/17/25 (20 mg/mL) oral solution Hunger multivitamin 1 tab PO QAM 01/17/25 01/17/25 nitrofurantoin 100 mg PO BID 01/17/25 01/17/25 monohydrate/macrocrystals 100 mg capsule (Macrobid) olmesartan 40 mg tablet 40 mg PO QAM 01/17/25 01/17/25 promethazine 25 mg tablet 25 mg PO Q6H PRN Nausea And 01/17/25 01/17/25 Vomiting Previous Rx's Medication Instructions Recorded polyethylene glycol 3350 17 17 g PO DAILY PRN constipation 08/18/24 gram/dose oral powder (Miralax) #119 grams tamsulosin 0.4 mg capsule 0.4 mg PO BID #90 caps 11/22/24 Results & Data (ED) Vital Signs Vital Signs - 24 hr 01/17/25 09:47 01/17/25 09:53 01/17/25 12:00 Temperature 36.6 C Temperature Source Oral Pulse Rate 86 79 Pulse Rate [Apical] Respiratory Rate 16 14 Respiratory Effort / Characteristics Non-Labored Spontaneous Respiratory Depth Normal Respiratory Pattern Regular Blood Pressure 130/82 130/97 Blood Pressure [Left Arm] Blood Pressure Mean 98 103 Blood Pressure Mean [Left Arm] Pulse Oximetry 94 95 Oxygen Delivery Method Room Air Room Air Sepsis Recent Fever Within 48 Hours No Sepsis New/Unexplained Change in Mental Status No Sepsis Action Taken by Nursing No Action Required 01/17/25 12:00 01/17/25 12:26 01/17/25 12:31 Temperature Temperature Source Pulse Rate 87 88 Pulse Rate [Apical] 90 Respiratory Rate 16 15 Respiratory Effort / Characteristics Non-Labored Spontaneous Respiratory Depth Normal Respiratory Pattern Blood Pressure 129/72 Blood Pressure [Left Arm] 130/92 Blood Pressure Mean 85 Blood Pressure Mean [Left Arm] 104 Pulse Oximetry 94 Oxygen Delivery Method Room Air Sepsis Recent Fever Within 48 Hours Sepsis New/Unexplained Change in Mental Status Sepsis Action Taken by Nursing 01/17/25 13:00 Temperature Temperature Source Pulse Rate Pulse Rate [Apical] 61 Respiratory Rate 16 Respiratory Effort / Characteristics Respiratory Depth Respiratory Pattern Blood Pressure Blood Pressure [Left Arm] 142/72 H Blood Pressure Mean Blood Pressure Mean [Left Arm] 95 Pulse Oximetry 96 Oxygen Delivery Method Room Air Sepsis Recent Fever Within 48 Hours Sepsis New/Unexplained Change in Mental Status Sepsis Action Taken by Nursing Laboratory Data 01/18/25 04:29 01/18/25 04:29 Lab Results 01/17/25 01/17/25 01/17/25 Range/Units 10:33 10:50 11:08 WBC 10.06 (4.8-10.8) K/ul RBC 4.67 L (4.70-6.10) M/uL Hgb 13.6 L (14.0-18.0) g/dl Hct 39.5 L (42.0-52.0) % MCV 84.6 (80.0-100.0) fL MCH 29.1 (25.0-34.0) pg MCHC 34.4 (32.0-36.0) g/dL RDW Std Deviation 41.8 (36.4-46.3) fL RDW Coeff of Thierry 13.5 (11.5-14.5) % Plt Count 165 (130-400) K/uL MPV 9.8 (9.4-12.4) fL Immature Gran % (Auto) 0.5 % Neut % (Auto) 81.6 % Lymph % (Auto) 7.7 % [place] % (Auto) 8.1 % Eos % (Auto) 1.9 % Baso % (Auto) 0.2 % Neut # (Auto) 8.22 H (1.40-6.50) K/uL Lymph # (Auto) 0.77 L (1.20-3.40) K/uL [place] # (Auto) 0.81 H (0.11-0.59) K/uL Eos # (Auto) 0.19 (0.00-0.50) K/uL Baso # (Auto) 0.02 (0.00-0.20) K/uL Immature Gran # (Auto) 0.05 (0.01-0.20) K/uL Sodium 134 L (136-145) mmol/L Potassium 4.6 (3.5-5.1) mmol/L Chloride 100 (98-107) mmol/L Carbon Dioxide 25 (21-32) mmol/L Anion Gap 9 (3-11) BUN 24 H (6-23) mg/dl Creatinine 1.26 (0.6-1.4) mg/dl Est Cr Clr Drug Dosing 44.0 ml/min eGFR 55.20 BUN/Creatinine Ratio 19.0 (10-20) Glucose 184 H (70-99(Fasting)) mg/dl POC Glucose 187 H (70-99) mg/dl Calcium 8.9 (8.6-10.3) mg/dl Total Bilirubin 2.3 H (0.2-1.0) mg/dl AST 34 (13-39) U/L ALT 32 (7-52) U/L Alkaline Phosphatase 348 H (34-104) U/L Total Protein 6.7 (6.0-8.3) gm/dl Albumin 3.5 (3.4-5.0) gm/dl Globulin 3.2 (2.5-4.0) gm/dl Albumin/Globulin Ratio 1.1 (0.9-2) Urine Color Dark Yellow Urine Appearance Clear (Clear) Urine pH 5.5 (4.5-7.5) Ur Specific [place] 1.015 (1.000-1.030) Urine Protein 1+ H (Negative) Urine Glucose (UA) Negative (Negative) Urine Ketones Trace H (Negative) Urine Blood Negative (Negative) Urine Nitrite Negative (Negative) Urine Bilirubin Negative (Negative) Urine Urobilinogen Negative (Negative) Ur Leukocyte Esterase Negative (Negative) Urine WBC (Auto) 0-5 (0-5) /hpf Urine RBC (Auto) 0-2 (0-2) /hpf U Hyaline Cast (Auto) 0-2 (0-2) /lpf U Epithel Cells (Auto) 0-2 (0-2) /hpf Urine Bacteria (Auto) None Seen (None Seen) Urine Comment Administered Medications Enoxaparin Sodium (Enoxaparin Inj 40 Mg/0.4 Ml Syr) 40 mg SQ QAM [facility] Stop: 02/17/25 08:59 Last Admin: 01/18/25 10:23 Dose: 40 mg Documented By: ARELY Nystatin (Nystatin Powder 15gm Btl) 1 appln EXT BID PRN PRN Reason: intertrigo Stop: 02/17/25 05:52 Last Admin: 01/18/25 06:32 Dose: 1 appln Documented By: GEN Quetiapine Fumarate (Quetiapine Fumarate 25 Mg Tablet) 25 mg PO HS PRN PRN Reason: Agitation Stop: 02/16/25 16:19 Last Admin: 01/17/25 20:18 Dose: 25 mg Documented By: DONNA Tamsulosin HCl (Tamsulosin Hcl 0.4 Mg Cap) 0.4 mg PO BID [facility] Stop: 02/16/25 20:59 Last Admin: 01/18/25 10:23 Dose: 0.4 mg Documented By: Admin: 01/17/25 20:20 Dose: 0.4 mg Documented By: DONNA Vitamin D (Cholecalciferol 25 Mcg (1000 Units) Tab) 25 mcg PO QAM [facility] Stop: 02/17/25 08:59 Last Admin: 01/18/25 10:23 Dose: 25 mcg Documented By: ARELY Discontinued Medications Acetaminophen (Acetaminophen 1000 Mg/100 Ml Iv) Confirm Administered Dose 1,000 mg IV .STK-MED ONE Stop: 01/18/25 00:50 Last Admin: 01/18/25 01:24 Dose: Not Given Documented By: CINDY Sodium Chloride (Nss) 1,000 mls @ 125 mls/hr IV .Q8H DAMASO Stop: 01/18/25 06:59 Last Infusion: 01/18/25 11:55 Dose: Infused Documented By: Admin: 01/18/25 00:50 Dose: 125 mls/hr Documented By: Infusion: 01/18/25 00:49 Dose: Infused Documented By: Admin: 01/17/25 15:59 Dose: 125 mls/hr Documented By: DONNA Acetaminophen (Ofirmev) 1,000 mg in 100 mls @ 400 mls/hr IV NOW STA Stop: 01/18/25 01:22 Last Infusion: 01/18/25 02:14 Dose: Infused Documented By: Admin: 01/18/25 01:24 Dose: 400 mls/hr Documented By: CINDY Olanzapine (Olanzapine 2.5 Mg Tab) 2.5 mg PO ONCE ONE Stop: 01/17/25 21:46 Last Admin: 01/17/25 22:05 Dose: Not Given Documented By: DONNA Olanzapine (Olanzapine 10 Mg/2.1 Ml Sdv) 2.5 mg IM NOW STA Stop: 01/17/25 22:01 Last Admin: 01/17/25 22:14 Dose: 2.5 mg Documented By: DONNA Imaging Data Radiologist's Impression: Head CT 01/17/25 13:07 CT SCAN OF THE BRAIN WITHOUT IV CONTRAST CLINICAL HISTORY: Change in mental status. Fall. COMPARISON STUDY: CT of the brain dated 12/30/2024 TECHNIQUE: Unenhanced axial CT scan of the brain is performed from the vertex to the skull base. Images are reviewed in the axial, sagittal, coronal planes. A dose lowering technique was utilized adhering to the principles of ALARA. The patient was scanned twice due to motion artifact. CT DOSE: 1250.21 mGy.cm FINDINGS: Brain parenchyma: There is age-related involutional change noting mild subcortical and periventricular microangiopathic disease. There is no hemorrhage, mass effect, or evidence of acute territorial ischemia by CT criteria. Green-white matter differentiation is preserved. No extra-axial fluid collection is seen. Ventricles, sulci, cisterns: Prominent secondary to involutional change. Cavum septum pellucidum is incidentally noted. Intracranial vasculature: There is atherosclerotic calcification of the cavernous carotid and vertebral arteries. Calvarium: Unremarkable. Sinuses and mastoids: There is evidence of previous paranasal sinus surgery. There is [id number] mucosal thickening within the maxillary antra. The remaining visualized paranasal sinuses are clear. The mastoid air cells are well pneumatized. Orbits: The bony orbits are grossly intact. IMPRESSION: There is no hemorrhage, mass effect, or evidence of acute territorial ischemia by CT criteria noting a degraded examination. ACT 112: Negative or not required by law. Electronically signed by: Amadeo Woodruff M.D. 01/17/2025 1:32 PM Discharge Plan Visit Data Chief Complaint: Altered Mental Status Stated Complaint: CONFUSION, FALL ED Provider: Calixto Rincon Discharge Problem: Acute metabolic encephalopathy, Acute confusion, Lethargic Patient Disposition: Admitted As Inpatient Condition: Fair Discharge Instructions Interventions: ED Discharge Assessment Last Done: 01/17/25 16:21
[2025-01-17 11:13] LABS: Hematocrit (blood only) 39.5 % (42.0-52.0); Hemoglobin 13.6 g/dl (14.0-18.0); Immature Granulocytes # (auto) 0.05 K/uL (0.01-0.20); Immature Granulocytes % (auto) 0.5 %; Mean Corpuscular Hemoglobin 29.1 pg (25.0-34.0); Mean Corpuscular Volume 84.6 fL (80.0-100.0); Platelet Count 165 K/uL (130-400); RDW Standard Deviation 41.8 fL (36.4-46.3); Red Blood Count 4.67 M/uL (4.70-6.10); White Blood Count 10.06 K/ul (4.8-10.8)
[2025-01-17 11:30] LABS: Alanine Aminotransferase 32.0 U/L (7-52); Albumin Globulin Ratio 1.1 (0.9-2); Alkaline Phosphatase 348.0 U/L (34-104); Anion Gap 9.0 (3-11); Bilirubin,Total 2.3 mg/dl (0.2-1.0); Blood Urea Nitrogen 24.0 mg/dl (6-23); Calcium 8.9 mg/dl (8.6-10.3); Carbon Dioxide 25.0 mmol/L (21-32); Chloride 100.0 mmol/L (98-107); Creatinine Clr Calc Pharmacy 44.0 ml/min; Globulin 3.2 gm/dl (2.5-4.0); Glucose 184.0 mg/dl (70-99(Fasting)); Potassium 4.6 mmol/L (3.5-5.1); Sodium 134.0 mmol/L (136-145); Total Protein 6.7 gm/dl (6.0-8.3)
[2025-01-17 11:52] LABS: Appearance Urine Clear (Clear); Bacteria Urine Automated None Seen (None Seen); Cast Urine Automated 0-2 /lpf (0-2); Epithelial Cell Urine Auto 0-2 /hpf (0-2); Glucose Urine UA Negative (Negative); RBC Urine Automated 0-2 /hpf (0-2); WBC Urine Automated 0-5 /hpf (0-5)
[2025-01-17] MEDS ORDERED: ACETAMINOPHEN 325 MG TAB PO PRN (13:18)
[2025-01-17] MEDS ORDERED: ONDANSETRON INJ 2 MG/ML 2 ML VIAL IV PRN (13:18)
[2025-01-17] MEDS ORDERED: POLYETHYLENE (MIRALAX) 17 GM PACK PO PRN (13:18)
--- NOTE | 2025-01-17 13:33 | CT Scan Report ---
CT SCAN OF THE BRAIN WITHOUT IV CONTRAST CLINICAL HISTORY: Change in mental status. Fall. COMPARISON STUDY: CT of the brain dated 12/30/2024 TECHNIQUE: Unenhanced axial CT scan of the brain is performed from the vertex to the skull base. Imag es are reviewed in the axial, sagittal, coronal planes. A dose lowering technique was utilized adheri ng to the principles of ALARA. The patient was scanned twice due to motion artifact. CT DOSE: 1250.21 mGy.cm FINDINGS: Brain parenchyma: There is age-related involutional change noting mild subcortical and periventricula r microangiopathic disease. There is no hemorrhage, mass effect, or evidence of acute territorial isc hemia by CT criteria. Green-white matter differentiation is preserved. No extra-axial fluid collection is seen. Ventricles, sulci, cisterns: Prominent secondary to involutional change. Cavum septum pellucidum is i ncidentally noted. Intracranial vasculature: There is atherosclerotic calcification of the cavernous carotid and vertebr al arteries. Calvarium: Unremarkable. Sinuses and mastoids: There is evidence of previous paranasal sinus surgery. There is [id number] e mucosal thickening within the maxillary antra. The remaining visualized paranasal sinuses are clear . The mastoid air cells are well pneumatized. Orbits: The bony orbits are grossly intact. IMPRESSION: There is no hemorrhage, mass effect, or evidence of acute territorial ischemia by CT mayda martinez noting a degraded examination. ACT 112: Negative or not required by law. Electronically signed by: Amadeo Woodruff M.D. 01/17/2025 1:32 PM
--- NOTE | 2025-01-17 13:39 | History & Physical Report ---
"Date of Service January 17, 2025 Assessment & Plan (1) Metabolic encephalopathy: (2) Paroxysmal atrial fibrillation: (3) Hypertension: (4) Elevated alkaline phosphatase level: (5) Urinary retention due to benign prostatic hyperplasia: Plan Anthony is a pleasantly confused 89-year-old man with past medical history of vascular dementia, hypertension, paroxysmal A-fib, CKD, spinal stenosis, cirrhosis, and T2DM no longer on medications. He presented from [facility] with altered mental status. Daughter reports this has been ongoing for ~1 week, but states his continuous improvement intern reports it has been ongoing for ~1 month. Daughter confirms she revoked hospice for this hospitalization but wants to resume hospice on discharge. #Metabolic encephalopathy | Vascular Dementia - likely acute delirium multifactorial between acute dehydration, recent Macrobid use for UTI, recent benzo use in setting of vascular dementia. If no improvement with supportive measures, could be progressive decline of vascular dementia - No signs of infection on admission. No leukocytosis, UA negative, VSS - IV fluids with NSS @ 125 cc/hr x 2 bags - Ammonia level WNL at 30 on admission - Continue Seroquel 25 mg HS PRN agitation. Daughter confirms that diazepam is discontinued - Delirium prevention strategies - Fall precautions - PT/OT evaluations #Paroxysmal A-fib - Eliquis was discontinued during his last hospital stay in July 2024. - Continue metoprolol 25 mg daily #Elevated Alk Phos - intermittently elevated in past. Continue to trend #Constipation | Cirrhosis - continue MiraLAX daily PRN, lactulose daily PRN #Hypertension - continue Olmesartan 40 mg daily #Urinary retention | BPH - continue Flomax BID #DMT2 - metformin discontinued in July 2024 with A1c 4.7% DVT PPx: Lovenox Dispo: med/surg DaughterMegan, called for collateral info and update on admission Reviewed outpatient records History of Present Illness Chief Complaint: Altered mental status Primary Care Provider: Armando Valencia MD Anthony is an 89-year-old man with past medical history of vascular dementia, hypertension, paroxysmal A-fib, CKD, spinal stenosis, cirrhosis, and T2DM no longer on medications. He presented from [facility] with altered mental status. At the time of my exam, the patient was lying in bed in no acute distress. He is lethargic but arouses to voice. No meaningful ROS able to be obtained. ED physician and RN report he is confused at baseline secondary to vascular dementia but is usually more alert and oriented than he is currently. Discussed via phone call with his daughter, Megan, who provides collateral information. He was prescribed Macrobid last week for UTI and was also recently started on diazepam 5 mg twice daily and received about 2 days worth of this medication before his daughter requested it to be discontinued on Sunday 01/14. His daughter reports she has noticed an altered mental status and the patient for about 1 week. She states that his continuous improvement intern reports an altered mental status from his baseline for approximately 1 month. Daughter confirmed that hospice services were revoked for this hospitalization and she intends to resume hospice services on discharge. Vitals on admission are all stable. Labs on admission are significant for T. bili elevated at 2.3, alk phos elevated at 348. No leukocytosis, Hgb at baseline with chronic anemia, UA negative. Head CT on admission reveals periventricular microangiopathic disease, but no hemorrhage, mass effect, or evidence of acute territorial ischemia. We discussed code status, daughter reports that Mr. Wild is DNR/DNI. Allergies Allergy/AdvReac Type Severity Reaction Status Date / Time house dust Allergy Mild Congested Verified 01/17/25 14:27 lorazepam Allergy Unknown Unknown Verified 01/17/25 14:27 Home Medications Medication Instructions Recorded Confirmed Type acetaminophen 325 mg tablet 650 mg PO Q6H PRN pain or fever 10/02/23 01/17/25 History (Tylenol) polyethylene glycol 3350 17 17 g PO DAILY PRN constipation 08/18/24 01/17/25 Rx gram/dose oral powder (Miralax) #119 grams tamsulosin 0.4 mg capsule 0.4 mg PO BID #90 caps 11/22/24 01/17/25 Rx acetaminophen 650 mg rectal 650 mg NC Q4H PRN Mild Pain/Fever 01/17/25 01/17/25 History suppository diazepam 5 mg tablet 5 mg PO BID 01/17/25 01/17/25 History docusate sodium 100 mg tablet (DOK) 100 mg PO BID 01/17/25 01/17/25 History glycopyrrolate 1 mg tablet 1 - 2 mg PO Q4H PRN Secretions 01/17/25 01/17/25 History lactulose 10 gram/15 mL oral 10 g PO QAM PRN Constipation 01/17/25 01/17/25 History solution (Enulose) metoprolol succinate 25 mg 25 mg PO QAM 01/17/25 01/17/25 History tablet,extended release 24 hr morphine concentrate 100 mg/5 mL 10 - 20 mg PO Q30M PRN Pain/Air 01/17/25 01/17/25 History (20 mg/mL) oral solution Hunger multivitamin 1 tab PO QAM 01/17/25 01/17/25 History nitrofurantoin 100 mg PO BID 01/17/25 01/17/25 History monohydrate/macrocrystals 100 mg capsule (Macrobid) olmesartan 40 mg tablet 40 mg PO QAM 01/17/25 01/17/25 History promethazine 25 mg tablet 25 mg PO Q6H PRN Nausea And 01/17/25 01/17/25 History Vomiting Past Med/Surg History Problem List (Updated 01/17/25 @ 13:44 by Michelle Reynolds PA-C) Urinary retention due to benign prostatic hyperplasia CHF (congestive heart failure) Orthopnea Gallstones B12 deficiency Non-ST elevation IN (NSTEMI) (Acute) Fall (Acute) Elevated CK (Acute) Compression fracture of lumbar vertebra (Acute) Acute confusion (Acute) Elevated CK Metabolic encephalopathy 1st degree AV block Sinus bradycardia Cirrhosis of liver Elevated alkaline phosphatase level Pleural effusion Rib fracture Exertional shortness of breath Incomplete bladder emptying Nocturia Dysfunctional voiding of urine UTI (urinary tract infection) Lower urinary tract symptoms (LUTS) Insomnia H/O squamous cell carcinoma Vascular dementia (Acute) Anticoagulated Paroxysmal atrial fibrillation Atrial fibrillation with rapid ventricular response Toxic encephalopathy Nausea with vomiting Hematuria Encounter for pre-operative examination Closed fracture of left hip (Acute) Closed left hip fracture Greater trochanteric bursitis of right hip Gait abnormality Myofascial pain Right hip pain Anterolisthesis (Chronic) Spinal stenosis of lumbar region (Chronic) Pars defect of lumbar spine (Chronic) Lumbar compression fracture (Chronic) Sacroiliitis (Chronic) Allergic rhinitis (Acute) Arthritis (Acute) Inhibited sexual excitement (Acute) Sciatica of right side (Acute) Type 2 diabetes mellitus (Acute) Diabetes mellitus (Chronic) Hypertension (Chronic) Medical History Atrial fibrillation History of gastritis Surgical History S/P tonsillectomy S/P tooth extraction S/P colonoscopy History of knee replacement Family History Mother Diabetes Renal failure History of miscarriage Sister Uterine cancer Ovarian cancer Father Cardiomegaly Colon cancer Family/Other No problems noted. Denies family history of Prostate cancer Myocardial infarction Breast cancer Social History Smoking Status: Unknown if ever smoked Tobacco Type: Cigarettes Age Started Using Tobacco: 18; Age Quit Using Tobacco: 21; packs per day: 0.5; Second Hand Exposure: No; Do You Dip or Chew Tobacco: No; Hx Alcohol Use: No Hx Substance Use: No Preferred Language: Romanian Communication Ability: Impaired Visual Impairment: No Limitations Hearing Ability: Normal Water Taxi Operator Required: No Beliefs That Will Affect Care: None marital status: Current Living Situation: Personal Care Facility current occupational status: retired Feels Safe at Home: Yes Dental Care, Regularly: Yes Physical Activity Frequency: 3-4 Times per Week Physical Activity Frequency Comment: Regularly, stationary bike Seatbelt Use: always Sunscreen Use: Yes Assistive Devices: Walker Review of Systems Review of Systems: Unobtainable due to cognitive status Physical Exam Physical Exam: General: No acute distress, nondiaphoretic, well-developed, well-nourished. Lethargic but arouses to voice. Skin: Warm, dry. Mucous membranes dry. Mild jaundice. 1+ pitting edema bilaterally. No rashes noted. Cardiac: Regular rate and rhythm without murmurs gallops or rubs. Pulm: Clear to auscultation bilaterally without wheezes, rales or rhonchi. Normal respiratory effort. 94% on room air. Abdominal: Soft, nontender, nondistended. Bowel sounds present. Neuro: Arousable to verbal stimuli. No focal neurological deficits. Results & Data Results & Data Vital Signs (Past 12 Hours) Vital Signs Temp Pulse Resp BP Pulse Ox O2 Del Method 01/17/25 12:31 88 15 129/72 01/17/25 12:26 87 01/17/25 12:00 79 14 130/97 01/17/25 09:53 95 Room Air 01/17/25 09:47 97.9 F 86 16 130/82 94 Room Air Laboratory Results Reviewed CBC with differential Reviewed CMP, chemistries Reviewed UA Diagnostic Findings Reviewed head CT Supervising Physician Co-Signing Physician Notes I personally examined the patient and verified all riley points of history and exam, discussed case, and agree with decision making with Anabell Reynolds PA-C No meaningful HPI or review of systems obtainable. Vitals noted, in general he is awake confused no distress. HEENT normocephalic atraumatic mucous membranes moist. Breathing unlabored no accessory muscle use good effort. Skin without rashes pallor or icterus. Neuro without focal deficits. Delirium superimposed on dementiamost likely dehydration given that no other etiology is readily apparent and his BUN and creatinine are slightly higher than his prior. Gentle IV fluids, serial exams, serial labs, time. Otherwise as above. PG Care Time/CCT Total # of Minutes Spent Total Time Spent with Patient: Total time spent is greater than 50% in coordination of care (as documented) at patient's floor/unit and/or counseling patient: Coding Level of Care Code 72795 INT INP/OBS CARE 75MIN Diagnoses Metabolic encephalopathy G93.41 Paroxysmal atrial fibrillation I48.0 Primary hypertension I10 Hypertension type: primary hypertension Elevated alkaline phosphatase level R74.8 Urinary retention due to benign prostatic hyperplasia N40.1; R33.8 (3) Hypertension Hypertension type: primary hypertension Qualified Code(s): I10 - Essential (primary) hypertension"
[2025-01-17] MEDS: SODIUM CHLORIDE 0.9% 1,000 ML IV SCH (15:59)
[2025-01-17] MEDS ORDERED: LACTULOSE SYRUP 10 GM/15 ML BTL 960 ML PO PRN (16:20)
[2025-01-17] MEDS: TAMSULOSIN HCL 0.4 MG CAP PO SCH (20:20)
[2025-01-17] MEDS: OLANZAPINE 2.5 MG TAB PO ONE (21:58)
--- NOTE | 2025-01-17 22:17 | XRay Report ---
EXAM: XR chest 2V PA/lateral CLINICAL HISTORY: Right-sided rib pain, recurrent falls TECHNIQUE: X-ray images of the chest were obtained in posteroanterior (PA) and lateral projections. COMPARISON: 10/21/2024 FINDINGS: Pulmonary Parenchyma: There is bilateral hilar pulmonary vascular congestion. Patchy right lower lobe airspace opacity. Additionally, patchy opacities also noted in right upper lobe medially with presence of air bronchogram. Small right pleural effusion. Mild left basilar atelectasis. Heart and Mediastinum: The cardiomediastinal send it is mildly enlarged. No mediastinal widening or masses. No hilar or mediastinal lymphadenopathy. Bony Thorax: Bony thorax appears intact without fractures or deformities. Multilevel mild thoracic spondylosis. Mild degenerative changes are seen at both shoulder joints. Soft Tissues: Soft tissues overlying the chest wall are unremarkable. IMPRESSION: 1. Stable cardiomegaly with pulmonary vascular congestive changes. 2. Slight interval progression of right lower airspace consolidation. 3. Interval new development of right upper lobe airspace opacity. 4. Stable small right pleural effusion. 5. No other significant interval changes. Clinical correlation and follow-up is recommended. Electronically signed by Alfredo Fried 01-17-2025 10:17 PM
[2025-01-18] MEDS: ACETAMINOPHEN 1,000 MG/100 ML VIAL IV STA (01:24)
[2025-01-18] MEDS: ACETAMINOPHEN 1000 MG/100 ML IV IV ONE (01:24)
[2025-01-18 04:49] LABS: Hematocrit (blood only) 33.0 % (42.0-52.0); Hemoglobin 11.5 g/dl (14.0-18.0); Immature Granulocytes # (auto) 0.04 K/uL (0.01-0.20); Immature Granulocytes % (auto) 0.4 %; Mean Corpuscular Hemoglobin 29.6 pg (25.0-34.0); Mean Corpuscular Volume 84.8 fL (80.0-100.0); Platelet Count 140 K/uL (130-400); RDW Standard Deviation 41.8 fL (36.4-46.3); Red Blood Count 3.89 M/uL (4.70-6.10); White Blood Count 10.03 K/ul (4.8-10.8)
[2025-01-18 05:08] LABS: Alanine Aminotransferase 26.0 U/L (7-52); Albumin Globulin Ratio 1.0 (0.9-2); Alkaline Phosphatase 264.0 U/L (34-104); Anion Gap 7.0 (3-11); Bilirubin,Total 1.7 mg/dl (0.2-1.0); Blood Urea Nitrogen 29.0 mg/dl (6-23); Calcium 8.0 mg/dl (8.6-10.3); Carbon Dioxide 23.0 mmol/L (21-32); Chloride 104.0 mmol/L (98-107); Creatinine Clr Calc Pharmacy 41.7 ml/min; Globulin 2.8 gm/dl (2.5-4.0); Glucose 148.0 mg/dl (70-99(Fasting)); Potassium 4.2 mmol/L (3.5-5.1); Sodium 134.0 mmol/L (136-145); Total Protein 5.7 gm/dl (6.0-8.3)
[2025-01-18] MEDS: NYSTATIN POWDER 15GM BTL EXT PRN (06:32)
[2025-01-18] MEDS: CHOLECALCIFEROL 25 MCG (1000 UNITS) TAB PO SCH (10:23)
[2025-01-18] MEDS: ENOXAPARIN INJ 40 MG/0.4 ML SYR SQ SCH (10:23)
--- NOTE | 2025-01-18 16:40 | Hospitalist Progress Note ---
"Date of Service January 18, 2025 Assessment & Plan (1) Metabolic encephalopathy: (2) Paroxysmal atrial fibrillation: (3) Hypertension: (4) Elevated alkaline phosphatase level: (5) Urinary retention due to benign prostatic hyperplasia: Plan Anthony is a pleasantly confused 89-year-old man with past medical history of vascular dementia, hypertension, paroxysmal A-fib, CKD, spinal stenosis, cirrhosis, and T2DM no longer on medications. He presented from [facility] with altered mental status. Daughter reports this has been ongoing for ~1 week, but states his sneller hand reports it has been ongoing for ~1 month. Daughter confirms she revoked hospice for this hospitalization but wants to resume hospice on discharge. Ammonia level WNL at 30 on admission. He did receive IM Zyprexa overnight due to agitation, but fortunately has remained calm throughout the day today 01/18. #Metabolic encephalopathy | Vascular Dementia - likely acute delirium multifactorial between acute dehydration, recent Macrobid use for UTI, recent benzo use in setting of vascular dementia. If no improvement with supportive measures, could be progressive decline of vascular dementia - No signs of infection - No leukocytosis, UA negative, VSS - S/p 2 L IV fluids - Continue Seroquel 25 mg HS PRN agitation. Daughter confirms that diazepam is discontinued - Delirium prevention strategies - Fall precautions - PT/OT following - if [facility] cannot accomodate his needs, would recommend SNF #Paroxysmal A-fib - Eliquis was discontinued during his last hospital stay in July 2024. - Continue metoprolol 25 mg daily #Elevated Alk Phos - intermittently elevated in past. Down trended from admission #Constipation | Cirrhosis - continue MiraLAX daily PRN, lactulose daily PRN #Hypertension - continue Olmesartan 40 mg daily #Urinary retention | BPH - continue Flomax BID #DMT2 - metformin discontinued in July 2024 with A1c 4.7% DVT PPx: Lovenox Dispo: Plan for discharge back to [facility] on hospice services tomorrow, 01/19. It is hard to decipher at this time if this is acute delirium or progressive decline of his vascular dementia. If there is no improvement in his mental status and ADLs in the next 4-6 weeks, then this is likely a progressive decline of his vascular dementia and he may need SNF placement over his current [facility] level of care. Updated daughter, Megan, at bedside Discussed discharge planning with case management Admission and Anticipated Discharge Date Admission Date: January 17, 2025 Supervising Physician Co-Signing Physician Notes chart reviewed and case d/w S Gail AGEE, as above Subjective Patient seen and evaluated in the ED when working with PT/OT. He is completely confused at this time. Likely some delirium setting in, especially given his prolonged stay in the ED room without windows. He does not appear to be in any distress and did not voice any complaints at this time. He did become agitated overnight, and ultimately received IM Zyprexa. He has remained calm throughout the day today. Return to bedside when his daughter, Megan, was present. We discussed possible discharge today versus tomorrow. Unfortunately, there was not enough time to get him back to his [facility] prior to the home management supervisor leaving at 1600. Daughter was also concerned about Peter not being able to feed himself right now and a mild tremor in his hands bilaterally. I reviewed his head CT results from admission with her. It is difficult to say at this time if this is due to delirium or a progressive decline in his vascular dementia. Daughter is understanding. Will plan for discharge to [facility] tomorrow morning via transport company per daughter's request. Physical Exam Physical Exam: General: No acute distress, nondiaphoretic, well-developed, well-nourished. Skin: Warm, dry. Mucous membranes moist. 1+ pitting edema bilaterally. No rashes noted. Cardiac: Regular rate and rhythm without murmurs gallops or rubs. Pulm: Clear to auscultation bilaterally without wheezes, rales or rhonchi. Normal respiratory effort. 94% on room air. Abdominal: Soft, nontender, nondistended. Bowel sounds present. Neuro: Awake and alert but not oriented to person, place, time, or event. Mild tremor in hands bilaterally. No focal neurological deficits. Results & Data Results & Data Vital Signs (Past 12 Hours) Vital Signs Temp Pulse Pulse Resp BP BP Pulse Ox 01/18/25 11:00 95 H 20 126/83 94 01/18/25 09:23 77 18 105/53 L 99 01/18/25 07:23 82 01/18/25 06:00 81 14 99/70 L 97 01/18/25 05:00 84 15 106/69 96 01/18/25 04:37 98.0 F O2 Del Method O2 Flow Rate 01/18/25 11:00 Room Air 01/18/25 09:23 Oxymask 3 01/18/25 07:23 01/18/25 06:00 Oxymask 2 01/18/25 05:00 Oxymask 2 01/18/25 04:37 Laboratory Results Reviewed CBC with differential Reviewed CMP PG Care Time/CCT Total # of Minutes Spent Total Time Spent with Patient: Total time spent is greater than 50% in coordination of care (as documented) at patient's floor/unit and/or counseling patient: Coding Level of Care Code 61150 SUB INP/OBS CARE 3/50MIN Diagnoses Metabolic encephalopathy G93.41 Paroxysmal atrial fibrillation I48.0 Primary hypertension I10 Hypertension type: primary hypertension Elevated alkaline phosphatase level R74.8 Urinary retention due to benign prostatic hyperplasia N40.1; R33.8 (3) Hypertension Hypertension type: primary hypertension Qualified Code(s): I10 - Essential (primary) hypertension"
[2025-01-18 19:46] VITALS: RESP 16
[2025-01-19 07:09] VITALS: BP 136/75; PULSE 94; TEMP 98.4; O2SAT 99
--- NOTE | 2025-01-19 17:16 | Discharge Summary ---
"Discharge Summary Date of Service January 19, 2025 Principal Dx & Hospital Course #1 = Principal Diagnosis (1) Metabolic encephalopathy: (2) Paroxysmal atrial fibrillation: (3) Hypertension: (4) Elevated alkaline phosphatase level: (5) Urinary retention due to benign prostatic hyperplasia: Maria Antonia Cruz is a pleasantly confused 89-year-old man with past medical history of vascular dementia, hypertension, paroxysmal A-fib, CKD, spinal stenosis, cirrhosis, and T2DM no longer on medications. He presented from [place] with altered mental status. Daughter reports this has been ongoing for ~1 week, but states his muffle worker reports it has been ongoing for ~1 month. Daughter confirms she revoked hospice for this hospitalization but wants to resume hospice on discharge. Ammonia level WNL at 30 on admission. He did receive IM Zyprexa overnight 01/18 due to agitation, but fortunately has remained calm since and did not require any further IM meds. #Metabolic encephalopathy | Vascular Dementia - likely acute delirium multifactorial between acute dehydration, recent Macrobid use for UTI, recent benzo use in setting of vascular dementia. If no improvement with supportive measures, could be progressive decline of vascular dementia - No signs of infection - No leukocytosis, UA negative, VSS - S/p 2 L IV fluids - Continue Seroquel 25 mg HS PRN agitation. Daughter confirms that diazepam is discontinued - Delirium prevention strategies - Fall precautions - PT/OT following - if [facility] cannot accomodate his needs, would recommend SNF #Paroxysmal A-fib - Eliquis was discontinued during his last hospital stay in July 2024. - Continue metoprolol 25 mg daily #Elevated Alk Phos - intermittently elevated in past. Down trended from admission #Constipation | Cirrhosis - continue MiraLAX daily PRN, lactulose daily PRN #Hypertension - continue Olmesartan 40 mg daily #Urinary retention | BPH - continue Flomax BID #DMT2 - metformin discontinued in July 2024 with A1c 4.7% DVT PPx: Lovenox Dispo: Discharge back to [place] on hospice services 01/19 Notes For Next Care Provider Difficult to decipher if altered mental status is delirium versus acute decline in vascular dementia. If no improvement in 4-6 weeks upon return to usual environment, can fairly say this is progressive decline of vascular dementia. Returned to [place] on hospice services. If he requires more care then then they can offer, would recommend SNF placement. Medication Changes From Visit Refill quetiapine prescription Discontinued Macrobid and diazepam Admission HPI Per Admitting Provider Anthony is an 89-year-old man with past medical history of vascular dementia, hypertension, paroxysmal A-fib, CKD, spinal stenosis, cirrhosis, and T2DM no longer on medications. He presented from [place] with altered mental status. At the time of my exam, the patient was lying in bed in no acute distress. He is lethargic but arouses to voice. No meaningful ROS able to be obtained. ED physician and RN report he is confused at baseline secondary to vascular dementia but is usually more alert and oriented than he is currently. Discussed via phone call with his daughter, Megan, who provides collateral information. He was prescribed Macrobid last week for UTI and was also recently started on diazepam 5 mg twice daily and received about 2 days worth of this medication before his daughter requested it to be discontinued on Sunday 01/14. His daughter reports she has noticed an altered mental status and the patient for about 1 week. She states that his muffle worker reports an altered mental status from his baseline for approximately 1 month. Daughter confirmed that hospice services were revoked for this hospitalization and she intends to resume hospice services on discharge. Vitals on admission are all stable. Labs on admission are significant for T. bili elevated at 2.3, alk phos elevated at 348. No leukocytosis, Hgb at baseline with chronic anemia, UA negative. Head CT on admission reveals periventricular microangiopathic disease, but no hemorrhage, mass effect, or evidence of acute territorial ischemia. We discussed code status, daughter reports that Mr. Wild is DNR/DNI. Discharge Exam General: No acute distress, nondiaphoretic, well-developed, well-nourished. Skin: Warm, dry. Mucous membranes moist. 1+ pitting edema bilaterally. No rashes noted. Cardiac: Regular rate and rhythm without murmurs gallops or rubs. Pulm: Clear to auscultation bilaterally without wheezes, rales or rhonchi. Normal respiratory effort. 99% on room air. Abdominal: Soft, nontender, nondistended. Bowel sounds present. Neuro: Awake and alert but not oriented to person, place, time, or event. Mild tremor in hands bilaterally. No focal neurological deficits. Discharge Plan Discharge Items Patient Disposition: Hospice - Medical Facility Reason For Visit: CONFUSION, FALL Discharge Diagnosis: Altered mental statusdelirium versus progressive decline of vascular dementia Condition on Discharge: Fair Activity: Resume your previous activity Non-emergency contact: Primary Care Provider and Specialist Call non-emergency contact if: you have any medication questions and your symptoms worsen Follow-up/Referrals: Armando Valencia MD [Primary Care Provider] - Diet: Heart Healthy Addtl Attending Provider Instructions: FOR [place]: Anthony was admitted to the hospital due with an altered mental status. His workup was overall unremarkable. Urinalysis was negative, no leukocytosis, electrolytes normal, ammonia level normal, vital signs stable. Head CT without hemorrhage, mass effect, or evidence of stroke. On admission, slight elevation in BUN/creatinine and dry mucous membranes indicated dehydration. He was given IV fluids. His altered mental status is likely acute delirium that is multifactorial between recent Macrobid use for UTI, recent benzo use with diazepam and patient with vascular dementia, and acute dehydration. Certainly his hospital stay likely exacerbated this acute delirium. If no improvement with supportive measures and his return to his usual environment over the next 4-6 weeks, suspect his changes in mental status/mild bilateral hand tremors/intermittent inability to feed himself are due to progressive decline of his vascular dementia. He is returning on hospice services. Per my discussion with his daughter, Megan, his usual home medications are being continued at this time. He can use creatinine pain 25 mg at bedtime as needed for agitation. I strongly advise against any benzo use for Anthony given his vascular dementia; I have discontinued his diazepam. Pending Studies at Discharge: No Stand-Alone Forms: My [facility] Skilled Items Patient informed of condition?: Yes DNR: Yes Discharge Level of Care: Skilled Communicable Disease: No Discharge Prognosis: Stable Lines: None Urinary Catheter: No Medications and DC Order Prescriptions: New quetiapine 25 mg Tablet 25 mg PO HS PRN (Reason: agitation) Qty: 14 0RF Continued tamsulosin 0.4 mg capsule 0.4 mg PO BID Qty: 90 3RF polyethylene glycol 3350 [Miralax] 17 gram/dose powder 17 g PO DAILY PRN (Reason: constipation) Qty: 119 0RF acetaminophen [Tylenol] 325 mg Tablet 650 mg PO Q6H MDD 3gm apap/24h PRN (Reason: pain or fever) multivitamin Tablet 1 tab PO QAM glycopyrrolate 1 mg Tablet 1 - 2 mg PO Q4H PRN (Reason: Secretions) acetaminophen 650 mg Suppository 650 mg WI Q4H PRN (Reason: Mild Pain/Fever) morphine concentrate 100 mg/5 mL (20 mg/mL) Solution 10 - 20 mg PO Q30M PRN (Reason: Pain/Air Hunger) Rx Instructions: GIVE 0.5ML-1ML (10MG-20MG) BY MOUTH OR UNDER TONGUE EVERY 30 MINUTES NEEDED FOR PAIN OR AIR HUNGER [Equiv To: ROXANOL 20 MG/ML SOLUTION] promethazine 25 mg Tablet 25 mg PO Q6H PRN (Reason: Nausea And Vomiting) docusate sodium [DOK] 100 mg Tablet 100 mg PO BID metoprolol succinate 25 mg tablet extended release 24 hr 25 mg PO QAM olmesartan 40 mg tablet 40 mg PO QAM lactulose [Enulose] 10 gram/15 mL solution 10 g PO QAM PRN (Reason: Constipation) Discontinued diazepam 5 mg Tablet 5 mg PO BID nitrofurantoin monohyd/m-cryst [Macrobid] 100 mg Capsule 100 mg PO BID Rx Instructions: must administer with a meal/food Discharge Orders: Discharge Order (Routine); Ordered 01/19/25 Ordered By: Michelle Null/Other Patient Handouts: ED Confusion Admission Data Admit Date/Time: 01/17/25 13:18 Attending Provider: Justus Duong Admit Provider: Justus Duong Primary Care Provider: Armando Valencia Other Providers: Darrel Coleman Other Interventions: Discharge Summary Assessment (RN) Last Done: 01/19/25 09:54 Hospital Stay Data Consultations 01/17/25 13:39 ED Decision to Admit Stat Diagnostic Imagining Performed Head CT 01/17/25 13:07 CT SCAN OF THE BRAIN WITHOUT IV CONTRAST CLINICAL HISTORY: Change in mental status. Fall. COMPARISON STUDY: CT of the brain dated 12/30/2024 TECHNIQUE: Unenhanced axial CT scan of the brain is performed from the vertex to the skull base. Images are reviewed in the axial, sagittal, coronal planes. A dose lowering technique was utilized adhering to the principles of ALARA. The patient was scanned twice due to motion artifact. CT DOSE: 1250.21 mGy.cm FINDINGS: Brain parenchyma: There is age-related involutional change noting mild subcortical and periventricular microangiopathic disease. There is no hemorrhage, mass effect, or evidence of acute territorial ischemia by CT criteria. Green-white matter differentiation is preserved. No extra-axial fluid collection is seen. Ventricles, sulci, cisterns: Prominent secondary to involutional change. Cavum septum pellucidum is incidentally noted. Intracranial vasculature: There is atherosclerotic calcification of the cavernous carotid and vertebral arteries. Calvarium: Unremarkable. Sinuses and mastoids: There is evidence of previous paranasal sinus surgery. There is [id number] mucosal thickening within the maxillary antra. The remaining visualized paranasal sinuses are clear. The mastoid air cells are well pneumatized. Orbits: The bony orbits are grossly intact. IMPRESSION: There is no hemorrhage, mass effect, or evidence of acute territorial ischemia by CT criteria noting a degraded examination. ACT 112: Negative or not required by law. Electronically signed by: Amadeo Woodruff M.D. 01/17/2025 1:32 PM Chest X-Ray 01/17/25 18:52 EXAM: XR chest 2V PA/lateral CLINICAL HISTORY: Right-sided rib pain, recurrent falls TECHNIQUE: X-ray images of the chest were obtained in posteroanterior (PA) and lateral projections. COMPARISON: 10/21/2024 FINDINGS: Pulmonary Parenchyma: There is bilateral hilar pulmonary vascular congestion. Patchy right lower lobe airspace opacity. Additionally, patchy opacities also noted in right upper lobe medially with presence of air bronchogram. Small right pleural effusion. Mild left basilar atelectasis. Heart and Mediastinum: The cardiomediastinal send it is mildly enlarged. No mediastinal widening or masses. No hilar or mediastinal lymphadenopathy. Bony Thorax: Bony thorax appears intact without fractures or deformities. Multilevel mild thoracic spondylosis. Mild degenerative changes are seen at both shoulder joints. Soft Tissues: Soft tissues overlying the chest wall are unremarkable. IMPRESSION: 1. Stable cardiomegaly with pulmonary vascular congestive changes. 2. Slight interval progression of right lower airspace consolidation. 3. Interval new development of right upper lobe airspace opacity. 4. Stable small right pleural effusion. 5. No other significant interval changes. Clinical correlation and follow-up is recommended. Electronically signed by Alfredo Fried 01-17-2025 10:17 PM Pending Results Patient Have Any Pending Studies at Discharge: No Discharge Instructions Given to Patient (Per Discharging Provider) FOR JAEL: Anthony was admitted to the hospital due with an altered mental status. His workup was overall unremarkable. Urinalysis was negative, no leukocytosis, electrolytes normal, ammonia level normal, vital signs stable. Head CT without hemorrhage, mass effect, or evidence of stroke. On admission, slight elevation in BUN/creatinine and dry mucous membranes indicated dehydration. He was given IV fluids. His altered mental status is likely acute delirium that is multifactorial between recent Macrobid use for UTI, recent benzo use with diazepam and patient with vascular dementia, and acute dehydration. Certainly his hospital stay likely exacerbated this acute delirium. If no improvement with supportive measures and his return to his usual environment over the next 4-6 weeks, suspect his changes in mental status/mild bilateral hand tremors/intermittent inability to feed himself are due to progressive decline of his vascular dementia. He is returning on hospice services. Per my discussion with his daughter, Megan, his usual home medications are being continued at this time. He can use creatinine pain 25 mg at bedtime as needed for agitation. I strongly advise against any benzo use for Anthony given his vascular dementia; I have discontinued his diazepam. Supervising Physician Co-Signing Physician Notes chart reviewed and case d/w S Gail AGEE, as above Total Time Total Time Spent Total Time Spent (In Minutes): Greater than 30 minutes spent completing this discharge process including direct patient care, medication reconciliation, documentation, review of labs and images, and coordination of care. Coding Level of Care Code 69591 INP/OBS DISCH >30 MIN Diagnoses Metabolic encephalopathy G93.41 Paroxysmal atrial fibrillation I48.0 Primary hypertension I10 Hypertension type: primary hypertension Elevated alkaline phosphatase level R74.8 Urinary retention due to benign prostatic hyperplasia N40.1; R33.8"
== END 2025-01-19 10:39 | disposition hospice, inpatient (51) ==
LOC: ED 09:26 → EDINP 09:26 → 3N 01-18 19:46